=== PATIENT | male | born 1985 | race Caucasian/White ===

== ENCOUNTER 2021-07-04 03:37 | Emergency (ER) | payer OTHER ==
[2021-07-04 03:44] VITALS: TEMP 99.7
[2021-07-04 04:47] VITALS: RESP 18
--- NOTE | 2021-07-04 04:55 | ED ---
Overdose HPI - General Chief Complaint: Overdose Stated Complaint: Overdose Time Seen by Provider: 07/04/21 03:55 Source: patient, EMS Mode of arrival: EMS - History of Present Illness Initial Comments: Patient is 36-year-old man here after he had accidentally overdosed on heroin. Patient had orally ingested a small chunk of heroin and then was very somnolent. First responders were called and did administer Narcan. Complaint: accidental overdose -: minutes(s) How Overdose Was Discovered: family/friend present at time Context: Accidental Overdose: wanted to get high Treatments Prior to Arrival: narcan - Related Data Previous Rx's Medication Instructions Recorded Sulfamethox-Tmp 800-160Mg [Bactrim 2 each PO Q12HR #40 tab 07/04/21 Ds] Allergies Allergy/AdvReac Type Severity Reaction Status Date / Time No Known Allergies Allergy Verified 07/04/21 07:57 Review of Systems ROS Statement: Those systems with pertinent positive or pertinent negative responses have been documented in the HPI. ROS Other: All systems not noted in ROS Statement are negative. Constitutional: Denies: fever, chills Eyes: Denies: vision change Respiratory: Denies: cough, dyspnea Cardiovascular: Denies: chest pain, palpitations, edema Gastrointestinal: Denies: abdominal pain, vomiting, diarrhea Genitourinary: Denies: dysuria Musculoskeletal: Denies: back pain Skin: Reports: lesions Neurological: Denies: headache, weakness, numbness Past Medical History Past Medical History: No Reported History History of Any Multi-Drug Resistant Organisms: None Reported Past Surgical History: No Surgical Hx Reported Past Psychological History: No Psychological Hx Reported Smoking Status: Current every day smoker Past Alcohol Use History: Rare Past Drug Use History: Heroin, Marijuana General Exam General appearance: alert, in no apparent distress Head exam: Present: atraumatic, normocephalic Eye exam: Present: normal appearance. Absent: scleral icterus, conjunctival injection Neck exam: Present: normal inspection Respiratory exam: Present: normal lung sounds bilaterally. Absent: respiratory distress, wheezes, rales, rhonchi, stridor Cardiovascular Exam: Present: normal rhythm, tachycardia, normal heart sounds. Absent: systolic murmur, diastolic murmur, rubs, gallop GI/Abdominal exam: Present: soft. Absent: distended, tenderness, guarding, rebound, rigid Extremities exam: Present: normal inspection, normal capillary refill. Absent: pedal edema, calf tenderness Back exam: Present: normal inspection. Absent: CVA tenderness (R), CVA tenderness (L) Neurological exam: Present: alert Skin exam: Present: warm, dry, intact, normal color, other (The patient does have small lesion to left antecubital fossa which may be early abscess formation. There is erythema and warmth tenderness. The area is indurated no definite fluctuance.) Course Vital Signs 07/04/21 07/04/21 07/04/21 03:38 04:47 08:17 Temperature 99.7 F H Pulse Rate 150 H 121 H 110 H Respiratory 22 18 18 Rate Blood Pressure 130/84 108/87 124/84 O2 Sat by Pulse 98 98 96 Oximetry Medical Decision Making - Medical Decision Making The patient did request that I attempted to drain the small area in the left an acute low fossa. Discussed that this may not be mature yet but will attempt the laceration. I did administer 1% lidocaine as local anesthesia. Small stab incision made. No purulent drainage. - EKG Data -: EKG Interpreted by Me EKG shows normal: sinus rhythm, axis (Normal), intervals (Normal), QRS complexes (RSR prime pattern suggestive of right ventricular conduction delay. Posterior fascicular block.), ST-T waves (Normal) Rate: tachycardia (Rate 135 bpm) Disposition Clinical Impression: Accidental drug overdose, Abscess Disposition: HOME SELF-CARE Condition: Good Instructions (If sedation given, give patient instructions): Adult Overdose (ED) Prescriptions: Sulfamethox-Tmp 800-160Mg [Bactrim Ds] 2 each PO Q12HR #40 tab Is patient prescribed a controlled substance at d/c from ED?: No Referrals: Mar Ireland DO [Primary Care Provider] - 1-2 days
[2021-07-04] MEDS ORDERED: LIDOCAINE 1% INJ 10MG/ML (20 ML MDV) SQ ONE (06:05)
[2021-07-04 08:18] VITALS: BP 124/84; PULSE 110
== END 2021-07-04 08:17 | disposition home or self-care (01) ==
LOC: EC 03:37
DX: T40.1X1A Poisoning by heroin, accidental (unintentional), initial encounter (principal); L02.414 Cutaneous abscess of left upper limb; F17.200 Nicotine dependence, unspecified, uncomplicated; F12.90 Cannabis use, unspecified, uncomplicated
CPT/HCPCS: 99284; J2001

== ENCOUNTER 2022-11-19 00:38 | Emergency (ER) | payer OTHER ==
[2022-11-19 00:46] VITALS: RESP 16; TEMP 98.1
--- NOTE | 2022-11-19 02:06 | XR ---
EXAM: XR Chest, 2 Views CLINICAL HISTORY: ITS.REASON XR Reason: chest pain TECHNIQUE: Frontal and lateral views of the chest. COMPARISON: No relevant prior studies available. FINDINGS: Lungs: No consolidation or mass. Pleural space: No effusion. Heart: No cardiomegaly. Bones/joints: No acute findings. IMPRESSION: No acute cardiopulmonary process.
[2022-11-19 02:07] LABS: Basophils % (A) 0 %; Eosinophils # (A) 0.2 k/uL (0-0.7); Eosinophils % (A) 1 %; HCT 37.6 % (39.0-53.0); HGB 12.4 gm/dL (13.0-17.5); Lymphocytes # (A) 2.4 k/uL (1.0-4.8); Lymphocytes % (A) 19 %; MCH 29.6 pg (25.0-35.0); MCV 89.7 fL (80.0-100.0); Mean Platelet Volume 7.2; Monocytes # (A) 0.6 k/uL (0-1.0); Monocytes % (A) 5 %; Neutrophils # (A) 9.4 k/uL (1.3-7.7); Neutrophils % (A) 73 %; Platelet Count 311 k/uL (150-450); RDW 14.3 % (11.5-15.5); WBC 12.8 k/uL (3.8-10.6)
[2022-11-19 02:40] LABS: Partial Thromboplastin Time 26.5 sec (22.0-30.0); Prothrombin Time 10.6 sec (9.0-12.0)
[2022-11-19] MEDS ORDERED: ACETAMINOPHEN TAB 325 MG TAB PO STA (03:10)
[2022-11-19] MEDS ORDERED: KETOROLAC 15 MG/ML 1 ML VIAL IVP STA (03:11)
--- NOTE | 2022-11-19 03:17 | ED ---
General Adult HPI - General Source: patient, RN notes reviewed Mode of arrival: wheelchair Limitations: no limitations <Rosa Maria Pham - Last Filed: 11/19/22 04:24> <Talat Stark - Last Filed: 11/19/22 04:58> - General Chief complaint: Chest Pain Stated complaint: Chest Pain Time Seen by Provider: 11/19/22 00:59 - History of Present Illness Initial comments: 37-year-old male with no significant past medical history presents the emergency department with a chief complaint of left-sided chest pain. He reports the chest pain started at approximately 6 PM. He reports that it as sharp and dull ache. He reports that is constant. He denies any trauma or injury. He denies any provocation. It is worst with movement. He reports that he smokes tobacco products. Reports that he is on Suboxone. Cardiac or pulmonary history. He denies any fever, chills, cough, palpitations, shortness of breath, abdominal pain, nausea, vomiting, diarrhea. (Rosa Maria Pham) - Related Data Previous Rx's Medication Instructions Recorded Sulfamethox-Tmp 800-160Mg [Bactrim 2 each PO Q12HR #40 tab 07/04/21 Ds] Allergies Allergy/AdvReac Type Severity Reaction Status Date / Time No Known Allergies Allergy Verified 11/19/22 00:43 Review of Systems ROS Other: All systems not noted in ROS Statement are negative. <Rosa Maria Pham - Last Filed: 11/19/22 04:24> ROS Other: All systems not noted in ROS Statement are negative. <Talat Stark - Last Filed: 11/19/22 04:58> ROS Statement: Those systems with pertinent positive or pertinent negative responses have been documented in the HPI. Past Medical History Past Medical History: No Reported History History of Any Multi-Drug Resistant Organisms: None Reported Past Surgical History: No Surgical Hx Reported Past Psychological History: Bipolar, Depression Smoking Status: Current every day smoker Past Alcohol Use History: Occasional Past Drug Use History: Cocaine, Heroin, Marijuana <Rosa Maria Pham - Last Filed: 11/19/22 04:24> General Exam Limitations: no limitations <Rosa Maria Pham - Last Filed: 11/19/22 04:24> - General Exam Comments Initial Comments: General: Alert, in no acute distress Head: atraumatic normocephalic. Eyes PERRL, EOMI intact, mucous membranes moist Respiratory: Lungs clear to auscultation bilaterally Cardiovascular: Heart rate regular rate and rhythm Abdominal: Soft without guarding or rebound Extremities: Normal inspection with full range of motion and normal capillary refill Neuroogic: alert and oriented 3, CN II-XII intact, able to ambulate with steady gait Skin: warm dry and intact with normal color (Rosa Maria Pham) Course Vital Signs 11/19/22 11/19/22 00:43 04:13 Temperature 98.1 F Pulse Rate 91 66 Respiratory 16 16 Rate Blood Pressure 123/73 O2 Sat by Pulse 91 L Oximetry EKG Findings - EKG Comments: EKG Findings:: I interpreted the following: EKG performed at 00:51 rate 77 bpm and sinus arrhythmia OH interval 142, QRS duration 80, QT/Qtc 351/383 <Rosa Maria Pham - Last Filed: 11/19/22 04:24> Medical Decision Making - Lab Data Result diagrams: 11/19/22 01:27 11/19/22 03:28 <Rosa Maria Pham - Last Filed: 11/19/22 04:24> - Lab Data Result diagrams: 11/19/22 01:27 11/19/22 03:28 <Talat Stark - Last Filed: 11/19/22 04:58> - Medical Decision Making Was pt. sent in by a medical professional or institution (MAURY De Luna, FREEZER MACHINE OPERATOR, urgent care, hospital, or jail...) When possible be specific @ -No Did you speak to anyone other than the patient for history (EMS, parent, family, police, friend...)? What history was obtained from this source @ -No Did you review nursing and triage notes (agree or disagree)? Why? @ -I reviewed and agree with nursing and triage notes Were old charts reviewed (outside hosp., previous admission, EMS record, old EKG, old radiological studies, urgent care reports/EKG's, jail records)? Report findings @ -No old charts were reviewed Differential Diagnosis (chest pain, altered mental status, abdominal pain women, abdominal pain men, vaginal bleeding, weakness, fever, dyspnea, syncope, he adache, dizziness, GI bleed, back pain, seizure, CVA, palpatations, mental health, musculoskeletal)? @ Differential Chest Pain: Stable Angina, Unstable Angina, STEMI, NSTEMI Aortic Dissection, Pneumothorax, Musculoskeletal, Esophageal Spasm GERD, Cholecystitis, Pancreatitis, Zoster, this is not meant to be an all-inclusive list. EKG interpreted by me (3pts min.). @ -As above X-rays interpreted by me (1pt min.). @ Negative for acute cardiopulmonary disease, no pneumothorax no focal pneumonia. Reviewed and interpreted by myself CT interpreted by me (1pt min.). @ -None done U/S interpreted by me (1pt. min.). @ -None done What testing was considered but not performed or refused? (CT, X-rays, U/S, labs)? Why? @ -None What meds were considered but not given or refused? Why? @ -None Did you discuss the management of the patient with other professionals (professionals i.e. , PA, FREEZER MACHINE OPERATOR, lab, RT, psych nurse, social services specialist, practical nursing teacher, teacher, penal officer, major case detective)? Give summary @ -No Was smoking cessation discussed for >3mins.? @ -No Was critical care preformed (if so, how long)? @ -No Were there social determinants of health that impacted care today? How? (Homelessness, low income, unemployed, alcoholism, drug addiction, transportation, low edu. Level, literacy, decrease access to med. care, [facility], rehab)? @ -No Was there de-escalation of care discussed even if they declined (Discuss DNR or withdrawal of care, Hospice)? DNR status @ -No What co-morbidities impacted this encounter? (DM, HTN, Smoking, COPD, CAD, Cancer, CVA, ARF, Chemo, Hep., AIDS, mental health diagnosis, sleep apnea, morbid obesity)? @ -Illicit drugs Was patient admitted / discharged? Hospital course, mention meds given and route, prescriptions, significant lab abnormalities, going to OR and other pertinent info. @ -27-year-old male presenting with chest discomfort. EKG is sinus rhythm without ST segment elevation. Chest x-ray is clear. He has normal CBC, normal BNP, negative d-dimer, negative troponin. Patient reevaluated and does not have any further chest pain. Patient stable for discharge with outpatient follow-up. Undiagnosed new problem with uncertain prognosis? @ -No Drug Therapy requiring intensive monitoring for toxicity (Heparin, Nitro, Insulin, Cardizem)? @ -No Were any procedures done? @ -No Diagnosis/symptom? @ -Chest discomfort Acute, or Chronic, or Acute on Chronic? @ -Acute Uncomplicated (without systemic symptoms) or Complicated (systemic symptoms)? @ Uncomplicated Side effects of treatment? @ -No Exacerbation, Progression, or Severe Exacerbation? @ -No Poses a threat to life or bodily function? How? (Chest pain, [place], [place], pneumonia, PE, COPD, DKA, ARF, appy, cholecystitis, CVA, Diverticulitis, Homicidal, Suicid al, threat to staff... and all critical care pts) @ -Yes, chest pain (Talat Stark) - Lab Data Lab Results 11/19/22 11/19/22 11/19/22 Range/Units 01:27 01:27 01:27 WBC 12.8 H (3.8-10.6) k/uL RBC 4.20 L (4.30-5.90) m/uL Hgb 12.4 L (13.0-17.5) gm/dL Hct 37.6 L (39.0-53.0) % MCV 89.7 (80.0-100.0) fL MCH 29.6 (25.0-35.0) pg MCHC 33.0 (31.0-37.0) g/dL RDW 14.3 (11.5-15.5) % Plt Count 311 (150-450) k/uL MPV 7.2 Neutrophils % 73 % Lymphocytes % 19 % Monocytes % 5 % Eosinophils % 1 % Basophils % 0 % Neutrophils # 9.4 H (1.3-7.7) k/uL Lymphocytes # 2.4 (1.0-4.8) k/uL Monocytes # 0.6 (0-1.0) k/uL Eosinophils # 0.2 (0-0.7) k/uL Basophils # 0.0 (0-0.2) k/uL PT 10.6 (9.0-12.0) sec INR 1.0 (<1.2) APTT 26.5 (22.0-30.0) sec D-Dimer (<0.60) mg/L FEU Sodium (137-145) mmol/L Potassium (3.5-5.1) mmol/L Chloride (98-107) mmol/L Carbon Dioxide (22-30) mmol/L Anion Gap mmol/L BUN (9-20) mg/dL Creatinine (0.66-1.25) mg/dL Est GFR (CKD-EPI)AfAm (>60 ml/min/1.73 sqM) Est GFR (CKD-EPI)NonAf (>60 ml/min/1.73 sqM) Glucose (74-99) mg/dL Calcium (8.4-10.2) mg/dL Magnesium 1.7 (1.6-2.3) mg/dL Troponin I (0.000-0.034) ng/mL 11/19/22 11/19/22 11/19/22 Range/Units 01:27 03:28 04:16 WBC (3.8-10.6) k/uL RBC (4.30-5.90) m/uL Hgb (13.0-17.5) gm/dL Hct (39.0-53.0) % MCV (80.0-100.0) fL MCH (25.0-35.0) pg MCHC (31.0-37.0) g/dL RDW (11.5-15.5) % Plt Count (150-450) k/uL MPV Neutrophils % % Lymphocytes % % Monocytes % % Eosinophils % % Basophils % % Neutrophils # (1.3-7.7) k/uL Lymphocytes # (1.0-4.8) k/uL Monocytes # (0-1.0) k/uL Eosinophils # (0-0.7) k/uL Basophils # (0-0.2) k/uL PT (9.0-12.0) sec INR (<1.2) APTT (22.0-30.0) sec D-Dimer 0.23 (<0.60) mg/L FEU Sodium 134 L (137-145) mmol/L Potassium 4.1 (3.5-5.1) mmol/L Chloride 99 (98-107) mmol/L Carbon Dioxide 27 (22-30) mmol/L Anion Gap 8 mmol/L BUN 21 H (9-20) mg/dL Creatinine 0.80 (0.66-1.25) mg/dL Est GFR (CKD-EPI)AfAm >90 (>60 ml/min/1.73 sqM) Est GFR (CKD-EPI)NonAf >90 (>60 ml/min/1.73 sqM) Glucose 99 (74-99) mg/dL Calcium 8.4 (8.4-10.2) mg/dL Magnesium (1.6-2.3) mg/dL Troponin I <0.012 (0.000-0.034) ng/mL Disposition Is patient prescribed a controlled substance at d/c from ED?: No Time of Disposition: 04:03 <Rosa Maria Pham - Last Filed: 11/19/22 04:24> Time of Disposition: 04:58 <Talat Stark - Last Filed: 11/19/22 04:58> Clinical Impression: Chest pain Disposition: HOME SELF-CARE Condition: Stable Instructions (If sedation given, give patient instructions): Chest Pain (ED) Additional Instructions: Please return to the nearest emergency department if symptoms worsen or persist Referrals: Mar Ireland DO [Primary Care Provider] - 1-2 days
[2022-11-19 04:16] LABS: African American GFR (CKD) >90 (>60 ml/min/1.73 sqM); Anion Gap 8 mmol/L; Blood Urea Nitrogen 21 mg/dL (9-20); Calcium 8.4 mg/dL (8.4-10.2); Carbon Dioxide 27 mmol/L (22-30); Chloride 99 mmol/L (98-107); Glucose 99 mg/dL (74-99); Non-African American GFR(CKD) >90 (>60 ml/min/1.73 sqM); Potassium 4.1 mmol/L (3.5-5.1); Sodium 134 mmol/L (137-145)
[2022-11-19 05:10] VITALS: BP 122/80; PULSE 88
== END 2022-11-19 05:24 | disposition home or self-care (01) ==
LOC: EC 00:38
DX: R07.89 Other chest pain (principal); I21.9 Acute myocardial infarction, unspecified; J44.9 Chronic obstructive pulmonary disease, unspecified; E11.10 Type 2 diabetes mellitus with ketoacidosis without coma; N17.9 Acute kidney failure, unspecified; F17.200 Nicotine dependence, unspecified, uncomplicated; Z86.59 Personal history of other mental and behavioral disorders
CPT/HCPCS: 36415; 93005; 85379; 80048; 83735; 84484; 85025; 85610; 85730; 71046; 99285; 96374; J1885

== ENCOUNTER 2022-12-07 21:55 | Emergency (ER) | payer OTHER ==
[2022-12-07 22:15] VITALS: RESP 18
[2022-12-07] MEDS ORDERED: LORazepam 1 MG TAB PO STA (22:46)
[2022-12-08 00:27] LABS: Amphetamine Screen,Urine Detected (NotDetected); Barbiturate Screen,Urine Not Detected (NotDetected); Benzodiazepines Screen,Urine Not Detected (NotDetected); Cocaine Screen,Urine Not Detected (NotDetected); Methadone Screen, Urine Not Detected (NotDetected); Opiate Screen,Urine Detected (NotDetected); Oxycodone Screen, Urine Not Detected (NotDetected); Phencyclidine Screen,Urine Not Detected (NotDetected); Tricyclic Antidepressant,Urine Not Detected (NotDetected); Urn Cannabinoid Scrn Detected (NotDetected)
[2022-12-08] MEDS ORDERED: LORazepam 2 MG/ML INJ IM PRN (00:34)
[2022-12-08] MEDS ORDERED: HALOPERIDOL LACTATE 5 MG/ML 1 ML VIAL IM PRN (00:38)
--- NOTE | 2022-12-08 02:16 | ED ---
General Adult HPI - General Source: patient Mode of arrival: ambulatory Limitations: no limitations <Francisco J Corbin - Last Filed: 12/08/22 02:11> <Bal Gill - Last Filed: 12/08/22 10:02> - General Chief complaint: Psychiatric Symptoms Stated complaint: Mental Health Time Seen by Provider: 12/07/22 22:19 - History of Present Illness Initial comments: This is a 37-year-old male with a reported past medical history including manic depression presents emergency department for feeling "depressed and wanting to do something to himself." The patient was manic with flight of ideas and agitation on arrival however was able to answer questions appropriately. He stated that he had worsening thoughts of suicide as well as depression and not take any medications over the last 2 weeks. The patient reported to the triage nurse that he did do IV morphine and Adderall prior to arrival but adamantly refused this with me. The patient denied any homicidal ideation and denied any auditory or visual hallucinations at this time. (Francisco J Corbin) - Related Data Previous Rx's Medication Instructions Recorded Sulfamethox-Tmp 800-160Mg [Bactrim 2 each PO Q12HR #40 tab 07/04/21 Ds] Allergies Allergy/AdvReac Type Severity Reaction Status Date / Time No Known Allergies Allergy Verified 12/07/22 22:12 Review of Systems ROS Other: All systems not noted in ROS Statement are negative. <Francisco J Cobrin - Last Filed: 12/08/22 02:11> ROS Other: All systems not noted in ROS Statement are negative. <Bal Gill - Last Filed: 12/08/22 10:02> ROS Statement: Those systems with pertinent positive or pertinent negative responses have been documented in the HPI. Past Medical History Past Medical History: No Reported History History of Any Multi-Drug Resistant Organisms: None Reported Past Surgical History: No Surgical Hx Reported Past Psychological History: Bipolar, Depression Smoking Status: Current every day smoker Past Alcohol Use History: Occasional Past Drug Use History: Cocaine, Heroin, Marijuana, Prescription Drug Abuse <Francisco J Corbin - Last Filed: 12/08/22 02:11> General Exam Limitations: no limitations General appearance: alert, in no apparent distress, anxious Head exam: Present: atraumatic, normocephalic, normal inspection Eye exam: Present: normal appearance, PERRL Pupils: Present: normal accommodation ENT exam: Present: normal exam, normal oropharynx, mucous membranes moist Neck exam: Present: normal inspection, full ROM Respiratory exam: Present: normal lung sounds bilaterally Cardiovascular Exam: Present: regular rate, normal rhythm, normal heart sounds GI/Abdominal exam: Present: soft, normal bowel sounds Extremities exam: Present: normal inspection, full ROM, other (Multiple track antony noted on the bilateral upper extremities) Back exam: Present: normal inspection, full ROM Neurological exam: Present: alert, oriented X3, CN II-XII intact Psychiatric exam: Present: normal affect, normal mood Skin exam: Present: warm, dry <Francisco J Corbin - Last Filed: 12/08/22 02:11> Course Vital Signs 12/07/22 22:12 Temperature 98.9 F Pulse Rate 111 H Respiratory 18 Rate Blood Pressure 125/78 O2 Sat by Pulse 98 Oximetry Medical Decision Making <Francisco J Corbin - Last Filed: 12/08/22 02:11> <Bal Gill - Last Filed: 12/08/22 10:02> - Medical Decision Making Was pt. sent in by a medical professional or institution (, PA, ACCORDION REPAIRER, urgent care, hospital, or intermediate...) When possible be specific @ -No Did you speak to anyone other than the patient for history (EMS, parent, family, police, friend...)? What history was obtained from this source @ -No Did you review nursing and triage notes (agree or disagree)? Why? @ -I reviewed and agree with nursing and triage notes Were old charts reviewed (outside hosp., previous admission, EMS record, old EKG, old radiological studies, urgent care reports/EKG's, intermediate records)? Report findings @ -No old charts were reviewed Differential Diagnosis (chest pain, altered mental status, abdominal pain women, abdominal pain men, vaginal bleeding, weakness, fever, dyspnea, syncope, headache, dizziness, GI bleed, back pain, seizure, CVA, palpatations, mental health)? @ -Jose, psychosis, polysubstance abuse EKG interpreted by me (3pts min.). @ -None X-rays interpreted by me (1pt min.). @ -None done CT interpreted by me (1pt min.). @ -None done U/S interpreted by me (1pt. min.). @ -None done What testing was considered but not performed or refused? (CT, X-rays, U/S, labs)? Why? @ -None What meds were considered but not given or refused? Why? @ -None Did you discuss the management of the patient with other professionals (professionals i.e. Dr., PA, ACCORDION REPAIRER, lab, RT, psych nurse, social work professor, calcine furnace tender, teacher, digital marketing officer, therapeutic case manager)? Give summary @ -Yes, EPS nurse Was smoking cessation discussed for >3mins.? @ -Yes Was critical care preformed (if so, how long)? @ -No Were there social determinants of health that impacted care today? How? (Homelessness, low income, unemployed, alcoholism, drug addiction, transportation, low edu. Level, literacy, decrease access to med. care, retirement, rehab)? @ -Polysubstance abuse and addiction Was there de-escalation of care discussed even if they declined (Discuss DNR or withdrawal of care, Hospice)? DNR status @ -No What co-morbidities impacted this encounter? (DM, HTN, Smoking, COPD, CAD, Cancer, CVA, ARF, Chemo, Hep., AIDS, mental health diagnosis, sleep apnea, morbid obesity)? @ -Manic depression Was patient admitted / discharged? Hospital course, mention meds given and route, prescriptions, significant lab abnormalities, going to OR and other pertinent info. @ -The patient was seen and evaluated in the emergency department. Physical exam, the patient was pacing in his room, anxious and manic. The patient did have flight of ideas. The patient did admit to suicidal ideation without a plan. The patient had a breath alcohol level of 0 and therefore was medically cleared for EPS evaluation. The patient was seen and evaluated by EPS at the bedside and did have the psychiatrist order him Haldol and Ativan as well as a drug screen and rapid COVID-19 test in order to "better evaluate him" after medications. Rapid drug screen was positive for multiple substances including methamphetamines, amphetamines. COVID-19 was negative. The patient remained closely monitored observed in the emergency department and on reevaluation, EPS did recommend admission to the inpatient psychiatric facility. The patient was told of this and was agreeable. The patient was admitted in stable condition. Undiagnosed new problem with uncertain prognosis? @ -No Drug Therapy requiring intensive monitoring for toxicity (Heparin, Nitro, Insulin, Cardizem)? @ -No Were any procedures done? @ -No Diagnosis/symptom? @ -Acute jose, suicidal ideation Acute, or Chronic, or Acute on Chronic? @ -Acute on chronic Uncomplicated (without systemic symptoms) or Complicated (systemic symptoms)? @ -Complicated Side effects of treatment? @ -No Exacerbation, Progression, or Severe Exacerbation? @ -No Poses a threat to life or bodily function? How? (Chest pain, [place], [place], pneumonia, PE, COPD, DKA, ARF, appy, cholecystitis, CVA, Diverticulitis, Homicidal, Suicidal, threat to staff... and all critical care pts) @ -Yes, continued suicidal ideation can lead to attempt and possible . (Francisco J Corbin) Patient was reevaluated by EPS and myself patient denies any suicidal ideations. Psychiatric spoke with the patient and decided he could be discharged home. Psychiatrist patient go home and the psychiatrist gave the patient Seroquel (Bal Gill) - Lab Data Lab Results 12/07/22 12/07/22 Range/Units 23:44 23:47 Urine Opiates Screen Detected H (NotDetected) Ur Oxycodone Screen Not Detected (NotDetected) Urine Methadone Screen Not Detected (NotDetected) Ur Propoxyphene Screen Not Detected (NotDetected) Ur Barbiturates Screen Not Detected (NotDetected) U Tricyclic Antidepress Not Detected (NotDetected) Ur Phencyclidine Scrn Not Detected (NotDetected) Ur Amphetamines Screen Detected H (NotDetected) U Methamphetamines Scrn Detected H (NotDetected) U Benzodiazepines Scrn Not Detected (NotDetected) Urine Cocaine Screen Not Detected (NotDetected) U Marijuana (THC) Screen Detected H (NotDetected) Coronavirus (PCR) Not Detected (Not Detectd) Disposition <Francisco J Corbin - Last Filed: 12/08/22 02:11> Is patient prescribed a controlled substance at d/c from ED?: No Time of Disposition: 10:01 <Bal Gill - Last Filed: 12/08/22 10:02> Clinical Impression: Acute psychosis, Jose, Methamphetamine abuse Disposition: HOME SELF-CARE Condition: Stable Referrals: Mar Ireland DO [Primary Care Provider] - 1-2 days
[2022-12-08 10:21] VITALS: BP 139/109; PULSE 78; TEMP 97.4
== END 2022-12-08 10:21 | disposition home or self-care (01) ==
LOC: EC 21:55
DX: F23 Brief psychotic disorder (principal); F30.9 Manic episode, unspecified; F15.10 Other stimulant abuse, uncomplicated; F17.200 Nicotine dependence, unspecified, uncomplicated; F12.90 Cannabis use, unspecified, uncomplicated; F14.90 Cocaine use, unspecified, uncomplicated; F11.90 Opioid use, unspecified, uncomplicated; Z20.822 Contact with and (suspected) exposure to COVID-19
CPT/HCPCS: 82075; 80306; 87635; 99284; 96372 ×2; J2060; J1630

== ENCOUNTER 2023-02-17 15:16 | Emergency (ER) | payer OTHER ==
[2023-02-17 16:57] VITALS: TEMP 98.2
[2023-02-17 17:13] VITALS: RESP 18
[2023-02-17] MEDS ORDERED: IBUPROFEN 800 MG TAB PO STA (18:14)
--- NOTE | 2023-02-17 18:16 | ED ---
General Adult HPI - General Chief complaint: Skin/Abscess/Foreign Body Stated complaint: boil on back Time Seen by Provider: 02/17/23 17:04 Source: patient, RN notes reviewed Mode of arrival: wheelchair Limitations: no limitations - History of Present Illness Initial comments: 37-year-old male past medical history significant for polysubstance abuse presents to the emergency department with a chief complaint of possible abscess. Patient reports feeling worsening pain and redness to the right buttock that started earlier this afternoon when he was walking. He denies any injury or trauma. He denies any fever, chills. He reports it is painful. He has not taken anything for his symptoms. - Related Data Previous Rx's Medication Instructions Recorded Sulfamethox-Tmp 800-160Mg [Bactrim 2 each PO Q12HR #40 tab 07/04/21 Ds] Cephalexin [Keflex] 500 mg PO Q6HR #40 cap 02/17/23 Allergies Allergy/AdvReac Type Severity Reaction Status Date / Time No Known Allergies Allergy Verified 02/17/23 16:57 Review of Systems ROS Statement: Those systems with pertinent positive or pertinent negative responses have been documented in the HPI. ROS Other: All systems not noted in ROS Statement are negative. Past Medical History Past Medical History: No Reported History History of Any Multi-Drug Resistant Organisms: None Reported Past Surgical History: No Surgical Hx Reported Past Psychological History: Bipolar, Depression Smoking Status: Current every day smoker Past Alcohol Use History: Occasional Past Drug Use History: Cocaine, Heroin, Marijuana, Prescription Drug Abuse General Exam - General Exam Comments Initial Comments: General: Alert, in no acute distress Head: atraumatic normocephalic. Eyes PERRL, EOMI intact, mucous membranes moist Respiratory: Lungs clear to auscultation bilaterally Cardiovascular: Heart rate regular rate and rhythm Abdominal: Soft without guarding or rebound Extremities: Normal inspection with full range of motion and normal capillary refill Neuroogic: alert and oriented 3, CN II-XII intact, able to ambulate with steady gait Skin: warm dry and intact with normal color, right buttock with 3cm x 2 cm linear area of erythema. Not fluctuant. Mild tenderness. Limitations: no limitations Course Vital Signs 02/17/23 02/17/23 02/17/23 16:54 17:10 19:01 Temperature 98.2 F Pulse Rate 86 73 78 Respiratory 20 18 18 Rate Blood Pressure 79/45 113/61 104/58 O2 Sat by Pulse 97 98 97 Oximetry Medical Decision Making - Medical Decision Making Was pt. sent in by a medical professional or institution ([facility] De Luna, [facility], urgent care, hospital, or residential...) When possible be specific @ -[No] Did you speak to anyone other than the patient for history (EMS, parent, family, police, friend...)? What history was obtained from this source @ -[No] Did you review nursing and triage notes (agree or disagree)? Why? @ -[I reviewed and agree with nursing and triage notes] Were old charts reviewed (outside hosp., previous admission, EMS record, old EKG, old radiological studies, urgent care reports/EKG's, residential records)? Report findings @ -[No old charts were reviewed] Differential Diagnosis (chest pain, altered mental status, abdominal pain women, abdominal pain men, vaginal bleeding, weakness, fever, dyspnea, syncope, headache, dizziness, GI bleed, back pain, seizure, CVA, palpatations, mental health, musculoskeletal)? @ -[not applicable] EKG interpreted by me (3pts min.). @ -[As above] X-rays interpreted by me (1pt min.). @ -[None done] CT interpreted by me (1pt min.). @ -[None done] U/S interpreted by me (1pt. min.). @ -[None done] What testing was considered but not performed or refused? (CT, X-rays, U/S, labs)? Why? @ -Laboratory studies including CBC and CMP were considered however patient symptoms started an hour prior to arrival. He denies any systemic symptoms at the The time of evaluation What meds were considered but not given or refused? Why? @ -[None] Did you discuss the management of the patient with other professionals (professionals i.e. MAURY De Luna, MILK HAULER, lab, RT, psych nurse, adoption social worker, nub card tender, teacher, forest officer, catalytic case operator)? Give summary @ -[No] Was smoking cessation discussed for >3mins.? @ -[No] Was critical care preformed (if so, how long)? @ -[No] Were there social determinants of health that impacted care today? How? (Homelessness, low income, unemployed, alcoholism, drug addiction, transportation, low edu. Level, literacy, decrease access to med. care, fdc, rehab)? @ -[No] Was there de-escalation of care discussed even if they declined (Discuss DNR or withdrawal of care, Hospice)? DNR status @ -[No] What co-morbidities impacted this encounter? (DM, HTN, Smoking, COPD, CAD, Cancer, CVA, ARF, Chemo, Hep., AIDS, mental health diagnosis, sleep apnea, morbid obesity)? @ - Was patient admitted / discharged? Hospital course, mention meds given and route, prescriptions, significant lab abnormalities, going to OR and other pertinent info. @ -Discharged. This is a 37-year-old male with a past medical history significant for polysubstance abuse who presents the emergency department for possible abscess. Patient had a thorough history and physical exam performed while in the ED. Physical exam reveals a 6 small area of erythema to right buttock. No fluctuance. It is mildly tender. Patient had Neosporin and bandage applied. He was given Keflex for prophylaxis. Return precautions were discussed at length. Patient patient discharged in stable condition. Undiagnosed new problem with uncertain prognosis? @ -[No] Drug Therapy requiring intensive monitoring for toxicity (Heparin, Nitro, Insulin, Cardizem)? @ -[No] Were any procedures done? @ -[No] Diagnosis/symptom? @ -Rash to Right Buttock Acute, or Chronic, or Acute on Chronic? @ -Acute Uncomplicated (without systemic symptoms) or Complicated (systemic symptoms)? @ -Uncomplicated Side effects of treatment? @ -[No] Exacerbation, Progression, or Severe Exacerbation? @ -[No] Poses a threat to life or bodily function? How? (Chest pain, USA, [place], pneumonia, PE, COPD, DKA, ARF, appy, cholecystitis, CVA, Diverticulitis, Homicidal, Suicidal, threat to staff... and all critical care pts) @ -Low likelihood Disposition Clinical Impression: Cellulitis Disposition: HOME SELF-CARE Condition: Stable Additional Instructions: Please take antibiotics as prescribed Please take Tylenol Motrin for pain as needed Please apply warm compresses Please return to the nearest emergency department symptoms worsen or persist Prescriptions: Cephalexin [Keflex] 500 mg PO Q6HR #40 cap Is patient prescribed a controlled substance at d/c from ED?: No Referrals: Mar Ireland DO [Primary Care Provider] - 1-2 days Time of Disposition: 18:16
[2023-02-17] MEDS ORDERED: BACITRACIN OINT 1 EACH PACKET TOPICAL ONE (18:21)
[2023-02-17 19:02] VITALS: BP 104/58; PULSE 78
== END 2023-02-17 19:02 | disposition home or self-care (01) ==
LOC: EC 15:16
DX: L03.317 Cellulitis of buttock (principal); F17.200 Nicotine dependence, unspecified, uncomplicated; F12.90 Cannabis use, unspecified, uncomplicated; Z86.59 Personal history of other mental and behavioral disorders
CPT/HCPCS: 99282

== ENCOUNTER 2023-05-25 21:50 | Inpatient (IN) | payer MEDICAID, OTHER ==
--- NOTE | 2023-05-25 22:54 | ED ---
General Adult HPI - General Source: patient, RN notes reviewed, old records reviewed Mode of arrival: ambulatory Limitations: no limitations <Talat Stark - Last Filed: 05/25/23 22:53> <Keyon Maddox - Last Filed: 05/26/23 13:44> - General Chief complaint: Psychiatric Symptoms Stated complaint: mental health Time Seen by Provider: 05/25/23 22:22 - History of Present Illness Initial comments: 37 -year-old male presenting for suicidal ideation, depression. Patient is still illicit drugs. He states that he does not have a specific plan but has been contemplating suicide for some time. No physical complaints. (Talat Stark) - Related Data Home Medications Medication Instructions Recorded Confirmed No Known Home Medications 05/26/23 05/26/23 Allergies Allergy/AdvReac Type Severity Reaction Status Date / Time No Known Allergies Allergy Verified 05/26/23 11:48 Review of Systems ROS Other: All systems not noted in ROS Statement are negative. <Talat Stark - Last Filed: 05/25/23 22:53> ROS Other: All systems not noted in ROS Statement are negative. <Keyon Maddox - Last Filed: 05/26/23 13:44> ROS Statement: Those systems with pertinent positive or pertinent negative responses have been documented in the HPI. Past Medical History Past Medical History: No Reported History History of Any Multi-Drug Resistant Organisms: None Reported Past Surgical History: No Surgical Hx Reported Past Psychological History: Bipolar, Depression Smoking Status: Current every day smoker Past Alcohol Use History: Occasional Past Drug Use History: Cocaine, Heroin, Marijuana, Prescription Drug Abuse <Talat Stark - Last Filed: 05/25/23 22:53> General Exam Limitations: no limitations General appearance: alert, in no apparent distress Head exam: Present: atraumatic, normocephalic Eye exam: Present: normal appearance ENT exam: Present: normal exam Neck exam: Present: normal inspection. Absent: tenderness, meningismus Respiratory exam: Present: normal lung sounds bilaterally. Absent: respiratory distress, wheezes Cardiovascular Exam: Present: regular rate, normal rhythm GI/Abdominal exam: Present: soft. Absent: distended, tenderness, guarding Neurological exam: Present: alert, oriented X3, CN II-XII intact. Absent: motor sensory deficit Psychiatric exam: Present: depressed, anxious, suicidal ideation Skin exam: Present: warm, dry, intact <Talat Stark - Last Filed: 05/25/23 22:53> Course <Talat Stark Isaak - Last Filed: 05/25/23 22:53> Vital Signs 05/25/23 21:54 Temperature 98.2 F Pulse Rate 83 Respiratory 18 Rate Blood Pressure 149/83 O2 Sat by Pulse 100 Oximetry - Reevaluation(s) Reevaluation #1: 05/25/23 22:54 Patient cleared for EPS. (HugogillesTalat Isaak) Medical Decision Making <Keyon Maddox - Last Filed: 05/26/23 13:44> - Medical Decision Making Was pt. sent in by a medical professional or institution ([facility] Luna, EQUIPMENT TECHNICIAN, urgent care, hospital, or jail...) When possible be specific @ -No Did you speak to anyone other than the patient for history (EMS, parent, family, police, friend...)? What history was obtained from this source @ -No Did you review nursing and triage notes (agree or disagree)? Why? @ -I reviewed and agree with nursing and triage notes Were old charts reviewed (outside hosp., previous admission, EMS record, old EKG, old radiological studies, urgent care reports/EKG's, jail records)? Report findings @ -No old charts were reviewed Differential Diagnosis (chest pain, altered mental status, abdominal pain women, abdominal pain men, vaginal bleeding, weakness, fever, dyspnea, syncope, headache, dizziness, GI bleed, back pain, seizure, CVA, palpatations, mental health, musculoskeletal)? @ -Differential Mental Health Depression, anxiety, bipolar, psychosis, schizophrenia, borderline personality, situational depression, adjustment disorder, behavioral disorder, brain tumor, malingering, substance abuse, encephalopathy, medication reaction, dementia, hypothyroidism, degenerative neurologic disorder, lupus.... This is not meant to be all-inclusive list EKG interpreted by me (3pts min.). @ -As above X-rays interpreted by me (1pt min.). @ -None done CT interpreted by me (1pt min.). @ -None done U/S interpreted by me (1pt. min.). @ -None done What testing was considered but not performed or refused? (CT, X-rays, U/S, labs)? Why? @ -None What meds were considered but not given or refused? Why? @ -None Did you discuss the management of the patient with other professionals (larry marc i.e. , PA, EQUIPMENT TECHNICIAN, lab, RT, psych nurse, hospital social worker, animal feeder, teacher, ground nuclear weapons assembly officer, correctional casework specialist)? Give summary @ -Case was discussed with mental health worker with plans for discharge. Was smoking cessation discussed for >3mins.? @ -No Was critical care preformed (if so, how long)? @ -No Were there social determinants of health that impacted care today? How? (Homelessness, low income, unemployed, alcoholism, drug addiction, transportation, low edu. Level, literacy, decrease access to med. care, snf, rehab)? @ -No Was there de-escalation of care discussed even if they declined (Discuss DNR or withdrawal of care, Hospice)? DNR status @ -No What co-morbidities impacted this encounter? (DM, HTN, Smoking, COPD, CAD, Cancer, CVA, ARF, Chemo, Hep., AIDS, mental health diagnosis, sleep apnea, morbid obesity)? @ -None Was patient admitted / discharged? Hospital course, mention meds given and route, prescriptions, significant lab abnormalities, going to OR and other pertinent info. @ -Patient reevaluated. Patient requesting discharge home. Patient denies suicidal ideation and contracts for safety. Patient is agreeable to follow up with [facility]. Undiagnosed new problem with uncertain prognosis? @ -No Drug Therapy requiring intensive monitoring for toxicity (Heparin, Nitro, Insulin, Cardizem)? @ -No Were any procedures done? @ -No Diagnosis/symptom? @ -Depression, agitation Acute, or Chronic, or Acute on Chronic? @ -Acute on chronic Uncomplicated (without systemic symptoms) or Complicated (systemic symptoms)? @ -default Side effects of treatment? @ -No Exacerbation, Progression, or Severe Exacerbation? @ -No Poses a threat to life or bodily function? How? (Chest pain, [place], [place], pneumonia, PE, COPD, DKA, ARF, appy, cholecystitis, CVA, Diverticulitis, Homicidal, Suicidal, threat to staff... and all critical care pts) @ -No (Keyon Maddox) - Lab Data Lab Results 05/25/23 Range/Units 22:57 Urine Opiates Screen Not Detected (NotDetected) Ur Oxycodone Screen Not Detected (NotDetected) Urine Methadone Screen Not Detected (NotDetected) Ur Propoxyphene Screen Not Detected (NotDetected) Ur Barbiturates Screen Not Detected (NotDetected) U Tricyclic Antidepress Not Detected (NotDetected) Ur Phencyclidine Scrn Not Detected (NotDetected) Ur Amphetamines Screen Not Detected (NotDetected) U Methamphetamines Scrn Not Detected (NotDetected) U Benzodiazepines Scrn Detected H (NotDetected) Urine Cocaine Screen Not Detected (NotDetected) U Marijuana (THC) Screen Not Detected (NotDetected) Disposition <Talat Stark - Last Filed: 05/25/23 22:53> Is patient prescribed a controlled substance at d/c from ED?: No Time of Disposition: 13:44 <Keyon Maddox - Last Filed: 05/26/23 13:44> Clinical Impression: Depression, Adjustment reaction of adult life Disposition: HOME SELF-CARE Condition: Stable Instructions (If sedation given, give patient instructions): Depression (ED) Additional Instructions: Discontinue drug use. Please follow-up with community mental health as directed. Please do follow-up to primary care physician in the next day or 2 for recheck. Return for thoughts of self-harm, thoughts of harming others, worsening symptoms or other concerns. Referrals: Lobito Dahl MD [Primary Care Provider] - 1-2 days
[2023-05-25 23:33] LABS: Amphetamine Screen,Urine Not Detected (NotDetected); Barbiturate Screen,Urine Not Detected (NotDetected); Benzodiazepines Screen,Urine Detected (NotDetected); Cocaine Screen,Urine Not Detected (NotDetected); Methadone Screen, Urine Not Detected (NotDetected); Opiate Screen,Urine Not Detected (NotDetected); Oxycodone Screen, Urine Not Detected (NotDetected); Phencyclidine Screen,Urine Not Detected (NotDetected); Tricyclic Antidepressant,Urine Not Detected (NotDetected); Urn Cannabinoid Scrn Not Detected (NotDetected)
[2023-05-26] MEDS ORDERED: LORazepam 1 MG TAB PO STA (02:30)
--- NOTE | 2023-05-26 15:04 | ED ---
Medical Decision Making - Medical Decision Making Patient became more agitated prior to discharge. Patient making suicidal threats. Patient again seen by mental health services with plan for psychiatric admission. - Lab Data Lab Results 05/25/23 Range/Units 22:57 Urine Opiates Screen Not Detected (NotDetected) Ur Oxycodone Screen Not Detected (NotDetected) Urine Methadone Screen Not Detected (NotDetected) Ur Propoxyphene Screen Not Detected (NotDetected) Ur Barbiturates Screen Not Detected (NotDetected) U Tricyclic Antidepress Not Detected (NotDetected) Ur Phencyclidine Scrn Not Detected (NotDetected) Ur Amphetamines Screen Not Detected (NotDetected) U Methamphetamines Scrn Not Detected (NotDetected) U Benzodiazepines Scrn Detected H (NotDetected) Urine Cocaine Screen Not Detected (NotDetected) U Marijuana (THC) Screen Not Detected (NotDetected) Disposition Clinical Impression: Depression, Adjustment reaction of adult life Disposition: TRANSFER TO PSYCH HOSP/UNIT Condition: Stable Instructions (If sedation given, give patient instructions): Depression (ED) Additional Instructions: Discontinue drug use. Please follow-up with community mental health as directed. Please do follow-up to primary care physician in the next day or 2 f or recheck. Return for thoughts of self-harm, thoughts of harming others, worsening symptoms or other concerns. Is patient prescribed a controlled substance at d/c from ED?: No Referrals: Lobito Dahl MD [Primary Care Provider] - 1-2 days Time of Disposition: 15:04
[2023-05-26] MEDS ORDERED: ACETAMINOPHEN TAB 325 MG TAB PO PRN (19:52)
[2023-05-26] MEDS ORDERED: haloperidoL 5 MG TAB PO PRN (19:52)
[2023-05-26] MEDS ORDERED: traZODone HCL 50 MG TAB PO PRN (19:52)
[2023-05-26] MEDS ORDERED: LORazepam 2 MG/ML INJ IM PRN (19:52)
[2023-05-26] MEDS ORDERED: MAGNESIUM HYDROXIDE 2,400 MG/30 ML CUP PO PRN (19:52)
[2023-05-26] MEDS ORDERED: HALOPERIDOL LACTATE 5 MG/ML 1 ML VIAL IM PRN (19:52)
[2023-05-26] MEDS ORDERED: IBUPROFEN 600 MG TAB PO PRN (19:52)
[2023-05-26] MEDS: LORazepam 1 MG TAB PO PRN (22:12)
[2023-05-27] MEDS: NICOTINE 21MG/24HR PATCH TRANSDERM SCH (08:22)
[2023-05-27 09:51] LABS: Basophils % (A) 1 %; Eosinophils # (A) 0.3 k/uL (0-0.7); Eosinophils % (A) 4 %; HCT 43.4 % (39.0-53.0); HGB 14.1 gm/dL (13.0-17.5); Lymphocytes % (A) 38 %; MCH 29.3 pg (25.0-35.0); MCHC 32.4 g/dL (31.0-37.0); MCV 90.4 fL (80.0-100.0); Mean Platelet Volume 7.1; Monocytes # (A) 0.5 k/uL (0-1.0); Monocytes % (A) 7 %; Neutrophils # (A) 3.8 k/uL (1.3-7.7); Neutrophils % (A) 48 %; Platelet Count 309 k/uL (150-450); RDW 13.5 % (11.5-15.5); WBC 7.8 k/uL (3.8-10.6)
[2023-05-27 10:06] LABS: ALT 43 U/L (4-49); AST 43 U/L (17-59); African American GFR (CKD) >90 (>60 ml/min/1.73 sqM); Albumin 3.8 g/dL (3.5-5.0); Alkaline Phosphatase 75 U/L (38-126); Anion Gap 8 mmol/L; Blood Urea Nitrogen 25 mg/dL (9-20); Calcium 9.2 mg/dL (8.4-10.2); Carbon Dioxide 29 mmol/L (22-30); Chloride 100 mmol/L (98-107); Glucose 85 mg/dL (74-99); Non-African American GFR(CKD) >90 (>60 ml/min/1.73 sqM); Potassium 4.5 mmol/L (3.5-5.1); Sodium 137 mmol/L (137-145); Total Bilirubin 0.3 mg/dL (0.2-1.3); Total Protein 6.8 g/dL (6.3-8.2)
[2023-05-27 10:11] LABS: Appearance,Urine Clear (Clear); Bilirubin,Urine Negative (Negative); Blood,Urine Negative (Negative); Color,Urine Light Yellow; Glucose,Urine (UA) Negative (Negative); Ketones,Urine Negative (Negative); Leukocyte Esterase,Urine Negative (Negative); Nitrite,Urine Negative (Negative); PH, Urine 5.5 (5.0-8.0); Protein,Urine Negative (Negative); Specific Gravity,Urine 1.022 (1.001-1.035); Urobilinogen,Urine <2.0 mg/dL (<2.0)
--- NOTE | 2023-05-27 13:03 | P.HP ---
Psychiatric H&P - . H&P Date: 05/27/23 History & Physical: Allergies Allergy/AdvReac Type Severity Reaction Status Date / Time No Known Allergies Allergy Verified 05/26/23 11:48 Vital Signs Temp 98.0 F 05/26/23 21:14 Pulse 66 05/26/23 21:14 Resp 18 05/26/23 21:14 BP 127/97 05/26/23 21:14 Pulse Ox 100 05/26/23 21:14 FiO2 Intake & Output 05/26/23 05/27/23 05/27/23 18:59 06:59 18:59 Weight 63.219 kg Laboratory Last Values WBC 7.8 k/uL (3.8-10.6) 05/27/23 08:49 RBC 4.80 m/uL (4.30-5.90) 05/27/23 08:49 Hgb 14.1 gm/dL (13.0-17.5) 05/27/23 08:49 Hct 43.4 % (39.0-53.0) 05/27/23 08:49 MCV 90.4 fL (80.0-100.0) 05/27/23 08:49 MCH 29.3 pg (25.0-35.0) 05/27/23 08:49 MCHC 32.4 g/dL (31.0-37.0) 05/27/23 08:49 RDW 13.5 % (11.5-15.5) 05/27/23 08:49 Plt Count 309 k/uL (150-450) 05/27/23 08:49 MPV 7.1 05/27/23 08:49 Neutrophils % 48 % 05/27/23 08:49 Lymphocytes % 38 % 05/27/23 08:49 Monocytes % 7 % 05/27/23 08:49 Eosinophils % 4 % 05/27/23 08:49 Basophils % 1 % 05/27/23 08:49 Neutrophils # 3.8 k/uL (1.3-7.7) 05/27/23 08:49 Lymphocytes # 3.0 k/uL (1.0-4.8) 05/27/23 08:49 Monocytes # 0.5 k/uL (0-1.0) 05/27/23 08:49 Eosinophils # 0.3 k/uL (0-0.7) 05/27/23 08:49 Basophils # 0.0 k/uL (0-0.2) 05/27/23 08:49 Urine Opiates Screen Not Detected (NotDetected) 05/25/23 22:57 Ur Oxycodone Screen Not Detected (NotDetected) 05/25/23 22:57 Urine Methadone Screen Not Detected (NotDetected) 05/25/23 22:57 Ur Propoxyphene Screen Not Detected (NotDetected) 05/25/23 22:57 Ur Barbiturates Screen Not Detected (NotDetected) 05/25/23 22:57 U Tricyclic Antidepress Not Detected (NotDetected) 05/25/23 22:57 Ur Phencyclidine Scrn Not Detected (NotDetected) 05/25/23 22:57 Ur Amphetamines Screen Not Detected (NotDetected) 05/25/23 22:57 U Methamphetamines Scrn Not Detected (NotDetected) 05/25/23 22:57 U Benzodiazepines Scrn Detected (NotDetected) H 05/25/23 22:57 Urine Cocaine Screen Not Detected (NotDetected) 05/25/23 22:57 U Marijuana (THC) Screen Not Detected (NotDetected) 05/25/23 22:57 SARS-CoV-2 (PCR) Not Detected (Not Detectd) 05/26/23 16:45 05/27/23 09:57 IDENTIFYING DATA: Patient is a 37-year-old male, homeless, stays in the back of his grandfather's car. Single, no children. Unemployed for a few months.. HPI: Patient presented to the hospital ED on 05/25, as per EPS note, "patient says he's hopeless and helpless. He is tangential, vague with dates and timeline, appears malingering , mumbling, unemployed, homeless, paranoid with no VH reported. " Patient states he was 'going through a bad time, and threatened to hurt himself. Stressors include homelessness, sick mother, unemployment, .Admits to having high anxiety and depression. States his sleep has been poor, and his appetite is increasing. Patient focused on medication, and appears to be med seeking. patient states that he has possible episodes of jose in the past unrelated to d rug use. Patient denies any current suicidal or homicidal ideations intent or plan. At this time patient denies any auditory or visual hallucinations. Patient denies any flight of ideas racing thoughts and increased in goal directed behavior. Patient admits to using "vicodin and shit like that" referring to opiates, previously on suboxone. Everyday smoker. Denies alcohol use. PAST PSYCHIATRIC HISTORY: Patient states that he was in [place] last year and admitted himself into a psychiatric hospitalization, due to homelessness. Patient outpatient follow-up at [facility] however does not know who his psychiatrist is.. Patient has history of suicide attempts in the past on an overdose when his daughter when pt was 22. he was previously on neruontin, wellbutrin and seroquel however is not on it currently. PMH: per ED record ALLERGIES: as per EMR CHEMICAL DEPENDENCY HISTORY: as per HPI FAMILY PSYCHIATRIC/SUBSTANCE USE HISTORY: "all of them" Patient described, depression, bipolar, PTSD, and stated his mother has Register's disease as well. SOCIAL HISTORY: Patient was born and raised in [place]. High school graduate. Homeless, and unemployed. Patient is single, with no living children. Was incarcerated in 2016 for possession. MENTAL STATUS EXAM: General Appearance: Patient appears to be short in stature, short hair and statuyre, facial haid, multiple tattoos. Stated age is alert, directable, and attempts to cooperate. Patient appears to have fair hygiene and grooming. Behavior: Patient is seated without any agitated behavior. Med seeking Speech: Patient's speech is fluent and nonpressured. Mood/Affect: Patient reports their mood is depressed and anxious, affect is congruent and constricted. Suicidality/Homicidality: Patient denies having any homicidal ideation intent or plan. Denies any suicidal ideations intent or plan Perceptions: Patient denies any visual hallucinations and denies any auditory hallucinations Though content/process: There is no evidence of any delusional thought content and thought process is linear and goal-directed. Memory and concentration: AOX3, grossly intact for the purposes of this session. Can spell "WORLD" backwards Judgment and insight: poor STRENGTHS/WEAKNESSES: strength is that patient is resilient. Weakness is that patient has poor judgment and is impulsive INTELLECT: average IMPRESSIONS: depressive disorder unspecified rule out bipolar depression Anxiety disorder unspecified Opioid abuse Nicotine dependence Homelessness PLAN: -Patient is admitted under voluntary status to [facility] for stabilization of psychia tric symptoms and safety. Patient has signed adult voluntary form and medication consent and is placed in patient's chart. -Medications : Will start patient on seroquel 50 mg qhs for mood stabilizatio n/insomnia , trazadone 50 qhs prn for insomnia, Zoloft 50mg daily for mood/anxiety -Ativan and Haldol PRN for agitation/aggression -Patient was counselled on substance abuse and desired to cut back on use -Patient was informed of the risks, benefits and side effects of the medication and patient verbally consented to taking the medications. Patient signed med consent form and was placed in chart. -Internal Medicine consult to perform medical evaluation and physical. -NRT - nicotine patch -SW on board for discharge planning. Encourage patient to participate in groups to work on coping skills. 05/27/23 12:39 05/27/23 13:00
[2023-05-27] MEDS: SERTRALINE 50 MG TAB PO SCH (13:31)
[2023-05-27 15:55] LABS: Chol/HDL Ratio 3.06 Ratio; LDL Cholesterol,Calculated 87.3 mg/dL (0.0-131.0)
--- NOTE | 2023-05-27 16:41 | CONS ---
CONSULTATION The patient was admitted with depression. He is not a patient of our practice. When I went to see him, he was not in his bedside. I will return in the next 24 hours to do the evaluation. RONDA / МАРИНА: [phone] /
[2023-05-27 18:01] LABS: Urine Alcohol Negative (Negative); Urine Barbiturate Negative (Negative); Urine Cocaine Negative (Negative); Urine Methadone Negative (Negative); Urine Opiates Negative (Negative); Urine Phencyclidine Negative (Negative)
[2023-05-27] MEDS: QUEtiapine 50 MG TAB PO SCH (20:35)
[2023-05-27] MEDS: traZODone HCL 50 MG TAB PO PRN (21:38)
[2023-05-28] MEDS: NICOTINE 21MG/24HR PATCH TRANSDERM SCH (09:16)
[2023-05-28] MEDS: SERTRALINE 50 MG TAB PO SCH (09:16)
--- NOTE | 2023-05-28 11:52 | P.PN ---
Progress Note - Text Progress Note Date: 05/28/23 Interval History: Patient was seen today laying in bed. He was approached by teletypewriter installer to speak today however patient claimed that he did not want to speak brighter today. He refused interview and states "I'll talk to maybe tomorrow". MENTAL STATUS EXAM: General Appearance: Patient appears to be short in stature, short hair and statuyre, facial haid, multiple tattoos. Stated age is alert, directable, and attempts to cooperate. Patient appears to have fair hygiene and grooming. Behavior: Patient is cooperative today. Speech: Patient's speech is fluent and nonpressured. [place] Mood/Affect: Unable to gather Suicidality/Homicidality: Able to gather Perceptions: Unable to gather Though content/process: There is no evidence of any delusional thought content. [place], positive content Memory and concentration: Unable to gather Judgment and insight: poor Assessment: depressive disorder unspecified rule out bipolar depression Anxiety disorder unspecified Opioid abuse Nicotine dependence Homelessness Plan: -Patient is admitted under voluntary status to [facility] for stabilization of psychiatric symptoms and safety. Patient has signed adult voluntary form and medication consent and is placed in patient's chart. -Medications : seroquel 50 mg qhs for mood stabilization/insomnia , trazadone 50 qhs prn for insomnia, Zoloft 50mg daily for mood/anxiety -Ativan and Haldol PRN for agitation/aggression -NRT - nicotine patch -SW on board for discharge planning. Encourage patient to participate in groups to work on coping skills
[2023-05-28] MEDS: MAG HYDROX/AL HYDROX/SIMETH 30 ML CUP PO PRN (15:11)
[2023-05-28] MEDS: traZODone HCL 50 MG TAB PO PRN (20:47)
[2023-05-28] MEDS: QUEtiapine 50 MG TAB PO SCH (20:47)
[2023-05-28] MEDS: LORazepam 1 MG TAB PO PRN (21:36)
--- NOTE | 2023-05-28 22:49 | CONS ---
CONSULTATION CHIEF COMPLAINT: Major depression with suicidal thoughts and opioid addiction. HISTORY OF PRESENT ILLNESS: This is a 37-year-old white male, who was admitted for depression with suicidal thoughts and he is also abusing opiates. He has been on Suboxone before. REVIEW OF SYSTEMS: He denies any headaches, problems with vision or hearing, chest pain, shortness of breath, abdominal pain, nausea, vomiting, diabetes, seizures, etc. Past medical history, family history, and personal and social histories are otherwise unremarkable and noncontributory. He is not allergic to any medication. He does smoke about a pack of cigarettes a day. PHYSICAL EXAMINATION: VITAL SIGNS: Normal. HEAD, EARS, EYES, NOSE, MOUTH AND THROAT: Normal. NECK: Neck veins are not distended. Thyroid is not enlarged. CHEST: Clear. CARDIAC: Normal. ABDOMEN: Soft, nontender. EXTREMITIES: Normal. NEUROLOGICAL: He is intact. IMPRESSION: 1. Major depression. 2. Suicidal thoughts. 3. Opioid addiction. RECOMMENDATIONS: None. MMODL / IJN: [id number] /
[2023-05-29] MEDS: SERTRALINE 50 MG TAB PO SCH (08:20)
[2023-05-29] MEDS: NICOTINE 21MG/24HR PATCH TRANSDERM SCH (08:20)
--- NOTE | 2023-05-29 11:31 | P.PN ---
Progress Note - Text Progress Note Date: 05/29/23 Interval History: Patient was seen at bedside and was directable and agreeable to speak with wri ter Patient states his stomach "don't feel good", Will change medication to improve this side effect. Patient states his mood is ok, and he is not feeling anxious at this time. claims that he feels he is not tolerating the zoloft well and we talked about switching to lexapro which he is ok with. Claims his sleep is not that great during the night, and sleeps better during the day. Patient is refusing rehab at this time, and states that he is going to stay with his grandfather. At this time patient denies any suicidal or homical ideations, intent or plan. Patient denies any auditory, visual hallucinations and denies any paranoia or delusions. Patient denies any side effects from the medications and has been compliant with meds. Mental status exam: General Appearance: Patient appears to be short in stature, short hair and stature, facial hair, multiple tattoos. Stated age is alert, directable, and attempts to cooperate. Patient appears to have fair hygiene and grooming. Behavior: Patient is cooperative today. Speech: Patient's speech is fluent and nonpressured. [place], mildly improving Mood/Affect: Patient reports their mood is improving mildly, affect is congruent and constricted. Suicidality/Homicidality: Patient denies having any homicidal ideation intent or plan. Denies any suicidal ideations intent or plan Perceptions: Patient denies any visual hallucinations and denies any auditory hallucinations Though content/process: There is no evidence of any delusional thought content and thought process is linear and goal-directed. concrete. Memory and concentration: AOX3, grossly intact for the purposes of this session. Judgment and insight: poor, mildly improving Assessment: depressive disorder unspecified rule out bipolar depression Anxiety disorder unspecified Opioid abuse Nicotine dependence Homelessness Plan: -Patient is admitted under voluntary status to [facility] for stabilization of psychiatric symptoms and safety. Patient has signed adult voluntary form and medication consent and is placed in patient's chart. -Medications : seroquel 50 mg qhs for mood stabilization/insomnia , trazadone 50 qhs prn for insomnia, discontinue Zoloft, add lexapro 5mg qhs for mood/anxiety -Ativan and Haldol PRN for agitation/aggression -NRT - nicotine patch -SW on board for discharge planning. Encourage patient to participate in groups to work on coping skills Patient refusing rehab at this time, states he wants to stay with his grandfather upon discharge. Likely discharge friday/friday if patient continues to improve.
[2023-05-29] MEDS: NICOTINE GUM (POLACRILEX) 2 MG GUM BUCCAL PRN ×2 (12:43→19:04)
[2023-05-29] MEDS: QUEtiapine 50 MG TAB PO SCH (20:28)
[2023-05-29] MEDS: LORazepam 1 MG TAB PO PRN (20:49)
[2023-05-29] MEDS ORDERED: ESCITALOPRAM 5 MG TAB PO SCH (21:00)
[2023-05-30] MEDS: NICOTINE 21MG/24HR PATCH TRANSDERM SCH ×2 (08:25→20:04)
--- NOTE | 2023-05-30 10:21 | P.PN ---
Progress Note - Text Progress Note Date: 05/30/23 Interval history: Patient was seen at bedside and was directable and agreeable to speak with yanelis vines. Patient states his mood is "allright", and claims that he slept well last night, however is still having an upset stomach from the medication. Patient appeared to be very fidgety and restless in his room, and is complaint of side effects from Lexapro, and stated Wellbutrin works well for him. Will discontinue Lexapro, and switch to Wellbutrin. Patient stated his mother is working on getting him into rehab after he is discharged. At this time patient denies any suicidal or homical ideations, intent or plan. Patient denies any auditory, visual hallucinations and denies any paranoia or delusions. Patient states his stomach is upset from the medications, and has been compliant with meds. continues to go to limited groups. Mental status exam: General Appearance: Patient appears to be short in stature, short hair and stature, facial hair, multiple tattoos. Stated age is alert, directable, and attempts to cooperate. Patient appears to have fair hygiene and grooming. Behavior: Patient is cooperative today. Restless, fidgety. Speech: Patient's speech is fluent and nonpressured. [place], mildly improving Mood/Affect: Patient reports their mood is improving mildly, affect is congruent and constricted. Suicidality/Homicidality: Patient denies having any homicidal ideation intent or plan. Denies any suicidal ideations intent or plan Perceptions: Patient denies any visual hallucinations and denies any auditory hallucinations Though content/process: There is no evidence of any delusional thought content and thought process is linear and goal-directed. concrete. Memory and concentration: AOX3, grossly intact for the purposes of this session. Judgment and insight: poor, mildly improving Assessment: depressive disorder unspecified rule out bipolar depression Anxiety disorder unspecified Opioid abuse Nicotine dependence Homelessness Plan: -Patient is admitted under voluntary status to [facility] for stabilization of psychiatric symptoms and safety. Patient has signed adult voluntary form and medication consent and is placed in patient's chart. -Medications : seroquel 50 mg qhs for mood stabilization/insomnia , trazadone 50 qhs prn for insomnia, d/c lexapro , add Wellbutrin XL 150mg qd mood/anxiety -Ativan and Haldol PRN for agitation/aggression -NRT - nicotine patch -SW on board for discharge planning. Encourage patient to participate in groups to work on coping skills Mother is working on getting him placement at rehab upon d/c Likely discharge friday- friday if patient continues to improve.
[2023-05-30] MEDS: buPROPion XL 150 MG TAB.ER.24H PO SCH (10:57)
[2023-05-30] MEDS: traZODone HCL 50 MG TAB PO PRN (20:21)
[2023-05-30] MEDS: QUEtiapine 50 MG TAB PO SCH (20:21)
[2023-05-30] MEDS: LORazepam 1 MG TAB PO PRN (20:22)
[2023-05-31] MEDS: NICOTINE 21MG/24HR PATCH TRANSDERM SCH ×2 (09:25→13:03)
[2023-05-31] MEDS: buPROPion XL 150 MG TAB.ER.24H PO SCH (09:26)
--- NOTE | 2023-05-31 11:52 | P.PN ---
Progress Note - Text Progress Note Date: 05/31/23 Interval history: Patient was seen at bedside and somewhat agreeable to speak with development writer. Patient states his mood is "great", and claims that he slept well last night. He did not want to talk further because he said he was trying to sleep. He reports sleeping well and eating well. Reports fair energy during the day yesterday. He denied all side effects today and is compliant with meds. He did not want anything for opiate withdrawal today. At this time patient denies any suicidal or homicidal ideation, intent or plan. Patient denies any auditory, visual hallucinations and denies any paranoia or delusions. Mental status exam: General Appearance: Patient appears to be short in stature, short hair and stature, facial hair, multiple tattoos. Stated age is alert, directable, and attempts to cooperate. Patient appears to have fair hygiene and grooming. Behavior: Patient is cooperative today. Restless Speech: Patient's speech is fluent and nonpressured. [place], mildly improving Mood/Affect: Patient reports their mood is improving mildly, affect is congruent and constricted. Suicidality/Homicidality: Patient denies having any homicidal ideation intent or plan. Denies any suicidal ideations intent or plan Perceptions: Patient denies any visual hallucinations and denies any auditory hallucinations Though content/process: There is no evidence of any delusional thought content and thought process is linear and goal-directed. concrete. Memory and concentration: AOX3, grossly intact for the purposes of this session. Judgment and insight: poor, mildly improving Assessment: depressive disorder unspecified rule out bipolar depression Anxiety disorder unspecified Opioid abuse, in withdrawal Nicotine dependence Homelessness Plan: -Patient is admitted under voluntary status to [facility] for stabilization of psychiatric symptoms and safety. Patient has signed adult voluntary form and medication consent and is placed in patient's chart. -Medications : seroquel 50 mg qhs for mood stabilization/insomnia , trazadone 50 qhs prn for insomnia, Wellbutrin XL 150mg qd mood/anxiety -Ativan and Haldol PRN for agitation/aggression -NRT - nicotine patch -SW on board for discharge planning. Encourage patient to participate in groups to work on coping skills Mother is working on getting him placement at rehab upon d/c Likely discharge friday- friday if patient continues to improve.
[2023-05-31] MEDS: LORazepam 1 MG TAB PO PRN ×2 (13:02→19:57)
[2023-05-31] MEDS: QUEtiapine 50 MG TAB PO SCH (20:36)
[2023-05-31] MEDS: traZODone HCL 50 MG TAB PO PRN (22:26)
[2023-06-01] MEDS: buPROPion XL 150 MG TAB.ER.24H PO SCH (11:45)
[2023-06-01] MEDS: NICOTINE 21MG/24HR PATCH TRANSDERM SCH ×2 (11:45→12:21)
[2023-06-01] MEDS: LORazepam 1 MG TAB PO PRN ×2 (11:46→17:07)
--- NOTE | 2023-06-01 12:16 | P.PN ---
Progress Note - Text Progress Note Date: 06/01/23 Interval history: Patient was seen at bedside and somewhat agreeable to speak with tech writer. Patient states his mood is "good", and claims that he slept well last night. He reports sleeping well and eating well. Reports low energy during the day. He denies depression or anxiety. He denied all side effects today and is compliant with meds. At this time patient denies any suicidal or homicidal ideation, intent or plan. Patient denies any auditory, visual hallucinations and denies any paranoia or delusions. Mental status exam: General Appearance: Patient appears to be short in stature, short hair and stature, facial hair, multiple tattoos. Stated age is alert, directable, and attempts to cooperate. Patient appears to have fair hygiene and grooming. Behavior: Patient is calm, relaxed today. Sedated Speech: Patient's speech is fluent and nonpressured. [place], mildly improving Mood/Affect: Patient reports their mood is improving mildly, affect is congruent and constricted. Suicidality/Homicidality: Patient denies having any homicidal ideation intent or plan. Denies any suicidal ideations intent or plan Perceptions: Patient denies any visual hallucinations and denies any auditory hallucinations Though content/process: There is no evidence of any delusional thought content and thought process is linear and goal-directed. concrete. Memory and concentration: AOX3, grossly intact for the purposes of this session. Judgment and insight: poor, mildly improving Assessment: depressive disorder unspecified rule out bipolar depression Anxiety disorder unspecified Opioid abuse Nicotine dependence Homelessness Plan: -Patient is admitted under voluntary status to [facility] for stabilization of psychiatric symptoms and safety. Patient has signed adult voluntary form and medication consent and is placed in patient's chart. -Medications : Stop seroquel 50 mg qhs , Continue trazadone 50 qhs prn for insomnia, Wellbutrin XL 150mg qd mood/anxiety -Ativan and Haldol PRN for agitation/aggression -NRT - nicotine patch -SW on board for discharge planning. Encourage patient to participate in groups to work on coping skills Mother is working on getting him placement at rehab upon d/c Likely discharge friday- friday if patient continues to improve.
[2023-06-01] MEDS: NICOTINE GUM (POLACRILEX) 2 MG GUM BUCCAL PRN (15:16)
[2023-06-01] MEDS: MAG HYDROX/AL HYDROX/SIMETH 30 ML CUP PO PRN (16:39)
[2023-06-01] MEDS: traZODone HCL 50 MG TAB PO PRN (20:35)
[2023-06-02 07:40] VITALS: BP 111/68; PULSE 82; RESP 14; TEMP 98.7
[2023-06-02] MEDS ORDERED: buPROPion XL 150 MG TAB.ER.24H PO SCH (09:00)
--- NOTE | 2023-06-02 10:07 | P.DS ---
Providers Date of admission: 05/26/23 19:50 Expected date of discharge: 06/02/23 Attending physician: Wilfred Solis MD Consults: 05/26/23 19:52 Consult Physician Routine Consulting Provider: Lobito Dahl Consult Reason/Comments: medical H&P Do you want consulting provider notified?: Yes, Notify in am Primary care physician: Lobito Dahl - Discharge Diagnosis(es) (1) Depressive disorder Current Visit: Yes Status: Acute Priority: High (2) Anxiety disorder Current Visit: Yes Status: Acute Priority: High (3) Opioid abuse Current Visit: Yes Status: Acute Priority: Medium (4) Nicotine dependence Current Visit: Yes Status: Acute Priority: Low (5) Homelessness Current Visit: Yes Status: Acute Priority: Medium Hospital Course: Admission HPI: Admission note was completed by automobile and property underwriter Patient presented to the hospital ED on 05/25, as per EPS note, "patient says he's hopeless and helpless. He is tangential, vague with dates and timeline, appears malingering , mumbling, unemployed, homeless, paranoid with no VH reported" Patient states he was 'goi ng through a bad time, and threatened to hurt himself. Stressors include homelessness, sick mother, unemployment, .Admits to having high anxiety and depression. States his sleep has been poor, and his appetite is increasing. Patient focused on medication, and appears to be med seeking. patient states that he has possible episodes of jose in the past unrelated to drug use. Patient denies any current suicidal or homicidal ideations intent or plan. At this time patient denies any auditory or visual hallucinations. Patient denies any flight of ideas racing thoughts and increased in goal directed behavior. Patient admits to using "vicodin and shit like that" referring to opiates, previously on suboxone. Everyday smoker. Denies alcohol use. Hospital course: Upon admission to the unit patient was directable and agreeable to commence treatment and signed adult voluntary form. Patient got along well with other patients on the unit and followed unit protocol. Patient was compliant with the medications and denied any side effects throughout hospital course. Patient was started on Wellbutrin XL 300 mg daily for mood/anxiety, trazodone 50 mg daily at bedtime when necessary for insomnia/mood. Patient spoke of his stressors and engaged in therapy both group and individual. Patient was also seen by medical team for history and physical exam. Throughout the course of the hospitalization patient gradually improved with regards to mood, anxiety, suicidal thoughts, sleep and returned back to their baseline level of functioning. On the day of discharge patient denied any suicidal or homicidal ideations intent or plan denied any auditory or visual hallucinations. Patient endorsed wanting to live for his health and future. The patient denied any access to guns or weapons. Patient denied any paranoia and did not endorse any delusions. Patient does have a significant history of substance abuse and was counseled on abstaining from all substances including alcohol and marijuana. Patient elected to do outpatient substance use treatment program through [facility]. Patient was also counseled on the medications and need for regular compliance and was encouraged to follow-up with their outpatient appointment for mental health and also for primary care. Prior to discharge a family meeting will be arranged by social professionals to answer any questions and ensure safety upon discharge. Mental status exam: General Appearance: Patient appears to be short in stature, several tattoos, stated age is alert, pleasant, and cooperative. Patient is in no acute distress and has improved hygiene and grooming Behavior: Patient is calmly seated without any agitated behavior. Speech: Patient's speech is fluent and nonpressured. Mood/Affect: Patient reports their mood is "better", affect is congruent Suicidality/Homicidality: Patient denies having any suicidal or homicidal ideation intent or plan. Perceptions: Patient denies any auditory or visual hallucinations. Though content/process: There is no evidence of any delusional thought content and thought process is linear and goal-directed. more future oriented Memory and concentration: AOX3, grossly intact for the purposes of this session. Can spell "WORLD" backwards correctly. Judgment and insight: chronically poor, however has improved with guarded prognosis Impression: depressive disorder unspecified rule out bipolar depression Anxiety disorder unspecified Opioid abuse Nicotine dependence Homelessness Plan: -Continue with discharge today as patient has improved and stabilized psychiatrically and is not currently an imminent threat to himself and/or others. Patient will remain at chronically elevated risk for harm to self and/or others due to his impulsivity and substance abuse. -Continue medications: Trazodone 50 mg daily at bedtime when necessary for insomnia/mood, Wellbutrin XL 300 mg daily for mood/anxiety. -Patient was counseled on the need for medication compliance and appropriate follow-up at mental health and also primary care for medical issues. Patient verbalized understanding and agreed. -Social work to arrange for and conduct family meeting to ensure safety upon discharge and answer any questions/concerns. Social work also to arrange for patients follow up appointments with [facility] for psychiatric care along with follow up with primary care provider. -Patient counseled on abstaining from recreational drugs and marijuana and alcohol. Was informed/educated on the adverse effects on their physical and mental health. Patient verbally agreed and understood. Patient took information for [facility] however states that he wants to make the call to access line once he discharged back home. -Patient was instructed to return to the hospital or seek immediate medical care if their psychiatric or medical symptoms do worsen or reoccur. Allergies Allergy/AdvReac Type Severity Reaction Status Date / Time No Known Allergies Allergy Verified 05/26/23 11:48 Laboratory Results WBC 7.8 k/uL (3.8-10.6) 05/27/23 08:49 RBC 4.80 m/uL (4.30-5.90) 05/27/23 08:49 Hgb 14.1 gm/dL (13.0-17.5) 05/27/23 08:49 Hct 43.4 % (39.0-53.0) 05/27/23 08:49 MCV 90.4 fL (80.0-100.0) 05/27/23 08:49 MCH 29.3 pg (25.0-35.0) 05/27/23 08:49 MCHC 32.4 g/dL (31.0-37.0) 05/27/23 08:49 RDW 13.5 % (11.5-15.5) 05/27/23 08:49 Plt Count 309 k/uL (150-450) 05/27/23 08:49 MPV 7.1 05/27/23 08:49 Neutrophils % 48 % 05/27/23 08:49 Lymphocytes % 38 % 05/27/23 08:49 Monocytes % 7 % 05/27/23 08:49 Eosinophils % 4 % 05/27/23 08:49 Basophils % 1 % 05/27/23 08:49 Neutrophils # 3.8 k/uL (1.3-7.7) 05/27/23 08:49 Lymphocytes # 3.0 k/uL (1.0-4.8) 05/27/23 08:49 Monocytes # 0.5 k/uL (0-1.0) 05/27/23 08:49 Eosinophils # 0.3 k/uL (0-0.7) 05/27/23 08:49 Basophils # 0.0 k/uL (0-0.2) 05/27/23 08:49 Sodium 137 mmol/L (137-145) 05/27/23 08:49 Potassium 4.5 mmol/L (3.5-5.1) 05/27/23 08:49 Chloride 100 mmol/L (98-107) 05/27/23 08:49 Carbon Dioxide 29 mmol/L (22-30) 05/27/23 08:49 Anion Gap 8 mmol/L 05/27/23 08:49 BUN 25 mg/dL (9-20) H 05/27/23 08:49 Creatinine 1.01 mg/dL (0.66-1.25) 05/27/23 08:49 Est GFR (CKD-EPI)AfAm >90 (>60 ml/min/1.73 sqM) 05/27/23 08:49 Est GFR (CKD-EPI)NonAf >90 (>60 ml/min/1.73 sqM) 05/27/23 08:49 Glucose 85 mg/dL (74-99) 05/27/23 08:[address] Glu mg/dL 120 mg/dL 05/27/23 08:49 Hemoglobin A1c 5.8 % (<=6.0) 05/27/23 08:49 Calcium 9.2 mg/dL (8.4-10.2) 05/27/23 08:49 Total Bilirubin 0.3 mg/dL (0.2-1.3) 05/27/23 08:49 AST 43 U/L (17-59) 05/27/23 08:49 ALT 43 U/L (4-49) 05/27/23 08:49 Alkaline Phosphatase 75 U/L (38-126) 05/27/23 08:49 Total Protein 6.8 g/dL (6.3-8.2) 05/27/23 08:49 Albumin 3.8 g/dL (3.5-5.0) 05/27/23 08:49 Triglycerides 136.00 mg/dL (0.00-149.00) 05/27/23 08:49 Cholesterol 170.00 mg/dL (0.00-200.00) 05/27/23 08:49 LDL Cholesterol, Calc 87.3 mg/dL (0.0-131.0) 05/27/23 08:49 VLDL Cholesterol, Calc 27.20 mg/dL (5.00-40.00) 05/27/23 08:49 HDL Cholesterol 55.50 mg/dL (40.00-60.00) 05/27/23 08:49 Cholesterol/HDL Ratio 3.06 Ratio 05/27/23 08:49 TSH 2.670 mIU/L (0.465-4.680) 05/27/23 08:49 Urine Color Light Yellow 05/27/23 09:36 Urine Appearance Clear (Clear) 05/27/23 09:36 Urine pH 5.5 (5.0-8.0) 05/27/23 09:36 Ur Specific [place] 1.022 (1.001-1.035) 05/27/23 09:36 Urine Protein Negative (Negative) 05/27/23 09:36 Urine Glucose (UA) Negative (Negative) 05/27/23 09:36 Urine Ketones Negative (Negative) 05/27/23 09:36 Urine Blood Negative (Negative) 05/27/23 09:36 Urine Nitrite Negative (Negative) 05/27/23 09:36 Urine Bilirubin Negative (Negative) 05/27/23 09:36 Urine Urobilinogen <2.0 mg/dL (<2.0) 05/27/23 09:36 Ur Leukocyte Esterase Negative (Negative) 05/27/23 09:36 Urine Opiates Screen Negative (Negative) 05/27/23 09:36 Ur Oxycodone Screen Not Detected (NotDetected) 05/25/23 22:57 Urine Methadone Screen Negative (Negative) 05/27/23 09:36 Ur Propoxyphene Screen Negative (Negative) 05/27/23 09:36 Ur Barbiturates Screen Not Detected (NotDetected) 05/25/23 22:57 Urine Barbiturates Negative (Negative) 05/27/23 09:36 U Tricyclic Antidepress Not Detected (NotDetected) 05/25/23 22:57 Ur Phencyclidine Scrn Negative (Negative) 05/27/23 09:36 Ur Amphetamine Screen Negative (Negative) 05/27/23 09:36 Ur Amphetamines Screen Not Detected (NotDetected) 05/25/23 22:57 U Methamphetamines Scrn Not Detected (NotDetected) 05/25/23 22:57 U Benzodiazepines Scrn Negative (Negative) 05/27/23 09:36 Urine Cocaine Screen Negative (Negative) 05/27/23 09:36 U Cannabinoids Screen Negative (Negative) 05/27/23 09:36 U Marijuana (THC) Screen Not Detected (NotDetected) 05/25/23 22:57 Urine Alcohol Negative (Negative) 05/27/23 09:36 SARS-CoV-2 (PCR) Not Detected (Not Detectd) 05/26/23 16:45 Vital Signs Temp 98.7 F 06/02/23 06:55 Pulse 82 06/02/23 06:55 Resp 14 06/02/23 06:55 BP 111/68 06/02/23 06:55 Pulse Ox 95 05/31/23 09:26 FiO2 Intake & Output 06/01/23 06/02/23 06/02/23 18:59 06:59 18:59 Weight 62.3 kg Patient Condition at Discharge: Stable Plan - Discharge Summary Discharge Rx Participant: No New Discharge Prescriptions: New Ibuprofen [Motrin] 600 mg PO Q6HR PRN tab PRN Reason: Moderate Pain (Scale 4 To 6) Nicotine Gum (Polacrilex) [Nicorette] 2 mg BUCCAL Q4HR PRN pieceofgum PRN Reason: Nicotine Cravings traZODone HCL [Desyrel] 50 mg PO HS PRN 30 Days #30 tab PRN Reason: Insomnia Nicotine 21Mg/24Hr Patch [Habitrol] 1 patch TRANSDERM DAILY 14 Days #14 patch buPROPion XL [Wellbutrin XL] 300 mg PO DAILY 30 Days #60 tab Discharge Medication List Ibuprofen [Motrin] 600 mg PO Q6HR PRN tab 06/02/23 [Rx] Nicotine 21Mg/24Hr Patch [Habitrol] 1 patch TRANSDERM DAILY 14 Days #14 patch 06/02/23 [Rx] Nicotine Gum (Polacrilex) [Nicorette] 2 mg BUCCAL Q4HR PRN pieceofgum 06/02/23 [Rx] buPROPion XL [Wellbutrin XL] 300 mg PO DAILY 30 Days #60 tab 06/02/23 [Rx] traZODone HCL [Desyrel] 50 mg PO HS PRN 30 Days #30 tab 06/02/23 [Rx] Follow up Appointment(s)/Referral(s): Lobito Dahl MD [Primary Care Provider] - 1-2 days Patient Instructions/Handouts: Depression (ED) Activity/Diet/Wound Care/Special Instructions: Discontinue drug use. Please follow-up with [facility] as directed. Please do follow-up to primary care physician in the next day or 2 for recheck. Return for thoughts of self-harm, thoughts of harming others, worsening symptoms or other concerns. Avoid the use of street drugs and alcohol. Take all medications as prescribed. When you are in need of refills on your medications, please contact your medical provider and/or outpatient psychiatrist/provider to have this done. Please go to your scheduled outpatient appointment for aftercare treatment. If symptoms return or become worse, call the crisis line at and/or go to the nearest emergency room for evaluation. National Suicide Hotline 984. Discharge Disposition: HOME SELF-CARE
[2023-06-02] MEDS: LORazepam 1 MG TAB PO PRN (11:43)
[2023-06-02] MEDS: NICOTINE 21MG/24HR PATCH TRANSDERM SCH (11:44)
== END 2023-06-02 12:45 | disposition home or self-care (01) | DRG 754 ==
LOC: EC 21:50 → 3MHU 05-26 19:50
PROVIDERS: ADMIT Psychiatry & Neurology Psychiatry; ATTEND Psychiatry & Neurology Psychiatry
DX: F32.A Depression, unspecified (principal); R45.851 Suicidal ideations; F11.20 Opioid dependence, uncomplicated; Z11.52 Encounter for screening for COVID-19; Z28.310 Unvaccinated for COVID-19; F41.9 Anxiety disorder, unspecified; G47.00 Insomnia, unspecified; F17.210 Nicotine dependence, cigarettes, uncomplicated; Z71.6 Tobacco abuse counseling; Z59.00 Homelessness unspecified; Z56.0 Unemployment, unspecified; Z91.51 Personal history of suicidal behavior
CPT/HCPCS: 80053; 80061; 80306; 81003; 82075; 83036; 84443; 85025; 87635; 99285

== ENCOUNTER 2023-07-16 02:27 | Emergency (ER) | payer OTHER ==
[2023-07-16 02:47] VITALS: BP 144/92; PULSE 120; RESP 18; TEMP 98.1
[2023-07-16] MEDS ORDERED: traZODone HCL 50 MG TAB PO ONE (03:30)
--- NOTE | 2023-07-16 04:37 | ED ---
Psych HPI - General Chief Complaint: Psychiatric Symptoms Stated Complaint: Mental health Source: patient Mode of arrival: ambulatory Limitations: no limitations - History of Present Illness Initial Comments: This patient is a 38-year-old man who presents with complaint that he has been feeling more depressed. He is having trouble concentrating due to racing thoughts. He was not able to sleep. He has started having thoughts that he would be better off . Patient denies suicidal plan or attempt. MD Complaint: suicidal ideation, feels depressed, other -: hour(s) Associated Psychiatric Symptoms: depression, racing thoughts History of same: Yes Quality: intermittent Improves With: none Worsens With: none - Related Data Previous Rx's Medication Instructions Recorded buPROPion XL [Wellbutrin XL] 300 mg PO DAILY 30 Days #60 tab 06/02/23 traZODone HCL [Desyrel] 50 mg PO HS PRN 30 Days #30 tab 06/02/23 Allergies Allergy/AdvReac Type Severity Reaction Status Date / Time No Known Allergies Allergy Verified 07/16/23 02:32 Review of Systems ROS Statement: Those systems with pertinent positive or pertinent negative responses have been documented in the HPI. ROS Other: All systems not noted in ROS Statement are negative. Constitutional: Denies: fever, chills Respiratory: Denies: cough, dyspnea Cardiovascular: Denies: chest pain, palpitations Gastrointestinal: Denies: abdominal pain, vomiting, diarrhea Genitourinary: Denies: dysuria, hematuria Musculoskeletal: Denies: back pain Skin: Denies: rash Neurological: Denies: headache, weakness Psychiatric: Reports: anxiety, depression, suicidal thoughts. Denies: auditory hallucinations, homicidal thoughts Past Medical History Past Medical History: No Reported History History of Any Multi-Drug Resistant Organisms: None Reported Past Surgical History: No Surgical Hx Reported Past Anesthesia/Blood Transfusion Reactions: No Reported Reaction Past Psychological History: Bipolar, Depression Smoking Status: Current every day smoker Past Alcohol Use History: None Reported Past Drug Use History: Methamphetamine - Past Family History Mother History Unknown: Yes General Exam Limitations: no limitations General appearance: alert, anxious Head exam: Present: atraumatic, normocephalic Eye exam: Present: normal appearance. Absent: scleral icterus, conjunctival injection ENT exam: Present: normal oropharynx Neck exam: Present: normal inspection Respiratory exam: Present: normal lung sounds bilaterally. Absent: respiratory distress, wheezes, rales, rhonchi, stridor Cardiovascular Exam: Present: regular rate, normal rhythm, normal heart sounds. Absent: systolic murmur, diastolic murmur, rubs, gallop GI/Abdominal exam: Present: soft. Absent: distended, tenderness, guarding, rebound, rigid, mass Extremities exam: Present: normal inspection, normal capillary refill. Absent: pedal edema, calf tenderness Neurological exam: Present: alert Psychiatric exam: Present: anxious, suicidal ideation. Absent: flat affect, manic, homicidal ideation Skin exam: Present: warm, dry, intact, normal color. Absent: rash Course Vital Signs 07/16/23 07/16/23 02:28 04:41 Temperature 98.1 F Pulse Rate 120 H Respiratory 18 18 Rate Blood Pressure 144/92 O2 Sat by Pulse 97 Oximetry Medical Decision Making - Medical Decision Making Was pt. sent in by a medical professional or institution (, PA, COUNSELING PROGRAM LEADER, urgent care, hospital, or usp...) When possible be specific @ -[No] Did you speak to anyone other than the patient for history (EMS, parent, family, police, friend...)? What history was obtained from this source @ -[No] Did you review nursing and triage notes (agree or disagree)? Why? @ -[I reviewed and agree with nursing and triage notes] Were old charts reviewed (outside hosp., previous admission, EMS record, old EKG, old radiological studies, urgent care reports/EKG's, usp records)? Report findings @ -[No old charts were reviewed] Differential Diagnosis (chest pain, altered mental status, abdominal pain women, abdominal pain men, vaginal bleeding, weakness, fever, dyspnea, syncope, headach e, dizziness, GI bleed, back pain, seizure, CVA, palpatations, mental health, musculoskeletal)? @ -[Differential Mental Health Depression, anxiety, bipolar, psychosis, schizophrenia, borderline personality, situational depression, adjustment disorder, behavioral disorder, brain tumor, malingering, substance abuse, encephalopathy, medication reaction, dementia, hypothyroidism, degenerative neurologic disorder, lupus.... This is not meant to be all-inclusive list EKG interpreted by me (3pts min.). @ -[As above] X-rays interpreted by me (1pt min.). @ -[None done] CT interpreted by me (1pt min.). @ -[None done] U/S interpreted by me (1pt. min.). @ -[None done] What testing was considered but not performed or refused? (CT, X-rays, U/S, labs)? Why? @ -[None] What meds were considered but not given or refused? Why? @ -[None] Did you discuss the management of the patient with other professionals (professionals i.e. , PA, COUNSELING PROGRAM LEADER, lab, RT, psych nurse, social work supervisor, dermatologist and dermatopathologist, teacher, strategic intelligence officer, child welfare caseworker)? Give summary @ -[No] Was smoking cessation discussed for >3mins.? @ -[No] Was critical care preformed (if so, how long)? @ -[No] Were there social determinants of health that impacted care today? How? (Homelessness, low income, unemployed, alcoholism, drug addiction, transportation, low edu. Level, literacy, decrease access to med. care, snf, rehab)? @ -[No] Was there de-escalation of care discussed even if they declined (Discuss DNR or withdrawal of care, Hospice)? DNR status @ -[No] What co-morbidities impacted this encounter? (DM, HTN, Smoking, COPD, CAD, Ca ncer, CVA, ARF, Chemo, Hep., AIDS, mental health diagnosis, sleep apnea, morbid obesity)? @ -[None] Was patient admitted / discharged? Hospital course, mention meds given and route, prescriptions, significant lab abnormalities, going to OR and other pertinent info. @ -[This patient is a 38-year-old man here to requesting mental health evaluation because he has been anxious, having racing thoughts and having thoughts he would be better off . We were informed by EPS that they would not be able to see the patient for a number of hours. When the patient was informed of this he requested to be discharged to come back on the following day. The patient states that he does not feel at risk of suicide attempts. He will return if his symptoms worsen. Undiagnosed new problem with uncertain prognosis? @ -[No] Drug Therapy requiring intensive monitoring for toxicity (Heparin, Nitro, Insulin, Cardizem)? @ -[No] Were any procedures done? @ -[No] Diagnosis/symptom? @ -[Mood disorder Acute, or Chronic, or Acute on Chronic? @ -[Acute Uncomplicated (without systemic symptoms) or Complicated (systemic symptoms)? @ -[Uncomplicated Side effects of treatment? @ -[No] Exacerbation, Progression, or Severe Exacerbation? @ -[No] Poses a threat to life or bodily function? How? (Chest pain, [place], [place], pneumonia, PE, COPD, DKA, ARF, appy, cholecystitis, CVA, Diverticulitis, Homicidal, Suicid al, threat to staff... and all critical care pts) @ -[There is low risk at this time, and the patient is encouraged to return should the symptoms worsen at all or if he feels he is unable to wait to be seen as outpatient Disposition Clinical Impression: Mood disorder Disposition: HOME SELF-CARE Condition: Fair Instructions (If sedation given, give patient instructions): Mood Disorders (ED) Is patient prescribed a controlled substance at d/c from ED?: No Referrals: Lobito Dahl MD [Primary Care Provider] - 1-2 days
== END 2023-07-16 04:41 | disposition home or self-care (01) ==
LOC: EC 02:27
DX: F39 Unspecified mood [affective] disorder (principal); F17.200 Nicotine dependence, unspecified, uncomplicated; F15.90 Other stimulant use, unspecified, uncomplicated
CPT/HCPCS: 82075; 99284

== ENCOUNTER 2023-07-16 21:22 | Emergency (ER) | payer OTHER ==
--- NOTE | 2023-07-16 22:55 | ED ---
General Adult HPI - General Source: patient Mode of arrival: ambulatory Limitations: no limitations <Fam Márquez - Last Filed: 07/16/23 22:56> <Bia Sheth P - Last Filed: 07/17/23 13:46> - General Chief complaint: Psychiatric Symptoms Stated complaint: Anxiety - History of Present Illness Initial comments: A 8-year-old male presenting to the ED with a chief complaint of psychiatric problem. Patient states problem started approximately year ago when he lived with his in [place] who patient states is a which. Since living with her, states that he has had visual hallucinations saying that he is able faces. Also notes that he hears sounds. Additionally, states clothes and fabric caused a shock like feeling for him which is why he is currently on clothes right now. (Fam Márquez) - Related Data Previous Rx's Medication Instructions Recorded buPROPion XL [Wellbutrin XL] 300 mg PO DAILY 30 Days #60 tab 06/02/23 traZODone HCL [Desyrel] 50 mg PO HS PRN 30 Days #30 tab 06/02/23 Allergies Allergy/AdvReac Type Severity Reaction Status Date / Time No Known Allergies Allergy Verified 07/16/23 02:32 Review of Systems ROS Other: All systems not noted in ROS Statement are negative. <Fam Márquez - Last Filed: 07/16/23 22:56> ROS Other: All systems not noted in ROS Statement are negative. <Bia Sheth P - Last Filed: 07/17/23 13:46> ROS Statement: Those systems with pertinent positive or pertinent negative responses have been documented in the HPI. Past Medical History Past Medical History: No Reported History History of Any Multi-Drug Resistant Organisms: None Reported Past Surgical History: No Surgical Hx Reported Past Anesthesia/Blood Transfusion Reactions: No Reported Reaction Past Psychological History: Bipolar, Depression Smoking Status: Current every day smoker Past Alcohol Use History: None Reported Past Drug Use History: Methamphetamine - Past Family History Mother History Unknown: Yes <Fam Márquez - Last Filed: 07/16/23 22:56> General Exam Limitations: no limitations General appearance: alert, in distress Neck exam: Present: normal inspection Respiratory exam: Present: normal lung sounds bilaterally Cardiovascular Exam: Present: regular rate, normal rhythm Neurological exam: Present: alert Skin exam: Present: warm, dry <Fam Márquez - Last Filed: 07/16/23 22:56> Course Vital Signs 07/16/23 07/17/23 21:49 08:50 Temperature 98 F 97.5 F L Pulse Rate 70 72 Respiratory 18 16 Rate Blood Pressure 148/98 125/82 O2 Sat by Pulse 98 100 Oximetry Medical Decision Making <Fam Márquez - Last Filed: 07/16/23 22:56> <Bia Sheth - Last Filed: 07/17/23 13:46> - Medical Decision Making Was pt. sent in by a medical professional or institution (, PA, ABATTOIR MANAGER, urgent care, hospital, or longterm...) When possible be specific @ -[No] Did you speak to anyone other than the patient for history (EMS, parent, family, police, friend...)? What history was obtained from this source @ -[No] Did you review nursing and triage notes (agree or disagree)? Why? @ -[I reviewed and agree with nursing and triage notes] Were old charts reviewed (outside hosp., previous admission, EMS record, old EKG, old radiological studies, urgent care reports/EKG's, longterm records)? Report findings @ -[No old charts were reviewed] Differential Diagnosis (chest pain, altered mental status, abdominal pain women, abdominal pain men, vaginal bleeding, weakness, fever, dyspnea, syncope, headache, dizziness, GI bleed, back pain, seizure, CVA, palpatations, mental health, musculoskeletal)? @ -Differential Mental Health Depression, anxiety, bipolar, psychosis, schizophrenia, borderline personality, situational depression, adjustment disorder, behavioral disorder, brain tumor, malingering, substance abuse, encephalopathy, medication reaction, dementia, hypothyroidism, degenerative neurologic disorder, lupus.... This is not meant to be all-inclusive list EKG interpreted by me (3pts min.). @ -[As above] X-rays interpreted by me (1pt min.). @ -[None done] CT interpreted by me (1pt min.). @ -[None done] U/S interpreted by me (1pt. min.). @ -[None done] What testing was considered but not performed or refused? (CT, X-rays, U/S, labs)? Why? @ -[None] What meds were considered but not given or refused? Why? @ -[None] Did you discuss the management of the patient with other professionals (professionals i.e. , PA, ABATTOIR MANAGER, lab, RT, psych nurse, social work supervisor, flight software test engineer, teacher, founder and chief technical officer, major case detective)? Give summary @ -[No] Was smoking cessation discussed for >3mins.? @ -[No] Was critical care preformed (if so, how long)? @ -[No] Were there social determinants of health that impacted care today? How? (Homelessness, low income, unemployed, alcoholism, drug addiction, transportation, low edu. Level, literacy, decrease access to med. care, halfway, rehab)? @ -[No] Was there de-escalation of care discussed even if they declined (Discuss DNR or withdrawal of care, Hospice)? DNR status @ -[No] What co-morbidities impacted this encounter? (DM, HTN, Smoking, COPD, CAD, Cancer, CVA, ARF, Chemo, Hep., AIDS, mental health diagnosis, sleep apnea, morbid obesity)? @ -[None] Was patient admitted / discharged? Hospital course, mention meds given and rout e, prescriptions, significant lab abnormalities, going to OR and other pertinent info. @ -[hospital course] Undiagnosed new problem with uncertain prognosis? @ -[No] Drug Therapy requiring intensive monitoring for toxicity (Heparin, Nitro, Insulin, Cardizem)? @ -[No] Were any procedures done? @ -[No] Diagnosis/symptom? @ -[default] Acute, or Chronic, or Acute on Chronic? @ -[default] Uncomplicated (without systemic symptoms) or Complicated (systemic symptoms)? @ -[default] Side effects of treatment? @ -[No] Exacerbation, Progression, or Severe Exacerbation? @ -[No] Poses a threat to life or bodily function? How? (Chest pain, [place], [place], pneumonia, PE, COPD, DKA, ARF, appy, cholecystitis, CVA, Diverticulitis, Homicidal, Suicidal, threat to staff... and all critical care pts) @ -[No] (Fam áMrquez) Patient was evaluated by EPS nurse in the morning, patient was able to safety plan, he is not acutely suicidal, homicidal delusional manic. At this time psychiatric services as determined that he is stable for discharge. (Bia Sheth) - Lab Data Lab Results 07/17/23 Range/Units 12:14 Urine Opiates Screen Not Detected (NotDetected) Ur Oxycodone Screen Not Detected (NotDetected) Urine Methadone Screen Not Detected (NotDetected) Ur Barbiturates Screen Not Detected (NotDetected) U Tricyclic Antidepress Not Detected (NotDetected) Ur Phencyclidine Scrn Not Detected (NotDetected) Ur Amphetamines Screen Detected H (NotDetected) U Methamphetamines Scrn Detected H (NotDetected) U Benzodiazepines Scrn Detected H (NotDetected) Urine Cocaine Screen Not Detected (NotDetected) U Marijuana (THC) Screen Not Detected (NotDetected) Disposition <Fam Márquez - Last Filed: 07/16/23 22:56> Is patient prescribed a controlled substance at d/c from ED?: No <Bia Sheth - Last Filed: 07/17/23 13:46> Clinical Impression: Mental health problem Disposition: HOME SELF-CARE Condition: Stable Referrals: Lobito Dahl MD [Primary Care Provider] - 1-2 days
[2023-07-16] MEDS ORDERED: LORazepam 2 MG/ML INJ IM STA (22:57)
[2023-07-16] MEDS ORDERED: diphenhydrAMINE 50 MG/ML 1 ML VIAL IM STA (22:58)
[2023-07-16] MEDS ORDERED: HALOPERIDOL LACTATE 5 MG/ML 1 ML VIAL IM STA (22:58)
[2023-07-17 09:18] VITALS: BP 125/82; PULSE 72; TEMP 97.5
[2023-07-17 12:32] LABS: Amphetamine Screen,Urine Detected (NotDetected); Barbiturate Screen,Urine Not Detected (NotDetected); Benzodiazepines Screen,Urine Detected (NotDetected); Cocaine Screen,Urine Not Detected (NotDetected); Methadone Screen, Urine Not Detected (NotDetected); Opiate Screen,Urine Not Detected (NotDetected); Oxycodone Screen, Urine Not Detected (NotDetected); Phencyclidine Screen,Urine Not Detected (NotDetected); Tricyclic Antidepressant,Urine Not Detected (NotDetected); Urn Cannabinoid Scrn Not Detected (NotDetected)
[2023-07-17 14:38] VITALS: RESP 18
== END 2023-07-17 14:55 | disposition home or self-care (01) ==
LOC: EC 21:22
DX: F99 Mental disorder, not otherwise specified (principal); F17.200 Nicotine dependence, unspecified, uncomplicated; F15.90 Other stimulant use, unspecified, uncomplicated
CPT/HCPCS: 82075; 80306; 99284; 96372 ×3; J2060; J1200; J1630

== ENCOUNTER 2023-10-09 20:56 | Emergency (ER) | payer OTHER ==
[2023-10-09 21:14] VITALS: BP 155/89; PULSE 113; RESP 18; TEMP 98.3
--- NOTE | 2023-10-09 21:25 | ED ---
General Adult HPI - General Chief complaint: Skin/Abscess/Foreign Body Stated complaint: Swollen left elbow, possible spider bite Time Seen by Provider: 10/09/23 21:23 Source: patient, RN notes reviewed, old records reviewed Mode of arrival: ambulatory Limitations: no limitations - History of Present Illness Initial comments: 38-year-old male presenting with pain and swelling to the left elbow and forearm. Patient has had a draining abscess at this location and has developed second site of drainage. No fever. Patient does admit that he has been picking at this. He thought it might be related to a spider bite. - Related Data Previous Rx's Medication Instructions Recorded buPROPion XL [Wellbutrin XL] 300 mg PO DAILY 30 Days #60 tab 06/02/23 traZODone HCL [Desyrel] 50 mg PO HS PRN 30 Days #30 tab 06/02/23 Sulfamethox-Tmp 800-160Mg [Bactrim 1 tab PO Q12HR #20 tab 10/09/23 DS 800-160 mg] Allergies Allergy/AdvReac Type Severity Reaction Status Date / Time No Known Allergies Allergy Verified 10/09/23 21:12 Review of Systems ROS Statement: Those systems with pertinent positive or pertinent negative responses have been documented in the HPI. ROS Other: All systems not noted in ROS Statement are negative. Past Medical History Past Medical History: No Reported History History of Any Multi-Drug Resistant Organisms: None Reported Past Surgical History: No Surgical Hx Reported Past Anesthesia/Blood Transfusion Reactions: No Reported Reaction Past Psychological History: Bipolar, Depression Smoking Status: Current every day smoker Past Alcohol Use History: None Reported Past Drug Use History: Methamphetamine - Past Family History Mother History Unknown: Yes General Exam Limitations: no limitations General appearance: alert, in no apparent distress Head exam: Present: atraumatic, normocephalic Eye exam: Present: normal appearance, PERRL ENT exam: Present: normal exam Neck exam: Present: normal inspection. Absent: tenderness, meningismus Respiratory exam: Present: normal lung sounds bilaterally. Absent: respiratory distress Cardiovascular Exam: Present: regular rate, normal rhythm GI/Abdominal exam: Present: soft. Absent: distended, tenderness Extremities exam: Present: other (2 cm area of cellulitis with punctate abscess which is draining. This does not require incision and drainage at this time. The elbow is freely moving without concern for intra-articular infection.) Course Vital Signs 10/09/23 21:10 Temperature 98.3 F Pulse Rate 113 H Respiratory 18 Rate Blood Pressure 155/89 O2 Sat by Pulse 96 Oximetry Medical Decision Making - Medical Decision Making Was pt. sent in by a medical professional or institution ([facility], [facility], urgent care, hospital, or residential...) When possible be specific @ -No Did you speak to anyone other than the patient for history (EMS, parent, family, police, friend...)? What history was obtained from this source @ -No Did you review nursing and triage notes (agree or disagree)? Why? @ -I reviewed and agree with nursing and triage notes Were old charts reviewed (outside hosp., previous admission, EMS record, old EKG, old radiological studies, urgent care reports/EKG's, residential records)? Report findings @ -No old charts were reviewed Differential Diagnosis @ -[Abscess, cellulitis EKG interpreted by me (3pts min.). @ -As above X-rays interpreted by me (1pt min.). @ -None done CT interpreted by me (1pt min.). @ -None done U/S interpreted by me (1pt. min.). @ -None done What testing was considered but not performed or refused? (CT, X-rays, U/S, labs)? Why? @ -None What meds were considered but not given or refused? Why? @ -None Did you discuss the management of the patient with other professionals (professionals i.e. [facility], [facility], lab, RT, psych nurse, social organization professor, trim installer, teacher, photographic intelligence officer, director case management)? Give summary @ -No Was smoking cessation discussed for >3mins.? @ -No Was critical care preformed (if so, how long)? @ -No Were there social determinants of health that impacted care today? How? (Homelessness, low income, unemployed, alcoholism, drug addiction, transportation, low edu. Level, literacy, decrease access to med. care, senior care, rehab)? @ -No Was there de-escalation of care discussed even if they declined (Discuss DNR or withdrawal of care, Hospice)? DNR status @ -No What co-morbidities impacted this encounter? (DM, HTN, Smoking, COPD, CAD, Cancer, CVA, ARF, Chemo, Hep., AIDS, mental health diagnosis, sleep apnea, morbid obesity)? @ -None Was patient admitted / discharged? Hospital course, mention meds given and route, prescriptions, significant lab abnormalities, going to OR and other pertinent info. @ -38-year-old male with punctate abscess which is draining this is subcentimeter with mild surrounding cellulitis. Patient is instructed on warm compresses and to follow-up with his primary care provider. Prescribed Bactrim. Undiagnosed new problem with uncertain prognosis? @ -No Drug Therapy requiring intensive monitoring for toxicity (Heparin, Nitro, Insulin, Cardizem)? @ -No Were any procedures done? @ -No Diagnosis/symptom? @ -Abscess, cellulitis] Acute, or Chronic, or Acute on Chronic? @ -Acute Uncomplicated (without systemic symptoms) or Complicated (systemic symptoms)? @ -Default Side effects of treatment? @ -No Exacerbation, Progression, or Severe Exacerbation? @ -No Poses a threat to life or bodily function? How? (Chest pain, [place], [place], pneumonia, PE, COPD, DKA, ARF, appy, cholecystitis, CVA, Diverticulitis, Homicidal, Suicidal, threat to staff... and all critical care pts) @ -No Disposition Clinical Impression: Cellulitis, Abscess Disposition: HOME SELF-CARE Condition: Good Instructions (If sedation given, give patient instructions): Abscess (ED) Prescriptions: Sulfamethox-Tmp 800-160Mg [Bactrim DS 800-160 mg] 1 tab PO Q12HR #20 tab Is patient prescribed a controlled substance at d/c from ED?: No Referrals: Lobito Dahl MD [Primary Care Provider] - 1-2 days Time of Disposition: 21:24
== END 2023-10-09 21:33 | disposition home or self-care (01) ==
LOC: EC 20:56
DX: L02.414 Cutaneous abscess of left upper limb (principal); L03.114 Cellulitis of left upper limb; F17.200 Nicotine dependence, unspecified, uncomplicated
CPT/HCPCS: 99282

== ENCOUNTER 2023-10-14 23:32 | Inpatient (IN) | payer MEDICAID, OTHER ==
--- NOTE | 2023-10-15 00:05 | ED ---
Psych HPI <FamiliaAb - Last Filed: 10/15/23 09:18> - General Source: patient, RN notes reviewed, old records reviewed Mode of arrival: ambulatory Limitations: no limitations - History of Present Illness MD Complaint: suicidal ideation, feels depressed, altered mental status -: unknown Associated Psychiatric Symptoms: depression, suicidal ideation History of same: Yes Quality: constant Improves With: none Context: recent drug abuse Associated Symptoms: denies other symptoms Treatments Prior to Arrival: placed on mental health hold If Self Harm: admits thoughts of self harm <Bal Roldan - Last Filed: 10/21/23 23:51> - General Chief Complaint: Psychiatric Symptoms Stated Complaint: Mental Health Time Seen by Provider: 10/15/23 00:03 - History of Present Illness Initial Comments: This is a 38-year-old male to ER for evaluation of mental health suicidal thoughts psychiatric illness and depression. Has history of drug abuse methamphetamine states he is presenting with suicidal thoughts with no history of plan (Bal Roldan) - Related Data Previous Rx's Medication Instructions Recorded buPROPion [Wellbutrin] 75 mg PO DAILY 30 Days #30 tab 10/21/23 traZODone HCL [Desyrel] 100 mg PO HS 30 Days #30 tab 10/21/23 Allergies Allergy/AdvReac Type Severity Reaction Status Date / Time No Known Allergies Allergy Verified 10/15/23 08:27 Review of Systems ROS Other: All systems not noted in ROS Statement are negative. <FamiliaAb - Last Filed: 10/15/23 09:18> ROS Other: All systems not noted in ROS Statement are negative. <Bal Roldan - Last Filed: 10/21/23 23:51> ROS Statement: Those systems with pertinent positive or pertinent negative responses have been documented in the HPI. Past Medical History Past Medical History: No Reported History History of Any Multi-Drug Resistant Organisms: None Reported Past Surgical History: No Surgical Hx Reported Past Anesthesia/Blood Transfusion Reactions: No Reported Reaction Past Psychological History: Bipolar, Depression Smoking Status: Current every day smoker Past Alcohol Use History: None Reported Past Drug Use History: Methamphetamine - Past Family History Mother History Unknown: Yes <Bal Roldan - Last Filed: 10/21/23 23:51> General Exam Limitations: no limitations General appearance: alert, in no apparent distress, anxious Head exam: Present: atraumatic, normocephalic, normal inspection Eye exam: Present: normal appearance, PERRL, EOMI. Absent: scleral icterus, conjunctival injection, periorbital swelling ENT exam: Present: normal exam, mucous membranes moist Neck exam: Present: normal inspection. Absent: tenderness, meningismus, lymphadenopathy Respiratory exam: Present: normal lung sounds bilaterally. Absent: respiratory distress, wheezes, rales, rhonchi, stridor Cardiovascular Exam: Present: regular rate, normal rhythm, normal heart sounds. Absent: systolic murmur, diastolic murmur, rubs, gallop, clicks GI/Abdominal exam: Present: soft, normal bowel sounds. Absent: distended, tenderness, guarding, rebound, rigid Extremities exam: Present: normal inspection, full ROM, normal capillary refill. Absent: tenderness, pedal edema, joint swelling, calf tenderness Back exam: Present: normal inspection Neurological exam: Present: alert, oriented X3, CN II-XII intact Psychiatric exam: Present: normal affect, normal mood Skin exam: Present: warm, dry, intact, normal color. Absent: rash <Bal Roldan - Last Filed: 10/21/23 23:51> Course <Bal Roldan - Last Filed: 10/21/23 23:51> Vital Signs 10/14/23 10/15/23 10/15/23 23:42 03:10 11:35 Temperature 98.3 F Pulse Rate 144 H 89 80 Respiratory 18 18 16 Rate Blood Pressure 132/79 120/73 O2 Sat by Pulse 98 98 97 Oximetry 10/15/23 13:00 Temperature Pulse Rate 96 Respiratory 18 Rate Blood Pressure 135/89 O2 Sat by Pulse 99 Oximetry - Reevaluation(s) Reevaluation #1: Medical records reviewed Medically clear for psychiatric evaluation (Bal Roldan) Medical Decision Making <Ab Barbosa - Last Filed: 10/15/23 09:18> - Lab Data Result diagrams: 10/17/23 10:19 10/17/23 10:19 <Bal Roldan - Last Filed: 10/21/23 23:51> - Medical Decision Making Patient is a 38-year-old male medically cleared by the previous emergency department physician. Presents for psychiatric evaluation. Patient has had suicidal ideation with worsening depression. History of polysubstance abuse. Patient evaluated by EPS, and I spoke with Rayshawn who stated patient does meet inpatient admission criteria. Patient will be admitted to inpatient psychiatry in stable condition. Patient is a voluntary admission. Diagnosis/symptom? @ -Encounter for psychiatric evaluation, depression, suicidal ideation, polysubstance abuse Acute, or Chronic, or Acute on Chronic? @ -Acute Uncomplicated (without systemic symptoms) or Complicated (systemic symptoms)? @ -Complicated Side effects of treatment? @ -None Exacerbation, Progression, or Severe Exacerbation] @ -No Poses a threat to life or bodily function? @ -Yes (Ab Barbosa) 38 male for inpatient psychiatric evaluation (Bal Roldan) - Lab Data Lab Results 10/15/23 10/15/23 10/15/23 Range/Units 00:03 00:03 10:42 Urine Color Light Yellow Urine Appearance Turbid (Clear) Urine pH 7.5 (5.0-8.0) Ur Specific [place] 1.017 (1.001-1.035) Urine Protein Negative (Negative) Urine Glucose (UA) Negative (Negative) Urine Ketones Negative (Negative) Urine Blood Negative (Negative) Urine Nitrite Negative (Negative) Urine Bilirubin Negative (Negative) Urine Urobilinogen 2.0 (<2.0) mg/dL Ur Leukocyte Esterase Negative (Negative) Urine WBC 1 (0-5) /hpf Amorphous Sediment Moderate H (None) /hpf Urine Mucus Rare H (None) /hpf Urine Opiates Screen Detected H (NotDetected) Ur Oxycodone Screen Not Detected (NotDetected) Urine Methadone Screen Detected H (NotDetected) Ur Barbiturates Screen Not Detected (NotDetected) U Tricyclic Antidepress Detected H (NotDetected) Ur Phencyclidine Scrn Not Detected (NotDetected) Ur Amphetamines Screen Detected H (NotDetected) U Methamphetamines Scrn Detected H (NotDetected) U Benzodiazepines Scrn Not Detected (NotDetected) Urine Cocaine Screen Detected H (NotDetected) U Marijuana (THC) Screen Not Detected (NotDetected) SARS-CoV-2 (PCR) Not Detected (Not Detectd) Disposition Time of Disposition: 09:19 <Ab Barbosa - Last Filed: 10/15/23 09:18> <Bal Roldan B - Last Filed: 10/21/23 23:51> Clinical Impression: Suicidal ideation, Depression, Encounter for psychiatric assessment, Polysubstance abuse Disposition: TRANSFER TO PSYCH HOSP/UNIT Condition: Stable
[2023-10-15] MEDS: LORazepam 1 MG TAB PO STA (00:12)
[2023-10-15 00:44] LABS: Amorphous Sediment,Urine Moderate /hpf; Appearance,Urine Turbid (Clear); Bilirubin,Urine Negative (Negative); Blood,Urine Negative (Negative); Color,Urine Light Yellow; Glucose,Urine (UA) Negative (Negative); Ketones,Urine Negative (Negative); Leukocyte Esterase,Urine Negative (Negative); Mucus,Urine Rare /hpf; Nitrite,Urine Negative (Negative); PH, Urine 7.5 (5.0-8.0); Protein,Urine Negative (Negative); Specific Gravity,Urine 1.017 (1.001-1.035); WBC,Urine 1 /hpf (0-5)
[2023-10-15 00:46] LABS: Amphetamine Screen,Urine Detected (NotDetected); Barbiturate Screen,Urine Not Detected (NotDetected); Benzodiazepines Screen,Urine Not Detected (NotDetected); Cocaine Screen,Urine Detected (NotDetected); Methadone Screen, Urine Detected (NotDetected); Opiate Screen,Urine Detected (NotDetected); Oxycodone Screen, Urine Not Detected (NotDetected); Phencyclidine Screen,Urine Not Detected (NotDetected); Tricyclic Antidepressant,Urine Detected (NotDetected); Urn Cannabinoid Scrn Not Detected (NotDetected)
[2023-10-15] MEDS ORDERED: MAGNESIUM HYDROXIDE 2,400 MG/30 ML CUP PO PRN (12:35)
[2023-10-15] MEDS ORDERED: MAG HYDROX/AL HYDROX/SIMETH 355 ML BOTTLE PO PRN (12:35)
[2023-10-15] MEDS ORDERED: ACETAMINOPHEN TAB 325 MG TAB PO PRN (12:35)
[2023-10-15] MEDS ORDERED: OLANZapine 10 MG VIAL IM PRN (12:39)
[2023-10-15] MEDS: SULFAMETHOX-TMP 800-160MG 1 EACH TAB PO SCH (13:39)
[2023-10-15] MEDS: IBUPROFEN 600 MG TAB PO PRN (14:03)
[2023-10-15] MEDS: OLANZapine 5 MG TAB PO PRN (14:03)
[2023-10-15] MEDS: NICOTINE GUM (POLACRILEX) 2 MG GUM BUCCAL PRN (14:25)
[2023-10-15] MEDS: cloNIDine HCL 0.1 MG TAB PO PRN (20:30)
[2023-10-16] MEDS ORDERED: NICOTINE 14MG/24HR PATCH TRANSDERM SCH ×2 (09:00→14:30)
[2023-10-16] MEDS: OLANZapine 2.5 MG TAB PO SCH (13:57)
--- NOTE | 2023-10-16 15:20 | P.HP ---
Psychiatric H&P - . H&P Date: 10/16/23 History & Physical: Allergies Allergy/AdvReac Type Severity Reaction Status Date / Time No Known Allergies Allergy Verified 10/15/23 08:27 Vital Signs Temp 97.3 F L 10/16/23 11:30 Pulse 126 H 10/16/23 11:30 Resp 18 10/16/23 11:30 BP 131/73 10/16/23 11:30 Pulse Ox 99 10/15/23 20:32 FiO2 Intake & Output 10/15/23 10/16/23 10/16/23 18:59 06:59 18:59 Weight 64.92 kg Laboratory Last Values Urine Color Light Yellow 10/15/23 00:03 Urine Appearance Turbid (Clear) 10/15/23 00:03 Urine pH 7.5 (5.0-8.0) 10/15/23 00:03 Ur Specific [place] 1.017 (1.001-1.035) 10/15/23 00:03 Urine Protein Negative (Negative) 10/15/23 00:03 Urine Glucose (UA) Negative (Negative) 10/15/23 00:03 Urine Ketones Negative (Negative) 10/15/23 00:03 Urine Blood Negative (Negative) 10/15/23 00:03 Urine Nitrite Negative (Negative) 10/15/23 00:03 Urine Bilirubin Negative (Negative) 10/15/23 00:03 Urine Urobilinogen 2.0 mg/dL (<2.0) 10/15/23 00:03 Ur Leukocyte Esterase Negative (Negative) 10/15/23 00:03 Urine WBC 1 /hpf (0-5) 10/15/23 00:03 Amorphous Sediment Moderate /hpf (None) H 10/15/23 00:03 Urine Mucus Rare /hpf (None) H 10/15/23 00:03 Urine Opiates Screen Detected (NotDetected) H 10/15/23 00:03 Ur Oxycodone Screen Not Detected (NotDetected) 10/15/23 00:03 Urine Methadone Screen Detected (NotDetected) H 10/15/23 00:03 Ur Barbiturates Screen Not Detected (NotDetected) 10/15/23 00:03 U Tricyclic Antidepress Detected (NotDetected) H 10/15/23 00:03 Ur Phencyclidine Scrn Not Detected (NotDetected) 10/15/23 00:03 Ur Amphetamines Screen Detected (NotDetected) H 10/15/23 00:03 U Methamphetamines Scrn Detected (NotDetected) H 10/15/23 00:03 U Benzodiazepines Scrn Not Detected (NotDetected) 10/15/23 00:03 Urine Cocaine Screen Detected (NotDetected) H 10/15/23 00:03 U Marijuana (THC) Screen Not Detected (NotDetected) 10/15/23 00:03 SARS-CoV-2 (PCR) Not Detected (Not Detectd) 10/15/23 10:42 10/16/23 15:19 Initial Psychiatric Evaluation Identifying Data: Mr. Niels Ramos is 38 years old, single, WM, who lives in a house with his girlfriend in [place], [place]. Chief Complaint: My head was fuzzy History of Psychiatric Illness: The patient noted that he was feeling somewhat depressed, anxious, frustrated because he was not able to see his grandfather, who is dying of Prostate cancer. The patient was also using quite a bit of Opioids, Methamphetamine, and other sedatives. The patient was very restless during this interview, He kept on saying that he can not do this right now and started pacing. He was asked to take his prn and go to his room. The patient will be seen when he is more cooperative and less restless. Currently the patient unable to participate in evaluation. Will approach patient later or tomorrow to complete the psychiatric evaluation. Leading questions: The patient admitted to Depression and Anxiety. Denied SI or HI. Denied symptoms consistent with psychosis Drugs and alcohol history: The patient admitted to taking Opioids, Methamphetamine and Cocaine before coming to the hospital. Smoking: Not known at this time. Past Medical history: Unobtainable. Family History of Psychiatric Disorder: Unobtainable. Social History and Family History: Unobtainable. OTC: Unobtainable. Allergies: Unobtainable. Aims: Normal Labs: ordered, not available Objective: MSE: Alert and attentive. Orientation times three Dressed and Groomed: Adequately. Irritable and un-cooperative. Psychomotor Activity: Increased. Speech: Normal in tone, rapid and over productive. Mood: Anxious Affect: Tense and anxious SI or HI: None. Perceptual disturbance: None. Thought Content: No paranoia or other delusional thinking noted. Thought Process: Normal. Cognition: Intact Judgment and Insight: Poor Labs: Diagnosis: Substance induced psychosis, NOS, improving Depression, NOS with suicidal ideations Opioid Dependence Stimulant Abuse, nonspecific Plan and Recommendations: Complete Psychiatric Evaluation Continue current Medications. Monitor MS and side effects of medications and adjust medications accordingly. Provide supportive psychotherapy The patient to see a therapist on a regular basis once a week. CBC with Diff, CMP, TSH, Lipid Profile, HbA1c, EKG ordered. Medication Consent with explanation of risk/benefits and side effects: Explained and obtained.
[2023-10-17 11:10] LABS: Basophils # (A) 0.1 k/uL (0-0.2); Basophils % (A) 1 %; Eosinophils # (A) 0.2 k/uL (0-0.7); Eosinophils % (A) 2 %; HCT 44.7 % (39.0-53.0); HGB 13.9 gm/dL (13.0-17.5); Lymphocytes # (A) 4.7 k/uL (1.0-4.8); Lymphocytes % (A) 40 %; MCH 27.5 pg (25.0-35.0); MCHC 31.1 g/dL (31.0-37.0); MCV 88.2 fL (80.0-100.0); Mean Platelet Volume 7.1; Monocytes # (A) 0.6 k/uL (0-1.0); Monocytes % (A) 5 %; Neutrophils # (A) 5.9 k/uL (1.3-7.7); Neutrophils % (A) 49 %; Platelet Count 409 k/uL (150-450); RBC 5.07 m/uL (4.30-5.90); RDW 14.4 % (11.5-15.5); WBC 11.9 k/uL (3.8-10.6)
[2023-10-17 11:11] LABS: ALT 28 U/L (4-49); AST 28 U/L (17-59); African American GFR (CKD) >90 (>60 ml/min/1.73 sqM); Albumin 3.8 g/dL (3.5-5.0); Alkaline Phosphatase 102 U/L (38-126); Anion Gap 9 mmol/L; Blood Urea Nitrogen 14 mg/dL (9-20); Calcium 9.4 mg/dL (8.4-10.2); Carbon Dioxide 23 mmol/L (22-30); Chloride 108 mmol/L (98-107); Glucose 114 mg/dL (74-99); Non-African American GFR(CKD) >90 (>60 ml/min/1.73 sqM); Potassium 5.2 mmol/L (3.5-5.1); Sodium 140 mmol/L (137-145); Total Bilirubin 0.4 mg/dL (0.2-1.3); Total Protein 7.3 g/dL (6.3-8.2)
[2023-10-17 16:41] LABS: Chol/HDL Ratio 5.34 Ratio; LDL Cholesterol,Calculated 105.9 mg/dL (0.0-131.0)
--- NOTE | 2023-10-17 17:11 | P.PN ---
Progress Note - Text Progress Note Date: 10/17/23 In-Patient Follow-up Chief Complaint: I am feeling better Subjective: The patient noted that he is doing good. He admitted to sleeping a lot due to boredom. He is attending some of the groups. The patient denies any other complains. He did request for Trazodone for sleep. The patient requested for Wellbutrin. The patient noted that he was prescribed this medication by Will Domingo on his last admission. He noted taking this medication 10 days ago. The patient received 4 doses of Zyprexa 2,5 mg mainly to sleep since yesterday. He also received Clonidine for withdrawal. Overall, the patient doing much better. He less restless than before. He was able participate in this session without problem. The patient noted that he was feeling sad, loss of energy, loss of motivation, social isolation, sleeping a lot, feelings of worthlessness and hopelessness. He mentioned suicidal after coming to the hospital so he could be admitted. He noted that he was not suicidal. He wanted to get of drugs. The patient noted that he started seeking psychiatric help 2 years ago. He was admitted to the hospital with symptoms of Depression, Anxiety, and drug use in 2022 at [place], [place]. He had at least 3 admissions in 2022 in [place], He did not attend any out-patient treatment. [facility]. He moved back to [place] last October. He has been admitted to psychiatric hospital twice since then. His last admission was around May,. He was discharged on Trazodone and Wellbutrin. As per patient he started going to [facility] after his last admission. He sees Therapist Boubacar at this clinic. The patient gently confronted with the fact he was hallucinating and exhibiting paranoia to his therapist. The patient noted to the therapist that it was due to drug use. The patient noted that he has been doing drugs for past 5 years. He started with Marijuana and got promoted to Opioid and stimulants. He denied use of any other drugs. He was placed on Suboxone. He was admitted to [facility] in November last year. He has no other substance abuse treatment. Leading questions: The patient admitted to Depression and Anxiety but claims to have improved a lot. Denied SI or HI. Denied symptoms consistent with psychosis Sleep and Appetite: Fine. Interim History- Behavioral Changes: No behavior issues. He was noted to be restless and anxious for which he received Clonidine 0.1 mg three times today. PRN meds/isolation/restraints/ change in status: prn medications as stated above. Change in medical condition: No change. Change in medications: No change. Side effects from Medications: None. Objective- MSE: Alert and attentive. Orientation times three. Dressed and Groomed: Appropriately. Pleasant and cooperative. Psychomotor Activity: some restlessness noted. The patient noted that he is always like that, especially when dealing in situation of being interviewed. Speech: Normal in tone, quality, and quantity. Mood: Depressed and Anxious. Affect: Anxious. SI or HI: None. Perceptual disturbance: None. Thought Content: No paranoia or other delusional thinking noted. Thought Process: Normal. Cognition: Intact Judgment and Insight: Good AIMS: Normal. Labs: Reviewed with patients. Diagnosis: Depressive Disorder, unspecified. Opioid Dependence Methamphetamine abuse Plan and recommendation: Continue current Medications. Taper off Clonidine. Reduce Zyprexa to 5 mg po qhs. Trazodone 100 mg qhs. Wellbutrin 100 mg qam. Monitor MS and side effects of medications and adjust medications accordingly. Provide supportive psychotherapy. The patient provided psychoeducation. The patient provided Substance abuse counseling. Smoke cessation therapy. The patient to continue attending the singh activities. Singh status: CBC with Diff, CMP, TSH, HbA1c. Medication Consent with explanation of risk/benefits and side effects: Explained and obtained.
[2023-10-17] MEDS: OLANZapine 5 MG TAB PO SCH (20:27)
[2023-10-17] MEDS: traZODone HCL 100 MG TAB PO SCH (20:27)
--- NOTE | 2023-10-17 23:30 | HP ---
HISTORY AND PHYSICAL CHIEF COMPLAINT: Major depression. HISTORY OF PRESENT ILLNESS: This is a 38-year-old white male, who was admitted for major depression. He is uncooperative and does not provide any other history. Review of systems, past medical history, family history and personal and social histories are unobtainable. PHYSICAL EXAMINATION: VITAL SIGNS: Normal. HEAD, EARS, EYES, NOSE AND MOUTH: Grossly normal. CHEST: Breath sounds are heard bilaterally. CARDIAC: Normal. EXTREMITIES: Normal. IMPRESSION: Major depression. RECOMMENDATIONS: None. MMODL / IJN: [id number] /
[2023-10-18] MEDS: buPROPion 75 MG TAB PO SCH (08:53)
--- NOTE | 2023-10-18 13:51 | P.PN ---
Subjective Progress Note Date: 10/18/23 Principal diagnosis: Substance use disorder Major depression Subjective patient says he is tired but is calmer on the Zyprexa which is the only new medicine he is on he is continuing to take low-dose Wellbutrin. This is little boring and here part from that he is not feeling agitated or anxious denies suicidality or homicidality. Objective he is little sleepy but he came readily from his room to talk to me in the office I contact down all bed kind of curled up on his chair self-care is minimal but he was pleasant oriented answers for the questions. Assessment seems to be tolerating his medicines with benefit Plan no change at this time Objective - Vital Signs Vital signs: Vital Signs Temp 97.9 F 10/18/23 06:23 Pulse 123 H 10/18/23 06:23 Resp 16 10/18/23 06:23 BP 109/71 10/18/23 06:23 Pulse Ox 97 10/17/23 09:41 FiO2 - Labs CBC & Chem 7: 10/17/23 10:19 10/17/23 10:19 Labs: Abnormal Lab Results - Last 24 Hours (Table) 10/17/23 Range/Units 10:19 HDL Cholesterol 30.70 L (40.00-60.00) mg/dL
[2023-10-18] MEDS: cloNIDine HCL 0.1 MG TAB PO PRN (14:48)
[2023-10-18] MEDS: LORazepam 1 MG TAB PO PRN (15:08)
--- NOTE | 2023-10-19 12:10 | P.PN ---
Subjective Progress Note Date: 10/19/23 Principal diagnosis: Substance use disorder Major depression Subjective patient says he is tired but is calmer on the Zyprexa which is the only new medicine he is on he is continuing to take low-dose Wellbutrin. It is little boring in the hospital apart from that he is not feeling agitated or anxious denies suicidality or homicidality. Objective: I saw him at noon and he was sleeping in his room. He didn't feel like getting up and coming a talked means that he is fine nothing to talk about his self-care is minimal but he was pleasant oriented answers for the questions made sense he was just a bit vague. Assessment seems to be tolerating his medicines with benefit. Plan no change at this time Objective - Vital Signs Vital signs: Vital Signs Temp 97.9 F 10/18/23 06:23 Pulse 123 H 10/19/23 09:50 Resp 18 10/18/23 20:20 BP 116/58 10/19/23 09:50 Pulse Ox 97 10/17/23 09:41 FiO2 - Labs CBC & Chem 7: 10/17/23 10:19 10/17/23 10:19
[2023-10-19] MEDS: OLANZapine 5 MG TAB PO PRN (16:30)
[2023-10-20 06:52] VITALS: RESP 16
--- NOTE | 2023-10-20 17:42 | P.PN ---
Progress Note - Text Progress Note Date: 10/20/23 In-Patient Follow-up Chief Complaint: I am feeling very good Subjective: The patient noted that he has been doing fine. The patient has been anxious over the weekend. He took few Ativan for anxiety. The patient noted that he feels anxious being here.. He wants to see her lady friend and breath fresh air. The patient no episode of agitation, belligerence or combativeness. He has been compliant with treatment recommendations. Overall, patient feels stable to be discharged. Discouraged patient from using Ativan. Explained him that Ativan and Clonidine will be discontinued today. He will be discontinued today. He will be started on Hydroxyzine for anxiety. The patient noted that he would be seeing his therapist after discharge at [facility]. An appointment with a psychiatrist will be made at [facility]. Overall, patient is showing good improvement on current medications. Leading questions: The patient denied to Depression and Anxiety. Denied SI or HI. Denied symptoms consistent with psychosis Sleep and Appetite: Good. Interim History- Behavioral Changes: None PRN meds/isolation/restraints/ change in status: The patient received Clonidine and Ativan over the weekend. Both these medications to be discontinued today. Change in medical condition: No change. Change in medications: The Ativan was added to his treatment over the weekend for anxiety. Side effects from Medications: None. Objective- MSE: Alert and attentive. Orientation times three. Dressed and Groomed: Appropriately. Pleasant and cooperative. Psychomotor Activity: Normal. Speech: Normal in tone, quality, and quantity. Mood: Good Affect: Consistent with mood. SI or HI: None. Perceptual disturbance: None. Thought Content: No paranoia or other delusional thinking noted. Thought Process: Normal. Cognition: Intact Judgment and Insight: Good AIMS: Normal. Labs: No new Labs. Diagnosis: No Change. Plan and recommendation: Continue current Medications. Monitor MS and side effects of medications and adjust medications accordingly. Provide supportive psychotherapy. The patient provided psychoeducation. The patient provided Substance abuse counseling. Smoke cessation therapy. The patient to continue attending the arciniega activities. Medication Consent with explanation of risk/benefits and side effects: Explained and obtained. Discharge Plan: The patient will receive out-pt treatment at [facility]. 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 He will also resume care with his PCP. He will be going back to live with his lady friend. Social work to assess and confirm safe disposition. The patient will need a ride to go home. He noted that his lady friend will be at work.
[2023-10-21 07:25] VITALS: BP 116/63; PULSE 97; TEMP 98.6
--- NOTE | 2023-10-21 13:14 | P.DS ---
Providers Date of admission: 10/15/23 12:32 Expected date of discharge: 10/21/23 Attending physician: Alexis Waller MD Consults: 10/15/23 12:35 Consult Physician Routine Consulting Provider: Lobito Dahl Consult Reason/Comments: H&P Do you want consulting provider notified?: Yes Primary care physician: Lobito Dahl - Discharge Diagnosis(es) (1) Substance-induced psychotic disorder Status: Resolved Priority: High (2) Depression, unspecified Status: Chronic Priority: Medium (3) Opioid dependence Status: Chronic Priority: Medium (4) Stimulant abuse Status: Chronic Priority: Medium Hospital Course: Discharge Summary HPI: Identifying Data: Mr. Niels Ramos is 38 years old, single, WM, who lives in a house with his girlfriend in [place], [place]. Chief Complaint: My head was fuzzy History of Psychiatric Illness: The patient noted that he was feeling somewhat depressed, anxious, frustrated because he was not able to see his grandfather, who is dying of Prostate cancer. The patient was also using quite a bit of Opioids, Methamphetamine, and other sedatives. The patient was very restless during this interview, He kept on saying that he cannot do this right now and started pacing. He was asked to take his prn and go to his room. The patient will be seen when he is more cooperative and less restless. On subsequent visit, the patient noted that he was feeling sad, loss of energy, loss of motivation, social isolation, sleeping a lot, feelings of worthlessness and hopelessness before he came to the hospital. He mentioned being suicidal after coming to the hospital, so he could be admitted. He noted that he was not suicidal. He wanted to get off drugs. The patient noted that he started seeking psychiatric help 2 years ago. He was admitted to the hospital with symptoms of Depression, Anxiety, and drug use in 2022 at [place], [place]. He had at least 3 admissions in 2022 in [place], He did not attend any out-patient treatment. [facility]. He moved back to [place] last October. He has been admitted to psychiatric hospitals twice since then. His last admission was around May,. He was discharged on Trazodone and Wellbutrin. As per patient, he started going to [facility] after his last admission. He sees therapist Boubacar at this clinic. The patient was gently confronted with the fact that he was hallucinating and exhibiting paranoia to his therapist. The patient noted to it was due to drug use. The patient noted that he has been doing drugs for past 5 years. He started with Marijuana and got promoted to Opioid and stimulants. He denied use of any other drugs. He was placed on Suboxone. He was admitted to [place] in November of last year. He has no other substance abuse treatments. Leading questions: The patient admitted to Depression and Anxiety but claims to have improved a lot. Denied SI or HI. Denied symptoms consistent with psychosis Hospital Course: After admission, the patient was placed on detox regiment and on prn medications for severe anxiety and agitation. Initially, the patient used prn medication often but slowly use of these medications decreased. He was also spending lot of time sleeping in bed and not coming out of the room stating that he is too sleepy and tired. He was involved in arciniega activities. Initially his attendance and participation were poor but later he became more visible on arciniega and started attending the groups. He was started on his home medications Wellbutrin 75 mg daily and Trazodone 100 mg. He exhibited no side effects from the medications during this hospitalization. He continued improving and attained stability to be discharged as an out-pt. He was discharged on 10/21/2023. He will be staying with his girlfriend. He will follow-up for his psychiatric care at [facility]. MSE: MSE: Alert and attentive. Orientation times three Dressed and Groomed: Appropriately. Pleasant and cooperative. Psychomotor Activity: Normal. Speech: Normal in tone, quality, and quantity. Mood: Good Affect: Consistent with mood. SI or HI: None. Perceptual disturbance: None. Thought Content: No paranoia or other delusional thinking noted. Thought Process: Normal. Cognition: Intact Judgement and Insight: Good. Impression: Plan: The patient to be discharged today. The patient has attained good improvement since admission. He is stable to be followed as an outpatient. The patient is not suicidal or Homicidal. He does not pose any harm to self or others. The patient remains at a greater risk of self-harm or harm to others than general population on a chronic basis due to psychiatric illness and substance abuse. The patient will continue taking Wellbutrin 75 mg daily and Trazodone 100 mg at bedtime post discharge. The importance of medication compliance and maintaining regular appointments at psychiatric out-pt and PCP clinic was explained and encouraged. He was advised to seek therapy with a dual diagnosis therapist. The patient was also advised to seek substance abuse counseling and attend AA and NA meetings. The patient understood and agreed with the recommendations. pest control worker to arrange for and conduct family meeting to ensure safety upon discharge and answer any questions. The psychiatric social worker supervisor to arrange for patients follow-up appointments at [facility] for psychiatric care along with follow-up with PCP. The patient provided psychoeducation. Advised to call 911 or go to nearest ED or call this hospital in case of acute worsening of symptomatology, severe side effects or having suicidal, homicidal thoughts and feeling unsafe at home. Judgment and Insight: Good Impression: Plan: The patient to be discharged today. The patient has attained good improvement since admission. He is stable to be followed as an outpatient. The patient is not suicidal or Homicidal. He does not pose any harm to self or others. The patient remains at a greater risk of self-harm or harm to others than general population on a chronic basis due to psychiatric illness and substance abuse. The patient will continue taking following medication post discharge. The importance of medication compliance and maintaining regular appointments at psychiatric out-pt and PCP clinic was explained and encouraged. The patient was also advised to seek alcohol counseling and attend AA meetings. The understood and agreed with the recommendations. pest control worker to arrange for and conduct family meeting to ensure safety upon discharge and answer any questions. The psychiatric social worker supervisor to arrange for patients follow-up appointments at [facility] for psychiatric care along with follow-up with PCP. The patient provided psychoeducation. Advised to call 911 or go to nearest ED or call this hospital in case of acute worsening of symptomatology, severe side effects or having suicidal, homicidal thoughts and feeling unsafe at home. Patient Condition at Discharge: Stable Plan - Discharge Summary Discharge Rx Participant: No New Discharge Prescriptions: New buPROPion [Wellbutrin] 75 mg PO DAILY 30 Days #30 tab traZODone HCL [Desyrel] 100 mg PO HS 30 Days #30 tab Discontinued Sulfamethox-Tmp 800-160Mg [Bactrim DS 800-160 mg] 1 tab PO Q12HR #20 tab Discharge Medication List buPROPion [Wellbutrin] 75 mg PO DAILY 30 Days #30 tab 10/21/23 [Rx] traZODone HCL [Desyrel] 100 mg PO HS 30 Days #30 tab 10/21/23 [Rx] Follow up Appointment(s)/Referral(s): [facility] [Outside] - 10/23/23 9:00 am (10/23/2023 9:00AM - 10:00AM BOUBACAR HUERTA 10/27/2023 11:00AM - 12:00PM LASHON DUVALL ) Lobito Dahl MD [Primary Care Provider] - 1-2 days Patient Instructions/Handouts: Depression (DC), Suicide Prevention (DC) Activity/Diet/Wound Care/Special Instructions: Avoid the use of street drugs and alcohol. Take all medications as prescribed. When you are in need of refills on your medications, please contact your medical provider and/or outpatient psychiatrist/provider to have this done. Please go to your scheduled outpatient appointment for aftercare treatment. If symptoms return or become worse, call the crisis line at and/or go to the nearest emergency room for evaluation. National Suicide Hotline 618. Discharge Disposition: HOME SELF-CARE
== END 2023-10-21 12:22 | disposition home or self-care (01) | DRG 773 ==
LOC: EC 23:32 → 3MHU 10-15 12:32
PROVIDERS: ADMIT Psychiatry & Neurology Psychiatry; ATTEND Psychiatry & Neurology Psychiatry
DX: F15.159 Other stimulant abuse with stimulant-induced psychotic disorder, unspecified (principal); F11.20 Opioid dependence, uncomplicated; F17.200 Nicotine dependence, unspecified, uncomplicated; F32.9 Major depressive disorder, single episode, unspecified; F41.9 Anxiety disorder, unspecified; R45.1 Restlessness and agitation; R44.3 Hallucinations, unspecified; R45.851 Suicidal ideations; Z60.4 Social exclusion and rejection; Z79.899 Other long term (current) drug therapy; Z28.310 Unvaccinated for COVID-19; Z28.21 Immunization not carried out because of patient refusal; Z53.29 Procedure and treatment not carried out because of patient's decision for other reasons
CPT/HCPCS: 80053; 80061; 80306; 81001; 82075; 83036; 84443; 85025; 87635; 93005; 99285

== ENCOUNTER 2024-01-13 19:35 | Emergency (ER) | payer OTHER ==
[2024-01-13 19:43] VITALS: BP 134/86; PULSE 127; RESP 22; TEMP 97.9
--- NOTE | 2024-01-13 19:44 | ED ---
Chest Pain HPI - General Chief Complaint: Chest Pain Stated Complaint: Chest pain,Sob Time Seen by Provider: 01/13/24 19:44 Source: patient, family, RN notes reviewed Mode of arrival: ambulatory Limitations: no limitations - History of Present Illness Initial Comments: Quick note: 38-year-old male presented to ER with a chief complaint of right- sided chest pain. He describes it as a "knotted up" sensation. He also reports shortness of breath and dizziness. He was seen at [facility] 1 week ago for a rash on his chest. Has any fevers at home. - Related Data Previous Rx's Medication Instructions Recorded buPROPion [Wellbutrin] 75 mg PO DAILY 30 Days #30 tab 10/21/23 traZODone HCL [Desyrel] 100 mg PO HS 30 Days #30 tab 10/21/23 Allergies Allergy/AdvReac Type Severity Reaction Status Date / Time No Known Allergies Allergy Verified 01/13/24 19:38 Review of Systems ROS Statement: Those systems with pertinent positive or pertinent negative responses have been documented in the HPI. ROS Other: All systems not noted in ROS Statement are negative. Past Medical History Past Medical History: No Reported History History of Any Multi-Drug Resistant Organisms: None Reported Past Surgical History: No Surgical Hx Reported Past Anesthesia/Blood Transfusion Reactions: No Reported Reaction Past Psychological History: Bipolar, Depression Smoking Status: Current every day smoker Past Alcohol Use History: None Reported Past Drug Use History: Methamphetamine - Past Family History Mother History Unknown: Yes General Exam - General Exam Comments Initial Comments: Visual Physical Exam Vital signs reviewed General: Well-appearing, nontoxic, no acute distress. Head: Normocephalic, atraumatic Eyes: PERRLA, EOMI ENT: Airway patent Chest: Nonlabored breathing Skin: No visual rash, normal skin tone Neuro: Alert and oriented 3 Musculoskeletal: No gross abnormalities Limitations: no limitations Course Vital Signs 01/13/24 19:38 Temperature 97.9 F Pulse Rate 127 H Respiratory 22 Rate Blood Pressure 134/86 O2 Sat by Pulse 100 Oximetry Chest Pain MDM - MDM I performed the quick note portion of this chart. Electronically signed by Nuno Doan PA-C Patient eloped prior to completion of medical treatment. Disposition Clinical Impression: Left against medical advice Disposition: LEFT AGAINST MEDICAL ADVICE Condition: Undetermined Referrals: Lobito Dahl MD [Primary Care Provider] - 1-2 days Time of Disposition: 03:26
--- NOTE | 2024-01-13 20:22 | XR ---
EXAMINATION TYPE: XR chest 2V DATE OF EXAM: 01/13/2024 8:11 PM CLINICAL INDICATION:Male, 38 years old with history of Chest Pain; [facility] COMPARISON: 11/19/2022. TECHNIQUE: XR chest 2V Frontal view of the chest. FINDINGS: Lungs/Pleura: Airspace opacity in the right upper lung medially new from prior. There is no evidence of pleural effusion, focal consolidation, or pneumothorax. Pulmonary vascularity: Unremarkable. Heart/mediastinum: Cardiomediastinal silhouette is unremarkable. Musculoskeletal: No acute osseous pathology. IMPRESSION: Indeterminate opacity near the right upper mediastinal border. Findings could represent atelectasis versus pneumonia, correlate clinically.
[2024-01-13 20:36] LABS: ALT 133 U/L (4-49); AST 166 U/L (17-59); African American GFR (CKD) >90 (>60 ml/min/1.73 sqM); Albumin 3.1 g/dL (3.5-5.0); Alkaline Phosphatase 308 U/L (38-126); Anion Gap 11 mmol/L; Blood Urea Nitrogen 28 mg/dL (9-20); Calcium 8.6 mg/dL (8.4-10.2); Carbon Dioxide 20 mmol/L (22-30); Chloride 106 mmol/L (98-107); Glucose 147 mg/dL (74-99); HCT 40.5 % (39.0-53.0); HGB 12.8 gm/dL (13.0-17.5); MCH 27.7 pg (25.0-35.0); MCHC 31.7 g/dL (31.0-37.0); MCV 87.4 fL (80.0-100.0); Magnesium 2.2 mg/dL (1.6-2.3); Mean Platelet Volume 7.9; Non-African American GFR(CKD) >90 (>60 ml/min/1.73 sqM); Platelet Count 478 k/uL (150-450); Potassium 4.4 mmol/L (3.5-5.1); RBC 4.63 m/uL (4.30-5.90); RDW 15.3 % (11.5-15.5); Sodium 137 mmol/L (137-145); Total Bilirubin 0.8 mg/dL (0.2-1.3); Total Protein 6.2 g/dL (6.3-8.2); WBC 47.7 k/uL (3.8-10.6)
[2024-01-13 21:15] LABS: Partial Thromboplastin Time 23.5 sec (22.0-30.0); Prothrombin Time 11.3 sec (10.0-12.5)
[2024-01-13 21:31] LABS: Band Neutrophils % 1 %; Eosinophils # (M) 0.48 k/uL (0-0.7); Lymphocytes # (M) 0.48 k/uL (1.0-4.8); Monocytes # (M) 1.91 k/uL (0-1.0); Neutrophils % (M) 93 %; Nucleated Red Blood Cells 0 /100 WBC (0-0); Total Cells Counted 100
== END 2024-01-13 21:15 | disposition left against medical advice (07) ==
LOC: EC 19:35
DX: R07.9 Chest pain, unspecified (principal); R06.02 Shortness of breath; R42 Dizziness and giddiness; F17.200 Nicotine dependence, unspecified, uncomplicated; Z53.29 Procedure and treatment not carried out because of patient's decision for other reasons
CPT/HCPCS: 36415; 71046; 80053; 83735; 84484; 85025; 85610; 85730; 93005; 99285

== ENCOUNTER 2024-01-15 09:57 | Inpatient (IN) | payer OTHER ==
[2024-01-15] MEDS ORDERED: VANCOMYCIN IV PER PHARMACY 1 EACH MISC MISCELLANE PRN (15:35)
[2024-01-15] MEDS: HYDROcodone/APAP 5-325MG 1 EACH TAB PO PRN (15:55)
[2024-01-15] MEDS: DEXTROSE 5%-0.45% NACL 1,000 ML IV SCH (15:57)
[2024-01-15 16:04] LABS: HCT 35.7 % (39.0-53.0); HGB 11.3 gm/dL (13.0-17.5); Hypochromasia Slight; MCH 28.2 pg (25.0-35.0); MCHC 31.8 g/dL (31.0-37.0); MCV 88.5 fL (80.0-100.0); Mean Platelet Volume 7.2; Platelet Count 519 k/uL (150-450); RBC 4.03 m/uL (4.30-5.90); RDW 15.6 % (11.5-15.5)
[2024-01-15 16:16] LABS: WBC 36.8 k/uL (3.8-10.6)
[2024-01-15 16:23] LABS: ALT 75 U/L (4-49); AST 45 U/L (17-59); African American GFR (CKD) >90 (>60 ml/min/1.73 sqM); Albumin 2.3 g/dL (3.5-5.0); Alkaline Phosphatase 260 U/L (38-126); Anion Gap 7 mmol/L; Blood Urea Nitrogen 13 mg/dL (9-20); Calcium 7.6 mg/dL (8.4-10.2); Carbon Dioxide 20 mmol/L (22-30); Chloride 103 mmol/L (98-107); Glucose 105 mg/dL (74-99); Non-African American GFR(CKD) >90 (>60 ml/min/1.73 sqM); Potassium 4.1 mmol/L (3.5-5.1); Sodium 130 mmol/L (137-145); Total Bilirubin 0.7 mg/dL (0.2-1.3); Total Protein 5.3 g/dL (6.3-8.2)
[2024-01-15 16:38] LABS: Large Platelets Present; Lymphocytes # (M) 2.58 k/uL (1.0-4.8); Monocytes # (M) 1.47 k/uL (0-1.0); Neutrophils # (M) 32.75 k/uL (1.3-7.7); Neutrophils % (M) 89 %; Nucleated Red Blood Cells 0 /100 WBC (0-0); Polychromasia Present; Total Cells Counted 100
--- NOTE | 2024-01-15 16:43 | P.GSCN ---
History of Present Illness Consult date: 01/15/24 Reason for Consult: Retrosternal mass Requesting physician: Lobito Dahl History of present illness: This is a 38-year-old gentleman who follows outpatient with Dr. Dahl for primary care. He has a previous medical history of drug abuse including marijuana, methadone, opiates and amphetamines, current tobacco dependence, multiple admissions for psychiatric issues. This gentleman presented to [facility] emergency room 2 days ago with complaints of chest pain, shortness of breath, and dizziness. Apparently he had lab work drawn at that time but eloped before any treatment was given. He presented to [facility] yesterday with complaints of the same. At [facility] he was noted to have elevated white blood cell count, elevated procalcitonin, elevated CRP, and a CT scan was completed demonstrating a retrosternal mediastinal mass measuring 6.6 x 3.6 cm. Reportedly the patient also had positive blood cultures and was started on IV antibiotics. He was transferred to [facility] for consultation with cardiothoracic surgery related to findings on CT scan. Review of Systems Review of systems was completed and was negative except as noted - Constitutional Reports fever - Cardiovascular Reports chest pain Past Medical History Past Medical History: No Reported History History of Any Multi-Drug Resistant Organisms: None Reported Past Surgical History: No Surgical Hx Reported Past Anesthesia/Blood Transfusion Reactions: No Reported Reaction Past Psychological History: Bipolar, Depression Additional Psychological History / Comment(s): Multiple hospitalizations for psychiatric care Smoking Status: Current every day smoker Past Alcohol Use History: None Reported Past Drug Use History: Marijuana, Methamphetamine, Opiates - Past Family History Mother History Unknown: Yes Medications and Allergies Home Medications Medication Instructions Recorded Confirmed Type No Known Home Medications 01/15/24 01/15/24 History Allergies Allergy/AdvReac Type Severity Reaction Status Date / Time No Known Allergies Allergy Verified 01/15/24 14:29 Surgical - Exam Vital Signs Temp Pulse Resp BP Pulse Ox 101.3 F H 109 H 18 145/77 98 01/15/24 14:25 01/15/24 14:25 01/15/24 14:25 01/15/24 14:25 01/15/24 14:25 CONSTITUTIONAL: Awake and alert, cooperative, no acute distress EYES: Pupils equal, round, reactive to light, normal ocular movement ENT: Moist mucous membranes without oral lesions present NECK: No masses, no bruits, trachea midline RESPIRATORY: Lungs sounds clear to auscultation bilaterally. Respirations even, nonlabored. Currently on room air with oxygen saturation 98% CARDIOVASCULAR: S1, S2 present. Regular rate and rhythm, sinus rhythm on telemetry. Palpable peripheral pulses bilaterally. No edema present GASTROINTESTINAL: Abdomen soft, nontender, nondistended without masses or organomegaly noted. There is no rebound or guarding present. Active bowel sounds present 4 quadrants. GENITOURINARY: Deferred INTEGUMENTARY: Skin is very warm. Large reddened, painful mass present to left chest NEUROLOGIC: Cranial nerves II through XII intact, normal coordination, no obvious motor or sensory deficits, speech is normal MUSKULOSKELETAL: Able to move all extremities, strength equal bilaterally, n ormal posture PSYCHIATRIC: Alert and oriented to person place and time Results - Labs 01/15/24 15:41 Abnormal Lab Results - Last 24 Hours (Table) 01/15/24 Range/Units 15:41 WBC 36.8 H (3.8-10.6) k/uL RBC 4.03 L (4.30-5.90) m/uL Hgb 11.3 L (13.0-17.5) gm/dL Hct 35.7 L (39.0-53.0) % RDW 15.6 H (11.5-15.5) % Plt Count 519 H (150-450) k/uL - Imaging Chest x-ray: report reviewed, image reviewed CT scan - chest: report reviewed, image reviewed Additional studies: Reviewed chest x-ray from ER visit 2 days ago, reviewed CT film from [facility] Assessment and Plan Assessment: Mediastinal retrosternal mass measuring 6.6 x 3.[address] scan Febrile illness Bacteremia Illicit drug use Current tobacco dependence Multiple admissions for psychiatric illness Noncompliance Plan: The patient was seen and examined laying in bed on the cardiac stepdown unit. Complains of chest pain, fever. CT scan completed at [facility] reviewed, labs completed at [facility] reviewed. Patient denies any illicit drug use for the last 3 weeks despite the fact that his urine drug s creen completed at [facility] was positive for cannabinoids, methamphetamine, opioids, amphetamine, oxycodone. Recommend continuation with IV antibiotics. Recommend complete smoking cessation. Will discuss the case in detail with Dr. Ceballos. More recommendations to follow. In the meantime medical management per internal medicine, infectious disease. Thank you Dr. Dahl for this consult. I have personally seen and examined the patient, performed the documentation and the assessment and plan as written. Number of minutes spent on the visit: 30. NOAH Penaloza
[2024-01-15 16:47] LABS: C Reactive Protein 18.8 mg/dL (<1.0)
[2024-01-15] MEDS: VANCOMYCIN 1,250 MG in SODIUM CHLORIDE 0.9% 250 ML IVPB SCH (17:13)
[2024-01-15] MEDS: diazePAM 5 MG TAB PO PRN (17:33)
[2024-01-15] MEDS: BUPRENORPHINE-NALOX 8-2 MG TAB 1 EACH TAB.SUBL SL SCH (17:56)
[2024-01-15] MEDS ORDERED: HYDROcodone/APAP 5-325MG 1 EACH TAB PO SCH (18:00)
[2024-01-15 20:14] LABS: Glucose,Whole Blood 114 mg/dL (70-110)
--- NOTE | 2024-01-15 22:43 | HP ---
HISTORY AND PHYSICAL CHIEF COMPLAINT: Abscess on the anterior chest wall with possible retrosternal mass. HISTORY OF PRESENT ILLNESS: This 38-year-old white male was transferred from [facility] where he was admitted during the night through the emergency room. He came in because of pain in the anterior chest and had about a 2-inch diameter abscess in the center of the chest with swelling and induration in the right chest towards the shoulder. He was to be treated there with IV antibiotics and an incision and drainage, but a CT suggested that there was a retrosternal mass. His white count was elevated at 42,000. He initially denied use of drugs, but then stated that "he used opiates and other drugs a long time ago." Once the abnormality was found on the CT, he was transferred to this institution. REVIEW OF SYSTEMS: He denies any headaches, change in vision or hearing, cough, hemoptysis, heart disease, hypertension, abdominal pain, nausea, vomiting, diarrhea, melena, hematochezia, renal failure, hematuria, dysuria, diabetes, etc. PAST MEDICAL HISTORY, FAMILY HISTORY PERSONAL AND SOCIAL HISTORIES: Are otherwise essentially unremarkable. He has been in and out of the hospitals in [facility] over the last several years, usually for drug overdoses or psychiatric issues. He states he does not drink. He also states he has not used drugs in "weeks." PHYSICAL EXAMINATION: VITAL SIGNS: Blood pressure 138/88, pulse of 114, respirations of 36, and temperature 102.9. GENERAL: He appeared to be well developed and slightly lethargic. HEENT: Head, ears, eyes, nose, mouth and throat were normal. CHEST: Clear. There was about a 2-inch diameter raised abscess just the left of midline on the chest with induration and a tube like extension of the swelling across the right upper anterior chest into the shoulder. CARDIAC: Normal. No murmurs. ABDOMEN: Soft, nontender. EXTREMITIES: Normal. NEUROLOGICAL: He is intact. DIAGNOSES: He is admitted to the hospital with diagnoses, 1. Abscess on the anterior chest wall with cellulitis in the right upper chest. 2. History of substance abuse. PLAN: 1. Bedrest. 2. IV fluids. 3. IV antibiotics. 4. Consult with surgery. MMODL / IJN: [id number] /
--- NOTE | 2024-01-15 22:52 | P.CONS ---
History of Present Illness - Reason for Consult Consult date: 01/15/24 Left chest abscess Requesting physician: Lobito Dahl - Chief Complaint chest pain and shortness of breath x few days - History of Present Illness Patient is a 38-year-old male with a past medical history significant for IV drug use last drug use has been a week or so ago apparently patient presented to [facility] ER on 01/13/2024 with symptoms of chest pain shortness of breath and dizziness symptom has been going on for the last few days before presentation to the hospital patient apparently did have blood work however the patient eloped before the end treatment was given the patient subsequently presented to [facility] yesterday with similar symptoms patient did have elevated white count CT of the chest did shows a retrosternal mediastinal mass and the patient did have a positive blood culture patient subsequently has been transferred to [facility] for CT surgery evaluation. Patient mentions symptom has been getting worse for the last few days has been complaining of mostly shortness of breath that has been progressively getting worse also chest pain mostly sharp moderate to severe intensity without radiat ion patient denies having any cough or sputum production some nausea but no vomiting no abdominal pain no diarrhea patient on presentation at this facility did have a temperature of 101.3 F patient was tachycardic but not hypotensive or hypoxic and no need for supplemental oxygen patient did have white count of 36.8 creatinine 0.66 liver isms mildly elevated blood culture has been repeated here patient has been started on vancomycin and Rocephin infectious he was consulted for further management of antibiotic therapy Past Medical History Past Medical History: No Reported History History of Any Multi-Drug Resistant Organisms: None Reported Past Surgical History: No Surgical Hx Reported Past Anesthesia/Blood Transfusion Reactions: No Reported Reaction Past Psychological History: Bipolar, Depression Additional Psychological History / Comment(s): Multiple hospitalizations for psychiatric care Smoking Status: Current every day smoker Past Alcohol Use History: None Reported Past Drug Use History: Marijuana, Methamphetamine, Opiates - Past Family History Mother History Unknown: Yes Medications and Allergies Home Medications Medication Instructions Recorded Confirmed Type No Known Home Medications 01/15/24 01/15/24 History Allergies Allergy/AdvReac Type Severity Reaction Status Date / Time No Known Allergies Allergy Verified 01/15/24 14:29 Physical Exam Vitals: Vital Signs Temp Pulse Resp BP Pulse Ox 01/15/24 20:02 98.8 F 93 14 130/72 99 01/15/24 18:19 99.9 F H 01/15/24 17:55 100.6 F H 01/15/24 16:00 102.9 F H 114 H 19 138/83 98 01/15/24 14:25 101.3 F H 109 H 18 145/77 98 Intake and Output 01/15/24 01/15/24 01/15/24 06:59 14:59 22:59 Intake Total 540 Output Total 300 Balance 240 Intake: Oral 540 Output: Urine 300 Other: Weight 71.5 kg Results CBC & Chem 7: 01/15/24 15:41 01/15/24 15:41 Labs: Abnormal Lab Results - Last 24 Hours (Table) 01/15/24 01/15/24 01/15/24 Range/Units 15:41 15:41 20:13 WBC 36.8 H (3.8-10.6) k/uL RBC 4.03 L (4.30-5.90) m/uL Hgb 11.3 L (13.0-17.5) gm/dL Hct 35.7 L (39.0-53.0) % RDW 15.6 H (11.5-15.5) % Plt Count 519 H (150-450) k/uL Neutrophils # (Manual) 32.75 H (1.3-7.7) k/uL Monocytes # (Manual) 1.47 H (0-1.0) k/uL Sodium 130 L (137-145) mmol/L Carbon Dioxide 20 L (22-30) mmol/L Glucose 105 H (74-99) mg/dL POC Glucose (mg/dL) 114 H (70-110) mg/dL Calcium 7.6 L (8.4-10.2) mg/dL ALT 75 H (4-49) U/L Alkaline Phosphatase 260 H (38-126) U/L C-Reactive Protein 18.8 H (<1.0) mg/dL Total Protein 5.3 L (6.3-8.2) g/dL Albumin 2.3 L (3.5-5.0) g/dL Assessment and Plan (1) Sepsis Current Visit: Yes Status: Acute Code(s): A41.9 - SEPSIS, UNSPECIFIED ORGANISM SNOMED Code(s): 84687832 (2) Abscess Current Visit: Yes Status: Acute Code(s): L02.91 - CUTANEOUS ABSCESS, UNSPECIFIED SNOMED Code(s): 616644974 (3) Bacteremia Current Visit: Yes Status: Acute Code(s): R78.81 - BACTEREMIA SNOMED Code(s): 3260584 Plan: 1patient presented hospital with sepsis in this patient with fever tachycardia significant elevated white count and apparently the patient did have a CT at the outside facility with evidence of right sided chest wall and retrosternal mass concerning for likely abscess in this patient who did have history of IV drug use we will need to cover for the gram-positive as well as gram-negative pathogen 2-blood culture has been obtained to make sure patient not bacteremic and will try to obtain culture report from the outside facility 3-patient has been evaluated by CT surgery planning for possible mediastinotomy and drainage of the abscess which will be sent for culture 4-vancomycin pharmacy to dose target trough of 15 while watching kidney function and Vanco trough closely and switch Rocephin to cefepime We will follow on clinical condition and cultures to further adjust medication if needed Thank you for this consultation we will follow the patient along with you Dictation was produced using [employer] dictation software. please excuse any grammatical, word or spelling errors. Time with Patient: Greater than 30
[2024-01-15] MEDS: CEFEPIME 2 GM in SODIUM CHLORIDE 0.9% 100 ML IVPB SCH (23:39)
[2024-01-16] MEDS: cloNIDine HCL 0.1 MG TAB PO PRN (03:00)
[2024-01-16 03:25] LABS: Hepatitis A Antibody IgM Nonreactive (Nonreactive); Hepatitis B Core IgM Nonreactive (Nonreactive); Hepatitis B Surface Antigen Nonreactive (Nonreactive); Hepatitis C IgG Antibody Reactive (Nonreactive)
[2024-01-16 05:22] LABS: HIV 2 AB Non-Reactive (Non-Reactive); HIV AB P24 Non-Reactive (Non-Reactive); HIV P24 AG Non-Reactive (Non-Reactive)
[2024-01-16 07:55] LABS: African American GFR (CKD) >90 (>60 ml/min/1.73 sqM); Non-African American GFR(CKD) >90 (>60 ml/min/1.73 sqM)
[2024-01-16 12:47] LABS: C. trachomatis,PCR Negative (Negative)
[2024-01-16 12:49] LABS: N. gonorrhoeae,PCR Negative (Negative)
[2024-01-16] MEDS: IV FLUID CONTINUATION 500 ML IV ONE (14:18)
[2024-01-16] MEDS ORDERED: HYDROmorphone (PF) 1 MG/ML ONE (14:40)
[2024-01-16] MEDS ORDERED: PROPOFOL 10 MG/ML 20 ML VIAL IV ONE (14:40)
[2024-01-16] MEDS ORDERED: MIDAZOLAM 2 MG/2 ML VIAL ONE (14:40)
[2024-01-16] MEDS ORDERED: ONDANSETRON 4 MG/2 ML VIAL ONE (14:40)
[2024-01-16] MEDS ORDERED: SUCCINYLCHOLINE CHLORIDE 200 MG/10 ML VIAL IV ONE (14:40)
[2024-01-16] MEDS ORDERED: fentaNYL (PF) 50 MCG/ML 2 ML AMP ONE (14:40)
[2024-01-16] MEDS ORDERED: LIDOCAINE 1% INJ 10MG/ML (20 ML MDV) ONE (14:40)
--- NOTE | 2024-01-16 15:42 | P.PN ---
Subjective Progress Note Date: 01/16/24 Principal diagnosis: Reason for follow-up is chest wall/mediastinal abscess Patient is a 38-year-old male with a past medical history significant for IV drug use last drug use seem to have been dealing with chest pain along with some swelling with fever and chills patient did have CT at the outside facility concerning for chest wall abscess and retrosternal mediastinal mass suspicious for an abscess for the patient was transferred to [facility] for CT surgery evaluation On today's evaluation that is 01/16/2024, patient did have improvement in his fever pattern, patient is currently on room air still complaining of chest wall swelling pain and shortness of breath no nausea no vomiting no abdominal pain or diarrhea. Patient did have a creatinine 0.70 cultures currently pending patient tested negative for HIV Objective - Vital Signs Vital signs: Vital Signs Temp 99.8 F H 01/16/24 11:06 Pulse 92 01/16/24 11:06 Resp 18 01/16/24 11:06 BP 115/66 01/16/24 11:06 Pulse Ox 98 01/16/24 11:06 FiO2 Intake & Output 01/15/24 01/16/24 01/16/24 18:59 06:59 18:59 Intake Total 540 Output Total 300 200 500 Balance 240 -200 -500 Weight 71.5 kg 68.5 kg Intake: Oral 540 Output: Urine 300 200 500 Other: Voiding Method Urinal Urinal - Exam GENERAL DESCRIPTION: Middle-age male lying in bed in no distress RESPIRATORY SYSTEM: Unlabored breathing , decreased breath sounds at bases HEART: S1 S2 regular rate and rhythm , he did have a swelling to the left chest wall and more diffuse swelling to the right chest wall no drainage ABDOMEN: Soft , no tenderness EXTREMITIES: No edema feet - Labs CBC & Chem 7: 01/15/24 15:41 01/16/24 07:13 Labs: Abnormal Lab Results - Last 24 Hours (Table) 01/15/24 01/15/24 01/15/24 Range/Units 15:41 15:41 15:41 WBC 36.8 H (3.8-10.6) k/uL RBC 4.03 L (4.30-5.90) m/uL Hgb 11.3 L (13.0-17.5) gm/dL Hct 35.7 L (39.0-53.0) % RDW 15.6 H (11.5-15.5) % Plt Count 519 H (150-450) k/uL Neutrophils # (Manual) 32.75 H (1.3-7.7) k/uL Monocytes # (Manual) 1.47 H (0-1.0) k/uL Sodium 130 L (137-145) mmol/L Carbon Dioxide 20 L (22-30) mmol/L Glucose 105 H (74-99) mg/dL POC Glucose (mg/dL) (70-110) mg/dL Calcium 7.6 L (8.4-10.2) mg/dL ALT 75 H (4-49) U/L Alkaline Phosphatase 260 H (38-126) U/L C-Reactive Protein 18.8 H (<1.0) mg/dL Total Protein 5.3 L (6.3-8.2) g/dL Albumin 2.3 L (3.5-5.0) g/dL Hep C IgG Ab Reactive A (Nonreactive) Crossmatch 01/15/24 01/15/24 Range/Units 18:36 20:13 WBC (3.8-10.6) k/uL RBC (4.30-5.90) m/uL Hgb (13.0-17.5) gm/dL Hct (39.0-53.0) % RDW (11.5-15.5) % Plt Count (150-450) k/uL Neutrophils # (Manual) (1.3-7.7) k/uL Monocytes # (Manual) (0-1.0) k/uL Sodium (137-145) mmol/L Carbon Dioxide (22-30) mmol/L Glucose (74-99) mg/dL POC Glucose (mg/dL) 114 H (70-110) mg/dL Calcium (8.4-10.2) mg/dL ALT (4-49) U/L Alkaline Phosphatase (38-126) U/L C-Reactive Protein (<1.0) mg/dL Total Protein (6.3-8.2) g/dL Albumin (3.5-5.0) g/dL Hep C IgG Ab (Nonreactive) Crossmatch See Detail Assessment and Plan (1) Sepsis Current Visit: Yes Status: Acute Code(s): A41.9 - SEPSIS, UNSPECIFIED ORG ANISM SNOMED Code(s): 64444503 (2) Abscess Current Visit: Yes Status: Acute Code(s): L02.91 - CUTANEOUS ABSCESS, UNSPECIFIED SNOMED Code(s): 354279244 (3) Bacteremia Current Visit: Yes Status: Acute Code(s): R78.81 - BACTEREMIA SNOMED Co de(s): 1361780 Plan: 1patient presented hospital with sepsis in this patient with fever tachycardia significant elevated white count and apparently the patient did have a CT at the outside facility with evidence of right sided chest wall and retrosternal mass concerning for likely abscess in this patient who did have history of IV drug use we will need to cover for the gram-positive as well as gram-negative pathogen 2-blood culture has been obtained to make sure patient not bacteremic and will try to obtain culture report from the outside facility 3-patient has been evaluated by CT surgery planning for possible mediastinotomy and drainage of the abscess which is scheduled for this afternoon 4-patient to continue with vancomycin pharmacy to dose target trough of 15 while watching kidney function and Vanco trough closely along with cefepime while waiting for the culture to finalize Dictation was produced using [employer] dictation software. please excuse any grammatical, word or spelling errors. Time with Patient: Less than 30
--- NOTE | 2024-01-16 16:14 | P.OP ---
Date of Procedure: 01/16/24 Preoperative Diagnosis: Mediastinal abscess, chest wall abscess Postoperative Diagnosis: same Procedure(s) Performed: Incision drainage and debridement of chest wall abscess, incision and drainage of mediastinal abscess Implants: 19 Peter drains x 2 Anesthesia: CHRISTIANAA Surgeon: Kulwinder Ceballos Estimated Blood Loss (ml): 20 Pathology: other (Chest wall abscess pus for culture including aerobic, aerobic, AFB, fungi; debridement of wall of chest wall abscess) Condition: stable Disposition: PACU Indications for Procedure: 38-year-old male with history of IVDA had presented to the hospital few days ago with chest pain. He was found to have a pointing abscess in his left anterior chest. He left AMA after less than 24 hours. He Amina presented a day later to [facility]. He was transferred here yesterday and evaluated by cardiothoracic surgery. CT scan demonstrated a large chest wall abscess as well as what appeared to be a separate collection in the mediastinum directly beneath. Patient's blood cultures were positive and he was febrile. He was started on antibiotics. Urgent drainage was recommended and he was made n.p.o. after midnight for surgery today. Operative Findings: There was a large abscess overlying the sternum deep to the muscle extending from beneath the left pectoralis muscle fairly medially under the right pectoralis muscle all the way into the right axilla. Was a second abscess cavity deep to the sternum which extended at least 4 cm deep into the mediastinum. Both these cavities were filled with similar-appearing creamy greenish pus. There was a fair amount of necrotic tissue in the chest wall musculature where the pointing portion of the abscess had presented. Description of Procedure: Patient was brought to the operating room placed supine on the operating table. General anesthesia was induced. Anterior chest wall was sterilely prepped and draped. Transverse incision was made across the pointing portion of the abscess initially about 4 cm in length. This was carried down into the abscess cavity. Pus was collected for culture and the incision was opened widely. Digital exploration of the cavity revealed that it extended further to the right and the incision was extended in 3 increments to about two th[address] the way across the right chest. The cavity extended all the way into the axilla to the right. The area underlying the pointing portion of the abscess had some necrotic debris and this was debrided and sent as permanent section. We attempted to identify a communication to the mediastinum and were unsuccessful at doing so. Careful dissection was carried out along the left lateral border of the sternum and the third interspace and abscess was entered in the mediastinum. This was opened for a distance of about 2 cm. Digital exploration of the cavity revealed no significant loculations. Both abscesses were copiously irrigated with both saline and hydrogen peroxide. Hemostasis was obtained. 219 Peter drains were placed through separate stab incisions. One was placed into the mediastinum and the second was extended into the right axilla. Muscle layer of the anterior chest wall was closed with interrupted 0 Vicryl sutures. The subcutaneous tissues were closed with interrupted 2-0 Vicryl suture. Skin was closed with skin clips. Dry sterile dressings were applied. The Oscar-Horta drains were connected to bulb suction's. They were secured at the skin and to sit with 0 Ethibond suture. The patient was awakened and transferred to recovery in stable condition.
[2024-01-16] MEDS: IV FLUID CONTINUATION 1,000 ML IV ONE (16:17)
[2024-01-16] MEDS: ACETAMINOPHEN IV (For NPO) 1,000 MG in EMPTY BAG 1 BAG IVPB ONE (16:44)
--- NOTE | 2024-01-16 16:50 | XR ---
EXAMINATION TYPE: XR chest 1V portable DATE OF EXAM: 01/16/2024 4:33 PM CLINICAL INDICATION:Male, 38 years old with history of post I D; COMPARISON: Chest radiographs from 01/14/2024 CT TECHNIQUE: XR chest 1V portable Frontal view of the chest. FINDINGS: Lungs/Pleura: Left midlung streaky atelectasis. Persistent right medial mediastinal airspace opacity. There is no evidence of pleural effusion, focal consolidation, or pneumothorax. Pulmonary vascularity: Unremarkable. Heart/mediastinum: Cardiomediastinal silhouette is unremarkable. Musculoskeletal: No acute osseous pathology. IMPRESSION: 1. Posttreatment changes with cardiomegaly and pulmonary edema. 2. Left midlung airspace streaky opacities compatible with atelectasis
--- NOTE | 2024-01-17 08:47 | XR ---
EXAMINATION TYPE: XR chest 1V portable DATE OF EXAM: 01/17/2024 8:01 AM CLINICAL INDICATION:Male, 38 years old with history of post I D; COMPARISON: Chest radiographs from 01/16/2024. TECHNIQUE: XR chest 1V portable Frontal view of the chest. FINDINGS: Lungs/Pleura: Right upper medial airspace opacities remain. There is no evidence of pleural effusion, focal consolidation, or pneumothorax. Pulmonary vascularity: Unremarkable. Heart/mediastinum: Cardiomediastinal silhouette is unremarkable. Musculoskeletal: No acute osseous pathology. Skin cyndy projecting over the chest. Drainage tubes project over the chest. IMPRESSION: Stable appearance of the lungs.
--- NOTE | 2024-01-17 11:08 | P.PN ---
Subjective Progress Note Date: 01/17/24 Principal diagnosis: Mediastinal/chest wall abscess, febrile illness, bacteremia. History of illicit drug use, current tobacco dependence, multiple admissions for psychiatric illn ess, noncompliance POD #1 incision drainage and debridement of chest wall abscess, incision and yas zeyadge of mediastinal abscess The patient was seen and examined this morning with Dr. Leon sitting up at the bedside in no acute distress. Anterior chest MAHESH drains present draining serosanguineous fluid. Patient encouraged not to pull out his MAHESH drains. Remains on IV cefepime and vancomycin per infectious disease. Await culture results. No other new concerns. Objective - Vital Signs Vital signs: Vital Signs Temp 98.7 F 01/17/24 09:49 Pulse 90 01/17/24 09:49 Resp 16 01/17/24 09:49 BP 116/61 01/17/24 09:49 Pulse Ox 96 01/17/24 09:49 FiO2 Intake & Output 01/16/24 01/17/24 01/17/24 18:59 06:59 18:59 Intake Total 500 118 Output Total 1075 110 Balance -575 -110 118 Weight 68.5 kg Intake: IV 500 Oral 118 Output: Drainage 110 Anterior Chest left 70 Right Anterior Medial 40 Chest Urine 1025 Estimated Blood Loss 50 Other: Voiding Method Urinal Urinal Urinal - Exam CONSTITUTIONAL: Appears comfortable, no acute distress RESPIRATORY: Lungs sounds diminished bilaterally. Respirations even, nonlabored. Currently on room air with oxygen saturation 96% CARDIOVASCULAR: S1, S2 present. Regular rate and rhythm, sinus rhythm on telemetry. Palpable peripheral pulses bilaterally. No edema present GASTROINTESTINAL: Abdomen soft, nontender, nondistended. Active bowel sounds present 4 quadrants. Tolerating diet GENITOURINARY: Continues to void INTEGUMENTARY: Skin is warm and dry. Anterior chest wall with 2 MAHESH drains present, site covered with 4 x 4 NEUROLOGIC: Cranial nerves II through XII intact MUSKULOSKELETAL: Able to move all extremities, strength equal bilaterally, gait normal PSYCHIATRIC: Alert and oriented to person place and time - Allied health notes Allied health notes reviewed: nursing - Labs CBC & Chem 7: 01/15/24 15:41 01/16/24 07:13 Labs: Microbiology - Last 24 Hours (Table) 01/15/24 17:18 Blood Culture - Preliminary Blood 07/19/24 15:02 Gram Stain - Preliminary Aspirate - Imaging and Cardiology Chest x-ray: report reviewed, image reviewed Assessment and Plan Assessment: Mediastinal retrosternal mass measuring 6.6 x 3.[address] scan, status post incision drainage and debridement of chest wall abscess, incision and drainage of mediastinal abscess Febrile illness Bacteremia Illicit drug use Current tobacco dependence Multiple admissions for psychiatric illness Noncompliance Plan: Continue drains until drainage is minimal Encourage incentive spirometry use Increase activity as tolerated Continue with antibiotics per infectious disease, await cultures Recommend smoking and illicit drug cessation Medical management of other comorbidities per internal medicine, infectious disease
--- NOTE | 2024-01-17 14:22 | P.PN ---
Subjective Progress Note Date: 01/17/24 Principal diagnosis: Reason for follow-up is chest wall/mediastinal abscess Patient is a 38-year-old male with a past medical history significant for IV drug use last drug use seem to have been dealing with chest pain along with some swelling with fever and chills patient did have CT at the outside facility concerning for chest wall abscess and retrosternal mediastinal mass suspicious for an abscess for the patient was transferred to [facility] for CT surgery evaluation Patient is status post Incision drainage and debridement of chest wall abscess, incision and drainage of mediastinal abscess completed on 01/16/2024. On today's evaluation that is 01/17/2024, Patient is afebrile this morning patient denies having any worsening chest pain shortness of breath or cough, the patient is breathing comfortably and currently on room air, patient denies any abdominal pain no diarrhea no nausea no vomiting, mention feeling slightly better. Patient did have creatinine 0.70 no lab draw today cultures are pending Objective - Vital Signs Vital signs: Vital Signs Temp 98.7 F 01/17/24 09:49 Pulse 90 01/17/24 09:49 Resp 16 01/17/24 09:49 BP 116/61 01/17/24 09:49 Pulse Ox 96 01/17/24 09:49 FiO2 Intake & Output 01/16/24 01/17/24 01/17/24 18:59 06:59 18:59 Intake Total 500 118 Output Total 1075 110 Balance -575 -110 118 Weight 68.5 kg Intake: IV 500 Oral 118 Output: Drainage 110 Anterior Chest left 70 Right Anterior Medial 40 Chest Urine 1025 Estimated Blood Loss 50 Other: Voiding Method Urinal Urinal Urinal - Exam GENERAL DESCRIPTION: Middle-age male lying in bed in no distress RESPIRATORY SYSTEM: Unlabored breathing , decreased breath sounds at bases HEART: S1 S2 regular rate and rhythm , ABDOMEN: Soft , no tenderness EXTREMITIES: No edema feet - Labs CBC & Chem 7: 01/15/24 15:41 01/16/24 07:13 Labs: Microbiology - Last 24 Hours (Table) 01/15/24 17:18 Blood Culture - Preliminary Blood 01/16/24 15:02 Gram Stain - Preliminary Aspirate Assessment and Plan (1) Sepsis Current Visit: Yes Status: Acute Code(s): A41.9 - SEPSIS, UNSPECIFIED ORGANISM SNOMED Code(s): 99411050 (2) Abscess Current Visit: Yes Status: Acute Code(s): L02.91 - CUTANEOUS ABSCESS, UNSPECIFIED SNOMED Code(s): 372133202 (3) Bacteremia Current Visit: Yes Status: Acute Code(s): R78.81 - BACTEREMIA SNOMED Code(s): 8919475 Plan: 1patient presented hospital with sepsis in this patient with fever tachycardia significant elevated white count and apparently the patient did have a CT at the outside facility with evidence of right sided chest wall and retrosternal mass concerning for likely abscess in this patient who did have history of IV drug use we will need to cover for the gram-positive as well as gram-negative pathogen 2-blood culture has been obtained to make sure patient not bacteremic and will try to obtain culture report from the outside facility 3-patient has been evaluated by CT surgery and is status post incision drainage and debridement of chest wall abscess, incision and drainage of mediastinal abscess on 01/16/2024 with cultures pending 4-patient to continue with vancomycin pharmacy to dose target trough of 15 while watching kidney function and Vanco trough closely along with cefepime while waiting for the culture to finalize Dictation was produced using [employer] dictation software. please excuse any grammatical, word or spelling errors. Time with Patient: Less than 30
[2024-01-17 15:31] LABS: African American GFR (CKD) >90 (>60 ml/min/1.73 sqM); Non-African American GFR(CKD) >90 (>60 ml/min/1.73 sqM)
[2024-01-17] MEDS: VANCOMYCIN TROUGH DUE 1 EACH MISC MISCELLANE ONE (15:42)
[2024-01-18] MEDS: VANCOMYCIN 1,250 MG in SODIUM CHLORIDE 0.9% 250 ML IVPB SCH (00:51)
[2024-01-18 06:08] LABS: Basophils # (A) 0.1 k/uL (0-0.2); Basophils % (A) 0 %; Eosinophils # (A) 0.3 k/uL (0-0.7); Eosinophils % (A) 2 %; HGB 10.2 gm/dL (13.0-17.5); Hypochromasia Moderate; Lymphocytes # (A) 3.7 k/uL (1.0-4.8); Lymphocytes % (A) 21 %; MCH 28.3 pg (25.0-35.0); MCHC 31.8 g/dL (31.0-37.0); MCV 89.1 fL (80.0-100.0); Mean Platelet Volume 6.9; Monocytes # (A) 0.5 k/uL (0-1.0); Monocytes % (A) 3 %; Neutrophils # (A) 12.4 k/uL (1.3-7.7); Neutrophils % (A) 72 %; Platelet Count 679 k/uL (150-450); RBC 3.59 m/uL (4.30-5.90); RDW 15.3 % (11.5-15.5); WBC 17.2 k/uL (3.8-10.6)
[2024-01-18 06:22] LABS: African American GFR (CKD) >90 (>60 ml/min/1.73 sqM); Non-African American GFR(CKD) >90 (>60 ml/min/1.73 sqM)
--- NOTE | 2024-01-18 07:24 | XR ---
EXAMINATION TYPE: XR chest 1V portable DATE OF EXAM: 01/18/2024 6:43 AM CLINICAL INDICATION:Male, 38 years old with history of post I D; [facility] COMPARISON: Chest radiograph from one day prior. TECHNIQUE: XR chest 1V portable Frontal view of the chest. FINDINGS: Lungs/Pleura: Right upper medial airspace opacities remain. There is no evidence of pleural effusion, focal consolidation, or pneumothorax. Pulmonary vascularity: Unremarkable. Heart/mediastinum: Cardiomediastinal silhouette is unremarkable. Musculoskeletal: No acute osseous pathology. Skin cyndy projecting over the chest. Drainage tubes project over the chest. IMPRESSION: Stable appearance of the lungs.
--- NOTE | 2024-01-18 07:29 | P.PN ---
Subjective Progress Note Date: 01/18/24 Principal diagnosis: Mediastinal/chest wall abscess, febrile illness, bacteremia. History of illicit drug use, current tobacco dependence, multiple admissions for psychiatric illn ess, noncompliance POD #2 incision drainage and debridement of chest wall abscess, incision and yas inage of mediastinal abscess The patient was seen and examined this morning sitting up in bed in no acute distress eating breakfast. Anterior chest MAHESH drains present draining serosanguineous fluid. Patient encouraged not to pull out his MAHESH drains. Remains on IV cefepime and vancomycin per infectious disease. Await culture results, preliminary demonstrating staph, blood cultures drawn here pre liminarily negative. No other new concerns. Objective - Vital Signs Vital signs: Vital Signs Temp 98.7 F 01/18/24 04:00 Pulse 94 01/18/24 04:00 Resp 20 01/18/24 04:00 BP 134/77 01/18/24 04:00 Pulse Ox 98 01/18/24 04:00 FiO2 Intake & Output 01/17/24 01/18/24 01/18/24 18:59 06:59 18:59 Intake Total 486 10 118 Output Total 390 1200 Balance 96 -1190 118 Weight 70.2 kg Intake: IV 10 10 Invasive Line 3 10 10 Oral 476 118 Output: Drainage 90 100 Anterior Chest left 20 60 Right Anterior Medial 70 40 Chest Urine 300 1100 Other: Voiding Method Urinal Urinal - Exam CONSTITUTIONAL: Appears comfortable, no acute distress RESPIRATORY: Lungs sounds diminished bilaterally. Respirations even, nonlabored. Currently on room air with oxygen saturation 98% CARDIOVASCULAR: S1, S2 present. Regular rate and rhythm, sinus rhythm on telemetry. Palpable peripheral pulses bilaterally. No edema present GASTROINTESTINAL: Abdomen soft, nontender, nondistended. Active bowel sounds present 4 quadrants. Tolerating diet GENITOURINARY: Continues to void INTEGUMENTARY: Skin is warm and dry. Anterior chest wall with 2 MAHESH drains present, site covered with 4 x 4. Medial MAHESH drain with 150 mL output since insertion, lateral/left MAHESH drain with 150 mL out since insertion NEUROLOGIC: Cranial nerves II through XII intact MUSKULOSKELETAL: Able to move all extremities, strength equal bilaterally, gait normal PSYCHIATRIC: Alert and oriented to person place and time - Allied health notes Allied health notes reviewed: nursing - Labs CBC & Chem 7: 01/18/24 05:44 01/18/24 05:44 Labs: Abnormal Lab Results - Last 24 Hours (Table) 01/17/24 01/18/24 Range/Units 14:57 05:44 WBC 17.2 H (3.8-10.6) k/uL RBC 3.59 L (4.30-5.90) m/uL Hgb 10.2 L (13.0-17.5) gm/dL Hct 32.0 L (39.0-53.0) % Plt Count 679 H (150-450) k/uL Neutrophils # 12.4 H (1.3-7.7) k/uL Creatinine 0.65 L (0.66-1.25) mg/dL Microbiology - Last 24 Hours (Table) 01/15/24 17:18 Blood Culture - Preliminary Blood 01/16/24 15:02 Acid Fast Bacilli Smear - Preliminary Other - Other 01/16/24 15:02 Gram Stain - Preliminary Aspirate Body Fluid Culture - Preliminary Staphylococcus aureus - Imaging and Cardiology Chest x-ray: report reviewed, image reviewed Assessment and Plan Assessment: 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
--- NOTE | 2024-01-18 20:05 | P.PN ---
Subjective Progress Note Date: 01/18/24 Principal diagnosis: Reason for follow-up is chest wall/mediastinal abscess Patient is a 38-year-old male with a past medical history significant for IV drug use last drug use seem to have been dealing with chest pain along with some swelling with fever and chills patient did have CT at the outside facility concerning for chest wall abscess and retrosternal mediastinal mass suspicious for an abscess for the patient was transferred to [facility] for CT surgery evaluation Patient is status post Incision drainage and debridement of chest wall abscess, incision and drainage of mediastinal abscess completed on 01/16/2024. On today's evaluation that is 01/18/2024,the patient denies any fever or any chills, patient is breathing comfortably on room air, the patient denies any worsening chest pain shortness of breath and no significant cough, patient denies abdominal pain, no nausea vomiting or diarrhea. Patient white count is down to 17.2, creatinine 0.70 blood cultures so far negative abscess culture growing Staph aureus sensitivities pending Objective - Vital Signs Vital signs: Vital Signs Temp 98 F 01/18/24 08:15 Pulse 94 01/18/24 08:15 Resp 18 01/18/24 08:15 BP 135/75 01/18/24 08:15 Pulse Ox 97 01/18/24 08:56 FiO2 Intake & Output 01/17/24 01/18/24 01/18/24 18:59 06:59 18:59 Intake Total 486 10 118 Output Total 390 1200 Balance 96 -1190 118 Weight 70.2 kg Intake: IV 10 10 Invasive Line 3 10 10 Oral 476 118 Output: Drainage 90 100 Anterior Chest left 20 60 Right Anterior Medial 70 40 Chest Urine 300 1100 Other: Voiding Method Urinal Urinal - Exam GENERAL DESCRIPTION: Middle-age male lying in bed in no distress RESPIRATORY SYSTEM: Unlabored breathing , decreased breath sounds at bases HEART: S1 S2 regular rate and rhythm , ABDOMEN: Soft , no tenderness EXTREMITIES: No edema feet - Labs CBC & Chem 7: 01/18/24 05:44 01/18/24 05:44 Labs: Abnormal Lab Results - Last 24 Hours (Table) 01/17/24 01/18/24 Range/Units 14:57 05:44 WBC 17.2 H (3.8-10.6) k/uL RBC 3.59 L (4.30-5.90) m/uL Hgb 10.2 L (13.0-17.5) gm/dL Hct 32.0 L (39.0-53.0) % Plt Count 679 H (150-450) k/uL Neutrophils # 12.4 H (1.3-7.7) k/uL Creatinine 0.65 L (0.66-1.25) mg/dL Microbiology - Last 24 Hours (Table) 01/15/24 17:18 Blood Culture - Preliminary Blood 01/16/24 15:02 Acid Fast Bacilli Smear - Preliminary Other - Other 01/16/24 15:02 Gram Stain - Preliminary Aspirate Body Fluid Culture - Preliminary Staphylococcus aureus Assessment and Plan (1) Sepsis Current Visit: Yes Status: Acute Code(s): A41.9 - SEPSIS, UNSPECIFIED ORGANISM SNOMED Code(s): 04080527 (2) Abscess Current Visit: Yes Status: Acute Code(s): L02.91 - CUTANEOUS ABSCESS, UNSPECIFIED SNOMED Code(s): 728871760 (3) Bacteremia Current Visit: Yes Status: Acute Code(s): R78.81 - BACTEREMIA SNOMED Code(s): 4199801 Plan: 1patient [facility] with sepsis in this patient with fever tachycardia significant elevated white count and apparently the patient did have a CT at the outside facility with evidence of right sided chest wall and retrosternal mass concerning for likely abscess in this patient who did have history of IV drug use we will need to cover for the gram-positive as well as gram-negative pathogen 2-blood culture has been obtained to make sure patient not bacteremic and will t ry to obtain culture report from the outside facility 3-patient is status post incision drainage and debridement of chest wall abscess, incision and drainage of mediastinal abscess on 01/16/2024 with cultures growing Staph aureus, sensitivity pending 4-patient to continue with vancomycin pharmacy to dose and cefepime while waiting for the culture to finalize Dictation was produced using [employer] dictation software. please excuse any grammatical, word or spelling errors. Time with Patient: Less than 30
[2024-01-18 20:09] LABS: Glucose,Whole Blood 106 mg/dL (70-110)
--- NOTE | 2024-01-18 22:25 | PN ---
PROGRESS NOTE DATE OF SERVICE: 01/16/2024 CHIEF COMPLAINT: Abscess of the anterior chest wall. HISTORY OF PRESENT ILLNESS: This gentleman is doing fairly well post surgery. Apparently, he had a large amount of purulence below the abscess in his chest, which tunneled over to his right shoulder and explains the mediastinal fullness. PHYSICAL EXAMINATION: VITAL SIGNS: Temperature is 101. CHEST: Clear. CARDIAC: normal. He still has a lot of redness, swelling and tenderness in the mid and right upper anterior chest. IMPRESSION: Large abscess of the anterior chest extending subcutaneously to the right shoulder and below the sternum. PLAN: Continue with IV fluids and antibiotics. MMODL / IJN: [id number] /
--- NOTE | 2024-01-18 22:49 | PN ---
PROGRESS NOTE DATE OF SERVICE: 01/17/2024 CHIEF COMPLAINT: Large anterior chest wall abscess. HISTORY OF PRESENT ILLNESS: This gentleman is complaining a lot of pain, been doing fairly well. There is still a great deal of induration in the upper anterior chest. PHYSICAL EXAMINATION: VITAL SIGNS: Normal. CHEST: The induration in the right chest persists and there is copious drainage through the drainage tubes. IMPRESSION: Anterior chest wall mass. PLAN: Continue with IV fluids, antibiotics and drainage. MMODL / IJN: [id number] /
[2024-01-18] MEDS: ACETAMINOPHEN TAB 500 MG TAB PO PRN (23:01)
--- NOTE | 2024-01-18 23:10 | PN ---
PROGRESS NOTE DATE OF SERVICE: 01/18/2024 CHIEF COMPLAINT: Sepsis and anterior chest wall abscess. HISTORY OF PRESENT ILLNESS: This gentleman is doing better. The swelling is going down. He states he is still having a lot of pain. His temperature is normal. White count is coming down at 17,000. PHYSICAL EXAMINATION: CHEST: The area of induration and fluctuance in the upper right anterior chest is slowly beginning to resolve. Chest is clear. CARDIAC: Normal. IMPRESSION: Abscess to the anterior chest and retrosternal area. PLAN: Continue with drainage and IV antibiotics. MMODL / IJN: [id number] /
[2024-01-19 07:16] LABS: HCT 29.5 % (39.0-53.0); HGB 9.3 gm/dL (13.0-17.5); Hypochromasia Slight; MCH 27.6 pg (25.0-35.0); MCHC 31.4 g/dL (31.0-37.0); Mean Platelet Volume 6.8; Platelet Count 674 k/uL (150-450); RBC 3.35 m/uL (4.30-5.90); RDW 15.3 % (11.5-15.5)
[2024-01-19 07:35] LABS: African American GFR (CKD) >90 (>60 ml/min/1.73 sqM); Non-African American GFR(CKD) >90 (>60 ml/min/1.73 sqM)
--- NOTE | 2024-01-19 07:48 | XR ---
EXAMINATION TYPE: XR chest 1V portable DATE OF EXAM: 01/19/2024 COMPARISON: 01/18/2024 HISTORY: Post incision and drainage of chest TECHNIQUE: Single frontal view of the chest is obtained. FINDINGS: There is increased density along the right paratracheal stripe.. The osseous structures are intact. Surgical cyndy chest. Elevated right diaphragm. IMPRESSION: Stable increased density along the right paratracheal stripe. Right sided mass or medias tinal fluid collection in the differential diagnosis
--- NOTE | 2024-01-19 07:53 | P.PN ---
Subjective Progress Note Date: 01/19/24 Principal diagnosis: Mediastinal/chest wall abscess, febrile illness, bacteremia. History of illicit drug use, current tobacco dependence, multiple admissions for psychiatric illn ess, noncompliance POD #3 incision drainage and debridement of chest wall abscess, incision and yas inage of mediastinal abscess, fluid positive for MSSA The patient was seen and examined this morning laying in bed in no acute distress. Anterior chest MAHESH drains present draining serosanguineous fluid. Patient encouraged not to pull out his MAHESH drains. Remains on IV cefepime and vancomycin per infectious disease. Culture positive for MSSA, AFB and anerobes preliminarily negative, blood cultures drawn here negative x 72 hours. Afebrile for the last 24 hours, WBC continues to decline, 14 this am. No other new concerns. Objective - Vital Signs Vital signs: Vital Signs Temp 98.8 F 01/19/24 04:00 Pulse 83 01/19/24 04:00 Resp 20 01/19/24 04:00 BP 139/83 01/19/24 04:00 Pulse Ox 100 01/19/24 04:00 FiO2 Intake & Output 01/18/24 01/19/24 01/19/24 18:59 06:59 18:59 Intake Total 868 Output Total 100 2460 Balance 768 -2460 Weight 69.8 kg Intake: Oral 868 Output: Drainage 100 70 Anterior Chest left 30 55 Right Anterior Medial 70 15 Chest Urine 2390 Other: Voiding Method Urinal # Voids 1 1 # Bowel Movements 1 - Exam CONSTITUTIONAL: Appears comfortable, no acute distress RESPIRATORY: Lungs sounds diminished bilaterally. Respirations even, nonlabored. Currently on room air with oxygen saturation 100% CARDIOVASCULAR: S1, S2 present. Regular rate and rhythm, sinus rhythm on telemetry. Palpable peripheral pulses bilaterally. No edema present GASTROINTESTINAL: Abdomen soft, nontender, nondistended. Active bowel sounds present 4 quadrants. Tolerating diet GENITOURINARY: Continues to void INTEGUMENTARY: Skin is warm and dry. Anterior chest wall with 2 MAHESH drains present, site covered with 4 x 4. Medial MAHESH drain with 15 mL output overnight, lateral/left MAHESH drain with 55 mL output overnight NEUROLOGIC: Cranial nerves II through XII intact MUSKULOSKELETAL: Able to move all extremities, strength equal bilaterally, gait normal PSYCHIATRIC: Alert and oriented to person place and time - Allied health notes Allied health notes reviewed: nursing - Labs CBC & Chem 7: 01/19/24 06:34 01/19/24 06:34 Labs: Abnormal Lab Results - Last 24 Hours (Table) 01/19/24 Range/Units 06:34 WBC 14.0 H (3.8-10.6) k/uL RBC 3.35 L (4.30-5.90) m/uL Hgb 9.3 L (13.0-17.5) gm/dL Hct 29.5 L (39.0-53.0) % Plt Count 674 H (150-450) k/uL Microbiology - Last 24 Hours (Table) 01/15/24 17:18 Blood Culture - Preliminary Blood 01/16/24 15:02 Gram Stain - Final Aspirate Body Fluid Culture - Final Staphylococcus aureus 01/16/24 15:02 Anaerobic Culture - Preliminary Other - Other - Imaging and Cardiology Chest x-ray: report reviewed, image reviewed Assessment and Plan Assessment: Mediastinal retrosternal mass measuring 6.6 x 3.[address] scan, status post incision drainage and debridement of chest wall abscess, incision and drainage of mediastinal abscess, culture positive for MSSA Febrile illness Bacteremia reported at [facility] here negative for 72 hours Illicit drug use Current tobacco dependence Multiple admissions for psychiatric illness Noncompliance Plan: Continue drains until drainage is minimal Encourage incentive spirometry use Increase activity as tolerated Continue with antibiotics per infectious disease, await culture finalization Recommend smoking and illicit drug cessation Medical management of other comorbidities per internal medicine, infectious disease
[2024-01-19] MEDS: VANCOMYCIN TROUGH DUE 1 EACH MISC MISCELLANE ONE (09:15)
--- NOTE | 2024-01-19 09:15 | CDI ---
Documentation Clarification Form Date: 01/19/2024 08:29:47 AM From: Ivonne Toscano RN CCDS Phone: [phone] Admit Date: 01/15/2024 01:58:00 PM Patient Name: Niels Ramos Visit Number: [id number] Discharge Date: ATTENTION: The Clinical Documentation Specialists (CDI) and [facility] Coding Staff appreciate your assistance in clarifying documentation. Please respond to the clarification below the line at the bottom and electronically sign. The CDI & [facility] Coding staff will review the response and follow-up if needed. Please note: Queries are made part of the Legal Health Record. If you have any questions, please contact the author of this message via ITS. Doctor: Kulwinder Isaacs debridement is documented 01/15, Debridement of chest wall abscess, procedure note. Additional clarification regarding the procedure is requested. History/Risk Factors: 38 y/o M presented 2 days ago weiht chest pain, SOB and dizziness and left AMA before labs are drawn. Pt went to [facility] with the same symptoms and was noted to have elevated wbc, procalcitonin, elevated CRP and CT scan demonstrating retrosternal mediastinal mass measuring 6.6 x 3.6cm positive blood cultures. Medical History: Illicit drug use, Tobacco dependence, Noncompliance, Bipolar and depression. 01/14, ID consult. Clinical Indicators: CT from [facility], [place] Consult 01/14: retrosternal mediastinal mass measuring 6.6 x 3.6 cm. ID, Consult, 01/14: Sepsis, Abscess and Bacteremia. Blood culture has been obtained to make sure patient not bacteremic and will try to obtain culture report from outside facility. Operative report 01/15: There was a large abscess overlying the sternum deep to the muscle extending from beneath the left pectoralis muscle fairly medially under the right pectoralis muscle all the way into the right axilla.Was a second abscess cavity deep to the sternum which extended at least 4 cm deep into the mediastinum. Both these cavities were filled with similar-appearing creamy greenish pus. There was a fair amount of necrotic tissue in the chest wall musculature where the pointing portion of the abscess had presented. The area underlying the pointing portion of the abscess had some necrotic debris and this was debrided and sent as permanent section. Treatment: Incision and drainage with shannan drains. Debridement of chest wall abscess. Culture for Pus, AFB and Fungi. ID consult. Please clarify the type of procedure performed, Instrument used and depth of debridement: Please clarify the type of procedure performed: [ x] Excisional debridement (the removal of necrotic, devitalized tissue or slough by means of cutting away of tissue) [ ] Non-excisional debridement (the removal of necrotic, devitalized tissue or slough by means of flushing, brushing, or washing. (Irrigation) [ ] Other; please specify [ ] Unable to determine Please clarify the type of Instrument: [ x ] Instrument used ( e.g. scalpel, curette etc.) bovie [ ] Other, please specify [ ] Unable to determine Please clarify the depth of debridement: [ ] Depth of the debridement (e.g., excisional, excised, cutting, brushing, jet lavage etc) [ ] Other, please specify [ ] Unable to determine Five elements required for accurate and compliant documentation of a debridement: Technique used (e.g., excisional, excised, cutting, brushing, jet lavage etc.) Instrument(s) used (e.g., scalpel, curette, etc.) Nature of the tissue removed (e.g., necrotic, devitalized tissues, non-viable tissue, etc.) Appearance and size of the wound (e.g., down to fresh bleeding tissue, 7cm x 10cm, etc.) Depth of the debridement* (e.g., skin, subcutaneous tissue, fascia, muscle, bone, etc.) (Template Last Revised: August 2020) MTDD
[2024-01-19 10:37] LABS: Anion Gap 4 mmol/L; Blood Urea Nitrogen 9 mg/dL (9-20); Calcium 8.1 mg/dL (8.4-10.2); Carbon Dioxide 28 mmol/L (22-30); Chloride 100 mmol/L (98-107); Glucose 111 mg/dL (74-99); Potassium 4.6 mmol/L (3.5-5.1); Sodium 132 mmol/L (137-145)
[2024-01-19] MEDS: NAFCILLIN 2 GM in DEXTROSE 5% IN WATER 100 ML IVPB SCH (12:40)
--- NOTE | 2024-01-19 18:11 | P.PN ---
Subjective Progress Note Date: 01/19/24 Patient is evaluated today in follow up on the cardiac stepdown unit. Patient currently fatigued and lethargic difficult to arouse. Valium will be stopped. Patient is status post I and D of chest wall and mediastinal abscess. CT surgery following. He has [address] One with some noted purulent drainage. Patients culture showing MSSA. ID following closely. Patient does report significant chest wall pain at the surgical site. He is maintained on suboxone but has also been started on norco for pain control. White blood cell count today 14.0, hgb 9.3. Sodium 132, potassium 4.6. Patient had fever low grade today. Review of Systems Constitutional: Denied any fatigue denied any fever. Cardio vascular: denied any chest pain, palpitations Gastrointestinal: denied any nausea, vomiting, diarrhea Pulmonary: Denied any shortness of breath cough Neurologic denied any new focal deficits All inpatient medications were reviewed and appropriate changes in these medications as dictated in the interval history and assessment and plan. PHYSICAL EXAMINATION: GENERAL: The patient is alert and oriented x3, not in any acute distress. Well developed, well nourished. Lethargic. HEENT: Pupils are round and equally reacting to light. EOMI. No scleral icterus. No conjunctival pallor. Normocephalic, atraumatic. No pharyngeal erythema. No thyromegaly. CARDIOVASCULAR: S1 and S2 present. No murmurs, rubs, or gallops. PULMONARY: Chest is clear to auscultation, no wheezing or crackles. ABDOMEN: Soft, nontender, nondistended, normoactive bowel sounds. No palpable organomegaly. MAHESH drain x 2 noted chest wall. Dressing intact. MUSCULOSKELETAL: No joint swelling or deformity. EXTREMITIES: No cyanosis, clubbing, or pedal edema. NEUROLOGICAL: Gross neurological examination did not reveal any focal deficits. Weak and fatigued. SKIN: No rashes. Assessment and Plan Abscess to the anterior chest and retrosternal area status post I and D with MAHESH drain present. CT surgery following. Sepsis and bacteremia secondary to above. Cultures positive at outside hospital. Here they are negative x 72 hours. ID following cultures. On IV vancomycin and IV cefepime. Leukocytosis Low grade fever Hyponatremia hypvolemic patient will be started on normal saline at 50 mls /hr Hx polysubstance abuse with methamphetamine, marijuana and opiates on suboxone Chronic nicotine use GI prophylaxis: pepcid DVT prophylaxis: Subcutaneous heparin Incentive spirometer has been ordered recommend to encourage 10 x an hour while awake. Patient to continue on IV antibiotics. Needs encouragement up out of bed for meals. Stop the valium. Will begin to wean the norco. Repeat blood work in the AM. The impression and plan of care has been dictated by Minerva Soto, Nurse Practitioner as directed. Dr. Wilder MD I have performed a history and physical examination and medical decision making of this patient, discussed the same with the dictator, and agree with the dictators assessment and plan as written, documented as a scribe. Based on total visit time, I have performed more than 50% of this visit. Objective - Vital Signs Vital signs: Vital Signs Temp 99.7 F H 01/19/24 15:49 Pulse 96 01/19/24 15:49 Resp 16 01/19/24 15:49 BP 112/73 01/19/24 15:49 Pulse Ox 98 01/19/24 15:49 FiO2 Intake & Output 01/18/24 01/19/24 01/19/24 18:59 06:59 18:59 Intake Total 868 120 Output Total 100 2460 55 Balance 768 -2460 65 Weight 69.8 kg Intake: Oral 868 120 Output: Drainage 100 70 55 Anterior Chest left 30 55 50 Right Anterior Medial 70 15 5 Chest Urine 2390 Other: Voiding Method Urinal Urinal # Voids 1 1 # Bowel Movements 1 - Labs CBC & Chem 7: 01/19/24 06:34 01/19/24 06:34 Labs: Abnormal Lab Results - Last 24 Hours (Table) 01/19/24 01/19/24 Range/Units 06:34 06:34 WBC 14.0 H (3.8-10.6) k/uL RBC 3.35 L (4.30-5.90) m/uL Hgb 9.3 L (13.0-17.5) gm/dL Hct 29.5 L (39.0-53.0) % Plt Count 674 H (150-450) k/uL Sodium 132 L (137-145) mmol/L Glucose 111 H (74-99) mg/dL Calcium 8.1 L (8.4-10.2) mg/dL Microbiology - Last 24 Hours (Table) 01/15/24 17:18 Blood Culture - Preliminary Blood 01/16/24 15:02 Gram Stain - Final Aspirate Body Fluid Culture - Final Staphylococcus aureus 01/16/24 15:02 Anaerobic Culture - Preliminary Other - Other Assessment and Plan Time with Patient: Less than 30
[2024-01-19] MEDS: SODIUM CHLORIDE 0.9% 1,000 ML IV SCH (18:22)
[2024-01-19] MEDS: HEPARIN SODIUM,PORCINE 5,000 UNIT/ML 1 ML VIAL SQ SCH (20:50)
[2024-01-20] MEDS: PANTOPRAZOLE 40 MG TABLET PO SCH (06:12)
[2024-01-20 07:16] LABS: Basophils % (A) 0 %; Eosinophils # (A) 0.2 k/uL (0-0.7); Eosinophils % (A) 2 %; HCT 32.1 % (39.0-53.0); Hypochromasia Moderate; Lymphocytes % (A) 25 %; MCH 27.8 pg (25.0-35.0); MCV 89.4 fL (80.0-100.0); Mean Platelet Volume 6.7; Monocytes # (A) 0.4 k/uL (0-1.0); Monocytes % (A) 3 %; Neutrophils # (A) 8.2 k/uL (1.3-7.7); Neutrophils % (A) 68 %; Platelet Count 822 k/uL (150-450); RBC 3.58 m/uL (4.30-5.90); RDW 15.2 % (11.5-15.5); WBC 12.1 k/uL (3.8-10.6)
--- NOTE | 2024-01-20 07:44 | P.PN ---
Subjective Progress Note Date: 01/20/24 Principal diagnosis: Mediastinal/chest wall abscess, febrile illness, bacteremia. History of illicit drug use, current tobacco dependence, multiple admissions for psychiatric illn ess, noncompliance POD #4 incision drainage and debridement of chest wall abscess, incision and yas inage of mediastinal abscess, fluid positive for MSSA The patient was seen and examined this morning sitting up in bed on the cardiac stepdown unit in no acute distress. Anterior chest MAHESH drains present draining serosanguineous fluid. Antibiotics switched to nafcillin per infectious disease. Culture positive for MSSA, AFB and anerobes preliminarily negative, blood cultures drawn here negative. Afebrile for the last 24 hours, WBC continues to decline, 12.1 this am. No other new concerns. Objective - Vital Signs Vital signs: Vital Signs Temp 98.4 F 01/20/24 04:00 Pulse 99 01/20/24 04:00 Resp 19 01/20/24 04:00 BP 139/72 01/20/24 04:00 Pulse Ox 96 01/20/24 04:00 FiO2 Intake & Output 01/19/24 01/20/24 01/20/24 18:59 06:59 18:59 Intake Total 720 Output Total 55 820 Balance 665 -820 Weight 69.8 kg Intake: Oral 720 Output: Drainage 55 70 Anterior Chest left 50 40 Right Anterior Medial 5 30 Chest Urine 750 Other: Voiding Method Urinal Urinal - Exam CONSTITUTIONAL: Appears comfortable, no acute distress RESPIRATORY: Lungs sounds diminished bilaterally. Respirations even, n onlabored. Currently on room air with oxygen saturation 96% CARDIOVASCULAR: S1, S2 present. Regular rate and rhythm, sinus rhythm on telemetry. Palpable peripheral pulses bilaterally. No edema present GASTROINTESTINAL: Abdomen soft, nontender, nondistended. Active bowel sounds present 4 quadrants. Tolerating diet GENITOURINARY: Continues to void INTEGUMENTARY: Skin is warm and dry. Anterior chest wall with 2 MAHESH drains present, site covered with 4 x 4. Medial MAHESH drain with 30 mL output overnight, lateral/left MAHESH drain with 40 mL output overnight NEUROLOGIC: Cranial nerves II through XII intact MUSKULOSKELETAL: Able to move all extremities, strength equal bilaterally, gait normal PSYCHIATRIC: Alert and oriented to person place and time - Allied health notes Allied health notes reviewed: nursing - Labs CBC & Chem 7: 01/20/24 06:28 07/22/24 06:34 Labs: Abnormal Lab Results - Last 24 Hours (Table) 01/19/24 01/20/24 Range/Units 06:34 06:28 WBC 12.1 H (3.8-10.6) k/uL RBC 3.58 L (4.30-5.90) m/uL Hgb 10.0 L (13.0-17.5) gm/dL Hct 32.1 L (39.0-53.0) % Plt Count 822 H (150-450) k/uL Neutrophils # 8.2 H (1.3-7.7) k/uL Sodium 132 L (137-145) mmol/L Glucose 111 H (74-99) mg/dL Calcium 8.1 L (8.4-10.2) mg/dL Microbiology - Last 24 Hours (Table) 01/15/24 17:18 Blood Culture - Preliminary Blood Assessment and Plan Assessment: Mediastinal retrosternal mass measuring 6.6 x 3.[address] scan, status post incision drainage and debridement of chest wall abscess, incision and drainage of mediastinal abscess, culture positive for MSSA Febrile illness Bacteremia reported at [facility] here negative for 72 hours Illicit drug use Current tobacco dependence Multiple admissions for psychiatric illness Noncompliance Plan: Continue drains until drainage is minimal Encourage incentive spirometry use Increase activity as tolerated Continue with antibiotics per infectious disease Recommend smoking and illicit drug cessation Medical management of other comorbidities per internal medicine, infectious disease
[2024-01-20 08:02] LABS: African American GFR (CKD) >90 (>60 ml/min/1.73 sqM); Anion Gap 4 mmol/L; Blood Urea Nitrogen 9 mg/dL (9-20); Calcium 8.2 mg/dL (8.4-10.2); Carbon Dioxide 31 mmol/L (22-30); Chloride 100 mmol/L (98-107); Glucose 113 mg/dL (74-99); Magnesium 1.9 mg/dL (1.6-2.3); Non-African American GFR(CKD) >90 (>60 ml/min/1.73 sqM); Potassium 4.9 mmol/L (3.5-5.1); Sodium 135 mmol/L (137-145)
--- NOTE | 2024-01-20 14:28 | P.PN ---
Subjective Progress Note Date: 01/20/24 Patient is evaluated today in follow up on the cardiac stepdown unit. Patient currently fatigued and lethargic difficult to arouse. Valium will be stopped. Patient is status post I and D of chest wall and mediastinal abscess. CT surgery following. He has [address] One with some noted purulent drainage. Patients culture showing MSSA. ID following closely. Patient does report significant chest wall pain at the surgical site. He is maintained on suboxone but has also been started on norco for pain control. White blood cell count today 14.0, hgb 9.3. Sodium 132, potassium 4.6. Patient had fever low grade today. 01/20/2024 Patient is evaluated in follow-up today on the cardiac stepdown unit patient is continued on antibiotic coverage with IV nafcillin which was adjusted per infectious disease. His cultures are continue to show MSSA in the chest wall however blood cultures have remained negative. Patient was started on normal saline 50 MLS per hour overnight with improvement in his sodium level it is up to D5. Renal function shows a BUN of 9 creatinine of 0.79. White blood cell count of 12.1, hemoglobin 10.0. To surgery recommending to continue the GI until output is minimal. Patient would like to discharge to subacute rehab and is currently pending a physical therapy evaluation as he is quite fatigued and weakened during this hospital stay. Review of Systems Constitutional: Denied any fatigue denied any fever. Cardio vascular: denied any chest pain, palpitations Gastrointestinal: denied any nausea, vomiting, diarrhea Pulmonary: Denied any shortness of breath cough Neurologic denied any new focal deficits All inpatient medications were reviewed and appropriate changes in these medications as dictated in the interval history and assessment and plan. PHYSICAL EXAMINATION: GENERAL: The patient is alert and oriented x3, not in any acute distress. Well developed, well nourished. Lethargic. HEENT: Pupils are round and equally reacting to light. EOMI. No scleral icterus. No conjunctival pallor. Normocephalic, atraumatic. No pharyngeal erythema. No thyromegaly. CARDIOVASCULAR: S1 and S2 present. No murmurs, rubs, or gallops. PULMONARY: Chest is clear to auscultation, no wheezing or crackles. ABDOMEN: Soft, nontender, nondistended, normoactive bowel sounds. No palpable organomegaly. MAHESH drain x 2 noted chest wall. Dressing intact. MUSCULOSKELETAL: No joint swelling or deformity. EXTREMITIES: No cyanosis, clubbing, or pedal edema. NEUROLOGICAL: Gross neurological examination did not reveal any focal deficits. Weak and fatigued. SKIN: No rashes. Assessment and Plan Abscess to the anterior chest and retrosternal area status post I and D with MAHESH drain present. CT surgery following. Sepsis and bacteremia secondary to above. Cultures positive at outside hospital. Here they are negative x 72 hours. ID following cultures. On IV Nafcillin per ID . Leukocytosis Low grade fever Hyponatremia hypvolemic patient will be started on normal saline at 50 mls /hr Hx polysubstance abuse with methamphetamine, marijuana and opiates on suboxone Chronic nicotine use GI prophylaxis: pepcid DVT prophylaxis: Subcutaneous heparin Incentive spirometer has been ordered recommend to encourage 10 x an hour while awake. Patient to continue on IV antibiotics. Needs encouragement up out of bed for meals. Stop the valium. Will begin to wean the norco. Repeat blood work in the AM. The impression and plan of care has been dictated by Minerva Soto, Nurse Practitioner as directed. Dr. Wilder MD I have performed a history and physical examination and medical decision making of this patient, discussed the same with the dictator, and agree with the dictators assessment and plan as written, documented as a scribe. Based on total visit time, I have performed more than 50% of this visit. Objective - Vital Signs Vital signs: Vital Signs Temp 98.8 F 01/20/24 08:00 Pulse 91 01/20/24 08:00 Resp 16 01/20/24 08:00 BP 116/71 01/20/24 08:00 Pulse Ox 96 01/20/24 08:00 FiO2 Intake & Output 01/19/24 01/20/24 01/20/24 18:59 06:59 18:59 Intake Total 720 Output Total 55 820 Balance 665 -820 Weight 69.8 kg Intake: Oral 720 Output: Drainage 55 70 Anterior Chest left 50 40 Right Anterior Medial 5 30 Chest Urine 750 Other: Voiding Method Urinal Urinal - Labs CBC & Chem 7: 01/20/24 06:28 01/20/24 06:28 Labs: Abnormal Lab Results - Last 24 Hours (Table) 01/19/24 01/20/24 01/20/24 Range/Units 06:34 06:28 06:28 WBC 12.1 H (3.8-10.6) k/uL RBC 3.58 L (4.30-5.90) m/uL Hgb 10.0 L (13.0-17.5) gm/dL Hct 32.1 L (39.0-53.0) % Plt Count 822 H (150-450) k/uL Neutrophils # 8.2 H (1.3-7.7) k/uL Sodium 132 L 135 L (137-145) mmol/L Carbon Dioxide 31 H (22-30) mmol/L Glucose 111 H 113 H (74-99) mg/dL Calcium 8.1 L 8.2 L (8.4-10.2) mg/dL Assessment and Plan Time with Patient: Less than 30
--- NOTE | 2024-01-20 15:15 | P.PN ---
Subjective Progress Note Date: 01/19/24 Principal diagnosis: Reason for follow-up is chest wall/mediastinal abscess Patient is a 38-year-old male with a past medical history significant for IV drug use last drug use seem to have been dealing with chest pain along with some swelling with fever and chills patient did have CT at the outside facility concerning for chest wall abscess and retrosternal mediastinal mass suspicious for an abscess for the patient was transferred to [facility] for CT surgery evaluation Patient is status post Incision drainage and debridement of chest wall abscess, incision and drainage of mediastinal abscess completed on 01/16/2024. On today's evaluation that is 01/19/2024,the patient remains to be afebrile, patient is on room air not requiring supplemental oxygen and denies any shortness of breath , patient denies any worsening chest pain or cough.Patient denies having any nausea or vomiting, no abdominal pain and no diarrhea has been reported Patient white count is down to 14.0, creatinine 0.66 Objective - Vital Signs Vital signs: Vital Signs Temp 97.6 F 01/19/24 08:00 Pulse 92 01/19/24 08:00 Resp 16 01/19/24 08:00 BP 121/63 01/19/24 08:00 Pulse Ox 96 01/19/24 08:00 FiO2 Intake & Output 01/18/24 01/19/24 01/19/24 18:59 06:59 18:59 Intake Total 868 120 Output Total 100 2460 Balance 768 -2460 120 Weight 69.8 kg Intake: Oral 868 120 Output: Drainage 100 70 Anterior Chest left 30 55 Right Anterior Medial 70 15 Chest Urine 2390 Other: Voiding Method Urinal Urinal # Voids 1 1 # Bowel Movements 1 - Exam GENERAL DESCRIPTION: Middle-age male lying in bed in no distress RESPIRATORY SYSTEM: Unlabored breathing , decreased breath sounds at bases HEART: S1 S2 regular rate and rhythm , ABDOMEN: Soft , no tenderness EXTREMITIES: No edema feet - Labs CBC & Chem 7: 01/20/24 06:28 01/20/24 06:28 Labs: Abnormal Lab Results - Last 24 Hours (Table) 01/19/24 01/19/24 Range/Units 06:34 06:34 WBC 14.0 H (3.8-10.6) k/uL RBC 3.35 L (4.30-5.90) m/uL Hgb 9.3 L (13.0-17.5) gm/dL Hct 29.5 L (39.0-53.0) % Plt Count 674 H (150-450) k/uL Sodium 132 L (137-145) mmol/L Glucose 111 H (74-99) mg/dL Calcium 8.1 L (8.4-10.2) mg/dL Microbiology - Last 24 Hours (Table) 01/15/24 17:18 Blood Culture - Preliminary Blood 01/16/24 15:02 Gram Stain - Final Aspirate Body Fluid Culture - Final Staphylococcus aureus 01/16/24 15:02 Anaerobic Culture - Preliminary Other - Other Assessment and Plan (1) Sepsis Current Visit: Yes Status: Acute Code(s): A41.9 - SEPSIS, UNSPECIFIED ORGANISM SNOMED Code(s): 80563724 (2) Abscess Current Visit: Yes Status: Acute Code(s): L02.91 - CUTANEOUS ABSCESS, UNSPECIFIED SNOMED Code(s): 791684892 (3) Bacteremia Current Visit: Yes Status: Acute Code(s): R78.81 - BACTEREMIA SNOMED Code(s): 8467534 Plan: [facility] with sepsis in this patient with fever tachycardia significant elevated white count and apparently the patient did have a CT at the outside facility with evidence of right sided chest wall and retrosternal mass concerning for likely abscess in this patient who did have history of IV drug use we will need to cover for the gram-positive as well as gram-negative pathogen 2-blood culture has been obtained to make sure patient not bacteremic and will try to obtain culture report from the outside facility 3-patient is status post incision drainage and debridement of chest wall abscess, incision and drainage of mediastinal abscess on 01/16/2024 with cultures growing MSSA 4-we will discontinue vancomycin pharmacy to dose and cefepime, start the patient on Naficillin Dictation was produced using [employer] dictation software. please excuse any grammatical, word or spelling errors.
--- NOTE | 2024-01-20 15:16 | P.PN ---
Subjective Progress Note Date: 01/20/24 Principal diagnosis: Reason for follow-up is chest wall/mediastinal abscess Patient is a 38-year-old male with a past medical history significant for IV drug use last drug use seem to have been dealing with chest pain along with some swelling with fever and chills patient did have CT at the outside facility concerning for chest wall abscess and retrosternal mediastinal mass suspicious for an abscess for the patient was transferred to [facility] for CT surgery evaluation Patient is status post Incision drainage and debridement of chest wall abscess, incision and drainage of mediastinal abscess completed on 01/16/2024. On today's evaluation that is 01/20/2024, the patient did have low-grade fever of 99.7 degrees Fahrenheit last evening, the patient is afebrile since then the patient is on room air and breathing comfortably, the Pt denies having any worsening chest pain or cough, the patient denies having any abdominal pain no vomiting or any diarrhea has been reported by the nursing staff Patient white count is 12.1, creatinine 0.79 Objective - Vital Signs Vital signs: Vital Signs Temp 98.5 F 01/20/24 12:00 Pulse 80 01/20/24 12:00 Resp 16 01/20/24 12:00 BP 118/72 01/20/24 12:00 Pulse Ox 98 01/20/24 12:00 FiO2 Intake & Output 01/19/24 01/20/24 01/20/24 18:59 06:59 18:59 Intake Total 720 360 Output Total 55 820 Balance 665 -820 360 Weight 69.8 kg Intake: Oral 720 360 Output: Drainage 55 70 Anterior Chest left 50 40 Right Anterior Medial 5 30 Chest Urine 750 Other: Voiding Method Urinal Urinal Urinal - Exam GENERAL DESCRIPTION: Middle-age male lying in bed in no distress RESPIRATORY SYSTEM: Unlabored breathing , decreased breath sounds at bases HEART: S1 S2 regular rate and rhythm , ABDOMEN: Soft , no tenderness EXTREMITIES: No edema feet - Labs CBC & Chem 7: 01/20/24 06:28 01/20/24 06:28 Labs: Abnormal Lab Results - Last 24 Hours (Table) 01/20/24 01/20/24 Range/Units 06:28 06:28 WBC 12.1 H (3.8-10.6) k/uL RBC 3.58 L (4.30-5.90) m/uL Hgb 10.0 L (13.0-17.5) gm/dL Hct 32.1 L (39.0-53.0) % Plt Count 822 H (150-450) k/uL Neutrophils # 8.2 H (1.3-7.7) k/uL Sodium 135 L (137-145) mmol/L Carbon Dioxide 31 H (22-30) mmol/L Glucose 113 H (74-99) mg/dL Calcium 8.2 L (8.4-10.2) mg/dL Assessment and Plan (1) Sepsis Current Visit: Yes Status: Acute Code(s): A41.9 - SEPSIS, UNSPECIFIED O RGANISM SNOMED Code(s): 77414569 (2) Abscess Current Visit: Yes Status: Acute Code(s): L02.91 - CUTANEOUS ABSCESS, UNSPECIFIED SNOMED Code(s): 106381257 (3) Bacteremia Current Visit: Yes Status: Acute Code(s): R78.81 - BACTEREMIA SNOMED Code(s): 8769551 Plan: 1patient [facility] hospital with sepsis in this patient with fever tachycardia significant elevated white count and apparently the patient did have a CT at the outside facility with evidence of right sided chest wall and retrosternal mass concerning for likely abscess in this patient who did have history of IV drug use we will need to cover for the gram-positive as well as gram-negative pathogen 2-blood culture has been obtained to make sure patient not bacteremic and will try to obtain culture report from the outside facility 3-patient is status post incision drainage and debridement of chest wall abscess, incision and drainage of mediastinal abscess on 01/16/2024 with cultures growing MSSA 4-patient to continue with Naficillin, will need a PICC line and placement for IV antibiotic therapy because of extensive infection Dictation was produced using [employer] dictation software. please excuse any grammatical, word or spelling errors. Time with Patient: Less than 30
--- NOTE | 2024-01-20 16:18 | CDI ---
Documentation Clarification Form Date: 01/20/2024 04:13:55 PM From: Ivonne Toscano Phone: [phone] Admit Date: 01/15/2024 01:58:00 PM Patient Name: Niels Ramos Visit Number: [id number] Discharge Date: ATTENTION: The Clinical Documentation Specialists (CDI) and [facility] Coding Staff appreciate your assistance in clarifying documentation. Please respond to the clarification below the line at the bottom and electronically sign. The CDI & [facility] Coding staff will review the response and follow-up if needed. Please note: Queries are made part of the Legal Health Record. If you have any questions, please contact the author of this message via ITS. Doctor/Provider: Kulwinder Isaacs debridement is documented 01/15, Debridement of chest wall abscess, procedure note. Additional clarification regarding the procedure is requested. History/Risk Factors: 38 y/o M presented 2 days ago weiht chest pain, SOB and dizziness and left AMA before labs are drawn. Pt went to [facility] with the same symptoms and was noted to have elevated wbc, procalcitonin, elevated CRP and CT scan demonstrating retrosternal mediastinal mass measuring 6.6 x 3.6cm positive blood cultures. Medical History: Illicit drug use, Tobacco dependence, Noncompliance, Bipolar and depression. 01/14, ID consult. Clinical Indicators: CT from [facility], [place] Consult 01/14: retrosternal mediastinal mass measuring 6.6 x 3.6 cm. ID, Consult, 01/14: Sepsis, Abscess and Bacteremia. Blood culture has been obtained to make sure patient not bacteremic and will try to obtain culture report from outside facility. Operative report 01/15: There was a large abscess overlying the sternum deep to the muscle extending from beneath the left pectoralis muscle fairly medially under the right pectoralis muscle all the way into the right axilla.Was a second abscess cavity deep to the sternum which extended at least 4 cm deep into the mediastinum. Both these cavities were filled with similar-appearing creamy greenish pus.There was a fair amount of necrotic tissue in the chest wall musculature where the pointing portion of the abscess had presented. The area underlying the pointing portion of the abscess had some necrotic debris and this was debrided and sent as permanent section. Treatment: Incision and drainage with shannan drains. Debridement of chest wall abscess. Culture for Pus, AFB and Fungi. ID consult. Please clarify the type of depth of debridement: [ x] Depth of the debridement ( e.g., skin, subcutaneous tissue, fascia, muscle, bone, etc.) Subq, muscle [ ] Other, please specify [ ] Unable to determine Five elements required for accurate and compliant documentation of a debridement: Technique used (e.g., excisional, excised, cutting, brushing, jet lavage etc.) Instrument(s) used (e.g., scalpel, curette, etc.) Nature of the tissue removed (e.g., necrotic, devitalized tissues, non-viable tissue, etc.) Appearance and size of the wound (e.g., down to fresh bleeding tissue, 7cm x 10cm, etc.) Depth of the debridement* (e.g., skin, subcutaneous tissue, fascia, muscle, bone, etc.) (Template Last Revised: August 2020) MTDD
--- NOTE | 2024-01-21 07:36 | P.PN ---
Subjective Progress Note Date: 01/21/24 Principal diagnosis: Mediastinal/chest wall abscess, febrile illness, bacteremia. History of illicit drug use, current tobacco dependence, multiple admissions for psychiatric illn ess, noncompliance POD #5 incision drainage and debridement of chest wall abscess, incision and yas inage of mediastinal abscess, fluid positive for MSSA The patient was seen and examined sitting up in bed on the cardiac stepdown unit in no acute distress. Anterior chest MAHESH drains present draining serosanguineous fluid. Continues on nafcillin per infectious disease for MSSA. Afebrile for the last 24 hours, WBC continues to decline. No other new concerns. Objective - Vital Signs Vital signs: Vital Signs Temp 98.2 F 01/21/24 04:00 Pulse 92 01/21/24 04:00 Resp 17 01/21/24 04:00 BP 135/77 01/21/24 04:00 Pulse Ox 95 01/21/24 04:00 FiO2 Intake & Output 01/20/24 01/21/24 01/21/24 18:59 06:59 18:59 Intake Total 480 Output Total 50 1400 Balance 430 -1400 Weight 69 kg Intake: Oral 480 Output: Drainage 50 70 Anterior Chest left 30 40 Right Anterior Medial 20 30 Chest Urine 1330 Other: Voiding Method Urinal Urinal # Voids 1 - Exam CONSTITUTIONAL: Appears comfortable, no acute distress RESPIRATORY: Lungs sounds diminished bilaterally. Respirations even, nonlabored. Currently on room air with oxygen saturation 95% CARDIOVASCULAR: S1, S2 present. Regular rate and rhythm, sinus rhythm on telemetry. Palpable peripheral pulses bilaterally. No edema present GASTROINTESTINAL: Abdomen soft, nontender, nondistended. Active bowel sounds present 4 quadrants. Tolerating diet. Positive bowel movement 01/17 GENITOURINARY: Continues to void INTEGUMENTARY: Skin is warm and dry. Anterior chest wall with 2 MAHESH drains present, site covered with 4 x 4. Medial MAHESH drain with 30 mL output overnight, 50 mL in the last 24 hours, lateral/left MAHESH drain with 40 mL output overnight, 70 mL in the last 24 hours NEUROLOGIC: Cranial nerves II through XII intact MUSKULOSKELETAL: Able to move all extremities, strength equal bilaterally, gait normal PSYCHIATRIC: Alert and oriented to person place and time - Allied health notes Allied health notes reviewed: nursing - Labs CBC & Chem 7: 01/20/24 06:28 01/20/24 06:28 Labs: Abnormal Lab Results - Last 24 Hours (Table) 01/20/24 Range/Units 06:28 Sodium 135 L (137-145) mmol/L Carbon Dioxide 31 H (22-30) mmol/L Glucose 113 H (74-99) mg/dL Calcium 8.2 L (8.4-10.2) mg/dL Microbiology - Last 24 Hours (Table) 01/15/24 17:18 Blood Culture - Final Blood 01/16/24 15:02 Anaerobic Culture - Final Other - Other Assessment and Plan Assessment: Mediastinal retrosternal mass measuring 6.6 x 3.[address] scan, status post incision drainage and debridement of chest wall abscess, incision and drainage of mediastinal abscess, culture positive for MSSA Febrile illness Bacteremia reported at [facility] here negative for 72 hours Illicit drug use Current tobacco dependence Multiple admissions for psychiatric illness Noncompliance Plan: Continue drains until drainage is minimal Patient may be transferred off [facility], does not need telemetry from our standpoint Patient may be discharged with drains still in once antibiotic decision made by infectious disease, likely will require rehab as patient is unlikely to be compliant with self administration of IV antibiotics nor drain care Encourage incentive spirometry use Increase activity as tolerated Continue with antibiotics per infectious disease Recommend smoking and illicit drug cessation Medical management of other comorbidities per internal medicine, infectious disease
[2024-01-21 08:27] VITALS: BMI 29.7
[2024-01-21 09:17] LABS: HCT 29.5 % (39.0-53.0); HGB 9.1 gm/dL (13.0-17.5); Hypochromasia Moderate; MCH 27.3 pg (25.0-35.0); MCHC 30.9 g/dL (31.0-37.0); MCV 88.6 fL (80.0-100.0); Mean Platelet Volume 6.6; Platelet Count 827 k/uL (150-450); RBC 3.33 m/uL (4.30-5.90); WBC 11.2 k/uL (3.8-10.6)
--- NOTE | 2024-01-21 12:30 | P.PN ---
Subjective Progress Note Date: 01/21/24 Patient is evaluated today in follow up on the cardiac stepdown unit. Patient currently fatigued and lethargic difficult to arouse. Valium will be stopped. Patient is status post I and D of chest wall and mediastinal abscess. CT surgery following. He has [address] One with some noted purulent drainage. Patients culture showing MSSA. ID following closely. Patient does report significant chest wall pain at the surgical site. He is maintained on suboxone but has also been started on norco for pain control. White blood cell count today 14.0, hgb 9.3. Sodium 132, potassium 4.6. Patient had fever low grade today. 01/20/2024 Patient is evaluated in follow-up today on the cardiac stepdown unit patient is continued on antibiotic coverage with IV nafcillin which was adjusted per infectious disease. His cultures are continue to show MSSA in the chest wall however blood cultures have remained negative. Patient was started on normal saline 50 MLS per hour overnight with improvement in his sodium level it is up to D5. Renal function shows a BUN of 9 creatinine of 0.79. White blood cell count of 12.1, hemoglobin 10.0. To surgery recommending to continue the GI until output is minimal. Patient would like to discharge to subacute rehab and is currently pending a physical therapy evaluation as he is quite fatigued and weakened during this hospital stay. 01/21/2024 Patient is seen and evaluated in follow-up today with infectious disease and CT surgery following. Patient continues with chest tube drainage although minimal. Case management/social work following as well working on discharge planning including an ECF [facility] for continued IV antibiotic therapy and wound care. Patient is extremely noncompliant and poor to follow-up with concerns of safe discharge planning. Patient has been refused by multiple ECF's in this area and social work has placed multiple referrals outside of the area currently pending. Patient is currently on Suboxone as well as [place] and continuing to request pain medications. Discussed with the patient that patient should not be taking [place] and Suboxone together. Patient is reporting some right thigh and leg swelling will obtain a venous Doppler as patient has not been getting up and moving around very frequently. Encouraged increase activity as tolerated. Patient is afebrile with no reports of chest pain or shortness of breath. Patient has been tolerating diet and denies any nausea or vomiting. Review of Systems Constitutional: Denied any fatigue denied any fever. Cardio vascular: denied any chest pain, palpitations, reports of chest wall discomfort Gastrointestinal: denied any nausea, vomiting, diarrhea Pulmonary: Denied any shortness of breath cough Neurologic denied any new focal deficits All inpatient medications were reviewed and appropriate changes in these medications as dictated in the interval history and assessment and plan. PHYSICAL EXAMINATION: GENERAL: The patient is alert and oriented x3, not in any acute distress. Well developed, well nourished. Lethargic. Unkempt HEENT: Pupils are round and equally reacting to light. EOMI. No scleral icterus. No conjunctival pallor. Normocephalic, atraumatic. No pharyngeal erythema. No thyromegaly. CARDIOVASCULAR: S1 and S2 present. No murmurs, rubs, or gallops. PULMONARY: Chest is clear to auscultation, no wheezing or crackles. ABDOMEN: Soft, nontender, nondistended, normoactive bowel sounds. No palpable organomegaly. MAHESH drain x 2 noted chest wall. Dressing intact. MUSCULOSKELETAL: No joint swelling or deformity. EXTREMITIES: No cyanosis, clubbing, or pedal edema. Tenderness in the right lower extremity near the thigh area NEUROLOGICAL: Gross neurological examination did not reveal any focal deficits. Weak and fatigued. SKIN: No rashes. Assessment: Abscess to the anterior chest and retrosternal area status post I and D with MAHESH drain present. CT surgery following. Sepsis and bacteremia secondary to above. Cultures positive at outside hospital. Here they are negative x 72 hours. ID following cultures. On IV Nafcillin per ID . Leukocytosis Low grade fever Hyponatremia hypvolemic, improving on gentle hydration Hx polysubstance abuse with methamphetamine, marijuana and opiates on suboxone Chronic nicotine use GI prophylaxis: pepcid DVT prophylaxis: Subcutaneous heparin Full code Plan: Continue with MAHESH drains and CT surgery following recommending outpatient follow- up and continue with drainage tubes for now monitor output closely Patient currently maintained on IV antibiotics with infectious disease following and patient will require a PICC line for outpatient IV antibiotic therapy due to the extent of the infection and abscess. Most recent cultures have remained negative although patient has history of drug abuse and noncompliance, infectious disease recommending penitentiary placement for continued wound care as well as IV antibiotic therapy. Case management/social work following working on discharge planning and has placed multiple referrals outside of the city for ECF. Multiple ECF's in the area including [facility], [facility], [facility] have refused the patient. Patient having some right leg pain will order a venous Doppler. Patient is maintained on subcu heparin for DVT prophylaxis Encouraged increase activity as tolerated Follow-up on repeat labs in a.m. and continue to monitor closely. Continue incentive spirometer use at least 10 times every hour while awake The impression and plan of care has been dictated by Minerva Soto, Nurse Practitioner as directed. Dr. Wilder MD I have performed a history and physical examination and medical decision making of this patient, discussed the same with the dictator, and agree with the dictators assessment and plan as written, documented as a scribe. Based on total visit time, I have performed more than 50% of this visit. Objective - Vital Signs Vital signs: Vital Signs Temp 98.6 F 01/21/24 08:00 Pulse 95 01/21/24 11:25 Resp 16 01/21/24 11:25 BP 157/87 01/21/24 11:25 Pulse Ox 98 01/21/24 11:25 FiO2 Intake & Output 01/20/24 01/21/24 01/21/24 18:59 06:59 18:59 Intake Total 480 180 Output Total 50 1400 70 Balance 430 -1400 110 Weight 69 kg 69 kg Intake: Oral 480 180 Output: Drainage 50 70 70 Anterior Chest left 30 40 40 Right Anterior Medial 20 30 30 Chest Urine 1330 Other: Voiding Method Urinal Urinal Urinal # Voids 1 - Labs CBC & Chem 7: 01/21/24 08:30 01/20/24 06:28 Labs: Abnormal Lab Results - Last 24 Hours (Table) 01/21/24 Range/Units 08:30 WBC 11.2 H (3.8-10.6) k/uL RBC 3.33 L (4.30-5.90) m/uL Hgb 9.1 L (13.0-17.5) gm/dL Hct 29.5 L (39.0-53.0) % MCHC 30.9 L (31.0-37.0) g/dL Plt Count 827 H (150-450) k/uL Microbiology - Last 24 Hours (Table) 01/15/24 17:18 Blood Culture - Final Blood 01/16/24 15:02 Anaerobic Culture - Final Other - Other
--- NOTE | 2024-01-21 12:49 | US ---
EXAMINATION TYPE: US venous doppler duplex LE RT DATE OF EXAM: 01/21/2024 12:10 PM COMPARISON: NONE CLINICAL INDICATION: Male, 38 years old with history of pain and swelling upper right thigh; Pain and swelling x 1 week. SIDE PERFORMED: Right TECHNIQUE: The lower extremity deep venous system is examined utilizing real time linear array sonog liz with graded compression, doppler sonography and color-flow sonography. VESSELS IMAGED: Common Femoral Vein Deep Femoral Vein Greater Saphenous Vein * Femoral Vein Popliteal Vein Right Leg: No evidence of DVT. IMPRESSION: 1. No diagnostic evidence of DVT.
[2024-01-22 07:33] LABS: Basophils % (A) 0 %; Eosinophils # (A) 0.2 k/uL (0-0.7); Eosinophils % (A) 1 %; HCT 34.2 % (39.0-53.0); HGB 10.6 gm/dL (13.0-17.5); Hypochromasia Moderate; Lymphocytes # (A) 3.1 k/uL (1.0-4.8); Lymphocytes % (A) 26 %; MCH 27.4 pg (25.0-35.0); MCHC 30.8 g/dL (31.0-37.0); Mean Platelet Volume 6.5; Monocytes # (A) 0.4 k/uL (0-1.0); Monocytes % (A) 3 %; Neutrophils # (A) 8.2 k/uL (1.3-7.7); Neutrophils % (A) 67 %; Platelet Count 925 k/uL (150-450); RBC 3.85 m/uL (4.30-5.90); WBC 12.1 k/uL (3.8-10.6)
[2024-01-22 07:59] LABS: African American GFR (CKD) >90 (>60 ml/min/1.73 sqM); Anion Gap 8 mmol/L; Blood Urea Nitrogen 11 mg/dL (9-20); Calcium 8.9 mg/dL (8.4-10.2); Carbon Dioxide 28 mmol/L (22-30); Chloride 99 mmol/L (98-107); Glucose 98 mg/dL (74-99); Non-African American GFR(CKD) >90 (>60 ml/min/1.73 sqM); Potassium 4.6 mmol/L (3.5-5.1); Sodium 135 mmol/L (137-145)
--- NOTE | 2024-01-22 09:05 | P.PN ---
Subjective Progress Note Date: 01/22/24 Principal diagnosis: Mediastinal/chest wall abscess, febrile illness, bacteremia. History of illicit drug use, current tobacco dependence, multiple admissions for psychiatric illn ess, noncompliance POD #6 incision drainage and debridement of chest wall abscess, incision and yas inage of mediastinal abscess, fluid positive for MSSA The patient was seen and examined laying in bed on the cardiac stepdown unit in no acute distress. Anterior chest MAHESH drains present, continues to drain serosanguineous fluid. Continues on nafcillin per infectious disease for MSSA. Afebrile for the last 24 hours, WBC 12.1 today, was 11.2 yesterday. No other new concerns. Objective - Vital Signs Vital signs: Vital Signs Temp 98.0 F 01/22/24 07:52 Pulse 103 H 01/22/24 07:52 Resp 16 01/22/24 07:52 BP 150/90 01/22/24 07:52 Pulse Ox 97 01/22/24 07:52 FiO2 Intake & Output 01/21/24 01/22/24 01/22/24 18:59 06:59 18:59 Intake Total 550 30 10 Output Total 70 40 Balance 480 -10 10 Weight 69 kg Intake: IV 10 30 10 Invasive Line 5 10 10 Invasive Line 6 10 20 Oral 540 Output: Drainage 70 40 Anterior Chest left 40 20 Right Anterior Medial 30 20 Chest Other: Voiding Method Urinal Urinal Urinal # Voids 1 2 - Exam CONSTITUTIONAL: Appears comfortable, no acute distress RESPIRATORY: Lungs sounds diminished bilaterally. Respirations even, nonlabored. Currently on room air with oxygen saturation 97% CARDIOVASCULAR: S1, S2 present. Regular rate and rhythm, sinus rhythm sinus tach on telemetry. Palpable peripheral pulses bilaterally. No edema present GASTROINTESTINAL: Abdomen soft, nontender, nondistended. Active bowel sounds present 4 quadrants. Tolerating diet. Positive bowel movement 01/17 GENITOURINARY: Continues to void INTEGUMENTARY: Skin is warm and dry. Anterior chest wall with 2 MAHESH drains present, site covered with 4 x 4. Medial MAHESH drain with 50 mL in the last 24 hours, lateral/left MAHEHS drain with 60 mL in the last 24 hours NEUROLOGIC: Cranial nerves II through XII intact MUSKULOSKELETAL: Able to move all extremities, strength equal bilaterally, gait normal PSYCHIATRIC: Alert and oriented to person place and time - Allied health notes Allied health notes reviewed: nursing - Labs CBC & Chem 7: 01/22/24 07:04 01/22/24 07:04 Labs: Abnormal Lab Results - Last 24 Hours (Table) 01/21/24 01/22/24 01/22/24 Range/Units 08:30 07:04 07:04 WBC 11.2 H 12.1 H (3.8-10.6) k/uL RBC 3.33 L 3.85 L (4.30-5.90) m/uL Hgb 9.1 L 10.6 L (13.0-17.5) gm/dL Hct 29.5 L 34.2 L (39.0-53.0) % MCHC 30.9 L 30.8 L (31.0-37.0) g/dL Plt Count 827 H 925 H (150-450) k/uL Neutrophils # 8.2 H (1.3-7.7) k/uL Sodium 135 L (137-145) mmol/L Microbiology - Last 24 Hours (Table) 01/15/24 17:18 Blood Culture - Final Blood Assessment and Plan Assessment: Mediastinal retrosternal mass measuring 6.6 x 3.[address] scan, status post incision drainage and debridement of chest wall abscess, incision and drainage of mediastinal abscess, culture positive for MSSA Febrile illness Bacteremia reported at [facility] here negative for 72 hours Illicit drug use Current tobacco dependence Multiple admissions for psychiatric illness Noncompliance Plan: Continue drains until drainage is minimal Patient may be transferred off [facility], does not need telemetry from our standpoint Patient may be discharged with drains still in once antibiotic decision made by infectious disease, likely will require rehab as patient is unlikely to be compliant with self administration of IV antibiotics nor drain care Encourage incentive spirometry use Increase activity as tolerated Continue with antibiotics per infectious disease Recommend smoking and illicit drug cessation Medical management of other comorbidities per internal medicine, infectious disease
--- NOTE | 2024-01-22 16:08 | P.PN ---
Subjective Progress Note Date: 01/21/24 Principal diagnosis: Reason for follow-up is chest wall/mediastinal abscess Patient is a 38-year-old male with a past medical history significant for IV drug use last drug use seem to have been dealing with chest pain along with some swelling with fever and chills patient did have CT at the outside facility concerning for chest wall abscess and retrosternal mediastinal mass suspicious for an abscess for the patient was transferred to [facility] for CT surgery evaluation Patient is status post Incision drainage and debridement of chest wall abscess, incision and drainage of mediastinal abscess completed on 01/16/2024. On today's evaluation that is 01/21/2024, Patient is afebrile patient is currently on room air and denies having any shortness of breath, the patient chest pain is controlled denies significant cough, the patient denies any nausea vomiting did not have any abdominal pain and no diarrhea. The patient white count is 11.2 Objective - Vital Signs Vital signs: Vital Signs Temp 98.6 F 01/21/24 08:00 Pulse 95 01/21/24 11:25 Resp 16 01/21/24 11:25 BP 157/87 01/21/24 11:25 Pulse Ox 98 01/21/24 11:25 FiO2 Intake & Output 01/20/24 01/21/24 01/21/24 18:59 06:59 18:59 Intake Total 480 180 Output Total 50 1400 70 Balance 430 -1400 110 Weight 69 kg 69 kg Intake: Oral 480 180 Output: Drainage 50 70 70 Anterior Chest left 30 40 40 Right Anterior Medial 20 30 30 Chest Urine 1330 Other: Voiding Method Urinal Urinal Urinal # Voids 1 - Exam GENERAL DESCRIPTION: Middle-age male lying in bed in no distress RESPIRATORY SYSTEM: Unlabored breathing , decreased breath sounds at bases HEART: S1 S2 regular rate and rhythm , ABDOMEN: Soft , no tenderness EXTREMITIES: No edema feet - Labs CBC & Chem 7: 01/22/24 07:04 01/22/24 07:04 Labs: Abnormal Lab Results - Last 24 Hours (Table) 01/21/24 Range/Units 08:30 WBC 11.2 H (3.8-10.6) k/uL RBC 3.33 L (4.30-5.90) m/uL Hgb 9.1 L (13.0-17.5) gm/dL Hct 29.5 L (39.0-53.0) % MCHC 30.9 L (31.0-37.0) g/dL Plt Count 827 H (150-450) k/uL Microbiology - Last 24 Hours (Table) 01/15/24 17:18 Blood Culture - Final Blood 01/16/24 15:02 Anaerobic Culture - Final Other - Other Assessment and Plan (1) Sepsis Current Visit: Yes Status: Acute Code(s): A41.9 - SEPSIS, UNSPECIFIED ORGANISM SNOMED Code(s): 64974495 (2) Abscess Current Visit: Yes Status: Acute Code(s): L02.91 - CUTANEOUS ABSCESS, UNSPECIFIED SNOMED Code(s): 105327165 (3) Bacteremia Current Visit: Yes Status: Acute Code(s): R78.81 - BACTEREMIA SNOMED Code(s): 0580446 Plan: 1patient presented hospital with sepsis in this patient with fever tachycardia significant elevated white count and apparently the patient did have a CT at the outside facility with evidence of right sided chest wall and retrosternal mass concerning for likely abscess in this patient who did have history of IV drug use we will need to cover for the gram-positive as well as gram-negative pathogen 2-blood culture has been negative 3-patient is status post incision drainage and debridement of chest wall abscess, incision and drainage of mediastinal abscess on 01/16/2024 with cultures growing MSSA 4-patient to continue with Naficillin, PICC line has been requested for outpatient IV antibiotics Dictation was produced using [employer] dictation software. please excuse any grammatical, word or spelling errors. Time with Patient: Less than 30
--- NOTE | 2024-01-22 16:09 | P.PN ---
Subjective Progress Note Date: 01/22/24 Principal diagnosis: Reason for follow-up is chest wall/mediastinal abscess Patient is a 38-year-old male with a past medical history significant for IV drug use last drug use seem to have been dealing with chest pain along with some swelling with fever and chills patient did have CT at the outside facility concerning for chest wall abscess and retrosternal mediastinal mass suspicious for an abscess for the patient was transferred to [facility] for CT surgery evaluation Patient is status post Incision drainage and debridement of chest wall abscess, incision and drainage of mediastinal abscess completed on 01/16/2024. On today's evaluation that is 01/22/2024, patient has been afebrile, patient is breathing comfortably and is currently on room air, patient denies having any significant cough or any worsening chest pain and no shortness of breath, patient denies nausea vomiting or diarrhea and no abdominal pain. Patient white count is 12.1 creatinine 0.77 Objective - Vital Signs Vital signs: Vital Signs Temp 97.7 F 01/22/24 10:12 Pulse 110 H 01/22/24 10:12 Resp 18 01/22/24 10:12 BP 147/74 01/22/24 10:12 Pulse Ox 96 01/22/24 10:12 FiO2 Intake & Output 01/21/24 01/22/24 01/22/24 18:59 06:59 18:59 Intake Total 550 30 550 Output Total 70 40 30 Balance 480 -10 520 Weight 69 kg Intake: IV 10 30 10 Invasive Line 5 10 10 Invasive Line 6 10 20 Oral 540 540 Output: Drainage 70 40 30 Anterior Chest left 40 20 15 Right Anterior Medial 30 20 15 Chest Other: Voiding Method Urinal Urinal Urinal # Voids 1 2 - Exam GENERAL DESCRIPTION: Middle-age male lying in bed in no distress RESPIRATORY SYSTEM: Unlabored breathing , decreased breath sounds at bases HEART: S1 S2 regular rate and rhythm , ABDOMEN: Soft , no tenderness EXTREMITIES: No edema feet - Labs CBC & Chem 7: 01/22/24 07:04 01/22/24 07:04 Labs: Abnormal Lab Results - Last 24 Hours (Table) 01/22/24 01/22/24 Range/Units 07:04 07:04 WBC 12.1 H (3.8-10.6) k/uL RBC 3.85 L (4.30-5.90) m/uL Hgb 10.6 L (13.0-17.5) gm/dL Hct 34.2 L (39.0-53.0) % MCHC 30.8 L (31.0-37.0) g/dL Plt Count 925 H (150-450) k/uL Neutrophils # 8.2 H (1.3-7.7) k/uL Sodium 135 L (137-145) mmol/L Assessment and Plan (1) Sepsis Current Visit: Yes Status: Acute Code(s): A41.9 - SEPSIS, UNSPECIFIED ORGANISM SNOMED Code(s): 91642449 (2) Abscess Current Visit: Yes Status: Acute Code(s): L02.91 - CUTANEOUS ABSCESS, UNSPECIFIED SNOMED Code(s): 537162951 (3) Bacteremia Current Visit: Yes Status: Acute Code(s): R78.81 - BACTEREMIA SNOMED Code(s): 9099437 Plan: 1patient presented hospital with sepsis in this patient with fever tachycardia significant elevated white count and apparently the patient did have a CT at the outside facility with evidence of right sided chest wall and retrosternal mass concerning for likely abscess in this patient who did have history of IV drug use we will need to cover for the gram-positive as well as gram-negative pathogen 2-blood culture has been negative 3-patient is status post incision drainage and debridement of chest wall abscess, incision and drainage of mediastinal abscess on 01/16/2024 with cultures growing MSSA 4-patient did have a PICC line placement we will switch antibiotic to cefazolin for preparation for discharge likely need placement not a candidate for home IV antibiotic therapy Dictation was produced using [employer] dictation software. please excuse any grammatical, word or spelling errors. Time with Patient: Less than 30
--- NOTE | 2024-01-22 16:23 | P.PN ---
Subjective Progress Note Date: 01/22/24 Patient is evaluated today in follow up on the cardiac stepdown unit. Patient currently fatigued and lethargic difficult to arouse. Valium will be stopped. Patient is status post I and D of chest wall and mediastinal abscess. CT surgery following. He has [address] One with some noted purulent drainage. Patients culture showing MSSA. ID following closely. Patient does report significant chest wall pain at the surgical site. He is maintained on suboxone but has also been started on norco for pain control. White blood cell count today 14.0, hgb 9.3. Sodium 132, potassium 4.6. Patient had fever low grade today. 01/20/2024 Patient is evaluated in follow-up today on the cardiac stepdown unit patient is continued on antibiotic coverage with IV nafcillin which was adjusted per infectious disease. His cultures are continue to show MSSA in the chest wall however blood cultures have remained negative. Patient was started on normal saline 50 MLS per hour overnight with improvement in his sodium level it is up to D5. Renal function shows a BUN of 9 creatinine of 0.79. White blood cell count of 12.1, hemoglobin 10.0. To surgery recommending to continue the GI until output is minimal. Patient would like to discharge to subacute rehab and is currently pending a physical therapy evaluation as he is quite fatigued and weakened during this hospital stay. 01/21/2024 Patient is seen and evaluated in follow-up today with infectious disease and CT surgery following. Patient continues with chest tube drainage although minimal. Case management/social work following as well working on discharge planning including an ECF for assisted for continued IV antibiotic therapy and wound care. Patient is extremely noncompliant and poor to follow-up with concerns of safe discharge planning. Patient has been refused by multiple ECF's in this area and social work has placed multiple referrals outside of the area currently pending. Patient is currently on Suboxone as well as [place] and continuing to request pain medications. Discussed with the patient that patient should not be taking [place] and Suboxone together. Patient is reporting some right thigh and leg swelling will obtain a venous Doppler as patient has not been getting up and moving around very frequently. Encouraged increase activity as tolerated. Patient is afebrile with no reports of chest pain or shortness of breath. Patient has been tolerating diet and denies any nausea or vomiting. 01/22/2024 Patient is seen and evaluated in follow-up maintained on antibiotics and has received a PICC line as patient will require antibiotic therapy on discharge per ID recommendations. Patient is a poor candidate for home IV antibiotic therapy with past history of drug abuse. Patient reports he is currently on Suboxone and also requesting [place] and report his pain is 10/10. Encouraged increase activity as tolerated and frequent walks. Patient has been evaluated by physical therapy and is walking with a walker. Patient also will require pain management outpatient services as patient is continued on Suboxone. Patient follows with Dr. Dahl in the outpatient setting and encouraged him to follow- up outpatient and discussed with him regarding pain management. Per social work, psychiatry consult was placed as ECF that are considering him for placement would like a psychiatric consult for his history of depression and previous drug abuse. Consult was placed and pending Review of Systems Constitutional: Denied any fatigue denied any fever. Cardio vascular: denied any chest pain, palpitations, reports of chest wall discomfort Gastrointestinal: denied any nausea, vomiting, diarrhea Pulmonary: Denied any shortness of breath cough Neurologic denied any new focal deficits, reports of generalized weakness and gait dysfunction All inpatient medications were reviewed and appropriate changes in these medications as dictated in the interval history and assessment and plan. PHYSICAL EXAMINATION: GENERAL: The patient is alert and oriented x3, not in any acute distress. Well developed, well nourished. Lethargic. Unkempt HEENT: Pupils are round and equally reacting to light. EOMI. No scleral icterus. No conjunctival pallor. Normocephalic, atraumatic. No pharyngeal erythema. No thyromegaly. CARDIOVASCULAR: S1 and S2 present. No murmurs, rubs, or gallops. PULMONARY: Chest is clear to auscultation, no wheezing or crackles. ABDOMEN: Soft, nontender, nondistended, normoactive bowel sounds. No palpable organomegaly. MAHESH drain x 2 noted chest wall. Dressing intact. MUSCULOSKELETAL: No joint swelling or deformity. EXTREMITIES: No cyanosis, clubbing, or pedal edema. Tenderness in the right lower extremity near the thigh area NEUROLOGICAL: Gross neurological examination did not reveal any focal deficits. Weak and fatigued. SKIN: No rashes. Assessment: Abscess to the anterior chest and retrosternal area status post I and D with MAHESH drain present. CT surgery following. Sepsis and bacteremia secondary to above. Cultures positive at outside hospital. Here they are negative x 72 hours. ID following cultures. On IV Nafcillin per ID . Leukocytosis Low grade fever Hyponatremia hypvolemic, improving on gentle hydration Hx polysubstance abuse with methamphetamine, marijuana and opiates on suboxone Chronic nicotine use GI prophylaxis: pepcid DVT prophylaxis: Subcutaneous heparin Full code Plan: Continue with MAHESH drains and CT surgery following recommending outpatient follow- up and continue with drainage tubes for now monitor output closely Patient currently maintained on IV antibiotics with infectious disease following and patient has received a PICC line for outpatient IV antibiotic therapy due to the extent of the infection and abscess. Most recent cultures have remained negative although patient has history of drug abuse and noncompliance, infectious disease recommending assisted placement for continued wound care as well as IV antibiotic therapy. Case management/social work following working on discharge planning and has placed multiple referrals outside of the city for ECF. Multiple ECF's in the area including [facility], [place], [facility]. Psychiatry consulted for evaluation for his depression and history of drug abuse per request of ECF's considering placing him for continued wound care and IV antibiotic therapy. Patient is not suicidal and reports he is not currently using any illicit drugs at this time. Patient reports he is on Suboxone in the outpatient setting. Patient was having some right leg pain and venous Doppler was negative for DVT. Continue subcutaneous heparin Encouraged increase activity as tolerated Follow-up on repeat labs in a.m. and continue to monitor closely. Continue incentive spirometer use at least 10 times every hour while awake Overall prognosis is guarded. The impression and plan of care has been dictated by Minerva Soto, Nurse Practitioner as directed. Dr. Sylvester MD I have performed a history and physical examination and medical decision making of this patient, discussed the same with the dictator, and agree with the dictators assessment and plan as written, documented as a scribe. Based on total visit time, I have performed more than 50% of this visit. Objective - Vital Signs Vital signs: Vital Signs Temp 98.0 F 01/22/24 07:52 Pulse 103 H 01/22/24 07:52 Resp 16 01/22/24 07:52 BP 150/90 01/22/24 07:52 Pulse Ox 97 01/22/24 07:52 FiO2 Intake & Output 01/21/24 01/22/24 01/22/24 18:59 06:59 18:59 Intake Total 550 30 550 Output Total 70 40 Balance 480 -10 550 Weight 69 kg Intake: IV 10 30 10 Invasive Line 5 10 10 Invasive Line 6 10 20 Oral 540 540 Output: Drainage 70 40 Anterior Chest left 40 20 Right Anterior Medial 30 20 Chest Other: Voiding Method Urinal Urinal Urinal # Voids 1 2 - Labs CBC & Chem 7: 01/22/24 07:04 01/22/24 07:04 Labs: Abnormal Lab Results - Last 24 Hours (Table) 01/22/24 01/22/24 Range/Units 07:04 07:04 WBC 12.1 H (3.8-10.6) k/uL RBC 3.85 L (4.30-5.90) m/uL Hgb 10.6 L (13.0-17.5) gm/dL Hct 34.2 L (39.0-53.0) % MCHC 30.8 L (31.0-37.0) g/dL Plt Count 925 H (150-450) k/uL Neutrophils # 8.2 H (1.3-7.7) k/uL Sodium 135 L (137-145) mmol/L
--- NOTE | 2024-01-22 16:33 | P.CN ---
Psychiatric Consult - . Consult date: 01/22/24 Consult:: 01/22/24 16:32 CONSULTATION Reason for consult: Drug abuse- non-compliance. identifying Data: The patient is a 38 old, single, white male, who lives in [place], [place] with his girlfriend. Reason for admission: Mediastinal chest wall abscess. History of present illness: The patient noted that came to the hospital for chest pain and shortness of breath. He was found to have in an abscess in the chest wall, which has been drained. The patient has history od depression and substance abuse. He is an IV drug abuser. He has had several admissions to psychiatric hospital for these two reasons. His last admission was to this hospital in September of this year. The patient went [facility] for follow-up after discharge but was having issues with his therapist. He was taking his discharge medications but did not get them renewed stating that he could not get to see the doctor. The patients girlfriend was in the room. She noted that the service at the [facility] was bad. They now want to go to a different psychiatric clinic called [facility] in [place]. During this evaluation, the patient noted feeling anxious and depressed. The patient has not taken his medications for 2-3 months. He wants to get back on his Trazodone, Vistaril, Buspar and Wellbutrin. He denied being suicidal or homicidal. He and his girlfriend want to pursue out-pt follow-up at the [facility] in [place] after discharge. On leading questions admitted to depression and anxiety. Denied feeling hopelessness, worthlessness, suicidal or homicidal ideations. The patient denied any symptoms of paranoia, or any other delusional thinking, A/V hallucinations. : History of past psychiatric illness: The patient has had 5-6 psychiatric admissions since 2022. Most of the admissions have been to this hospital. He last admission was in September,. No history of suicidal or homicidal ideations or behavior. Past medical history: None significant in the past. Recent h/o mediastinal chest wall abscess. Substance abuse history: The patient has been abusing stimulants like methamphetamine, Adderall, and opioids. : MSE: Alert and attentive Orientation X3. Pleasant and cooperative. Psychomotor activity: Speech: Normal tone, quality, and quantity Mood: Anxious. Affect: Appropriate to mood. SI or HI: None Thought content: Normal Thought process: Normal Perceptual disturbance: Normal Cognition: Intact Judgement and Insight: Intact Diagnosis: Dysthymic Neurosis, Opioid abuse, Methamphetamine abuse, Adderall abuse. Rec: The patient does not meet in-patient criteria for psychiatric admission. Medication recommendations: Wellbutrin SR 100 mg qam, Vistaril 25 mg q8hrs prn for Anxiety. Trazodone 50 mg prn at bedtime for insomnia. Disposition: research & analytics manager to assist patient to make an out-pt appointment at [facility] in [place] within 7 days of discharge. Diabetologist to assist patient to get in to a drug rehab program.
[2024-01-22] MEDS: SODIUM CHLORIDE 0.9% 500 ML 500 ML IV SCH (19:55)
[2024-01-22 21:29] LABS: Glucose,Whole Blood 124 mg/dL (70-110)
[2024-01-23 05:51] LABS: Glucose,Whole Blood 112 mg/dL (70-110)
--- NOTE | 2024-01-23 11:04 | P.PN ---
Subjective Progress Note Date: 01/23/24 Principal diagnosis: Mediastinal/chest wall abscess, febrile illness, bacteremia. History of illicit drug use, current tobacco dependence, multiple admissions for psychiatric illn ess, noncompliance POD #7 incision drainage and debridement of chest wall abscess, incision and yas inage of mediastinal abscess, fluid positive for MSSA The patient was seen and examined in follow-up today January 23, 2024 at his bedside on the fourth floor medical surgical unit. Currently he is sitting up to the bedside chair, is awake, alert, oriented x 3 and is in no acute apparent distress. Anterior chest Peter drains remain in place, scant serosanguineous drainage. He continues on cefazolin per infectious disease management for treatment of MSSA. His Tmax temperature in the last 24 hours was 99.7 F. Objective - Vital Signs Vital signs: Vital Signs Temp 98.7 F 01/23/24 07:38 Pulse 104 H 01/23/24 08:00 Resp 18 01/23/24 08:00 BP 134/68 01/23/24 07:38 Pulse Ox 98 01/23/24 08:20 FiO2 Intake & Output 01/22/24 01/23/24 01/23/24 18:59 06:59 18:59 Intake Total 550 550 Output Total 30 Balance 520 550 Intake: IV 10 Invasive Line 5 10 Intake, IV Titration 550 Amount Sodium Chloride 0.9% 1, 500 000 ml @ 50 mls/hr IV . Q20H [facility] Rx#:[id number] ceFAZolin 2 gm In Sodium 50 Chloride 0.9% 50 ml @ 100 mls/hr IVPB Q8HR [facility] Rx# :[id number] Oral 540 Output: Drainage 30 Anterior Chest left 15 Right Anterior Medial 15 Chest Other: Voiding Method Urinal Toilet Toilet Urinal Urinal # Voids 2 - Exam CONSTITUTIONAL: Appears comfortable, no acute distress RESPIRATORY: Lungs sounds diminished bilaterally. Respirations symmetrical, nonlabored. Currently on room air with oxygen saturation 97%. CARDIOVASCULAR: S1, S2 present. Regular rate and rhythm, Palpable peripheral pulses bilaterally. No edema present GASTROINTESTINAL: Abdomen soft, nontender, nondistended. Active bowel sounds present 4 quadrants. Tolerating diet. Positive bowel movement today 01/23/2024. GENITOURINARY: Continues to void. INTEGUMENTARY: Skin is warm and dry. Anterior chest wall with 2 MAHESH drains present, site covered with 4 x 4. Medial MAHESH drain with scant drainage in the last 24 hours, lateral/left MAHESH drain with scant drainage in the last 24 hours. NEUROLOGIC: Cranial nerves II through XII intact. MUSKULOSKELETAL: Able to move all extremities, strength equal bilaterally, gait normal. PSYCHIATRIC: Alert and oriented to person place and time. - Allied health notes Allied health notes reviewed: social work - Labs CBC & Chem 7: 01/22/24 07:04 01/22/24 07:04 Labs: Abnormal Lab Results - Last 24 Hours (Table) 01/22/24 01/23/24 Range/Units 21:27 05:50 POC Glucose (mg/dL) 124 H 112 H (70-110) mg/dL Assessment and Plan Assessment: Mediastinal retrosternal mass measuring 6.6 x 3.[address] scan, status post incision drainage and debridement of chest wall abscess, incision and drainage of mediastinal abscess, culture positive for MSSA Febrile illness Bacteremia reported at [facility], blood cultures negative Illicit drug use Current tobacco dependence Multiple admissions for psychiatric illness Noncompliance Plan: Continue drains until drainage is minimal. Patient may be discharged with drains still in once antibiotic decision made by infectious disease, likely will require rehab as patient is unlikely to be compliant with self administration of IV antibiotics nor drain care Encourage incentive spirometry use 10 times every hour while awake. Increase activity as tolerated. Continue with antibiotics per infectious disease. Recommend smoking and illicit drug cessation. Medical management of other comorbidities per internal medicine, infectious disease. More recommendations to based on patient's clinical course. Time with Patient: Less than 30
[2024-01-23 11:05] LABS: Glucose,Whole Blood 108 mg/dL (70-110)
--- NOTE | 2024-01-23 15:43 | P.PN ---
Subjective Progress Note Date: 01/23/24 Patient is evaluated today in follow up on the cardiac stepdown unit. Patient currently fatigued and lethargic difficult to arouse. Valium will be stopped. Patient is status post I and D of chest wall and mediastinal abscess. CT surgery following. He has [address] One with some noted purulent drainage. Patients culture showing MSSA. ID following closely. Patient does report significant chest wall pain at the surgical site. He is maintained on suboxone but has also been started on norco for pain control. White blood cell count today 14.0, hgb 9.3. Sodium 132, potassium 4.6. Patient had fever low grade today. 01/20/2024 Patient is evaluated in follow-up today on the cardiac stepdown unit patient is continued on antibiotic coverage with IV nafcillin which was adjusted per infectious disease. His cultures are continue to show MSSA in the chest wall however blood cultures have remained negative. Patient was started on normal saline 50 MLS per hour overnight with improvement in his sodium level it is up to D5. Renal function shows a BUN of 9 creatinine of 0.79. White blood cell count of 12.1, hemoglobin 10.0. To surgery recommending to continue the GI until output is minimal. Patient would like to discharge to subacute rehab and is currently pending a physical therapy evaluation as he is quite fatigued and weakened during this hospital stay. 01/21/2024 Patient is seen and evaluated in follow-up today with infectious disease and CT surgery following. Patient continues with chest tube drainage although minimal. Case management/social work following as well working on discharge planning including an ECF for shelter for continued IV antibiotic therapy and wound care. Patient is extremely noncompliant and poor to follow-up with concerns of safe discharge planning. Patient has been refused by multiple ECF's in this area and social work has placed multiple referrals outside of the area currently pending. Patient is currently on Suboxone as well as Bryce and continuing to request pain medications. Discussed with the patient that patient should not be taking Bryce and Suboxone together. Patient is reporting some right thigh and leg swelling will obtain a venous Doppler as patient has not been getting up and moving around very frequently. Encouraged increase activity as tolerated. Patient is afebrile with no reports of chest pain or shortness of breath. Patient has been tolerating diet and denies any nausea or vomiting. 01/22/2024 Patient is seen and evaluated in follow-up maintained on antibiotics and has received a PICC line as patient will require antibiotic therapy on discharge per ID recommendations. Patient is a poor candidate for home IV antibiotic therapy with past history of drug abuse. Patient reports he is currently on Suboxone and also requesting Bryce and report his pain is 10/10. Encouraged increase activity as tolerated and frequent walks. Patient has been evaluated by physical therapy and is walking with a walker. Patient also will require pain management outpatient services as patient is continued on Suboxone. Patient follows with Dr. Dahl in the outpatient setting and encouraged him to follow- up outpatient and discussed with him regarding pain management. Per social work, psychiatry consult was placed as ECF that are considering him for placement would like a psychiatric consult for his history of depression and previous drug abuse. Consult was placed and pending 01/23/2024 Patient seen and evaluated in follow-up today continues to report generalized weakness currently awaiting an ECF that will accept the patient. [facility] has multiple facilities that are considering and reviewing his chart recommending psychiatric evaluation. Patient was evaluated by psychiatry as patient does have history of significant depression and IV drug abuse and has had hospitalizations at the psych facility and reports does not meet criteria recommending to continue with current medications and outpatient follow-up with mental health in the outpatient setting. Patient does have a PICC line and will likely need IV antibiotic therapy on discharge. Patient has a poor safe discharge home given the history of IV drug abuse with infectious disease and CT surgery following and recommending ECF for IV antibiotic therapy and wound care. Case management is working on [facility] facilities. Patient has been taking Suboxone although it has been reported he has not had a prescription refill from his primary care provider since 2022. Patient has been having difficulty in the outpatient setting with following up and has extreme noncompliance. Patient follows with Dr. Dahl in the outpatient setting and will need to have the patient follow-up with pain management in the outpatient setting for this. This was discussed multiple occasions with this patient. Patient is afebrile with no reports of chest pain or shortness of breath. Patient is tolerating diet with no reported nausea or vomiting. Patient continues with chest drain of the chest wall abscess and continued local wound care. Patient continues to report right hip pain and imaging done regarding a possible blood clot was done and venous Doppler was negative for DVT. Will obtain x-ray images of the hip and pe lvis along with femur and also obtain a bone scan. Review of Systems Constitutional: Denied any fatigue denied any fever. Cardio vascular: denied any chest pain, palpitations, reports of chest wall discomfort Gastrointestinal: denied any nausea, vomiting, diarrhea Pulmonary: Denied any shortness of breath cough Neurologic denied any new focal deficits, reports of generalized weakness and gait dysfunction with right hip pain All inpatient medications were reviewed and appropriate changes in these medications as dictated in the interval history and assessment and plan. PHYSICAL EXAMINATION: GENERAL: The patient is alert and oriented x3, not in any acute distress. Well developed, well nourished. Anxious at times, unkempt HEENT: Pupils are round and equally reacting to light. EOMI. No scleral icterus. No conjunctival pallor. Normocephalic, atraumatic. No pharyngeal erythema. No thyromegaly. CARDIOVASCULAR: S1 and S2 present. No murmurs, rubs, or gallops. PULMONARY: Chest is clear to auscultation, no wheezing or crackles. ABDOMEN: Soft, nontender, nondistended, normoactive bowel sounds. No palpable organomegaly. MAHESH drain x 2 noted chest wall. Dressing intact. MUSCULOSKELETAL: No joint swelling or deformity. EXTREMITIES: No cyanosis, clubbing, or pedal edema. Tenderness in the right lower extremity near the thigh area NEUROLOGICAL: Gross neurological examination did not reveal any focal deficits. Weak and fatigued. SKIN: No rashes. Assessment: Abscess to the anterior chest and retrosternal area status post I and D with MAHESH drain present. CT surgery following. Sepsis and bacteremia secondary to above. Cultures positive at outside hospital. Here they are negative x 72 hours. ID following cultures. On IV Nafcillin per ID . Right hip pain with swelling, DVT ruled out, x-ray of hip and pelvis along with bone scan ordered and pending Leukocytosis, resolved Low grade fever, secondary to abscess of the chest, resolved Hyponatremia hypvolemic, improving on gentle hydration Hx polysubstance abuse with methamphetamine, marijuana and opiates on suboxone Chronic nicotine use Noncompliance with medications and follow-up GI prophylaxis: pepcid DVT prophylaxis: Subcutaneous heparin Full code Plan: Continue with MAHESH drains and CT surgery following recommending outpatient follow- up and continue with drainage tubes for now monitor output closely Patient currently maintained on IV antibiotics with infectious disease following and patient has received a PICC line for outpatient IV antibiotic therapy due to the extent of the infection and abscess. Most recent cultures have remained negative although patient has history of drug abuse and noncompliance, infecti ous disease recommending shelter placement for continued wound care as well as IV antibiotic therapy. Case management/social work following working on discharge planning and has placed multiple referrals outside of the city for ECF. Multiple ECF's in the area including [facility], [facility] have refused the patient. Psychiatry has evaluated the patient recommending outpatient follow-up with mental health services otherwise does not meet criteria for any inpatient psychiatry evaluation. Patient to continue on current medications. Patient reports his primary care provider has been prescribing Suboxone although was verified through the nurse that he has not had the Suboxone since 2022. Patient will need outpatient follow-up with pain management at a Suboxone clinic for further assistance. Patient will not be prescribed Suboxone on discharge. Patient also taking Bryce for pain reporting continued pain. Patient was having some right leg pain and venous Doppler was negative for DVT. Continue subcutaneous heparin. Patient will undergo bone scan along with x-ray images of the right hip, femur, and pelvis for further evaluation. Encouraged increase activity as tolerated Follow-up on repeat labs in a.m. and continue to monitor closely. Continue incentive spirometer use at least 10 times every hour while awake Overall prognosis is guarded. Discharge pending ECF acceptance and insurance authorization. [facility] currently reviewing for possible consideration of acceptance. Case management is following. The impression and plan of care has been dictated by Minerva Soto, Nurse Practitioner as directed. Dr. Sylvester MD I have performed a history and physical examination and medical decision making of this patient, discussed the same with the dictator, and agree with the dictators assessment and plan as written, documented as a scribe. Based on total visit time, I have performed more than 50% of this visit. Objective - Vital Signs Vital signs: Vital Signs Temp 98.8 F 01/23/24 14:00 Pulse 99 01/23/24 14:00 Resp 18 01/23/24 14:00 BP 124/64 01/23/24 14:00 Pulse Ox 100 01/23/24 14:00 FiO2 Intake & Output 01/22/24 01/23/2401/22/24 18:59 06:59 18:59 Intake Total 550 550 Output Total 30 Balance 520 550 Intake: IV 10 Invasive Line 5 10 Intake, IV Titration 550 Amount Sodium Chloride 0.9% 1, 500 000 ml @ 50 mls/hr IV . Q20H [facility] Rx#:[id number] ceFAZolin 2 gm In Sodium 50 Chloride 0.9% 50 ml @ 100 mls/hr IVPB Q8HR [facility] Rx# :[id number] Oral 540 Output: Drainage 30 Anterior Chest left 15 Right Anterior Medial 15 Chest Other: Voiding Method Urinal Toilet Toilet Urinal Urinal # Voids 2 - Labs CBC & Chem 7: 01/22/24 07:04 01/22/24 07:04 Labs: Abnormal Lab Results - Last 24 Hours (Table) 01/22/24 01/23/24 Range/Units 21:27 05:50 POC Glucose (mg/dL) 124 H 112 H (70-110) mg/dL
[2024-01-23 16:26] LABS: Glucose,Whole Blood 107 mg/dL (70-110)
--- NOTE | 2024-01-23 16:54 | XR ---
EXAMINATION TYPE: XR Femur RT 1 View DATE OF EXAM: 01/23/2024 4:44 PM CLINICAL INDICATION:Male, 38 years old with history of right hip pain, bone pain; [facility] COMPARISON: Right hip radiographs today. TECHNIQUE: XR Femur RT 1 View examined in Frontal and lateral projections. FINDINGS: No evidence of acute osseous pathology, joint dislocation, or soft tissue swelling IMPRESSION: No acute osseous pathology.
--- NOTE | 2024-01-23 16:59 | XR ---
EXAMINATION TYPE: XR Hip RT and AP Pelvis DATE OF EXAM: 01/23/2024 4:44 PM CLINICAL INDICATION:Male, 38 years old with history of right hip pain, bone pain; [facility] COMPARISON: Right femur radiographs. TECHNIQUE: XR Hip RT and AP Pelvis; hip was examined in the frontal and lateral projections and a AP pelvis. FINDINGS: No evidence for acute process, joint dislocation or significant soft tissue swelling. Minimal subchondral sclerosis probably indicates mild degree of chondromalacia, appropriate for patie nt age. IMPRESSION: No acute process.
[2024-01-24 06:19] LABS: Glucose,Whole Blood 110 mg/dL (70-110)
--- NOTE | 2024-01-24 07:26 | XR ---
EXAMINATION TYPE: XR chest 1V portable DATE OF EXAM: 01/24/2024 COMPARISON: 01/19/2024 HISTORY: Chest wall abscess TECHNIQUE: Single frontal view of the chest is obtained. FINDINGS: There are postsurgical changes of recent surgery in the mediastinal region with drainage tubes. The lungs are clear. There is no pleural effusion or pneumothorax. Heart and pulmonary vascular normal. IMPRESSION: 1. Postsurgical changes as described above. 2. No acute cardiopulmonary disease.
[2024-01-24 07:45] LABS: Basophils % (A) 0 %; Eosinophils # (A) 0.1 k/uL (0-0.7); Eosinophils % (A) 1 %; HCT 29.3 % (39.0-53.0); HGB 9.2 gm/dL (13.0-17.5); Hypochromasia Moderate; Lymphocytes # (A) 1.7 k/uL (1.0-4.8); Lymphocytes % (A) 15 %; MCH 27.8 pg (25.0-35.0); MCHC 31.3 g/dL (31.0-37.0); MCV 88.8 fL (80.0-100.0); Mean Platelet Volume 6.5; Monocytes # (A) 0.3 k/uL (0-1.0); Monocytes % (A) 3 %; Neutrophils # (A) 8.8 k/uL (1.3-7.7); Neutrophils % (A) 80 %; Platelet Count 832 k/uL (150-450); RDW 15.1 % (11.5-15.5)
[2024-01-24 08:02] LABS: Anion Gap 6 mmol/L; Blood Urea Nitrogen 14 mg/dL (9-20); Calcium 8.4 mg/dL (8.4-10.2); Carbon Dioxide 27 mmol/L (22-30); Chloride 99 mmol/L (98-107); Glucose 119 mg/dL (74-99); Potassium 4.3 mmol/L (3.5-5.1); Sodium 132 mmol/L (137-145)
[2024-01-24 08:03] LABS: African American GFR (CKD) >90 (>60 ml/min/1.73 sqM); Non-African American GFR(CKD) >90 (>60 ml/min/1.73 sqM)
--- NOTE | 2024-01-24 09:42 | P.PN ---
Subjective Progress Note Date: 01/24/24 Principal diagnosis: Mediastinal/chest wall abscess, febrile illness, bacteremia. History of illicit drug use, current tobacco dependence, multiple admissions for psychiatric illn ess, noncompliance POD #8 incision drainage and debridement of chest wall abscess, incision and yas inage of mediastinal abscess, fluid positive for MSSA The patient was seen and examined in follow-up today January 24, 2024 at his bedside on the fourth floor medical surgical unit. Currently he is sitting up in bed chair, is awake, alert, oriented x 3 and is in no acute apparent distress. Yesterday he was complaining of some right hip and leg pain and limping, x-ray of his femur was completed which showed no acute osseous pathology, the patient underwent an x-ray of his hip/pelvis which showed no acute process. Anterior chest Peter drains remain in place, scant serosanguineous drainage, 20 mL output from both drains in the last 8 hours, although the nurse reports that the patient has been draining the drains by himself. Discussed with the patient the importance of letting the nurses drain the drains so that they can record accurate output. He continues on cefazolin per infectious disease management for treatment of MSSA. His Tmax temperature in the last 24 hours was 99.4 F. Chest x-ray results reviewed. Objective - Vital Signs Vital signs: Vital Signs Temp 98.2 F 01/24/24 07:11 Pulse 103 H 01/24/24 07:11 Resp 18 01/24/24 07:11 BP 113/72 01/24/24 07:11 Pulse Ox 99 01/24/24 07:11 FiO2 Intake & Output 01/23/24 01/24/24 01/24/24 18:59 06:59 18:59 Output Total 40 Balance -40 Output: Drainage 40 Anterior Chest left 20 Right Anterior Medial 20 Chest Other: Voiding Method Toilet Urinal # Voids 3 3 - Exam CONSTITUTIONAL: Appears comfortable, no acute distress RESPIRATORY: Lungs sounds diminished bilaterally. Respirations symmetrical, nonlabored. Currently on room air with oxygen saturation 97%. CARDIOVASCULAR: S1, S2 present. Regular rate and rhythm, Palpable peripheral pulses bilaterally. No edema present GASTROINTESTINAL: Abdomen soft, nontender, nondistended. Active bowel sounds present 4 quadrants. Tolerating diet. Bowel movement today 01/23/2024. GENITOURINARY: Continues to void. INTEGUMENTARY: Skin is warm and dry. Anterior chest wall with 2 MAHESH drains present, site covered with 4 x 4. Medial MAHESH drain with scant drainage 20 mL in the last 8 hours, lateral/left MAHESH drain with scant drainage 20 mL in the last 8 hours. NEUROLOGIC: Cranial nerves II through XII intact. MUSKULOSKELETAL: Able to move all extremities, strength equal bilaterally, gait normal. PSYCHIATRIC: Alert and oriented to person place and time. - Allied health notes Allied health notes reviewed: nursing - Labs CBC & Chem 7: 01/24/24 07:14 01/24/24 07:14 Labs: Abnormal Lab Results - Last 24 Hours (Table) 01/24/24 01/24/24 Range/Units 07:14 07:14 WBC 11.0 H (3.8-10.6) k/uL RBC 3.30 L (4.30-5.90) m/uL Hgb 9.2 L (13.0-17.5) gm/dL Hct 29.3 L (39.0-53.0) % Plt Count 832 H (150-450) k/uL Neutrophils # 8.8 H (1.3-7.7) k/uL Sodium 132 L (137-145) mmol/L Glucose 119 H (74-99) mg/dL - Imaging and Cardiology Chest x-ray: report reviewed, image reviewed Assessment and Plan Assessment: Mediastinal retrosternal mass measuring 6.6 x 3.[address] scan, status post incision drainage and debridement of chest wall abscess, incision and drainage of mediastinal abscess, culture positive for MSSA Febrile illness Bacteremia reported at [facility], blood cultures negative Illicit drug use Current tobacco dependence Multiple admissions for psychiatric illness Noncompliance Plan: Continue drains until drainage is minimal. Discussed with the patient the importance of letting the nurses drain the MAHESH drains. Continue to record strict output. Patient may be discharged with drains still in once antibiotic decision made by infectious disease, likely will require rehab as patient is unlikely to be compliant with self administration of IV antibiotics nor drain care Encourage incentive spirometry use 10 times every hour while awake. Increase activity as tolerated. Continue with antibiotics per infectious disease. Recommend smoking and illicit drug cessation. Medical management of other comorbidities per internal medicine, infectious disease. More recommendations to based on patient's clinical course. Time with Patient: Less than 30
[2024-01-24 11:54] LABS: Glucose,Whole Blood 170 mg/dL (70-110)
--- NOTE | 2024-01-24 15:15 | P.PN ---
Subjective Progress Note Date: 01/23/24 Principal diagnosis: Reason for follow-up is chest wall/mediastinal abscess Patient is a 38-year-old male with a past medical history significant for IV drug use last drug use seem to have been dealing with chest pain along with some swelling with fever and chills patient did have CT at the outside facility concerning for chest wall abscess and retrosternal mediastinal mass suspicious for an abscess for the patient was transferred to [facility] for CT surgery evaluation Patient is status post Incision drainage and debridement of chest wall abscess, incision and drainage of mediastinal abscess completed on 01/16/2024. On today's evaluation that is 01/23/2024, Patient is afebrile this morning patient denies having any chest pain shortness of breath or cough, the patient is breathing comfortably and currently on room air, patient denies any abdominal pain no diarrhea no nausea no vomiting has been complaining of pain to the right hip area. No new labs were obtained today blood culture were negative Objective - Vital Signs Vital signs: Vital Signs Temp 98.8 F 01/23/24 14:00 Pulse 99 01/23/24 14:00 Resp 18 01/23/24 14:00 BP 124/64 01/23/24 14:00 Pulse Ox 100 01/23/24 14:00 FiO2 Intake & Output 01/22/24 01/23/24 01/23/24 18:59 06:59 18:59 Intake Total 550 550 Output Total 30 Balance 520 550 Intake: IV 10 Invasive Line 5 10 Intake, IV Titration 550 Amount Sodium Chloride 0.9% 1, 500 000 ml @ 50 mls/hr IV . Q20H [facility] Rx#:[id number] ceFAZolin 2 gm In Sodium 50 Chloride 0.9% 50 ml @ 100 mls/hr IVPB Q8HR [facility] Rx# :[id number] Oral 540 Output: Drainage 30 Anterior Chest left 15 Right Anterior Medial 15 Chest Other: Voiding Method Urinal Toilet Toilet Urinal Urinal # Voids 2 - Exam GENERAL DESCRIPTION: Middle-age male lying in bed in no distress RESPIRATORY SYSTEM: Unlabored breathing , decreased breath sounds at bases HEART: S1 S2 regular rate and rhythm , ABDOMEN: Soft , no tenderness EXTREMITIES: No edema feet - Labs CBC & Chem 7: 01/22/24 07:04 01/22/24 07:04 Labs: Abnormal Lab Results - Last 24 Hours (Table) 01/22/24 01/23/24 Range/Units 21:27 05:50 POC Glucose (mg/dL) 124 H 112 H (70-110) mg/dL Assessment and Plan (1) Sepsis Current Visit: Yes Status: Acute Code(s): A41.9 - SEPSIS, UNSPECIFIED ORGANISM SNOMED Code(s): 21852601 (2) Abscess Current Visit: Yes Status: Acute Code(s): L02.91 - CUTANEOUS ABSCESS, UNSPECIFIED SNOMED Code(s): 857691166 (3) Bacteremia Current Visit: Yes Status: Acute Code(s): R78.81 - BACTEREMIA SNOMED Code(s): 0380138 Plan: 1patient presented hospital with sepsis in this patient with fever tachycardia significant elevated white count and apparently the patient did have a CT at the outside facility with evidence of right sided chest wall and retrosternal mass concerning for likely abscess in this patient who did have history of IV drug use we will need to cover for the gram-positive as well as gram-negative pathogen 2-blood culture has been negative 3-patient is status post incision drainage and debridement of chest wall abscess, incision and drainage of mediastinal abscess on 01/16/2024 with cultures growing MSSA 4-patient to continue with the cefazolin currently waiting for outpatient antibiotic arrangement and workup for his right hip pain per admitting team Dictation was produced using [employer] dictation software. please excuse any grammatical, word or spelling errors.
--- NOTE | 2024-01-24 15:16 | P.PN ---
Subjective Progress Note Date: 01/24/24 Principal diagnosis: Reason for follow-up is chest wall/mediastinal abscess Patient is a 38-year-old male with a past medical history significant for IV drug use last drug use seem to have been dealing with chest pain along with some swelling with fever and chills patient did have CT at the outside facility concerning for chest wall abscess and retrosternal mediastinal mass suspicious for an abscess for the patient was transferred to [facility] for CT surgery evaluation Patient is status post Incision drainage and debridement of chest wall abscess, incision and drainage of mediastinal abscess completed on 01/16/2024. On today's evaluation that is 01/24/2024,the patient denies any fever or any chills, patient is breathing comfortably on room air, the patient denies any worsening chest pain shortness of breath and no significant cough, patient denies abdominal pain, no nausea vomiting or diarrhea. Denies any worsening pain to the right hip area. Patient white count is 11,000, creatinine 0.83 hip x-ray was negative Objective - Vital Signs Vital signs: Vital Signs Temp 98.2 F 01/24/24 07:11 Pulse 103 H 01/24/24 07:11 Resp 18 01/24/24 07:11 BP 113/72 01/24/24 07:11 Pulse Ox 99 01/24/24 07:11 FiO2 Intake & Output 01/23/24 01/24/24 01/24/24 18:59 06:59 18:59 Output Total 85 Balance -85 Output: Drainage 85 Anterior Chest left 45 Right Anterior Medial 40 Chest Other: Voiding Method Toilet Urinal # Voids 3 3 - Exam GENERAL DESCRIPTION: Middle-age male lying in bed in no distress RESPIRATORY SYSTEM: Unlabored breathing , decreased breath sounds at bases HEART: S1 S2 regular rate and rhythm , ABDOMEN: Soft , no tenderness EXTREMITIES: No edema feet - Labs CBC & Chem 7: 01/24/24 07:14 01/24/24 07:14 Labs: Abnormal Lab Results - Last 24 Hours (Table) 01/24/24 01/24/24 01/24/24 Range/Units 07:14 07:14 11:53 WBC 11.0 H (3.8-10.6) k/uL RBC 3.30 L (4.30-5.90) m/uL Hgb 9.2 L (13.0-17.5) gm/dL Hct 29.3 L (39.0-53.0) % Plt Count 832 H (150-450) k/uL Neutrophils # 8.8 H (1.3-7.7) k/uL Sodium 132 L (137-145) mmol/L Glucose 119 H (74-99) mg/dL POC Glucose (mg/dL) 170 H (70-110) mg/dL Assessment and Plan (1) Sepsis Current Visit: Yes Status: Acute Code(s): A41.9 - SEPSIS, UNSPECIFIED ORGANISM SNOMED Code(s): 17739613 (2) Abscess Current Visit: Yes Status: Acute Code(s): L02.91 - CUTANEOUS ABSCESS, UNSPECIFIED SNOMED Code(s): 439580315 (3) Bacteremia Current Visit: Yes Status: Acute Code(s): R78.81 - BACTEREMIA SNOMED Code(s): 7655299 Plan: 1patient presented hospital with sepsis in this patient with fever tachycardia significant elevated white count and apparently the patient did have a CT at the outside facility with evidence of right sided chest wall and retrosternal mass concerning for likely abscess in this patient who did have history of IV drug use we will need to cover for the gram-positive as well as gram-negative pathogen 2-blood culture has been negative 3-patient is status post incision drainage and debridement of chest wall abscess, incision and drainage of mediastinal abscess on 01/16/2024 with cultures growing MSSA 4-patient to continue with the cefazolin workup for his right hip pain currently in progress x-rays were negative Dictation was produced using [employer] dictation software. please excuse any grammatical, word or spelling errors. Time with Patient: Less than 30
[2024-01-24 16:44] LABS: Glucose,Whole Blood 139 mg/dL (70-110)
[2024-01-24 20:55] LABS: Glucose,Whole Blood 116 mg/dL (70-110)
--- NOTE | 2024-01-25 02:45 | PN ---
PROGRESS NOTE DATE OF SERVICE: 01/24/2024 SUBJECTIVE: This 38-year-old gentleman, who was admitted with chest wall abscess, had MAHESH drainage. No chest pain. No palpitation. The patient also has hip pain. PHYSICAL EXAMINATION: VITAL SIGNS: Pulse is 103, blood pressure n, respirations 18. CHEST: Few scattered rhonchi. ABDOMEN: Soft. NERVOUS SYSTEM: Nonfocal. DIAGNOSTIC STUDIES: X-rays are normal. LABORATORY DATA: WBC 11. ASSESSMENT: 1. Anterior chest and retrosternal abscess, status post MAHESH drainage. 2. Right hip pain. 3. Sepsis and bacteremia. 4. History of polysubstance abuse. 5. Multiple complex medical issues. RECOMMENDATIONS: Recommend to continue current management and continue symptomatic treatment. Otherwise, the femur and hip x-rays are normal at this time. We will continue to monitor. I recommend a triple-phase bone scan at this time. MMODL / IJN: [id number] / MTDD
[2024-01-25 05:32] LABS: Glucose,Whole Blood 136 mg/dL (70-110)
[2024-01-25 07:33] LABS: Basophils % (A) 0 %; Eosinophils # (A) 0.2 k/uL (0-0.7); Eosinophils % (A) 2 %; HCT 26.5 % (39.0-53.0); HGB 8.4 gm/dL (13.0-17.5); Hypochromasia Slight; Lymphocytes # (A) 2.1 k/uL (1.0-4.8); Lymphocytes % (A) 22 %; MCH 27.9 pg (25.0-35.0); MCHC 31.9 g/dL (31.0-37.0); MCV 87.7 fL (80.0-100.0); Mean Platelet Volume 6.6; Monocytes # (A) 0.5 k/uL (0-1.0); Monocytes % (A) 5 %; Neutrophils # (A) 6.8 k/uL (1.3-7.7); Neutrophils % (A) 69 %; Platelet Count 803 k/uL (150-450); RBC 3.02 m/uL (4.30-5.90); RDW 15.1 % (11.5-15.5); WBC 9.8 k/uL (3.8-10.6)
[2024-01-25 08:04] LABS: African American GFR (CKD) >90 (>60 ml/min/1.73 sqM); Anion Gap 4 mmol/L; Blood Urea Nitrogen 12 mg/dL (9-20); Calcium 8.1 mg/dL (8.4-10.2); Carbon Dioxide 27 mmol/L (22-30); Chloride 101 mmol/L (98-107); Glucose 124 mg/dL (74-99); Non-African American GFR(CKD) >90 (>60 ml/min/1.73 sqM); Potassium 4.6 mmol/L (3.5-5.1); Sodium 132 mmol/L (137-145)
--- NOTE | 2024-01-25 09:46 | P.PN ---
Subjective Progress Note Date: 01/25/24 Principal diagnosis: Mediastinal/chest wall abscess, febrile illness, bacteremia. History of illicit drug use, current tobacco dependence, multiple admissions for psychiatric illn ess, noncompliance POD #9 incision drainage and debridement of chest wall abscess, incision and yas inage of mediastinal abscess, fluid positive for MSSA The patient was seen and examined in follow-up today January 25, 2024 at his bedside on the fourth floor medical surgical unit. The patient is currently laying in bed, is awake, alert, oriented x 3 and is in no acute apparent distress. He denies any complaints of shortness of breath at this time, although continues to complain of some right hip pain. X-rays of the femur and right hip showed no acute process. Tmax temperature in the last 24 hours is 99.0 F. He remains on cefazolin for IV antibiotics managed by infectious disease. 2 [address] remain in place, right Peter drain drained 70 mL of thin serosanguineous drainage in the last 24 hours and his left Peter drain drained 60 mL of thin serosanguineous drainage in the last 24 hours. The patient has been up ambulating with standby assistance from nursing and therapy staff. Objective - Vital Signs Vital signs: Vital Signs Temp 98.8 F 01/25/24 07:03 Pulse 98 01/25/24 07:03 Resp 17 01/25/24 07:03 BP 114/65 01/25/24 07:03 Pulse Ox 96 01/25/24 07:03 FiO2 Intake & Output 01/24/24 01/25/24 01/25/24 18:59 06:59 18:59 Intake Total 100 Output Total 85 45 Balance -85 55 Intake: Intake, IV Titration 100 Amount ceFAZolin 2 gm In Sodium 100 Chloride 0.9% 50 ml @ 100 mls/hr IVPB Q8HR [facility] Rx# :[id number] Output: Drainage 85 45 Anterior Chest left 45 15 Right Anterior Medial 40 30 Chest Other: # Voids 3 - Exam CONSTITUTIONAL: Appears comfortable, no acute distress RESPIRATORY: Lungs sounds diminished bilaterally. Respirations symmetrical, nonlabored. Currently on room air with oxygen saturation 96%. CARDIOVASCULAR: S1, S2 present. Regular rate and rhythm, Palpable peripheral pulses bilaterally. No edema present GASTROINTESTINAL: Abdomen soft, nontender, nondistended. Active bowel sounds present 4 quadrants. Tolerating diet. Bowel movement today 01/23/2024. GENITOURINARY: Continues to void. INTEGUMENTARY: Skin is warm and dry. Anterior chest wall with 2 Peter drains present, site covered with 4 x 4. Right medial Peter drain with scant drainage 70 mL in the last 24 hours, lateral/left Peter drain with scant drainage 60 mL in the last 24 hours. NEUROLOGIC: Cranial nerves II through XII intact. MUSKULOSKELETAL: Able to move all extremities, strength equal bilaterally, gait normal. PSYCHIATRIC: Alert and oriented to person place and time. - Allied health notes Allied health notes reviewed: nursing - Labs CBC & Chem 7: 01/25/24 07:00 01/25/24 07:00 Labs: Abnormal Lab Results - Last 24 Hours (Table) 01/24/24 01/24/24 01/24/24 Range/Units 11:53 16:43 20:52 RBC (4.30-5.90) m/uL Hgb (13.0-17.5) gm/dL Hct (39.0-53.0) % Plt Count (150-450) k/uL Sodium (137-145) mmol/L Glucose (74-99) mg/dL POC Glucose (mg/dL) 170 H 139 H 116 H (70-110) mg/dL Calcium (8.4-10.2) mg/dL 01/25/24 01/25/24 01/25/24 Range/Units 05:30 07:00 07:00 RBC 3.02 L (4.30-5.90) m/uL Hgb 8.4 L (13.0-17.5) gm/dL Hct 26.5 L (39.0-53.0) % Plt Count 803 H (150-450) k/uL Sodium 132 L (137-145) mmol/L Glucose 124 H (74-99) mg/dL POC Glucose (mg/dL) 136 H (70-110) mg/dL Calcium 8.1 L (8.4-10.2) mg/dL Assessment and Plan Assessment: Mediastinal retrosternal mass measuring 6.6 x 3.[address] scan, status post incision drainage and debridement of chest wall abscess, incision and drainage of mediastinal abscess, culture positive for MSSA Febrile illness Bacteremia reported at [facility], blood cultures negative Illicit drug use Current tobacco dependence Multiple admissions for psychiatric illness Right hip pain, unknown etiology Noncompliance Plan: Continue drains until drainage is minimal. Reinforced with the patient the importance of letting the nurses drain the MAHESH drains. Continue to record strict output. Patient may be discharged with drains still in once antibiotic decision made by infectious disease, likely will require rehab as patient is unlikely to be compliant with self administration of IV antibiotics nor drain care Encourage incentive spirometry use 10 times every hour while awake. Increase activity as tolerated. Continue with antibiotics per infectious disease. Currently on cefazolin for antibiotic coverage. Reinforced the importance of risk modification including smoking and illicit drug cessation. Medical management of other comorbidities per internal medicine, infectious disease. More recommendations to based on patient's clinical course. Time with Patient: Less than 30
[2024-01-25] MEDS: HYDROcodone/APAP 5-325MG 1 EACH TAB PO STA (10:15)
[2024-01-25 11:38] LABS: Glucose,Whole Blood 102 mg/dL (70-110)
[2024-01-25] MEDS: HYDROcodone/APAP 7.5-325MG 1 EACH TAB PO PRN (13:22)
[2024-01-25 16:46] LABS: Glucose,Whole Blood 126 mg/dL (70-110)
--- NOTE | 2024-01-25 17:27 | P.PN ---
Subjective Progress Note Date: 01/25/24 Principal diagnosis: Reason for follow-up is chest wall/mediastinal abscess Patient is a 38-year-old male with a past medical history significant for IV drug use last drug use seem to have been dealing with chest pain along with some swelling with fever and chills patient did have CT at the outside facility concerning for chest wall abscess and retrosternal mediastinal mass suspicious for an abscess for the patient was transferred to [facility] for CT surgery evaluation Patient is status post Incision drainage and debridement of chest wall abscess, incision and drainage of mediastinal abscess completed on 01/16/2024. On today's evaluation that is 01/25/2024,the patient remains to be afebrile, patient is on room air not requiring supplemental oxygen and denies any shortness of breath or any cough chest pain is currently controlled denies any worsening pain to the right hip and thigh area no abdominal pain or diarrhea. Patient white count is 9.8, creatinine 0.[address] is currently pending Objective - Vital Signs Vital signs: Vital Signs Temp 98.4 F 01/25/24 15:46 Pulse 105 H 01/25/24 15:46 Resp 16 01/25/24 15:46 BP 103/65 01/25/24 15:46 Pulse Ox 98 01/25/24 15:46 FiO2 Intake & Output 01/24/24 01/25/24 01/25/24 18:59 06:59 18:59 Intake Total 100 Output Total 85 45 Balance -85 55 Intake: Intake, IV Titration 100 Amount ceFAZolin 2 gm In Sodium 100 Chloride 0.9% 50 ml @ 100 mls/hr IVPB Q8HR [facility] Rx# :[id number] Output: Drainage 85 45 Anterior Chest left 45 15 Right Anterior Medial 40 30 Chest Other: # Voids 3 5 - Exam GENERAL DESCRIPTION: Middle-age male lying in bed in no distress RESPIRATORY SYSTEM: Unlabored breathing , decreased breath sounds at bases HEART: S1 S2 regular rate and rhythm , ABDOMEN: Soft , no tenderness EXTREMITIES: No edema feet - Labs CBC & Chem 7: 01/25/24 07:00 01/25/24 07:00 Labs: Abnormal Lab Results - Last 24 Hours (Table) 01/24/24 01/25/24 01/25/24 Range/Units 20:52 05:30 07:00 RBC 3.02 L (4.30-5.90) m/uL Hgb 8.4 L (13.0-17.5) gm/dL Hct 26.5 L (39.0-53.0) % Plt Count 803 H (150-450) k/uL Sodium (137-145) mmol/L Glucose (74-99) mg/dL POC Glucose (mg/dL) 116 H 136 H (70-110) mg/dL Calcium (8.4-10.2) mg/dL C-Reactive Protein (<1.0) mg/dL 01/25/24 01/25/24 01/25/24 Range/Units 07:00 07:00 16:44 RBC (4.30-5.90) m/uL Hgb (13.0-17.5) gm/dL Hct (39.0-53.0) % Plt Count (150-450) k/uL Sodium 132 L (137-145) mmol/L Glucose 124 H (74-99) mg/dL POC Glucose (mg/dL) 126 H (70-110) mg/dL Calcium 8.1 L (8.4-10.2) mg/dL C-Reactive Protein 7.7 H (<1.0) mg/dL Assessment and Plan (1) Sepsis Current Visit: Yes Status: Acute Code(s): A41.9 - SEPSIS, UNSPECIFIED ORGANISM SNOMED Code(s): 62593012 (2) Abscess Current Visit: Yes Status: Acute Code(s): L02.91 - CUTANEOUS ABSCESS, UNSPECIFIED SNOMED Code(s): 404877540 (3) Bacteremia Current Visit: Yes Status: Acute Code(s): R78.81 - BACTEREMIA SNOMED Code(s): 3142494 Plan: 1patient presented hospital with sepsis in this patient with fever tachycardia significant elevated white count and apparently the patient did have a CT at the outside facility with evidence of right sided chest wall and retrosternal mass concerning for likely abscess in this patient who did have history of IV drug use we will need to cover for the gram-positive as well as gram-negative pathogen 2-blood culture has been negative 3-patient is status post incision drainage and debridement of chest wall abscess, incision and drainage of mediastinal abscess on 01/16/2024 with cultures growing MSSA 4-patient to continue with the cefazolin currently waiting for workup for his right hip pain CT has been ordered results will be followed Dictation was produced using [employer] dictation software. please excuse any grammatical, word or spelling errors. Time with Patient: Less than 30
--- NOTE | 2024-01-25 18:01 | CT ---
EXAMINATION TYPE: CT hip RT wo con, CT lower extremity RT wo con CT DLP: 857.1 mGycm, Automated exposure control for dose reduction was used. DATE OF EXAM: 01/25/2024 5:38 PM COMPARISON: . Extremity radiograph same day. CLINICAL INDICATION:Male, 38 years old with history of hip pain; PHH, Right hip and thigh pain TECHNIQUE: Axial images were obtained of the CT hip RT wo con, CT lower extremity RT wo con, Addition al coronal and sagittal reformatted images and soft tissue and bone window were obtained for review. 3-D reconstruction was created on a separate workstation. Contrast used: mL of , (None if empty) Oral contrast used: (None if empty) FINDINGS: There is subcutaneous edema involving the right lower extremity lateral tissues. Fullness w ithin the anterior thigh compartment rectus femoris with possible underlying fluid collection suggest ed measuring 8.0 x 3.1 x 2.0 cm. No osseous erosion identified. There is no evidence of fracture, subluxation, or dislocation. No focal muscular atrophy or edema is identified. No radiopaque foreign body identified. IMPRESSION: 1. No evidence of fracture. 2. There is abnormal appearance of the right anterior thigh compartment with possible fluid collecti on within the muscle of the rectus femoris.. Further evaluation with MRI with IV contrast recommended . Findings without any provided history could represent hematoma and/or infection in the appropriate clinical settings. Correlate clinically.
[2024-01-25 20:51] LABS: Glucose,Whole Blood 134 mg/dL (70-110)
--- NOTE | 2024-01-26 04:14 | PN ---
PROGRESS NOTE DATE OF SERVICE: 01/25/2024 SUBJECTIVE: This 38-year-old gentleman was admitted with anterior chest and retrosternal abscess, complaining of right leg and right thigh pain. No chest pain. No palpitation. PHYSICAL EXAMINATION: VITAL SIGNS: Pulse is 98, blood pressure n, respirations 17. CHEST: Clear to auscultation. Chest tube drainage present. ABDOMEN: Soft. NERVOUS SYSTEM: No focal deficits. LABORATORY DATA: Hemoglobin 8.4. ASSESSMENT: 1. Anterior chest and retrosternal abscess, status post MAHESH drainage. 2. Right leg pain. 3. Sepsis and bacteremia. 4. History of polysubstance abuse. 5. Multiple complex medical issues. RECOMMENDATIONS: I recommend to continue current management and continue symptomatic treatment. I would recommend continue the antibiotics and obtain a CAT scan of the right leg including the hip to rule out the possibility of any infections or abscess. Further recommendations to follow. MMODL / IJN: [id number] / MTDD
[2024-01-26 05:44] LABS: Glucose,Whole Blood 108 mg/dL (70-110)
--- NOTE | 2024-01-26 08:44 | P.CNOR ---
History of Present Illness - [facility] Consult date: 01/26/24 Consult reason: joint pain (Right hip pain, swelling.) History of present illness: This is a 38-year-old male with history of IV drug use who presented with chest pain and swelling. He was found to have a mediastinal abscess secondary to IV drug use. He was taken to surgery last week for irrigation and debridement of the abscess. Since his admission he has complained of right lateral hip pain and has been ambulating with an antalgic gait. We were consulted for further evaluation of the right leg. CT scan was performed of the right hip which showed a collection of fluid about the lateral hip. He reports no recent fever or chills. Cultures are growing Staph aureus. He has no complaint of groin pain. Past Medical History Past Medical History: No Reported History History of Any Multi-Drug Resistant Organisms: None Reported Past Surgical History: No Surgical Hx Reported Past Anesthesia/Blood Transfusion Reactions: No Reported Reaction Past Psychological History: Bipolar, Depression Additional Psychological History / Comment(s): Multiple hospitalizations for psychiatric care Smoking Status: Current every day smoker Past Alcohol Use History: None Reported Past Drug Use History: Marijuana, Methamphetamine, Opiates - Past Family History Mother History Unknown: Yes Medications and Allergies Home Medications Medication Instructions Recorded Confirmed Type No Known Home Medications 01/15/24 01/15/24 History Allergies Allergy/AdvReac Type Severity Reaction Status Date / Time No Known Allergies Allergy Verified 01/16/24 14:30 Physical Examination This is a 38-year-old male in no acute distress. He is alert and oriented x 3. He is ambulating about his room independently. He is walking with an antalgic gait, protecting the right hip. On exam of the right hip there is no erythema or ecchymosis. There is fluctuance noted to the anterior lateral proximal thigh. There is no groin pain with flexion and extension and internal/external rotation of the hip. There is lateral hip pain with those motions. He has full knee extension and flexion as well as full foot and ankle motion without difficulty or pain. Neurovascular status to the lower extremity is intact. The remainder of his musculoskeletal exam is unremarkable. Results CT scan of the right hip reveals no obvious bony abnormality. There does seem to be a fluid collection about the anterior lateral aspect of the proximal thigh. It does not appear that the fluid tracks down to the hip joint. - Labs Labs: Abnormal Lab Results - Last 24 Hours (Table) 01/25/24 01/25/24 01/25/24 Range/Units 07:00 07:00 16:44 ESR 49 H (0-15) mm/Hr POC Glucose (mg/dL) 126 H (70-110) mg/dL C-Reactive Protein 7.7 H (<1.0) mg/dL 01/25/24 Range/Units 20:49 ESR (0-15) mm/Hr POC Glucose (mg/dL) 134 H (70-110) mg/dL C-Reactive Protein (<1.0) mg/dL H & H 01/15/24 01/18/24 01/19/24 Range/Units 15:41 05:44 06:34 Hgb 11.3 L 10.2 L 9.3 L (13.0-17.5) gm/dL Hct 35.7 L 32.0 L 29.5 L (39.0-53.0) % 01/20/24 01/21/24 01/22/24 Range/Units 06:28 08:30 07:04 Hgb 10.0 L 9.1 L 10.6 L (13.0-17.5) gm/dL Hct 32.1 L 29.5 L 34.2 L (39.0-53.0) % 01/24/24 01/25/24 Range/Units 07:14 07:00 Hgb 9.2 L 8.4 L (13.0-17.5) gm/dL Hct 29.3 L 26.5 L (39.0-53.0) % Result Diagrams: 01/25/24 07:00 01/25/24 07:00 Assessment and Plan (1) Cellulitis Current Visit: Yes Status: Acute Code(s): L03.90 - CELLULITIS, UNSPECIFIED SNOMED Code(s): 938668733 (2) Polysubstance abuse Current Visit: No Status: Acute Code(s): F19.10 - OTHER PSYCHOACTIVE SUBSTANCE ABUSE, UNCOMPLICATED SNOMED Code(s): 893556766 Plan: The clinical and CT findings are discussed with the patient. I will review the case with Dr. Mc. We have discussed irrigation debridement of the right hip versus drain placement under CT guidance with interventional radiology. Continue IV antibiotics per infectious disease.
[2024-01-26 10:18] LABS: Basophils # (A) 0.05 X 10*3/uL (0.00-0.10); Basophils % (A) 0.4 %; Eosinophils # (A) 0.22 X 10*3/uL (0.04-0.35); Eosinophils % (A) 1.7 %; HCT 26.6 % (39.6-50.0); HGB 8.3 g/dL (13.0-17.0); Lymphocytes # (A) 2.93 X 10*3/uL (0.90-5.00); Lymphocytes % (A) 22.4 %; MCH 27.3 pg (27.0-32.0); MCHC 31.2 g/dL (32.0-37.0); MCV 87.5 FL (80.0-97.0); Mean Platelet Volume 8.3 FL (9.5-12.2); Monocytes # (A) 1.01 X 10*3/uL (0.20-1.00); Monocytes % (A) 7.7 %; NRBC Per 100 WBC 0 X 10*3/uL (0.00-0.01); Neutrophils # (A) 8.84 X 10*3/uL (1.80-7.70); Neutrophils % (A) 67.4 %; Platelet Count 718 X 10*3/uL (140-440); RBC 3.04 X 10*6/uL (4.40-5.60); RDW 14.9 % (11.5-14.5)
[2024-01-26 10:28] LABS: BUN/Creat Ratio 15.88 Ratio (12.00-20.00); Blood Urea Nitrogen 12.7 mg/dL (9.0-27.0); Glucose 116 mg/dL (70-110)
[2024-01-26 10:29] LABS: Calcium 8.5 mg/dL (8.7-10.3); Carbon Dioxide 24.7 mmol/L (21.6-31.8); Chloride 95 mmol/L (96-109); Potassium 4.7 mmol/L (3.5-5.5); Sodium 131 mmol/L (135-145)
[2024-01-26 11:35] LABS: Glucose,Whole Blood 109 mg/dL (70-110)
--- NOTE | 2024-01-26 12:29 | P.PN ---
Subjective Progress Note Date: 01/26/24 Principal diagnosis: Mediastinal/chest wall abscess, febrile illness, bacteremia. History of illicit drug use, current tobacco dependence, multiple admissions for psychiatric illn ess, noncompliance POD #10 incision drainage and debridement of chest wall abscess, incision and dr velez of mediastinal abscess, fluid positive for MSSA The patient was seen and examined in follow-up today January 26, 2024 at his bedside on the fourth floor medical surgical unit. The patient is currently laying in bed, is awake, alert, oriented x 3 and is in no acute apparent distress. He has a family member present at his bedside. The patient underwent a CT scan of his right lower extremity and right hip yesterday January 24 which demonstrated a fluid collection to his right lateral hip. Subsequently due to this fluid collection orthopedics was consulted. The patient's Peter drains remain in place with MAHESH bulb suctions, left chest bulb suction with 35 mL of serosanguineous purulent drainage in the last 24 hours and the right chest to bulb suction with 10 mL of thin serosanguineous purulent drainage in the last 24 hours. Reinforced with the patient the importance of letting the nurses drain the bulb suctions so that they may record strict output. Tmax temperature in the last 24 hours is 99.3 F. He remains on cefazolin for IV antibiotic coverage managed by infectious disease. Objective - Vital Signs Vital signs: Vital Signs Temp 98.8 F 01/26/24 07:39 Pulse 100 01/26/24 07:39 Resp 18 01/26/24 07:39 BP 132/75 01/26/24 07:39 Pulse Ox 96 01/26/24 07:39 FiO2 Intake & Output 01/25/24 01/26/24 01/26/24 18:59 06:59 18:59 Output Total 45 Balance -45 Output: Drainage 45 Anterior Chest left 35 Right Anterior Medial 10 Chest Other: # Voids 3 - Exam CONSTITUTIONAL: Appears comfortable, no acute distress RESPIRATORY: Lungs sounds diminished bilaterally. Respirations symmetrical, nonlabored. Currently on room air with oxygen saturation 94%. CARDIOVASCULAR: S1, S2 present. Regular rate and rhythm, Palpable peripheral pulses bilaterally. No edema present GASTROINTESTINAL: Abdomen soft, nontender, nondistended. Active bowel sounds present 4 quadrants. Tolerating diet. Bowel movement 01/23/2024. GENITOURINARY: Continues to void. INTEGUMENTARY: Skin is warm and dry. Anterior chest wall with 2 Peter drains present, site covered with 4 x 4. Right medial Peter drain with scant drainage 10 mL in the last 24 hours, lateral/left Peter drain with scant drainage 30 mL in the last 24 hours. NEUROLOGIC: Cranial nerves II through XII intact. MUSKULOSKELETAL: Able to move all extremities, strength equal bilaterally, gait normal. Right lateral hip pain with antalgic gait PSYCHIATRIC: Alert and oriented to person place and time. - Allied health notes Allied health notes reviewed: nursing - Labs CBC & Chem 7: 01/26/24 06:48 01/26/24 06:48 Labs: Abnormal Lab Results - Last 24 Hours (Table) 01/25/24 01/25/24 01/25/24 Range/Units 07:00 07:00 16:44 WBC (4.50-10.00) X 10*3/uL RBC (4.40-5.60) X 10*6/uL Hgb (13.0-17.0) g/dL Hct (39.6-50.0) % MCHC (32.0-37.0) g/dL RDW (11.5-14.5) % Plt Count (140-440) X 10*3/uL MPV (9.5-12.2) FL Immature Gran # (0.00-0.04) X 10*3/uL Neutrophils # (1.80-7.70) X 10*3/uL Monocytes # (0.20-1.00) X 10*3/uL ESR 49 H (0-15) mm/Hr Sodium (135-145) mmol/L Chloride (96-109) mmol/L Glucose (70-110) mg/dL POC Glucose (mg/dL) 126 H (70-110) mg/dL Calcium (8.7-10.3) mg/dL C-Reactive Protein 7.7 H (<1.0) mg/dL 01/25/24 01/26/24 01/26/24 Range/Units 20:49 06:48 06:48 WBC 13.10 H (4.50-10.00) X 10*3/uL RBC 3.04 L (4.40-5.60) X 10*6/uL Hgb 8.3 L (13.0-17.0) g/dL Hct 26.6 L (39.6-50.0) % MCHC 31.2 L (32.0-37.0) g/dL RDW 14.9 H (11.5-14.5) % Plt Count 718 H (140-440) X 10*3/uL MPV 8.3 L (9.5-12.2) FL Immature Gran # 0.05 H (0.00-0.04) X 10*3/uL Neutrophils # 8.84 H (1.80-7.70) X 10*3/uL Monocytes # 1.01 H (0.20-1.00) X 10*3/uL ESR (0-15) mm/Hr Sodium 131 L (135-145) mmol/L Chloride 95 L (96-109) mmol/L Glucose 116 H (70-110) mg/dL POC Glucose (mg/dL) 134 H (70-110) mg/dL Calcium 8.5 L (8.7-10.3) mg/dL C-Reactive Protein (<1.0) mg/dL Assessment and Plan Assessment: Mediastinal retrosternal mass measuring 6.6 x 3.[address] scan, status post incision drainage and debridement of chest wall abscess, incision and drainage of mediastinal abscess, culture positive for MSSA Febrile illness Bacteremia reported at [facility], blood cultures negative Illicit drug use Current tobacco dependence Multiple admissions for psychiatric illness Right hip pain, unknown etiology, CT scan of the right lower extremity showing a 8.0 x 3.1 x 2.0 cm possible underlying fluid collection Noncompliance Plan: Continue drains until drainage is minimal. Reinforced with the patient the importance of letting the nurses drain the MAHESH drains. Continue to record strict output. Patient may be discharged with drains still in once antibiotic decision made by infectious disease, likely will require rehab as patient is unlikely to be compliant with self administration of IV antibiotics nor drain care Encourage incentive spirometry use 10 times every hour while awake. Increase activity as tolerated. Continue with antibiotics per infectious disease. Currently on cefazolin for antibiotic coverage. Reinforced the importance of risk modification including smoking and illicit drug cessation. Medical management of other comorbidities per internal medicine, infectious disease. More recommendations to based on patient's clinical course. Time with Patient: Less than 30
--- NOTE | 2024-01-26 15:42 | NM ---
EXAMINATION TYPE: NM bone 3 phase DATE OF EXAM: 01/26/2024 COMPARISON: CT CLINICAL INDICATION: Male, 38 years old with history of right hip pain, IVDA hx, bone pain, ?septic; Triple phase bone scintigraphy was performed following the injection of 24.6 mCi Tc 99m MDP. Immedia te images and 5 hours post injection images acquired. FINDINGS: There is no significant abnormal accumulation of radiotracer to suggest metastatic disease to the bon e or other significant abnormality. IMPRESSION: No abnormal uptake of radiotracer.
[2024-01-26 16:31] LABS: INR 1.1 (<1.2); Prothrombin Time 11.7 sec (10.0-12.5)
[2024-01-26] MEDS: NICOTINE 14MG/24HR PATCH TRANSDERM SCH (16:32)
[2024-01-26 16:36] LABS: Glucose,Whole Blood 112 mg/dL (70-110)
[2024-01-26] MEDS: DOCUSATE 100 MG CAP PO SCH (20:01)
[2024-01-26 20:54] LABS: Glucose,Whole Blood 112 mg/dL (70-110)
[2024-01-27 05:53] LABS: Glucose,Whole Blood 118 mg/dL (70-110)
--- NOTE | 2024-01-27 06:03 | P.PN ---
Subjective Progress Note Date: 01/26/24 Patient is evaluated today in follow up on the cardiac stepdown unit. Patient currently fatigued and lethargic difficult to arouse. Valium will be stopped. Patient is status post I and D of chest wall and mediastinal abscess. CT surgery following. He has [address] One with some noted purulent drainage. Patients culture showing MSSA. ID following closely. Patient does report significant chest wall pain at the surgical site. He is maintained on suboxone but has also been started on norco for pain control. White blood cell count today 14.0, hgb 9.3. Sodium 132, potassium 4.6. Patient had fever low grade today. 01/20/2024 Patient is evaluated in follow-up today on the cardiac stepdown unit patient is continued on antibiotic coverage with IV nafcillin which was adjusted per infectious disease. His cultures are continue to show MSSA in the chest wall however blood cultures have remained negative. Patient was started on normal saline 50 MLS per hour overnight with improvement in his sodium level it is up to D5. Renal function shows a BUN of 9 creatinine of 0.79. White blood cell count of 12.1, hemoglobin 10.0. To surgery recommending to continue the GI until output is minimal. Patient would like to discharge to subacute rehab and is currently pending a physical therapy evaluation as he is quite fatigued and weakened during this hospital stay. 01/21/2024 Patient is seen and evaluated in follow-up today with infectious disease and CT surgery following. Patient continues with chest tube drainage although minimal. Case management/social work following as well working on discharge planning including an ECF for custodial for continued IV antibiotic therapy and wound care. Patient is extremely noncompliant and poor to follow-up with concerns of safe discharge planning. Patient has been refused by multiple ECF's in this area and social work has placed multiple referrals outside of the area currently pending. Patient is currently on Suboxone as well as Shonto and continuing to request pain medications. Discussed with the patient that patient should not be taking Shonto and Suboxone together. Patient is reporting some right thigh and leg swelling will obtain a venous Doppler as patient has not been getting up and moving around very frequently. Encouraged increase activity as tolerated. Patient is afebrile with no reports of chest pain or shortness of breath. Patient has been tolerating diet and denies any nausea or vomiting. 01/22/2024 Patient is seen and evaluated in follow-up maintained on antibiotics and has received a PICC line as patient will require antibiotic therapy on discharge per ID recommendations. Patient is a poor candidate for home IV antibiotic therapy with past history of drug abuse. Patient reports he is currently on Suboxone and also requesting Shonto and report his pain is 10/10. Encouraged increase activity as tolerated and frequent walks. Patient has been evaluated by physical therapy and is walking with a walker. Patient also will require pain management outpatient services as patient is continued on Suboxone. Patient follows with Dr. Dahl in the outpatient setting and encouraged him to follow- up outpatient and discussed with him regarding pain management. Per social work, psychiatry consult was placed as ECF that are considering him for placement would like a psychiatric consult for his history of depression and previous drug abuse. Consult was placed and pending 01/23/2024 Patient seen and evaluated in follow-up today continues to report generalized weakness currently awaiting an ECF that will accept the patient. [facility] has multiple facilities that are considering and reviewing his chart recommending psychiatric evaluation. Patient was evaluated by psychiatry as patient does have history of significant depression and IV drug abuse and has had hospitalizations at the psych facility and reports does not meet criteria recommending to continue with current medications and outpatient follow-up with mental health in the outpatient setting. Patient does have a PICC line and will likely need IV antibiotic therapy on discharge. Patient has a poor safe discharge home given the history of IV drug abuse with infectious disease and CT surgery following and recommending ECF for IV antibiotic therapy and wound care. Case management is working on [facility] facilities. Patient has been taking Suboxone although it has been reported he has not had a prescription refill from his primary care provider since 2022. Patient has been having difficulty in the outpatient setting with following up and has extreme noncompliance. Patient follows with Dr. Dahl in the outpatient setting and will need to have the patient follow-up with pain management in the outpatient setting for this. This was discussed multiple occasions with this patient. Patient is afebrile with no reports of chest pain or shortness of breath. Patient is tolerating diet with no reported nausea or vomiting. Patient continues with chest drain of the chest wall abscess and continued local wound care. Patient continues to report right hip pain and imaging done regarding a possible blood clot was done and venous Doppler was negative for DVT. Will obtain x-ray images of the hip and pe lvis along with femur and also obtain a bone scan. 01/26/2024 Patient is seen in follow-up today continues to report some right hip discomfort and orthopedics is evaluating the patient as a CT was performed with concerns of possible fluid collection. Interventional radiology consulted for possible drainage and recommending MRI. MRI is ordered and pending. Patient continues on IV antibiotics with infectious disease following and has received a PICC line. Continuing to work with case management regarding discharge planning. Patient will require insurance authorization once discharge planning is in process. Will await orthopedic recommendations. Patient is afebrile white count is minimally elevated. Patient needs encouragement with incentive spirometer and increased activity. Patient is generally weak and has had prolonged hospitalization. Requesting stool softener. Review of Systems Constitutional: Denied any fatigue denied any fever. Cardio vascular: denied any chest pain, palpitations, reports of chest wall discomfort Gastrointestinal: denied any nausea, vomiting, diarrhea Pulmonary: Denied any shortness of breath cough Neurologic denied any new focal deficits, reports of generalized weakness and gait dysfunction with right hip pain All inpatient medications were reviewed and appropriate changes in these medications as dictated in the interval history and assessment and plan. PHYSICAL EXAMINATION: GENERAL: The patient is alert and oriented x3, not in any acute distress. Well developed, well nourished. Anxious at times, unkempt HEENT: Pupils are round and equally reacting to light. EOMI. No scleral icterus. No conjunctival pallor. Normocephalic, atraumatic. No pharyngeal erythema. No thyromegaly. CARDIOVASCULAR: S1 and S2 present. No murmurs, rubs, or gallops. PULMONARY: Chest is clear to auscultation, no wheezing or crackles. ABDOMEN: Soft, nontender, nondistended, normoactive bowel sounds. No palpable organomegaly. MAHESH drain x 2 noted chest wall. Dressing intact. MUSCULOSKELETAL: No joint swelling or deformity. EXTREMITIES: No cyanosis, clubbing, or pedal edema. Tenderness in the right lower extremity near the thigh area NEUROLOGICAL: Gross neurological examination did not reveal any focal deficits. Weak and fatigued. SKIN: No rashes. Assessment: Abscess to the anterior chest and retrosternal area status post I and D with MAHESH drain present. CT surgery following. Sepsis and bacteremia secondary to above. Cultures positive at outside hospital. Here they are negative x 72 hours. ID following cultures. On IV antibiotics per ID . Right hip pain with swelling, DVT ruled out, x-ray of hip and pelvis along with bone scan ordered and pending. Possible fluid collection on the right hip Leukocytosis, improving Low grade fever, secondary to abscess of the chest, resolved Hyponatremia hypvolemic, improving on gentle hydration Hx polysubstance abuse with methamphetamine, marijuana and opiates on suboxone Chronic nicotine use Noncompliance with medications and follow-up GI prophylaxis: pepcid DVT prophylaxis: Subcutaneous heparin Full code Plan: Continue with MAHESH drains and CT surgery following recommending outpatient follow-up and continue with drainage tubes for now monitor output closely Patient currently maintained on IV antibiotics with infectious disease following and patient has received a PICC line for outpatient IV antibiotic therapy due to the extent of the infection and abscess. Most recent cultures have remained negative although patient has history of drug abuse and noncompliance, infectious disease recommending custodial placement for continued wound care as well as IV antibiotic therapy. Case management/social work following working on discharge planning and has placed multiple referrals outside of the [facility] for ECF. Multiple ECF's in the area including [facility], [facility] have refused the patient. Psychiatry has evaluated the patient recommending outpatient follow-up with mental health services otherwise does not meet criteria for any inpatient psychiatry evaluation. Patient to continue on current medications. Patient reports his primary care provider has been prescribing Suboxone although was verified through the nurse that he has not had the Suboxone since 2022. Patient will need outpatient follow-up with pain management at a Suboxone clinic for further assistance. Patient will not be prescribed Suboxone on discharge. Patient also taking Shonto for pain reporting continued pain. Patient was having some right leg pain and venous Doppler was negative for DVT. Continue subcutaneous heparin. Patient underwent bone scan today not suggestive of osteomyelitis. Right hip CT was done with concerns of simple fluid collection and orthopedic consulted recommending interventional radiology for possible drainage of this area or drainage tube placement if necessary. Interventional radiology recommending MRI which has been ordered and pending Encouraged increase activity as tolerated Follow-up on repeat labs in a.m. and continue to monitor closely. Continue incentive spirometer use at least 10 times every hour while awake Overall prognosis is guarded. Discharge pending ECF acceptance and insurance authorization. [facility] currently reviewing for possible consideration of acceptance. Case management is following. The impression and plan of care has been dictated by Minerva Soto, Nurse Practitioner as directed. Dr. Sylvester MD I have performed a history and physical examination and medical decision making of this patient, discussed the same with the dictator, and agree with the dictators assessment and plan as written, documented as a scribe. Based on total visit time, I have performed more than 50% of this visit. Objective - Vital Signs Vital signs: Vital Signs Temp 99.4 F 01/26/24 14:51 Pulse 106 H 01/26/24 14:51 Resp 16 01/26/24 14:51 BP 126/73 01/26/24 14:51 Pulse Ox 99 01/26/24 14:51 FiO2 Intake & Output 01/25/24 01/26/24 01/26/24 18:59 06:59 18:59 Output Total 45 30 Balance -45 -30 Output: Drainage 45 30 Anterior Chest left 35 5 Right Anterior Medial 10 25 Chest Other: # Voids 3 3 - Labs CBC & Chem 7: 01/26/24 06:48 01/26/24 06:48 Labs: Abnormal Lab Results - Last 24 Hours (Table) 01/25/24 01/25/24 01/26/24 Range/Units 07:00 20:49 06:48 WBC 13.10 H (4.50-10.00) X 10*3/uL RBC 3.04 L (4.40-5.60) X 10*6/uL Hgb 8.3 L (13.0-17.0) g/dL Hct 26.6 L (39.6-50.0) % MCHC 31.2 L (32.0-37.0) g/dL RDW 14.9 H (11.5-14.5) % Plt Count 718 H (140-440) X 10*3/uL MPV 8.3 L (9.5-12.2) FL Immature Gran # 0.05 H (0.00-0.04) X 10*3/uL Neutrophils # 8.84 H (1.80-7.70) X 10*3/uL Monocytes # 1.01 H (0.20-1.00) X 10*3/uL ESR 49 H (0-15) mm/Hr Sodium (135-145) mmol/L Chloride (96-109) mmol/L Glucose (70-110) mg/dL POC Glucose (mg/dL) 134 H (70-110) mg/dL Calcium (8.7-10.3) mg/dL 01/26/24 01/26/24 Range/Units 06:48 16:34 WBC (4.50-10.00) X 10*3/uL RBC (4.40-5.60) X 10*6/uL Hgb (13.0-17.0) g/dL Hct (39.6-50.0) % MCHC (32.0-37.0) g/dL RDW (11.5-14.5) % Plt Count (140-440) X 10*3/uL MPV (9.5-12.2) FL Immature Gran # (0.00-0.04) X 10*3/uL Neutrophils # (1.80-7.70) X 10*3/uL Monocytes # (0.20-1.00) X 10*3/uL ESR (0-15) mm/Hr Sodium 131 L (135-145) mmol/L Chloride 95 L (96-109) mmol/L Glucose 116 H (70-110) mg/dL POC Glucose (mg/dL) 112 H (70-110) mg/dL Calcium 8.5 L (8.7-10.3) mg/dL
[2024-01-27 09:50] LABS: Basophils # (A) 0.1 k/uL (0-0.2); Basophils % (A) 1 %; Eosinophils # (A) 0.4 k/uL (0-0.7); Eosinophils % (A) 3 %; HCT 28.8 % (39.0-53.0); HGB 8.9 gm/dL (13.0-17.5); Hypochromasia Marked; Lymphocytes % (A) 21 %; MCH 27.3 pg (25.0-35.0); MCHC 30.8 g/dL (31.0-37.0); MCV 88.5 fL (80.0-100.0); Mean Platelet Volume 6.4; Monocytes # (A) 0.9 k/uL (0-1.0); Monocytes % (A) 7 %; Neutrophils # (A) 9.1 k/uL (1.3-7.7); Neutrophils % (A) 66 %; Platelet Count 950 k/uL (150-450); RBC 3.25 m/uL (4.30-5.90); RDW 14.5 % (11.5-15.5); WBC 13.8 k/uL (3.8-10.6)
--- NOTE | 2024-01-27 09:55 | P.PN ---
Subjective Progress Note Date: 01/27/24 Principal diagnosis: Mediastinal/chest wall abscess, febrile illness, bacteremia. History of illicit drug use, current tobacco dependence, multiple admissions for psychiatric illn ess, noncompliance POD #11 incision drainage and debridement of chest wall abscess, incision and dr velez of mediastinal abscess, fluid positive for MSSA The patient was seen and examined in follow-up today January 27, 2024 at his bedside on the fourth floor medical surgical unit. Currently he is up ambulating in his room, is awake, alert, oriented x 3 and is in no acute apparent distress. He remains complaining of pain to his right hip area and continues with a antalgic gait, he is also using a walker. Denies any complaints of shortness of breath, nausea or vomiting. Oxygen saturations are 95%. Left and right anterior chest Peter drains remain in place with MAHESH bulb suctions. Left Peter drain with 40 mL of thin serous drainage in the last 24 hours and right anterior chest Peter drain with 30 mL of thin serosanguineous drainage. Tmax temperature last 24 hours was 101.7 F, he remains on cefazolin for IV antibiotic coverage. Laboratory results this morning show a WBC count of 13.8, hemoglobin 8.9, and platelets 950. Objective - Vital Signs Vital signs: Vital Signs Temp 98.2 F 01/27/24 07:06 Pulse 90 01/27/24 07:06 Resp 18 01/27/24 07:06 BP 135/86 01/27/24 07:06 Pulse Ox 98 01/27/24 07:06 FiO2 Intake & Output 01/26/24 01/27/24 01/27/24 18:59 06:59 18:59 Intake Total 750 Output Total 30 30 Balance 720 -30 Intake: Intake, IV Titration 750 Amount Sodium Chloride 0.9% 1, 550 000 ml @ 50 mls/hr IV . Q20H GAURANG Rx#:[id number] ceFAZolin 2 gm In Sodium 200 Chloride 0.9% 50 ml @ 100 mls/hr IVPB Q8HR GAURANG Rx# :[id number] Output: Drainage 30 30 Anterior Chest left 5 20 Right Anterior Medial 25 10 Chest Other: Voiding Method Toilet Urinal # Voids 2 2 - Exam CONSTITUTIONAL: Appears comfortable, no acute distress RESPIRATORY: Lungs sounds diminished bilaterally. Respirations symmetrical, nonlabored. Currently on room air with oxygen saturation 96%. CARDIOVASCULAR: S1, S2 present. Regular rate and rhythm, Palpable peripheral pulses bilaterally. No edema present GASTROINTESTINAL: Abdomen soft, nontender, nondistended. Active bowel sounds present 4 quadrants. Tolerating diet. Bowel movement 01/26/2024. GENITOURINARY: Continues to void. INTEGUMENTARY: Skin is warm and dry. Anterior chest wall with 2 Peter drains present, site covered with 4 x 4. Right medial Peter drain with scant drainage 30 mL in the last 24 hours, lateral/left Peter drain with scant drainage 40 mL in the last 24 hours. NEUROLOGIC: Cranial nerves II through XII intact. MUSKULOSKELETAL: Able to move all extremities, strength equal bilaterally, gait normal. Right lateral hip pain with antalgic gait PSYCHIATRIC: Alert and oriented to person place and time. - Allied health notes Allied health notes reviewed: nursing - Labs CBC & Chem 7: 01/26/24 06:48 01/26/24 06:48 Labs: Abnormal Lab Results - Last 24 Hours (Table) 01/26/24 01/26/24 01/26/24 Range/Units 06:48 06:48 16:34 WBC 13.10 H (4.50-10.00) X 10*3/uL RBC 3.04 L (4.40-5.60) X 10*6/uL Hgb 8.3 L (13.0-17.0) g/dL Hct 26.6 L (39.6-50.0) % MCHC 31.2 L (32.0-37.0) g/dL RDW 14.9 H (11.5-14.5) % Plt Count 718 H (140-440) X 10*3/uL MPV 8.3 L (9.5-12.2) FL Immature Gran # 0.05 H (0.00-0.04) X 10*3/uL Neutrophils # 8.84 H (1.80-7.70) X 10*3/uL Monocytes # 1.01 H (0.20-1.00) X 10*3/uL Sodium 131 L (135-145) mmol/L Chloride 95 L (96-109) mmol/L Glucose 116 H (70-110) mg/dL POC Glucose (mg/dL) 112 H (70-110) mg/dL Calcium 8.5 L (8.7-10.3) mg/dL 01/26/24 01/27/24 Range/Units 20:46 05:51 WBC (4.50-10.00) X 10*3/uL RBC (4.40-5.60) X 10*6/uL Hgb (13.0-17.0) g/dL Hct (39.6-50.0) % MCHC (32.0-37.0) g/dL RDW (11.5-14.5) % Plt Count (140-440) X 10*3/uL MPV (9.5-12.2) FL Immature Gran # (0.00-0.04) X 10*3/uL Neutrophils # (1.80-7.70) X 10*3/uL Monocytes # (0.20-1.00) X 10*3/uL Sodium (135-145) mmol/L Chloride (96-109) mmol/L Glucose (70-110) mg/dL POC Glucose (mg/dL) 112 H 118 H (70-110) mg/dL Calcium (8.7-10.3) mg/dL Microbiology - Last 24 Hours (Table) 01/16/24 15:02 Acid Fast Bacilli Smear - Preliminary Other - Other Acid Fast Bacilli Culture - Preliminary 01/16/24 15:02 Fungal Culture - Preliminary Other - Other - Imaging and Cardiology Chest x-ray: report reviewed, image reviewed Assessment and Plan Assessment: Mediastinal retrosternal mass measuring 6.6 x 3.[address] scan, status post incision drainage and debridement of chest wall abscess, incision and drainage of mediastinal abscess, culture positive for MSSA Febrile illness Bacteremia reported at [facility], blood cultures negative Illicit drug use Current tobacco dependence Multiple admissions for psychiatric illness Right hip pain, unknown etiology, CT scan of the right lower extremity showing a 8.0 x 3.1 x 2.0 cm possible underlying fluid collection Noncompliance Plan: Continue drains until drainage is minimal. Reinforced with the patient the importance of letting the nurses drain the MAHESH drains. Continue to record strict output. May remove drains within the next 24 to 48 hours, continue to record strict output from the drains. Encourage incentive spirometry use 10 times every hour while awake. Increase activity as tolerated. Continue with antibiotics per infectious disease. Currently on cefazolin for antibiotic coverage. Reinforced the importance of risk modification including smoking and illicit drug cessation. Medical management of other comorbidities per internal medicine, orthopedics and infectious disease. More recommendations to based on patient's clinical course. Time with Patient: Less than 30
[2024-01-27 09:57] LABS: ALT 27 U/L (4-49); AST 54 U/L (17-59); African American GFR (CKD) >90 (>60 ml/min/1.73 sqM); Albumin 3.4 g/dL (3.5-5.0); Albumin/Globulin Ratio 0.9; Alkaline Phosphatase 107 U/L (38-126); Anion Gap 8 mmol/L; Blood Urea Nitrogen 17 mg/dL (9-20); Carbon Dioxide 26 mmol/L (22-30); Chloride 101 mmol/L (98-107); Globulin 3.9 g/dL; Glucose 111 mg/dL (74-99); Magnesium 1.8 mg/dL (1.6-2.3); Non-African American GFR(CKD) >90 (>60 ml/min/1.73 sqM); Potassium 4.8 mmol/L (3.5-5.1); Sodium 135 mmol/L (137-145); Total Bilirubin 0.5 mg/dL (0.2-1.3); Total Protein 7.3 g/dL (6.3-8.2)
[2024-01-27 11:52] LABS: Glucose,Whole Blood 120 mg/dL (70-110)
--- NOTE | 2024-01-27 14:53 | P.PN ---
Subjective Progress Note Date: 01/26/24 Principal diagnosis: Reason for follow-up is chest wall/mediastinal abscess Patient is a 38-year-old male with a past medical history significant for IV drug use last drug use seem to have been dealing with chest pain along with some swelling with fever and chills patient did have CT at the outside facility concerning for chest wall abscess and retrosternal mediastinal mass suspicious for an abscess for the patient was transferred to [facility] for CT surgery evaluation Patient is status post Incision drainage and debridement of chest wall abscess, incision and drainage of mediastinal abscess completed on 01/16/2024. On today's evaluation that is 01/26/2024, the patient continues to be afebrile, the patient is on room air and breathing comfortably, the Pt denies having any chest pain or cough, the patient denies having any abdominal pain no vomiting or any diarrhea pain to the right thigh slightly decreased in intensity. Patient white count is 13.10, creatinine 0.[address] did have a CT of the right lower extremity that was suggestive of left anterior thigh compartment fluid collection concerning for possible abscess versus hematoma Objective - Vital Signs Vital signs: Vital Signs Temp 98.8 F 01/26/24 07:39 Pulse 100 01/26/24 07:39 Resp 18 01/26/24 07:39 BP 132/75 01/26/24 07:39 Pulse Ox 96 01/26/24 07:39 FiO2 Intake & Output 01/25/24 01/26/24 01/26/24 18:59 06:59 18:59 Output Total 45 Balance -45 Output: Drainage 45 Anterior Chest left 35 Right Anterior Medial 10 Chest Other: # Voids 3 - Exam GENERAL DESCRIPTION: Middle-age male lying in bed in no distress RESPIRATORY SYSTEM: Unlabored breathing , decreased breath sounds at bases HEART: S1 S2 regular rate and rhythm , ABDOMEN: Soft , no tenderness EXTREMITIES: No edema feet - Labs CBC & Chem 7: 01/27/24 09:23 01/27/24 09:23 Labs: Abnormal Lab Results - Last 24 Hours (Table) 01/25/24 01/25/24 01/25/24 Range/Units 07:00 07:00 16:44 WBC (4.50-10.00) X 10*3/uL RBC (4.40-5.60) X 10*6/uL Hgb (13.0-17.0) g/dL Hct (39.6-50.0) % MCHC (32.0-37.0) g/dL RDW (11.5-14.5) % Plt Count (140-440) X 10*3/uL MPV (9.5-12.2) FL Immature Gran # (0.00-0.04) X 10*3/uL Neutrophils # (1.80-7.70) X 10*3/uL Monocytes # (0.20-1.00) X 10*3/uL ESR 49 H (0-15) mm/Hr POC Glucose (mg/dL) 126 H (70-110) mg/dL C-Reactive Protein 7.7 H (<1.0) mg/dL 01/25/24 01/26/24 Range/Units 20:49 06:48 WBC 13.10 H (4.50-10.00) X 10*3/uL RBC 3.04 L (4.40-5.60) X 10*6/uL Hgb 8.3 L (13.0-17.0) g/dL Hct 26.6 L (39.6-50.0) % MCHC 31.2 L (32.0-37.0) g/dL RDW 14.9 H (11.5-14.5) % Plt Count 718 H (140-440) X 10*3/uL MPV 8.3 L (9.5-12.2) FL Immature Gran # 0.05 H (0.00-0.04) X 10*3/uL Neutrophils # 8.84 H (1.80-7.70) X 10*3/uL Monocytes # 1.01 H (0.20-1.00) X 10*3/uL ESR (0-15) mm/Hr POC Glucose (mg/dL) 134 H (70-110) mg/dL C-Reactive Protein (<1.0) mg/dL Assessment and Plan (1) Sepsis Current Visit: Yes Status: Acute Code(s): A41.9 - SEPSIS, UNSPECIFIED ORGANISM SNOMED Code(s): 22515545 (2) Abscess Current Visit: Yes Status: Acute Code(s): L02.91 - CUTANEOUS ABSCESS, UNSPECIFIED SNOMED Code(s): 915953505 (3) Bacteremia Current Visit: Yes Status: Acute Code(s): R78.81 - BACTEREMIA SNOMED Code(s): 8606442 Plan: 1patient presented hospital with sepsis in this patient with fever tachycardia significant elevated white count and apparently the patient did have a CT at the outside facility with evidence of right sided chest wall and retrosternal mass concerning for likely abscess in this patient who did have history of IV drug use we will need to cover for the gram-positive as well as gram-negative pathogen 2-blood culture has been negative 3-patient is status post incision drainage and debridement of chest wall abscess, incision and drainage of mediastinal abscess on 01/16/2024 with cultures growing MSSA 4-patient did have abnormal CT concerning for possible fluid collection question of hematoma versus abscess orthopedic has been consulted we will continue patient on cefazolin Dictation was produced using [employer] dictation software. please excuse any grammatical, word or spelling errors. Time with Patient: Less than 30
[2024-01-27] MEDS ORDERED: ONDANSETRON 4 MG/2 ML VIAL IVP PRN (15:09)
--- NOTE | 2024-01-27 15:24 | P.PN ---
Progress Note - Text Progress Note Date: 01/27/24 We are awaiting the MRI on the femur/thigh for interventional radiology use. It was rescheduled for tomorrow, 01/28/2024. We will continue to follow peripherally.
[2024-01-27 16:59] LABS: Glucose,Whole Blood 107 mg/dL (70-110)
[2024-01-27] MEDS: LACTULOSE 20 GM/30 ML CUP PO SCH (17:30)
[2024-01-27 21:13] LABS: Glucose,Whole Blood 124 mg/dL (70-110)
--- NOTE | 2024-01-28 06:06 | P.PN ---
Subjective Progress Note Date: 01/27/24 Patient is evaluated today in follow up on the cardiac stepdown unit. Patient currently fatigued and lethargic difficult to arouse. Valium will be stopped. Patient is status post I and D of chest wall and mediastinal abscess. CT surgery following. He has [address] One with some noted purulent drainage. Patients culture showing MSSA. ID following closely. Patient does report significant chest wall pain at the surgical site. He is maintained on suboxone but has also been started on norco for pain control. White blood cell count today 14.0, hgb 9.3. Sodium 132, potassium 4.6. Patient had fever low grade today. 01/20/2024 Patient is evaluated in follow-up today on the cardiac stepdown unit patient is continued on antibiotic coverage with IV nafcillin which was adjusted per infectious disease. His cultures are continue to show MSSA in the chest wall however blood cultures have remained negative. Patient was started on normal saline 50 MLS per hour overnight with improvement in his sodium level it is up to D5. Renal function shows a BUN of 9 creatinine of 0.79. White blood cell count of 12.1, hemoglobin 10.0. To surgery recommending to continue the GI until output is minimal. Patient would like to discharge to subacute rehab and is currently pending a physical therapy evaluation as he is quite fatigued and weakened during this hospital stay. 01/21/2024 Patient is seen and evaluated in follow-up today with infectious disease and CT surgery following. Patient continues with chest tube drainage although minimal. Case management/social work following as well working on discharge planning including an ECF for [facility] for continued IV antibiotic therapy and wound care. Patient is extremely noncompliant and poor to follow-up with concerns of safe discharge planning. Patient has been refused by multiple ECF's in this area and social work has placed multiple referrals outside of the area currently pending. Patient is currently on Suboxone as well as [place] and continuing to request pain medications. Discussed with the patient that patient should not be taking [place] and Suboxone together. Patient is reporting some right thigh and leg swelling will obtain a venous Doppler as patient has not been getting up and moving around very frequently. Encouraged increase activity as tolerated. Patient is afebrile with no reports of chest pain or shortness of breath. Patient has been tolerating diet and denies any nausea or vomiting. 01/22/2024 Patient is seen and evaluated in follow-up maintained on antibiotics and has received a PICC line as patient will require antibiotic therapy on discharge per ID recommendations. Patient is a poor candidate for home IV antibiotic therapy with past history of drug abuse. Patient reports he is currently on Suboxone and also requesting [place] and report his pain is 10/10. Encouraged increase activity as tolerated and frequent walks. Patient has been evaluated by physical therapy and is walking with a walker. Patient also will require pain management outpatient services as patient is continued on Suboxone. Patient follows with Dr. Dahl in the outpatient setting and encouraged him to follow- up outpatient and discussed with him regarding pain management. Per social work, psychiatry consult was placed as ECF that are considering him for placement would like a psychiatric consult for his history of depression and previous drug abuse. Consult was placed and pending 01/23/2024 Patient seen and evaluated in follow-up today continues to report generalized weakness currently awaiting an ECF that will accept the patient. [facility] has multiple facilities that are considering and reviewing his chart recommending psychiatric evaluation. Patient was evaluated by psychiatry as patient does have history of significant depression and IV drug abuse and has had hospitalizations at the psych facility and reports does not meet criteria recommending to continue with current medications and outpatient follow-up with mental health in the outpatient setting. Patient does have a PICC line and will likely need IV antibiotic therapy on discharge. Patient has a poor safe discharge home given the history of IV drug abuse with infectious disease and CT surgery following and recommending ECF for IV antibiotic therapy and wound care. Case management is working on [facility] facilities. Patient has been taking Suboxone although it has been reported he has not had a prescription refill from his primary care provider since 2022. Patient has been having difficulty in the outpatient setting with following up and has extreme noncompliance. Patient follows with Dr. Dahl in the outpatient setting and will need to have the patient follow-up with pain management in the outpatient setting for this. This was discussed multiple occasions with this patient. Patient is afebrile with no reports of chest pain or shortness of breath. Patient is tolerating diet with no reported nausea or vomiting. Patient continues with chest drain of the chest wall abscess and continued local wound care. Patient continues to report right hip pain and imaging done regarding a possible blood clot was done and venous Doppler was negative for DVT. Will obtain x-ray images of the hip and pe lvis along with femur and also obtain a bone scan. 01/26/2024 Patient is seen in follow-up today continues to report some right hip discomfort and orthopedics is evaluating the patient as a CT was performed with concerns of possible fluid collection. Interventional radiology consulted for possible drainage and recommending MRI. MRI is ordered and pending. Patient continues on IV antibiotics with infectious disease following and has received a PICC line. Continuing to work with case management regarding discharge planning. Patient will require insurance authorization once discharge planning is in process. Will await orthopedic recommendations. Patient is afebrile white count is minimally elevated. Patient needs encouragement with incentive spirometer and increased activity. Patient is generally weak and has had prolonged hospitalization. Requesting stool softener. 01/27/2024 Patient is seen in follow-up today while scheduled for MRI of the right thigh although patient unable to tolerate due to pain and MRI has been rescheduled for 01/28/2024. Orthopedics following along with interventional radiology and awaiting MRI results to determine treatment plan with possible fluid collection drainage or drainage tube placement for the right thigh. Patient is afebrile although having low-grade temps, continues to report severe pain and generalized weakness. Patient does have a PICC line with infectious disease following. Plan will be for ECF on discharge for continued wound care and IV antibiotic therapy. Patient will require insurance authorization. Will await clearance from consultation to move forward with discharge planning. Review of Systems Constitutional: Denied any fatigue denied any fever. Cardio vascular: denied any chest pain, palpitations, reports of chest wall discomfort Gastrointestinal: denied any nausea, vomiting, diarrhea Pulmonary: Denied any shortness of breath cough Neurologic denied any new focal deficits, reports of generalized weakness and gait dysfunction with right hip pain All inpatient medications were reviewed and appropriate changes in these medications as dictated in the interval history and assessment and plan. PHYSICAL EXAMINATION: GENERAL: The patient is alert and oriented x3, not in any acute distress. Well developed, well nourished. Anxious at times, unkempt HEENT: Pupils are round and equally reacting to light. EOMI. No scleral icterus. No conjunctival pallor. Normocephalic, atraumatic. No pharyngeal erythema. No thyromegaly. CARDIOVASCULAR: S1 and S2 present. No murmurs, rubs, or gallops. PULMONARY: Chest is clear to auscultation, no wheezing or crackles. ABDOMEN: Soft, nontender, nondistended, normoactive bowel sounds. No palpable organomegaly. MAHESH drain x 2 noted chest wall. Dressing intact. MUSCULOSKELETAL: No joint swelling or deformity. EXTREMITIES: No cyanosis, clubbing, or pedal edema. Tenderness in the right lower extremity near the thigh area NEUROLOGICAL: Gross neurological examination did not reveal any focal deficits. Weak and fatigued. SKIN: No rashes. Assessment: Abscess to the anterior chest and retrosternal area status post I and D with MAHESH drain present. CT surgery following. Sepsis and bacteremia secondary to above. Cultures positive at outside hospital. Here they are negative x 72 hours. ID following cultures. On IV antibiotics per ID . Right hip pain with swelling, DVT ruled out, x-ray of hip and pelvis along with bone scan ordered and pending. Possible fluid collection on the right hip currently awaiting MRI of the hip for possible drainage tube Leukocytosis, improving Low grade fever, secondary to abscess of the chest, resolved Hyponatremia hypvolemic, improving on gentle hydration Hx polysubstance abuse with methamphetamine, marijuana and opiates on suboxone Chronic nicotine use Noncompliance with medications and follow-up GI prophylaxis: pepcid DVT prophylaxis: Subcutaneous heparin Full code Plan: Continue with MAHESH drains and CT surgery following recommending outpatient follow- up and continue with drainage tubes for now monitor output closely Patient currently maintained on IV antibiotics with infectious disease following and patient has received a PICC line for outpatient IV antibiotic therapy due to the extent of the infection and abscess. Most recent cultures have remained negative although patient has history of drug abuse and noncompliance, infectious disease recommending [facility] placement for continued wound care as well as IV antibiotic therapy. Case management/social work following working on discharge planning and has placed multiple referrals outside of the city for ECF. Multiple ECF's in the area including [facility], [facility], [facility] have refused [facility]. ECF's in [place] are accepting pending insurance authorization. Psychiatry has evaluated the patient recommending outpatient follow-up with mental health services otherwise does not meet criteria for any inpatient psychiatry evaluation. Patient to continue on current medications. Patient reports his primary care provider has been prescribing Suboxone although was verified through the nurse that he has not had the Suboxone since 2022. Gisselle santa will need outpatient follow-up with pain management at a Suboxone clinic for further assistance. Patient will not be prescribed Suboxone on discharge. Patient also taking [place] for pain reporting continued pain. Patient was having some right leg pain and venous Doppler was negative for DVT. Continue subcutaneous heparin. Patient underwent bone scan today not suggestive of osteomyelitis. Right hip CT was done with concerns of simple fluid collection and orthopedic consulted recommending interventional radiology for possible drainage of this area or drainage tube placement if necessary. Interventional radiology recommending MRI which has been ordered and pending. MRI was attempted today although patient could not tolerate laying flat due to pain. Will adjust medications and provide additional pain medication for the procedure. Awaiting MRI to discuss further with interventional radiology and orthopedics regarding possible drainage tube placement or draining of the fluid collection of the right thigh. Encouraged increase activity as tolerated Follow-up on repeat labs in a.m. and continue to monitor closely. Continue incentive spirometer use at least 10 times every hour while awake Overall prognosis is guarded. Discharge pending [facility] acceptance and insurance authorization. [facility] currently reviewing for possible consideration of acceptance. Case man agement is following. The impression and plan of care has been dictated by Minerva Soto Nurse Practitioner as directed. Dr. Sylvester MD I have performed a history and physical examination and medical decision making of this patient, discussed the same with the dictator, and agree with the dictators assessment and plan as written, documented as a scribe. Based on total visit time, I have performed more than 50% of this visit. Objective - Vital Signs Vital signs: Vital Signs Temp 101.7 F H 01/27/24 00:59 Pulse 111 H 01/27/24 00:59 Resp 22 01/27/24 00:59 BP 133/81 01/27/24 00:59 Pulse Ox 96 01/27/24 00:59 FiO2 Intake & Output 01/26/24 01/26/24 01/27/24 06:59 18:59 06:59 Intake Total 750 Output Total 45 30 Balance -45 720 Intake: Intake, IV Titration 750 Amount Sodium Chloride 0.9% 1, 550 000 ml @ 50 mls/hr IV . Q20H GAURANG Rx#:[id number] ceFAZolin 2 gm In Sodium 200 Chloride 0.9% 50 ml @ 100 mls/hr IVPB Q8HR GAURANG Rx# :[id number] Output: Drainage 45 30 Anterior Chest left 35 5 Right Anterior Medial 10 25 Chest Other: Voiding Method Toilet Urinal # Voids 2 - Labs CBC & Chem 7: 01/27/24 09:23 01/27/24 09:23 Labs: Abnormal Lab Results - Last 24 Hours (Table) 01/26/24 01/26/24 01/26/24 Range/Units 06:48 06:48 16:34 WBC 13.10 H (4.50-10.00) X 10*3/uL RBC 3.04 L (4.40-5.60) X 10*6/uL Hgb 8.3 L (13.0-17.0) g/dL Hct 26.6 L (39.6-50.0) % MCHC 31.2 L (32.0-37.0) g/dL RDW 14.9 H (11.5-14.5) % Plt Count 718 H (140-440) X 10*3/uL MPV 8.3 L (9.5-12.2) FL Immature Gran # 0.05 H (0.00-0.04) X 10*3/uL Neutrophils # 8.84 H (1.80-7.70) X 10*3/uL Monocytes # 1.01 H (0.20-1.00) X 10*3/uL Sodium 131 L (135-145) mmol/L Chloride 95 L (96-109) mmol/L Glucose 116 H (70-110) mg/dL POC Glucose (mg/dL) 112 H (70-110) mg/dL Calcium 8.5 L (8.7-10.3) mg/dL 01/26/24 01/27/24 Range/Units 20:46 05:51 WBC (4.50-10.00) X 10*3/uL RBC (4.40-5.60) X 10*6/uL Hgb (13.0-17.0) g/dL Hct (39.6-50.0) % MCHC (32.0-37.0) g/dL RDW (11.5-14.5) % Plt Count (140-440) X 10*3/uL MPV (9.5-12.2) FL Immature Gran # (0.00-0.04) X 10*3/uL Neutrophils # (1.80-7.70) X 10*3/uL Monocytes # (0.20-1.00) X 10*3/uL Sodium (135-145) mmol/L Chloride (96-109) mmol/L Glucose (70-110) mg/dL POC Glucose (mg/dL) 112 H 118 H (70-110) mg/dL Calcium (8.7-10.3) mg/dL Microbiology - Last 24 Hours (Table) 01/16/24 15:02 Acid Fast Bacilli Smear - Preliminary Other - Other Acid Fast Bacilli Culture - Preliminary 01/16/24 15:02 Fungal Culture - Preliminary Other - Other
[2024-01-28 06:45] LABS: Glucose,Whole Blood 95 mg/dL (70-110)
--- NOTE | 2024-01-28 09:22 | P.PN ---
Subjective Progress Note Date: 01/28/24 Principal diagnosis: Mediastinal/chest wall abscess, febrile illness, bacteremia. History of illicit drug use, current tobacco dependence, multiple admissions for psychiatric illn ess, noncompliance POD #12 incision drainage and debridement of chest wall abscess, incision and dr velez of mediastinal abscess, fluid positive for MSSA The patient was seen and examined in follow-up today January 28, 2024 at his bedside on the fourth floor medical surgical unit. He is currently up ambulating in his room using a walker with an antalgic gait. He is awake, alert and oriented x 3. He denies any complaints of shortness of breath, although continues to complain of some right upper hip pain. Anterior chest Peter drain to remain in place with MAHESH bulb suction. Left anterior chest Peter drain and draining 30 mL of serous purulent colored drainage in the last 24 hours and his right anterior chest Peter drain draining serous purulent drainage with 20 mL output in the last 24 hours. His Tmax temperature in the last 24 hours was 100.8 F. He remains on cefazolin 2 g IV piggyback every 8 hours for antibiotic coverage managed by infectious disease. Objective - Vital Signs Vital signs: Vital Signs Temp 100 F H 01/28/24 07:36 Pulse 107 H 01/28/24 07:36 Resp 16 01/28/24 07:36 BP 117/64 01/28/24 07:36 Pulse Ox 98 01/28/24 07:36 FiO2 Intake & Output 01/27/24 01/28/24 01/28/24 18:59 06:59 18:59 Output Total 50 30 Balance -50 -30 Output: Drainage 50 30 Anterior Chest left 30 10 Right Anterior Medial 20 20 Chest Other: Voiding Method Toilet Toilet Urinal Urinal # Voids 3 1 # Bowel Movements 3 - Exam CONSTITUTIONAL: Appears comfortable, no acute distress RESPIRATORY: Lungs sounds diminished bilaterally. Respirations symmetrical, nonlabored. Currently on room air with oxygen saturation 98%. CARDIOVASCULAR: S1, S2 present. Regular rate and rhythm, Palpable peripheral pulses bilaterally. No edema present GASTROINTESTINAL: Abdomen soft, nontender, nondistended. Active bowel sounds present 4 quadrants. Tolerating diet. Bowel movement 01/27/2024. GENITOURINARY: Continues to void. INTEGUMENTARY: Skin is warm and dry. Anterior chest wall with 2 Peter drains present, site covered with 4 x 4. Right medial Peter drain with scant drainage 20 mL in the last 24 hours, lateral/left Peter drain with scant drainage 30 mL in the last 24 hours. NEUROLOGIC: Cranial nerves II through XII intact. MUSKULOSKELETAL: Able to move all extremities, strength equal bilaterally, gait normal. Right lateral hip pain with antalgic gait. PSYCHIATRIC: Alert and oriented to person place and time. - Allied health notes Allied health notes reviewed: nursing - Labs CBC & Chem 7: 01/27/24 09:23 01/27/24 09:23 Labs: Abnormal Lab Results - Last 24 Hours (Table) 01/27/24 01/27/24 01/27/24 Range/Units 09:23 09:23 11:50 WBC 13.8 H (3.8-10.6) k/uL RBC 3.25 L (4.30-5.90) m/uL Hgb 8.9 L (13.0-17.5) gm/dL Hct 28.8 L (39.0-53.0) % MCHC 30.8 L (31.0-37.0) g/dL Plt Count 950 H (150-450) k/uL Neutrophils # 9.1 H (1.3-7.7) k/uL Sodium 135 L (137-145) mmol/L Glucose 111 H (74-99) mg/dL POC Glucose (mg/dL) 120 H (70-110) mg/dL Albumin 3.4 L (3.5-5.0) g/dL 01/27/24 Range/Units 21:11 WBC (3.8-10.6) k/uL RBC (4.30-5.90) m/uL Hgb (13.0-17.5) gm/dL Hct (39.0-53.0) % MCHC (31.0-37.0) g/dL Plt Count (150-450) k/uL Neutrophils # (1.3-7.7) k/uL Sodium (137-145) mmol/L Glucose (74-99) mg/dL POC Glucose (mg/dL) 124 H (70-110) mg/dL Albumin (3.5-5.0) g/dL Assessment and Plan Assessment: Mediastinal retrosternal mass measuring 6.6 x 3.[address] scan, status post incision drainage and debridement of chest wall abscess, incision and drainage of mediastinal abscess, culture positive for MSSA Febrile illness Bacteremia reported at [facility], blood cultures negative Illicit drug use Current tobacco dependence Multiple admissions for psychiatric illness Right hip pain, unknown etiology, CT scan of the right lower extremity showing a 8.0 x 3.1 x 2.0 cm possible underlying fluid collection Noncompliance Plan: Continue drains until drainage is minimal. Reinforced with the patient the importance of letting the nurses drain the MAHESH drains. Continue to record strict output. May remove drains within the next 24 to 48 hours, continue to record strict output from the drains. Encourage incentive spirometry use 10 times every hour while awake. Increase activity as tolerated. Continue with antibiotics per infectious disease. Currently on cefazolin for antibiotic coverage. Reinforced the importance of risk modification including smoking and illicit dr ug cessation. Medical management of other comorbidities per internal medicine, orthopedics and infectious disease. More recommendations to based on patient's clinical course. Time with Patient: Less than 30
[2024-01-28 09:43] LABS: Basophils # (A) 0.1 k/uL (0-0.2); Basophils % (A) 1 %; Eosinophils # (A) 0.4 k/uL (0-0.7); Eosinophils % (A) 3 %; HCT 27.1 % (39.0-53.0); HGB 8.5 gm/dL (13.0-17.5); Hypochromasia Moderate; Lymphocytes # (A) 2.3 k/uL (1.0-4.8); Lymphocytes % (A) 18 %; MCH 27.5 pg (25.0-35.0); MCHC 31.3 g/dL (31.0-37.0); MCV 87.7 fL (80.0-100.0); Mean Platelet Volume 6.4; Monocytes # (A) 0.8 k/uL (0-1.0); Monocytes % (A) 6 %; Neutrophils % (A) 70 %; Platelet Count 921 k/uL (150-450); RBC 3.09 m/uL (4.30-5.90); RDW 14.6 % (11.5-15.5); WBC 12.8 k/uL (3.8-10.6)
[2024-01-28 10:00] LABS: African American GFR (CKD) >90 (>60 ml/min/1.73 sqM); Anion Gap 10 mmol/L; Blood Urea Nitrogen 18 mg/dL (9-20); Calcium 8.9 mg/dL (8.4-10.2); Carbon Dioxide 25 mmol/L (22-30); Chloride 101 mmol/L (98-107); Glucose 124 mg/dL (74-99); Non-African American GFR(CKD) >90 (>60 ml/min/1.73 sqM); Potassium 4.3 mmol/L (3.5-5.1); Sodium 136 mmol/L (137-145)
[2024-01-28] MEDS: LORazepam 2 MG/ML INJ IV PRN (11:41)
[2024-01-28 11:42] LABS: Glucose,Whole Blood 126 mg/dL (70-110)
[2024-01-28] MEDS: LORazepam 2 MG/ML INJ ONE (11:47)
--- NOTE | 2024-01-28 13:15 | P.PN ---
Subjective Progress Note Date: 01/27/24 Principal diagnosis: Reason for follow-up is chest wall/mediastinal abscess Patient is a 38-year-old male with a past medical history significant for IV drug use last drug use seem to have been dealing with chest pain along with some swelling with fever and chills patient did have CT at the outside facility concerning for chest wall abscess and retrosternal mediastinal mass suspicious for an abscess for the patient was transferred to [facility] for CT surgery evaluation Patient is status post Incision drainage and debridement of chest wall abscess, incision and drainage of mediastinal abscess completed on 01/16/2024. On today's evaluation that is 01/27/2024, Patient is afebrile patient is currently on room air and denies having any shortness of breath, the patient denies any chest pain or cough, the patient denies any nausea vomiting did not have any abdominal pain and no diarrhea, denies any worsening pain to the right thigh area. Patient white count is 13.8, creatinine 0.73 Objective - Vital Signs Vital signs: Vital Signs Temp 98.2 F 01/27/24 07:06 Pulse 90 01/27/24 07:06 Resp 18 01/27/24 07:06 BP 135/86 01/27/24 07:06 Pulse Ox 98 01/27/24 07:06 FiO2 Intake & Output 01/26/24 01/27/24 01/27/24 18:59 06:59 18:59 Intake Total 750 Output Total 30 30 Balance 720 -30 Intake: Intake, IV Titration 750 Amount Sodium Chloride 0.9% 1, 550 000 ml @ 50 mls/hr IV . Q20H GAURANG Rx#:[id number] ceFAZolin 2 gm In Sodium 200 Chloride 0.9% 50 ml @ 100 mls/hr IVPB Q8HR GAURANG Rx# :[id number] Output: Drainage 30 30 Anterior Chest left 5 20 Right Anterior Medial 25 10 Chest Other: Voiding Method Toilet Urinal # Voids 2 2 3 - Exam GENERAL DESCRIPTION: Middle-age male lying in bed in no distress RESPIRATORY SYSTEM: Unlabored breathing , decreased breath sounds at bases HEART: S1 S2 regular rate and rhythm , ABDOMEN: Soft , no tenderness EXTREMITIES: No edema feet - Labs CBC & Chem 7: 01/27/24 09:23 01/27/24 09:23 Labs: Abnormal Lab Results - Last 24 Hours (Table) 01/26/24 01/26/24 01/27/24 Range/Units 16:34 20:46 05:51 WBC (3.8-10.6) k/uL RBC (4.30-5.90) m/uL Hgb (13.0-17.5) gm/dL Hct (39.0-53.0) % MCHC (31.0-37.0) g/dL Plt Count (150-450) k/uL Neutrophils # (1.3-7.7) k/uL Sodium (137-145) mmol/L Glucose (74-99) mg/dL POC Glucose (mg/dL) 112 H 112 H 118 H (70-110) mg/dL Albumin (3.5-5.0) g/dL 01/27/24 01/27/24 01/27/24 Range/Units 09:23 09:23 11:50 WBC 13.8 H (3.8-10.6) k/uL RBC 3.25 L (4.30-5.90) m/uL Hgb 8.9 L (13.0-17.5) gm/dL Hct 28.8 L (39.0-53.0) % MCHC 30.8 L (31.0-37.0) g/dL Plt Count 950 H (150-450) k/uL Neutrophils # 9.1 H (1.3-7.7) k/uL Sodium 135 L (137-145) mmol/L Glucose 111 H (74-99) mg/dL POC Glucose (mg/dL) 120 H (70-110) mg/dL Albumin 3.4 L (3.5-5.0) g/dL Microbiology - Last 24 Hours (Table) 01/16/24 15:02 Acid Fast Bacilli Smear - Preliminary Other - Other Acid Fast Bacilli Culture - Preliminary 01/16/24 15:02 Fungal Culture - Preliminary Other - Other Assessment and Plan (1) Sepsis Current Visit: Yes Status: Acute Code(s): A41.9 - SEPSIS, UNSPECIFIED ORGANISM SNOMED Code(s): 85052895 (2) Abscess Current Visit: Yes Status: Acute Code(s): L02.91 - CUTANEOUS ABSCESS, UNSPECIFIED SNOMED Code(s): 585934074 (3) Bacteremia Current Visit: Yes Status: Acute Code(s): R78.81 - BACTEREMIA SNOMED Code(s): 6270222 Plan: 1patient presented hospital with sepsis in this patient with fever tachycardia significant elevated white count and apparently the patient did have a CT at the outside facility with evidence of right sided chest wall and retrosternal mass concerning for likely abscess in this patient who did have history of IV drug use we will need to cover for the gram-positive as well as gram-negative pathogen 2-blood culture has been negative 3-patient is status post incision drainage and debridement of chest wall abscess, incision and drainage of mediastinal abscess on 01/16/2024 with cultures growing MSSA 4-patient did have abnormal CT concerning for possible fluid collection question of hematoma versus abscess orthopedic has been consulted subsequently consulted IR for drainage who wanted to have a MRI before attempting drainage patient was not able to complete his MRI today and has been rescheduled for tomorrow we will keep the patient on cefazolin Dictation was produced using [employer] dictation software. please excuse any gramma tical, word or spelling errors. Time with Patient: Less than 30
--- NOTE | 2024-01-28 15:41 | US ---
EXAMINATION TYPE: US guided soft tissue drainage US guided soft tissue drainage additional spot DATE OF EXAM: 01/28/2024 2:33 PM CLINICAL INDICATION:Male, 38 years old with history of rt hip; , [facility] COMPARISON: CT 01/17/2024 TECHNIQUE: Ultrasound guided fluid aspiration. PROCEDURE: Informed consent was obtained. Risks including bleeding, infection, damage to surrounding structures, and the potential need for further procedures as well as benefits were explained. All patient questi ons were answered. Initial ultrasound images were taken which showed safest access to fluid collection located at the an terior thigh and right lateral hip. The patient was prepped and draped. Under sterile technique with 1% lidocaine local anesthesia a 5-[place] one-step needle/catheter was inserted under ultrasound guid ance into the anterior 12 cc of fluid drained and sent to laboratory. The patient was prepped and draped. Under sterile technique with 1% lidocaine local anesthesia a 5-Fr ench one-step needle/catheter was inserted under ultrasound guidance into the lateral hip fluid colle ction with sample sent to laboratory. The patient tolerated the procedure well without complication. The patient was transferred to [facility] in stable condition. IMPRESSION: Successful ultrasound fluid aspiration of the anterior thigh and right lateral hip fluid collections. .
[2024-01-28 16:45] LABS: Glucose,Whole Blood 139 mg/dL (70-110)
--- NOTE | 2024-01-28 16:46 | P.PN ---
Progress Note - Text Progress Note Date: 01/28/24 Niels was seen today. He underwent a right lateral hip and thigh fluid aspiration today via ultrasound with interventional radiology today. The fluid was sent to the lab for culture and sensitivity. He states the leg is sore but most of his pain right now is in his right lower back. He was very restless during my exam. No internal or external pain of the hip joint. No increased pain on weightbearing. The case was discussed with Dr. Mc and we continue to recommend IV antibiotics per infectious disease and await culture results. If his pain increases in the leg and the fluid reaccumulates, surgical intervention may be needed. We will continue to monitor.
[2024-01-28 20:07] LABS: Glucose,Whole Blood 108 mg/dL (70-110)
[2024-01-29] MEDS ORDERED: LACTULOSE 20 GM/30 ML CUP PO PRN (05:39)
--- NOTE | 2024-01-29 05:45 | P.PN ---
Subjective Progress Note Date: 01/28/24 Patient is evaluated today in follow up on the cardiac stepdown unit. Patient currently fatigued and lethargic difficult to arouse. Valium will be stopped. Patient is status post I and D of chest wall and mediastinal abscess. CT surgery following. He has [address] One with some noted purulent drainage. Patients culture showing MSSA. ID following closely. Patient does report significant chest wall pain at the surgical site. He is maintained on suboxone but has also been started on norco for pain control. White blood cell count today 14.0, hgb 9.3. Sodium 132, potassium 4.6. Patient had fever low grade today. 01/20/2024 Patient is evaluated in follow-up today on the cardiac stepdown unit patient is continued on antibiotic coverage with IV nafcillin which was adjusted per infectious disease. His cultures are continue to show MSSA in the chest wall however blood cultures have remained negative. Patient was started on normal saline 50 MLS per hour overnight with improvement in his sodium level it is up to D5. Renal function shows a BUN of 9 creatinine of 0.79. White blood cell count of 12.1, hemoglobin 10.0. To surgery recommending to continue the GI until output is minimal. Patient would like to discharge to subacute rehab and is currently pending a physical therapy evaluation as he is quite fatigued and weakened during this hospital stay. 01/21/2024 Patient is seen and evaluated in follow-up today with infectious disease and CT surgery following. Patient continues with chest tube drainage although minimal. Case management/social work following as well working on discharge planning including an ECF for [facility] for continued IV antibiotic therapy and wound care. Patient is extremely noncompliant and poor to follow-up with concerns of safe discharge planning. Patient has been refused by multiple ECF's in this area and social work has placed multiple referrals outside of the area currently pending. Patient is currently on Suboxone as well as [place] and continuing to request pain medications. Discussed with the patient that patient should not be taking [place] and Suboxone together. Patient is reporting some right thigh and leg swelling will obtain a venous Doppler as patient has not been getting up and moving around very frequently. Encouraged increase activity as tolerated. Patient is afebrile with no reports of chest pain or shortness of breath. Patient has been tolerating diet and denies any nausea or vomiting. 01/22/2024 Patient is seen and evaluated in follow-up maintained on antibiotics and has received a PICC line as patient will require antibiotic therapy on discharge per ID recommendations. Patient is a poor candidate for home IV antibiotic therapy with past history of drug abuse. Patient reports he is currently on Suboxone and also requesting [place] and report his pain is 10/10. Encouraged increase activity as tolerated and frequent walks. Patient has been evaluated by physical therapy and is walking with a walker. Patient also will require pain management outpatient services as patient is continued on Suboxone. Patient follows with Dr. Dahl in the outpatient setting and encouraged him to follow- up outpatient and discussed with him regarding pain management. Per social work, psychiatry consult was placed as ECF that are considering him for placement would like a psychiatric consult for his history of depression and previous drug abuse. Consult was placed and pending 01/23/2024 Patient seen and evaluated in follow-up today continues to report generalized weakness currently awaiting an ECF that will accept the patient. [facility] has multiple facilities that are considering and reviewing his chart recommending psychiatric evaluation. Patient was evaluated by psychiatry as patient does have history of significant depression and IV drug abuse and has had hospitalizations at the psych facility and reports does not meet criteria recommending to continue with current medications and outpatient follow-up with mental health in the outpatient setting. Patient does have a PICC line and will likely need IV antibiotic therapy on discharge. Patient has a poor safe discharge home given the history of IV drug abuse with infectious disease and CT surgery following and recommending ECF for IV antibiotic therapy and wound care. Case management is working on [facility] facilities. Patient has been taking Suboxone although it has been reported he has not had a prescription refill from his primary care provider since 2022. Patient has been having difficulty in the outpatient setting with following up and has extreme noncompliance. Patient follows with Dr. Dahl in the outpatient setting and will need to have the patient follow-up with pain management in the outpatient setting for this. This was discussed multiple occasions with this patient. Patient is afebrile with no reports of chest pain or shortness of breath. Patient is tolerating diet with no reported nausea or vomiting. Patient continues with chest drain of the chest wall abscess and continued local wound care. Patient continues to report right hip pain and imaging done regarding a possible blood clot was done and venous Doppler was negative for DVT. Will obtain x-ray images of the hip and pe lvis along with femur and also obtain a bone scan. 01/26/2024 Patient is seen in follow-up today continues to report some right hip discomfort and orthopedics is evaluating the patient as a CT was performed with concerns of possible fluid collection. Interventional radiology consulted for possible drainage and recommending MRI. MRI is ordered and pending. Patient continues on IV antibiotics with infectious disease following and has received a PICC line. Continuing to work with case management regarding discharge planning. Patient will require insurance authorization once discharge planning is in process. Will await orthopedic recommendations. Patient is afebrile white count is minimally elevated. Patient needs encouragement with incentive spirometer and increased activity. Patient is generally weak and has had prolonged hospitalization. Requesting stool softener. 01/27/2024 Patient is seen in follow-up today while scheduled for MRI of the right thigh although patient unable to tolerate due to pain and MRI has been rescheduled for 01/28/2024. Orthopedics following along with interventional radiology and awaiting MRI results to determine treatment plan with possible fluid collection drainage or drainage tube placement for the right thigh. Patient is afebrile although having low-grade temps, continues to report severe pain and generalized weakness. Patient does have a PICC line with infectious disease following. Plan will be for ECF on discharge for continued wound care and IV antibiotic therapy. Patient will require insurance authorization. Will await clearance from consultation to move forward with discharge planning. 01/28/2024 Patient is seen in follow-up today scheduled to undergo MRI. Orthopedics following and has consulted interventional radiology for right thigh fluid collection and is scheduled for possible drainage today. Recommend sending for culture with infectious disease following will await finalized cultures to determine antibiotics. Patient continues to request [id number] pain medication per nursing staff and continues to be extremely anxious. Patient encouraged to get up and walk more frequently. Will follow-up on repeat labs as white count remains mildly elevated. Review of Systems Constitutional: Denied any fatigue denied any fever. Cardio vascular: denied any chest pain, palpitations, reports of chest wall dis comfort Gastrointestinal: denied any nausea, vomiting, diarrhea Pulmonary: Denied any shortness of breath cough Neurologic denied any new focal deficits, reports of generalized weakness and gait dysfunction with right hip pain All inpatient medications were reviewed and appropriate changes in these medications as dictated in the interval history and assessment and plan. PHYSICAL EXAMINATION: GENERAL: The patient is alert and oriented x3, not in any acute distress. Well developed, well nourished. Anxious at times, unkempt HEENT: Pupils are round and equally reacting to light. EOMI. No scleral icterus. No conjunctival pallor. Normocephalic, atraumatic. No pharyngeal erythema. No thyromegaly. CARDIOVASCULAR: S1 and S2 present. No murmurs, rubs, or gallops. PULMONARY: Chest is clear to auscultation, no wheezing or crackles. ABDOMEN: Soft, nontender, nondistended, normoactive bowel sounds. No palpable organomegaly. MAHESH drain x 2 noted chest wall. Dressing intact. MUSCULOSKELETAL: No joint swelling or deformity. EXTREMITIES: No cyanosis, clubbing, or pedal edema. Tenderness in the right lower extremity near the thigh area NEUROLOGICAL: Gross neurological examination did not reveal any focal deficits. Weak and fatigued. SKIN: No rashes. Assessment: Abscess to the anterior chest and retrosternal area status post I and D with MAHESH drain present. CT surgery following. Sepsis and bacteremia secondary to above. Cultures positive at outside hospital. Here they are negative x 72 hours. ID following cultures. On IV antibiotics per ID . Right hip pain with swelling, DVT ruled out, x-ray of hip and pelvis along with bone scan ordered and pending. Possible fluid collection on the right hip currently awaiting MRI of the hip for possible drainage tube Leukocytosis, improving Low grade fever, secondary to abscess of the chest, resolved Hyponatremia hypvolemic, improving on gentle hydration Hx polysubstance abuse with methamphetamine, marijuana and opiates on suboxone Chronic nicotine use Noncompliance with medications and follow-up GI prophylaxis: pepcid DVT prophylaxis: Subcutaneous heparin Full code Plan: Continue with MAHESH drains and CT surgery following recommending outpatient follow- up and continue with drainage tubes for now monitor output closely Patient currently maintained on IV antibiotics with infectious disease following and patient has received a PICC line for outpatient IV antibiotic therapy due to the extent of the infection and abscess. Most recent cultures have remained negative although patient has history of drug abuse and noncompliance, i nfectious disease recommending [facility] placement for continued wound care as well as IV antibiotic therapy. Case management/social work following working on discharge planning and has placed multiple referrals outside of the city for ECF. Multiple ECF's in the area including [facility], [facility], [facility] have refused the patient. ECF's in [place] are accepting pending insurance authorization. Psychiatry has evaluated the patient recommending outpatient follow-up with mental health services otherwise does not meet criteria for any inpatient psychiatry evaluation. Patient to continue on current medications. Patient reports his primary care provider has been prescribing Suboxone although was verified through the nurse that he has not had the Suboxone since 2022. Patient will need outpatient follow-up with pain management at a Suboxone clinic for further assistance. Patient will not be prescribed Suboxone on discharge. Patient also taking [place] for pain reporting continued pain. Per nursing staff patient requests [id number] pain medication and is quite anxious at times. Patient was having some right leg pain and venous Doppler was negative for DVT. Continue subcutaneous heparin. Patient underwent bone scan today not suggestive of osteomyelitis. Right hip CT was done with concerns of simple fluid collection and orthopedic consulted recommending interventional radiology for possible drainage of this area or drainage tube placement if necessary. Interventional radiology recommending MRI which has been ordered and pending. MRI was attempted today although patient could not tolerate laying flat due to pain. Will adjust medications and provide additional pain medication for the procedure. Interventional radiology performed aspiration of the right thigh area and specimen was sent for cultures which are pending. Will await finalized cultures to determine antibiotics. Encouraged increase activity as tolerated Follow-up on repeat labs in a.m. and continue to monitor closely. Continue incentive spirometer use at least 10 times every hour while awake Overall prognosis is guarded. Discharge pending ECF acceptance and insurance authorization. [facility] currently reviewing for possible consideration of acceptance. Case management is following. The impression and plan of care has been dictated by Minerva Soto Nurse Practitioner as directed. Dr. Sylvester MD I have performed a history and physical examination and medical decision making of this patient, discussed the same with the dictator, and agree with the [facility] and plan as written, documented as a scribe. Based on total visit time, I have performed more than 50% of this visit. Objective - Vital Signs Vital signs: Vital Signs Temp 98.9 F 01/29/24 01:53 Pulse 112 H 01/29/24 01:53 Resp 22 01/29/24 01:53 BP 164/67 08/01/24 01:53 Pulse Ox 95 01/29/24 01:53 FiO2 Intake & Output 01/28/24 01/28/24 01/29/24 06:59 18:59 06:59 Output Total 30 Balance -30 Output: Drainage 30 Anterior Chest left 10 Right Anterior Medial 20 Chest Other: Voiding Method Toilet Toilet Urinal Urinal # Voids 1 2 - Labs CBC & Chem 7: 01/28/24 09:09 01/28/24 09:09 Labs: Abnormal Lab Results - Last 24 Hours (Table) 01/28/24 01/28/24 01/28/24 Range/Units 09:09 09:09 11:40 WBC 12.8 H (3.8-10.6) k/uL RBC 3.09 L (4.30-5.90) m/uL Hgb 8.5 L (13.0-17.5) gm/dL Hct 27.1 L (39.0-53.0) % Plt Count 921 H (150-450) k/uL Neutrophils # 9.0 H (1.3-7.7) k/uL Sodium 136 L (137-145) mmol/L Glucose 124 H (74-99) mg/dL POC Glucose (mg/dL) 126 H (70-110) mg/dL 01/28/24 Range/Units 16:43 WBC (3.8-10.6) k/uL RBC (4.30-5.90) m/uL Hgb (13.0-17.5) gm/dL Hct (39.0-53.0) % Plt Count (150-450) k/uL Neutrophils # (1.3-7.7) k/uL Sodium (137-145) mmol/L Glucose (74-99) mg/dL POC Glucose (mg/dL) 139 H (70-110) mg/dL
[2024-01-29 06:14] LABS: Glucose,Whole Blood 110 mg/dL (70-110)
--- NOTE | 2024-01-29 08:45 | P.PN ---
Subjective Progress Note Date: 01/29/24 Principal diagnosis: Mediastinal/chest wall abscess, febrile illness, bacteremia. History of illicit drug use, current tobacco dependence, multiple admissions for psychiatric illn ess, noncompliance POD #13 incision drainage and debridement of chest wall abscess, incision and dr velez of mediastinal abscess, fluid positive for MSSA Patient was seen and examined this morning with Dr. Leon while he was ambulatory in the room. We did remove his MAHESH drains and cyndy. He did have a small amount of ooze from the left lateral MAHESH drain site. Encourage patient to get into the shower this morning and every morning. May cover drainage incisions well continues to drain, leave open to air once no more drainage present. Remains on IV Ancef per infectious disease. Objective - Vital Signs Vital signs: Vital Signs Temp 99.3 F 01/29/24 07:20 Pulse 118 H 01/29/24 07:20 Resp 16 01/29/24 07:20 BP 117/71 01/29/24 07:20 Pulse Ox 99 01/29/24 07:20 FiO2 Intake & Output 01/28/24 01/29/24 01/29/24 18:59 06:59 18:59 Output Total 30 35 Balance -30 -35 Output: Drainage 30 35 Anterior Chest left 10 15 Right Anterior Medial 20 20 Chest Other: Voiding Method Toilet Urinal # Voids 2 3 - Exam CONSTITUTIONAL: Appears comfortable, no acute distress RESPIRATORY: Lungs sounds diminished bilaterally. Respirations even, nonlabored. Currently on room air with oxygen saturation 95% CARDIOVASCULAR: S1, S2 present. Regular rate and rhythm. Palpable peripheral pulses bilaterally. No edema present GASTROINTESTINAL: Abdomen soft, nontender, nondistended. Active bowel sounds present 4 quadrants. Tolerating diet. Positive bowel movement 01/25 GENITOURINARY: Continues to void INTEGUMENTARY: Skin is warm and dry. Anterior chest wall with 2 MAHESH drains discontinued this morning. Medial MAHESH drain with 40 mL in the last 24 hours, lateral/left MAHESH drain with 25 mL in the last 24 hours NEUROLOGIC: Cranial nerves II through XII intact MUSKULOSKELETAL: Able to move all extremities, strength equal bilaterally, gait normal PSYCHIATRIC: Alert and oriented to person place and time - Allied health notes Allied health notes reviewed: nursing - Labs CBC & Chem 7: 01/28/24 09:09 01/28/24 09:09 Labs: Abnormal Lab Results - Last 24 Hours (Table) 01/28/24 01/28/24 01/28/24 Range/Units 09:09 09:09 11:40 WBC 12.8 H (3.8-10.6) k/uL RBC 3.09 L (4.30-5.90) m/uL Hgb 8.5 L (13.0-17.5) gm/dL Hct 27.1 L (39.0-53.0) % Plt Count 921 H (150-450) k/uL Neutrophils # 9.0 H (1.3-7.7) k/uL Sodium 136 L (137-145) mmol/L Glucose 124 H (74-99) mg/dL POC Glucose (mg/dL) 126 H (70-110) mg/dL 01/28/24 Range/Units 16:43 WBC (3.8-10.6) k/uL RBC (4.30-5.90) m/uL Hgb (13.0-17.5) gm/dL Hct (39.0-53.0) % Plt Count (150-450) k/uL Neutrophils # (1.3-7.7) k/uL Sodium (137-145) mmol/L Glucose (74-99) mg/dL POC Glucose (mg/dL) 139 H (70-110) mg/dL Assessment and Plan Assessment: Mediastinal retrosternal mass measuring 6.6 x 3.[address] scan, status post incision drainage and debridement of chest wall abscess, incision and drainage of mediastinal abscess, culture positive for MSSA Febrile illness Bacteremia reported at [facility] here negative for 72 hours Illicit drug use Current tobacco dependence Multiple admissions for psychiatric illness Noncompliance Plan: MAHESH drains, cyndy removed without incident Patient may shower daily Dressing change daily and as needed, once not draining may leave open to air Encourage incentive spirometry use Increase activity as tolerated Continue with antibiotics per infectious disease Recommend smoking and illicit drug cessation Medical management of other comorbidities per internal medicine, infectious disease Will sign off, please reconsult if needed Patient does not need to follow-up outpatient as we have seen him every day for the last 2 weeks, patient is unlikely to follow-up anyway as as he is noncompliant
[2024-01-29 10:18] LABS: Basophils # (A) 0.06 X 10*3/uL (0.00-0.10); Basophils % (A) 0.4 %; Eosinophils # (A) 0.62 X 10*3/uL (0.04-0.35); Eosinophils % (A) 4.1 %; HCT 25.7 % (39.6-50.0); HGB 8.2 g/dL (13.0-17.0); Lymphocytes % (A) 28.7 %; MCH 27.7 pg (27.0-32.0); MCHC 31.9 g/dL (32.0-37.0); MCV 86.8 FL (80.0-97.0); Mean Platelet Volume 8.6 FL (9.5-12.2); Monocytes # (A) 1.22 X 10*3/uL (0.20-1.00); Monocytes % (A) 8.2 %; NRBC Per 100 WBC 0 X 10*3/uL (0.00-0.01); Neutrophils # (A) 8.68 X 10*3/uL (1.80-7.70); Neutrophils % (A) 58.1 %; Platelet Count 903 X 10*3/uL (140-440); RBC 2.96 X 10*6/uL (4.40-5.60); RDW 14.4 % (11.5-14.5); WBC 14.96 X 10*3/uL (4.50-10.00)
[2024-01-29 12:15] LABS: Glucose,Whole Blood 101 mg/dL (70-110)
--- NOTE | 2024-01-29 12:31 | P.PN ---
Subjective Progress Note Date: 01/28/24 Principal diagnosis: Reason for follow-up is chest wall/mediastinal abscess Patient is a 38-year-old male with a past medical history significant for IV drug use last drug use seem to have been dealing with chest pain along with some swelling with fever and chills patient did have CT at the outside facility concerning for chest wall abscess and retrosternal mediastinal mass suspicious for an abscess for the patient was transferred to [facility] for CT surgery evaluation Patient is status post Incision drainage and debridement of chest wall abscess, incision and drainage of mediastinal abscess completed on 01/16/2024. On today's evaluation that is 01/28/2024, patient has been afebrile, patient is breathing comfortably and is currently on room air, patient denies having any significant cough no chest pain shortness of breath, patient denies nausea vomiting or diarrhea and no abdominal pain,Still complaining of pain to the right hip and thigh area currently waiting for IR drainage of this fluid collection. Patient white count is 12.8 creatinine 0.75 Objective - Vital Signs Vital signs: Vital Signs Temp 100 F H 01/28/24 07:36 Pulse 107 H 01/28/24 07:36 Resp 16 01/28/24 07:36 BP 117/64 01/28/24 07:36 Pulse Ox 98 01/28/24 07:36 FiO2 Intake & Output 01/27/24 01/28/24 01/28/24 18:59 06:59 18:59 Output Total 50 30 Balance -50 -30 Output: Drainage 50 30 Anterior Chest left 30 10 Right Anterior Medial 20 20 Chest Other: Voiding Method Toilet Toilet Urinal Urinal # Voids 3 1 # Bowel Movements 3 - Exam GENERAL DESCRIPTION: Middle-age male lying in bed in no distress RESPIRATORY SYSTEM: Unlabored breathing , decreased breath sounds at bases HEART: S1 S2 regular rate and rhythm , ABDOMEN: Soft , no tenderness EXTREMITIES: No edema feet - Labs CBC & Chem 7: 01/29/24 05:46 01/28/24 09:09 Labs: Abnormal Lab Results - Last 24 Hours (Table) 01/27/24 01/28/24 01/28/24 Range/Units 21:11 09:09 09:09 WBC 12.8 H (3.8-10.6) k/uL RBC 3.09 L (4.30-5.90) m/uL Hgb 8.5 L (13.0-17.5) gm/dL Hct 27.1 L (39.0-53.0) % Plt Count 921 H (150-450) k/uL Neutrophils # 9.0 H (1.3-7.7) k/uL Sodium 136 L (137-145) mmol/L Glucose 124 H (74-99) mg/dL POC Glucose (mg/dL) 124 H (70-110) mg/dL 01/28/24 Range/Units 11:40 WBC (3.8-10.6) k/uL RBC (4.30-5.90) m/uL Hgb (13.0-17.5) gm/dL Hct (39.0-53.0) % Plt Count (150-450) k/uL Neutrophils # (1.3-7.7) k/uL Sodium (137-145) mmol/L Glucose (74-99) mg/dL POC Glucose (mg/dL) 126 H (70-110) mg/dL Assessment and Plan (1) Sepsis Current Visit: Yes Status: Acute Code(s): A41.9 - SEPSIS, UNSPECIFIED ORGANISM SNOMED Code(s): 14331984 (2) Abscess Current Visit: Yes Status: Acute Code(s): L02.91 - CUTANEOUS ABSCESS, UNSPECIFIED SNOMED Code(s): 823598634 (3) Bacteremia Current Visit: Yes Status: Acute Code(s): R78.81 - BACTEREMIA SNOMED Code(s): 2214097 Plan: 1patient presented hospital with sepsis in this patient with fever tachycardia significant elevated white count and apparently the patient did have a CT at the outside facility with evidence of right sided chest wall and retrosternal mass concerning for likely abscess in this patient who did have history of IV drug use we will need to cover for the gram-positive as well as gram-negative pathogen 2-blood culture has been negative 3-patient is status post incision drainage and debridement of chest wall abscess, incision and drainage of mediastinal abscess on 01/16/2024 with cultures growing MSSA 4-patient did have abnormal CT concerning for possible fluid collection question of hematoma versus abscess patient is currently waiting for IR drainage of this fluid collection which will be sent for culture we will continue with cefazolin and adjust antibiotics further if needed Dictation was produced using [employer] software. please excuse any grammatical, word or spelling errors. Time with Patient: Less than 30
--- NOTE | 2024-01-29 12:32 | P.PN ---
Subjective Progress Note Date: 01/29/24 Principal diagnosis: Reason for follow-up is chest wall/mediastinal abscess Patient is a 38-year-old male with a past medical history significant for IV drug use last drug use seem to have been dealing with chest pain along with some swelling with fever and chills patient did have CT at the outside facility concerning for chest wall abscess and retrosternal mediastinal mass suspicious for an abscess for the patient was transferred to [facility] for CT surgery evaluation Patient is status post Incision drainage and debridement of chest wall abscess, incision and drainage of mediastinal abscess completed on 01/16/2024.Patient is status post ultrasound-guided aspiration of the anterior thigh and lateral hip fluid collection procedure completed on 01/28/2024. On today's evaluation that is 01/29/2024, Patient is afebrile this morning patient denies having any chest pain shortness of breath or cough, the patient is breathing comfortably and currently on room air, patient denies any abdominal pain no diarrhea no nausea no vomiting, patient mention improvement to the right hip and thigh area after aspiration. Patient white count is 14.96 Objective - Vital Signs Vital signs: Vital Signs Temp 99.3 F 01/29/24 07:20 Pulse 118 H 01/29/24 07:20 Resp 16 01/29/24 07:20 BP 117/71 01/29/24 07:20 Pulse Ox 99 01/29/24 07:20 FiO2 Intake & Output 01/28/24 01/29/24 01/29/24 18:59 06:59 18:59 Output Total 30 35 Balance -30 -35 Output: Drainage 30 35 Anterior Chest left 10 15 Right Anterior Medial 20 20 Chest Other: Voiding Method Toilet Urinal # Voids 2 3 - Exam GENERAL DESCRIPTION: Middle-age male lying in bed in no distress RESPIRATORY SYSTEM: Unlabored breathing , decreased breath sounds at bases HEART: S1 S2 regular rate and rhythm , ABDOMEN: Soft , no tenderness EXTREMITIES: No edema feet - Labs CBC & Chem 7: 01/29/24 05:46 01/28/24 09:09 Labs: Abnormal Lab Results - Last 24 Hours (Table) 01/28/24 01/29/24 Range/Units 16:43 05:46 WBC 14.96 H (4.50-10.00) X 10*3/uL RBC 2.96 L (4.40-5.60) X 10*6/uL Hgb 8.2 L (13.0-17.0) g/dL Hct 25.7 L (39.6-50.0) % MCHC 31.9 L (32.0-37.0) g/dL Plt Count 903 H (140-440) X 10*3/uL MPV 8.6 L (9.5-12.2) FL Immature Gran # 0.08 H (0.00-0.04) X 10*3/uL Neutrophils # 8.68 H (1.80-7.70) X 10*3/uL Monocytes # 1.22 H (0.20-1.00) X 10*3/uL Eosinophils # 0.62 H (0.04-0.35) X 10*3/uL POC Glucose (mg/dL) 139 H (70-110) mg/dL Assessment and Plan (1) Sepsis Current Visit: Yes Status: Acute Code(s): A41.9 - SEPSIS, UNSPECIFIED ORGANISM SNOMED Code(s): 72855418 (2) Abscess Current Visit: Yes Status: Acute Code(s): L02.91 - CUTANEOUS ABSCESS, UNSPECIFIED SNOMED Code(s): 087448471 (3) Bacteremia Current Visit: Yes Status: Acute Code(s): R78.81 - BACTEREMIA SNOMED Code(s): 4643296 Plan: 1patient presented hospital with sepsis in this patient with fever tachycardia significant elevated white count and apparently the patient did have a CT at the outside facility with evidence of right sided chest wall and retrosternal mass concerning for likely abscess in this patient who did have history of IV drug use we will need to cover for the gram-positive as well as gram-negative pathogen 2-blood culture has been negative 3-patient is status post incision drainage and debridement of chest wall abscess, incision and drainage of mediastinal abscess on 01/16/2024 with cultures growing MSSA 4-patient did have abnormal CT concerning for possible fluid collection question of hematoma versus abscess patient is s/p IR drainage of this fluid collection which has been sent for culture 5-primary is planning for discharging the patient to rehab today may go on ce fazolin 2 g every 8 hours for 4 weeks however antibiotic may need to be adjusted on the basis of culture obtained yesterday this was discussed with the RESIDENTIAL ELECTRICIAN for admitting team working on discharge Dictation was produced using [employer] dictation software. please excuse any grammatical, word or spelling errors. Time with Patient: Less than 30
[2024-01-29 16:08] LABS: Glucose,Whole Blood 132 mg/dL (70-110)
--- NOTE | 2024-01-30 06:04 | P.PN ---
Subjective Progress Note Date: 01/29/24 Patient is evaluated today in follow up on the cardiac stepdown unit. Patient currently fatigued and lethargic difficult to arouse. Valium will be stopped. Patient is status post I and D of chest wall and mediastinal abscess. CT surgery following. He has [address] One with some noted purulent drainage. Patients culture showing MSSA. ID following closely. Patient does report significant chest wall pain at the surgical site. He is maintained on suboxone but has also been started on norco for pain control. White blood cell count today 14.0, hgb 9.3. Sodium 132, potassium 4.6. Patient had fever low grade today. 01/20/2024 Patient is evaluated in follow-up today on the cardiac stepdown unit patient is continued on antibiotic coverage with IV nafcillin which was adjusted per infectious disease. His cultures are continue to show MSSA in the chest wall however blood cultures have remained negative. Patient was started on normal saline 50 MLS per hour overnight with improvement in his sodium level it is up to D5. Renal function shows a BUN of 9 creatinine of 0.79. White blood cell count of 12.1, hemoglobin 10.0. To surgery recommending to continue the GI until output is minimal. Patient would like to discharge to subacute rehab and is currently pending a physical therapy evaluation as he is quite fatigued and weakened during this hospital stay. 01/21/2024 Patient is seen and evaluated in follow-up today with infectious disease and CT surgery following. Patient continues with chest tube drainage although minimal. Case management/social work following as well working on discharge planning including an ECF for senior care for continued IV antibiotic therapy and wound care. Patient is extremely noncompliant and poor to follow-up with concerns of safe discharge planning. Patient has been refused by multiple ECF's in this area and social work has placed multiple referrals outside of the area currently pending. Patient is currently on Suboxone as well as Nipton and continuing to request pain medications. Discussed with the patient that patient should not be taking Nipton and Suboxone together. Patient is reporting some right thigh and leg swelling will obtain a venous Doppler as patient has not been getting up and moving around very frequently. Encouraged increase activity as tolerated. Patient is afebrile with no reports of chest pain or shortness of breath. Patient has been tolerating diet and denies any nausea or vomiting. 01/22/2024 Patient is seen and evaluated in follow-up maintained on antibiotics and has received a PICC line as patient will require antibiotic therapy on discharge per ID recommendations. Patient is a poor candidate for home IV antibiotic therapy with past history of drug abuse. Patient reports he is currently on Suboxone and also requesting Nipton and report his pain is 10/10. Encouraged increase activity as tolerated and frequent walks. Patient has been evaluated by physical therapy and is walking with a walker. Patient also will require pain management outpatient services as patient is continued on Suboxone. Patient follows with Dr. Dahl in the outpatient setting and encouraged him to follow- up outpatient and discussed with him regarding pain management. Per social work, psychiatry consult was placed as ECF that are considering him for placement would like a psychiatric consult for his history of depression and previous drug abuse. Consult was placed and pending 01/23/2024 Patient seen and evaluated in follow-up today continues to report generalized weakness currently awaiting an ECF that will accept the patient. [facility] has multiple facilities that are considering and reviewing his chart recommending psychiatric evaluation. Patient was evaluated by psychiatry as patient does have history of significant depression and IV drug abuse and has had hospitalizations at the psych facility and reports does not meet criteria recommending to continue with current medications and outpatient follow-up with mental health in the outpatient setting. Patient does have a PICC line and will likely need IV antibiotic therapy on discharge. Patient has a poor safe discharge home given the history of IV drug abuse with infectious disease and CT surgery following and recommending ECF for IV antibiotic therapy and wound care. Case management is working on [facility]. Patient has been taking Suboxone although it has been reported he has not had a prescription refill from his primary care provider since 2022. Patient has been having difficulty in the outpatient setting with following up and has extreme noncompliance. Patient follows with Dr. Dahl in the outpatient setting and will need to have the patient follow-up with pain management in the outpatient setting for this. This was discussed multiple occasions with this patient. Patient is afebrile with no reports of chest pain or shortness of breath. Patient is tolerating diet with no reported nausea or vomiting. Patient continues with chest drain of the chest wall abscess and continued local wound care. Patient continues to report right hip pain and imaging done regarding a possible blood clot was done and venous Doppler was negative for DVT. Will obtain x-ray images of the hip and pe lvis along with femur and also obtain a bone scan. 01/26/2024 Patient is seen in follow-up today continues to report some right hip discomfort and orthopedics is evaluating the patient as a CT was performed with concerns of possible fluid collection. Interventional radiology consulted for possible drainage and recommending MRI. MRI is ordered and pending. Patient continues on IV antibiotics with infectious disease following and has received a PICC line. Continuing to work with case management regarding discharge planning. Patient will require insurance authorization once discharge planning is in process. Will await orthopedic recommendations. Patient is afebrile white count is minimally elevated. Patient needs encouragement with incentive spirometer and increased activity. Patient is generally weak and has had prolonged hospitalization. Requesting stool softener. 01/27/2024 Patient is seen in follow-up today while scheduled for MRI of the right thigh although patient unable to tolerate due to pain and MRI has been rescheduled for 01/28/2024. Orthopedics following along with interventional radiology and awaiting MRI results to determine treatment plan with possible fluid collection drainage or drainage tube placement for the right thigh. Patient is afebrile although having low-grade temps, continues to report severe pain and generalized weakness. Patient does have a PICC line with infectious disease following. Plan will be for ECF on discharge for continued wound care and IV antibiotic therapy. Patient will require insurance authorization. Will await clearance from consultation to move forward with discharge planning. 01/28/2024 Patient is seen in follow-up today scheduled to undergo MRI. Orthopedics following and has consulted interventional radiology for right thigh fluid collection and is scheduled for possible drainage today. Recommend sending for culture with infectious disease following will await finalized cultures to determine antibiotics. Patient continues to request [id number] pain medication per nursing staff and continues to be extremely anxious. Patient encouraged to get up and walk more frequently. Will follow-up on repeat labs as white count remains mildly elevated. 01/29/2024 Patient is seen in follow-up this morning status post aspiration of the right thigh with cultures pending at this time. Patient drainage tubes appear to be pulled on of the chest and CT surgery following has removed the drainage tubes. White count remains elevated although patient is afebrile and will repeat CBC. Patient does have a PICC line and continues on cefazolin. Currently awaiting cultures of the right thigh. Plan is for ECF on discharge for continued IV antibiotic therapy as patient is high risk and history of drug abuse with IV drugs as well and not safe for returning home at this time. Per nursing staff. Patient reported he takes what ever kind of medication he can get his hands on and on exam today appears to be high. Last Nipton received over 4 hours ago and patient is maintained on Suboxone as well. Will obtain UDS. Patient denies taking any illicit drugs at this time although does have his girlfriend they are at the bedside every day. Would recommend removing all of the belongings and no visitors if continuing to use illicit drugs. Review of Systems Constitutional: Denied any fatigue denied any fever. Cardio vascular: denied any chest pain, palpitations, reports of chest wall discomfort Gastrointestinal: denied any nausea, vomiting, diarrhea Pulmonary: Denied any shortness of breath cough Neurologic denied any new focal deficits, reports of generalized weakness and gait dysfunction with right hip pain although improved All inpatient medications were reviewed and appropriate changes in these medications as dictated in the interval history and assessment and plan. PHYSICAL EXAMINATION: GENERAL: The patient is alert and oriented x3, laughing and giggling with girlfriend at the bedside, not maintaining eye contact.. Well developed, well nourished. Anxious at times, unkempt HEENT: Pupils are round and equally reacting to light. EOMI. No scleral icterus. No conjunctival pallor. Normocephalic, atraumatic. No pharyngeal erythema. No thyromegaly. CARDIOVASCULAR: S1 and S2 present. No murmurs, rubs, or gallops. PULMONARY: Chest is clear to auscultation, no wheezing or crackles. Drainage tubes removed ABDOMEN: Soft, nontender, nondistended, normoactive bowel sounds. No palpable organomegaly. MUSCULOSKELETAL: No joint swelling or deformity. EXTREMITIES: No cyanosis, clubbing, or pedal edema. Decreased tenderness in the right lower extremity near the thigh area on palpation NEUROLOGICAL: Gross neurological examination did not reveal any focal deficits. SKIN: No rashes. Assessment: Abscess to the anterior chest and retrosternal area status post I and D with MAHESH drain present. CT surgery following. Drainage tubes removed on 01/29/2024 Sepsis and bacteremia secondary to above. Cultures positive at outside hospital. Here they are negative x 72 hours. ID following cultures. On IV antibiotics per ID . Right hip pain with swelling, DVT ruled out, x-ray of hip and pelvis along with bone scan with no signs of osteomyelitis. fluid collection on the right thigh status post aspiration with interventional radiology, cultures are pending Leukocytosis Low grade fever, secondary to abscess of the chest, resolved Hyponatremia hypvolemic, improving on gentle hydration Hx polysubstance abuse with methamphetamine, marijuana and opiates on suboxone Chronic nicotine use Noncompliance with medications and follow-up GI prophylaxis: pepcid DVT prophylaxis: Subcutaneous heparin Full code Plan: CT surgery following and patient had drainage tubes removed as they appear to be pulled on by out. Will obtain a chest x-ray Patient was evaluated by interventional radiology along with orthopedics status post right thigh aspiration and cultures are pending. Infectious disease following and will continue on antibiotics with a PICC line and await cultures. Continue with cefazolin for 4 weeks and may adjust antibiotics accordingly once cultures are finalized [facility] as patient does have history of IV drug abuse and unsafe to return home with a PICC line for continued antibiotic therapy. Will require insurance authorization and case management following and has submitted and pending at this time. Patient has been accepted at [facility] in [place] Patient currently maintained on IV antibiotics with infectious disease following and patient has received a PICC line for outpatient IV antibiotic therapy due to the extent of the infection and abscess. Most recent cultures have remained negative although patient has history of drug abuse and noncompliance, infectious disease recommending senior care placement for continued wound care as well as IV antibiotic therapy. Psychiatry has evaluated the patient recommending outpatient follow-up with mental health services otherwise does not meet criteria for any inpatient psychiatry evaluation. Patient reports his primary care provider has been prescribing Suboxone although was verified through the nurse that he has not had the Suboxone since 2022. Patient will need outpatient follow-up with pain management at a Suboxone clinic for further assistance. Patient will not be prescribed Suboxone on discharge. Patient also taking Nipton for pain reporting continued pain. Per nursing staff patient requests [id number] pain medication and is quite anxious at times. Patient appears "high" on exam and when I asked if taking any other medications other than prescribed he denies although has made mention to multiple nursing staff that he takes "anything he can get his hands on". Recommend removing all of his belongings and no visitors at this time. Encouraged increase activity as tolerated Follow-up on repeat labs in a.m. and continue to monitor closely. Monitor white count Continue incentive spirometer use at least 10 times every hour while awake. Patient needs frequent reorientation and instruction to continue using Overall prognosis is guarded. Discharge pending ECF acceptance and insurance authorization. [facility] has accepted pending insurance authorization Possible discharge planning in next 24 to 48 hours The impression and plan of care has been dictated by Minerva Soto, Nurse Practitioner as directed. Dr. Ann MD I have performed a history and physical examination and medical decision making of this patient, discussed the same with the dictator, and agree with the dictators assessment and plan as written, documented as a scribe. Based on total visit time, I have performed more than 50% of this visit. Objective - Vital Signs Vital signs: Vital Signs Temp 98.8 F 01/30/24 03:14 Pulse 122 H 01/30/24 03:14 Resp 20 01/30/24 03:14 BP 127/68 01/30/24 03:14 Pulse Ox 97 01/30/24 03:14 FiO2 Intake & Output 01/29/24 01/29/24 01/30/24 06:59 18:59 06:59 Output Total 35 Balance -35 Output: Drainage 35 Anterior Chest left 15 Right Anterior Medial 20 Chest Other: # Voids 3 2 2 - Labs CBC & Chem 7: 01/29/24 05:46 01/28/24 09:09 Labs: Abnormal Lab Results - Last 24 Hours (Table) 01/29/24 01/29/24 Range/Units 05:46 16:06 WBC 14.96 H (4.50-10.00) X 10*3/uL RBC 2.96 L (4.40-5.60) X 10*6/uL Hgb 8.2 L (13.0-17.0) g/dL Hct 25.7 L (39.6-50.0) % MCHC 31.9 L (32.0-37.0) g/dL Plt Count 903 H (140-440) X 10*3/uL MPV 8.6 L (9.5-12.2) FL Immature Gran # 0.08 H (0.00-0.04) X 10*3/uL Neutrophils # 8.68 H (1.80-7.70) X 10*3/uL Monocytes # 1.22 H (0.20-1.00) X 10*3/uL Eosinophils # 0.62 H (0.04-0.35) X 10*3/uL POC Glucose (mg/dL) 132 H (70-110) mg/dL Microbiology - Last 24 Hours (Table) 01/28/24 10:00 Gram Stain - Preliminary Thigh - Right 01/28/24 14:20 Gram Stain - Preliminary Hip - Right
--- NOTE | 2024-01-30 08:22 | XR ---
EXAMINATION TYPE: XR chest 1V portable DATE OF EXAM: 01/30/2024 6:06 AM CLINICAL INDICATION:Male, 38 years old with history of shortness of breath; [facility] COMPARISON: Chest radiographs from 01/24/2024. TECHNIQUE: XR chest 1V portable Frontal view of the chest. FINDINGS: Lungs/Pleura: There is no evidence of pleural effusion, focal consolidation, or pneumothorax. Pulmonary vascularity: Unremarkable. Heart/mediastinum: Cardiomediastinal silhouette is unremarkable. Musculoskeletal: No acute osseous pathology. Other findings: None Lines/Tubes: Right-sided PICC line with distal tip at the cavoatrial junction. IMPRESSION: No acute cardiopulmonary disease/process.
[2024-01-30 09:52] LABS: Basophils # (A) 0.1 k/uL (0-0.2); Basophils % (A) 0 %; Eosinophils # (A) 0.8 k/uL (0-0.7); Eosinophils % (A) 8 %; HCT 27.2 % (39.0-53.0); HGB 8.7 gm/dL (13.0-17.5); Hypochromasia Slight; Lymphocytes # (A) 2.6 k/uL (1.0-4.8); Lymphocytes % (A) 26 %; MCH 27.2 pg (25.0-35.0); MCHC 31.9 g/dL (31.0-37.0); MCV 85.2 fL (80.0-100.0); Mean Platelet Volume 6.4; Monocytes # (A) 0.7 k/uL (0-1.0); Monocytes % (A) 7 %; Neutrophils # (A) 5.8 k/uL (1.3-7.7); Neutrophils % (A) 57 %; RBC 3.19 m/uL (4.30-5.90); RDW 14.6 % (11.5-15.5); WBC 10.1 k/uL (3.8-10.6)
[2024-01-30 09:55] LABS: Platelet Count 1035 k/uL (150-450)
[2024-01-30 10:37] LABS: ALT 28 U/L (4-49); AST 66 U/L (17-59); African American GFR (CKD) >90 (>60 ml/min/1.73 sqM); Albumin 3.2 g/dL (3.5-5.0); Albumin/Globulin Ratio 0.8; Alkaline Phosphatase 95 U/L (38-126); Anion Gap 6 mmol/L; Blood Urea Nitrogen 15 mg/dL (9-20); Calcium 8.6 mg/dL (8.4-10.2); Carbon Dioxide 23 mmol/L (22-30); Chloride 104 mmol/L (98-107); Globulin 3.9 g/dL; Glucose 116 mg/dL (74-99); Non-African American GFR(CKD) >90 (>60 ml/min/1.73 sqM); Potassium 4.3 mmol/L (3.5-5.1); Sodium 133 mmol/L (137-145); Total Bilirubin 0.4 mg/dL (0.2-1.3); Total Protein 7.1 g/dL (6.3-8.2)
[2024-01-30 11:25] LABS: Appearance,Urine Clear (Clear); Bacteria,Urine Rare /hpf; Bilirubin,Urine Negative (Negative); Blood,Urine Small (Negative); Color,Urine Colorless; Glucose,Urine (UA) Negative (Negative); Hyaline Casts,Urine 1 /lpf (0-2); Ketones,Urine Negative (Negative); Leukocyte Esterase,Urine Large (Negative); Nitrite,Urine Negative (Negative); Protein,Urine Negative (Negative); RBC,Urine 1 /hpf (0-5); Specific Gravity,Urine 1.002 (1.001-1.035); Urobilinogen,Urine <2.0 mg/dL (<2.0); WBC,Urine 9 /hpf (0-5)
[2024-01-30 12:24] VITALS: TEMP 98.7
[2024-01-30] MEDS: NALOXONE 0.4 MG/ML 1 ML VIAL IM STA (14:17)
[2024-01-30 14:28] VITALS: BP 140/82; PULSE 126
[2024-01-30 15:26] VITALS: RESP 18
[2024-01-30 18:11] LABS: Urine Alcohol Negative (Negative); Urine Barbiturate Negative (Negative); Urine Cocaine Negative (Negative); Urine Methadone Negative (Negative); Urine Opiates Negative (Negative); Urine Phencyclidine Negative (Negative)
--- NOTE | 2024-01-30 19:09 | CA ---
Transthoracic Echo Report Name: Niels Ramos Age: 38 Gender: M : 1985 Exam Date: 01/30/2024 15:13 Exam Location: [facility] Ht (in): 60 Wt (lb): 152 Ordering Physician: Bia Vallejo Attending/Referring Phys: Manager Water Carla Raya RDCS Procedure CPT: Indications: IVDA recent staph aureus infection Cardiac Hx: Technical Quality: Good Contrast 1: Total Dose (mL): Contrast 2: Total Dose (mL): MEASUREMENTS (Male / Female) Normal Values 2D ECHO LV Diastolic Diameter PLAX 4.6 cm 4.2 - 5.9 / 3.9 - 5.3 cm LV Systolic Diameter PLAX 3.0 cm IVS Diastolic Thickness 0.9 cm 0.6 - 1.0 / 0.6 - 0.9 cm LVPW Diastolic Thickness 1.1 cm 0.6 - 1.0 / 0.6 - 0.9 cm LV Relative Wall Thickness 0.4 LVOT Diameter 2.0 cm LV Diastolic Volume MOD BP 139.2 cm??? 67 - 155 / 56 - 104 cm??? LV Systolic Volume MOD BP 57.0 cm??? 22 - 58 / 19 - 49 cm??? LV Ejection Fraction MOD BP 59.1 % >= 55 % LV Cardiac Index MOD BP 5926.6 cm???/min???m??? LV Diastolic Volume MOD 4C 134.1 cm??? LV Systolic Volume MOD 4C 51.5 cm??? LV Ejection Fraction MOD 4C 61.6 % LV Cardiac Index MOD 4C 5949.2 cm???/min???m??? LV Diastolic Length 4C 9.1 cm LV Systolic Length 4C 8.1 cm LV Diastolic Volume MOD 2C 144.9 cm??? LV Systolic Volume MOD 2C 56.8 cm??? LV Ejection Fraction MOD 2C 60.8 % LV Cardiac Index MOD 2C 6349.3 cm???/min???m??? LV Diastolic Length 2C 9.1 cm LV Systolic Length 2C 7.2 cm LA Volume 71.7 cm??? 18 - 58 / 22 - 52 cm??? LA Volume Index 41.4 cm???/m??? 16 - 28 cm???/m??? Ascending Aorta Diameter 2.7 cm DOPPLER AV Peak Velocity 166.2 cm/s AV Peak Gradient 11.0 mmHg AV Mean Velocity 99.9 cm/s AV Mean Gradient 4.9 mmHg AV Velocity Time Integral 23.8 cm LVOT Peak Velocity 132.8 cm/s LVOT Peak Gradient 7.1 mmHg LVOT Velocity Time Integral 22.4 cm LVOT Stroke Volume 67.6 cm??? LVOT Stroke Volume Index 40.7 ml/m??? LVOT Cardiac Index 4875.8 cm???/min???m??? AV Area Cont Eq vti 2.8 cm??? AV Area Cont Eq pk 2.4 cm??? MV Peak Velocity 158.0 cm/s MV Peak Gradient 10.0 mmHg MV Mean Velocity 114.6 cm/s MV Mean Gradient 5.7 mmHg MV Velocity Time Integral 21.4 cm PV Peak Velocity 117.9 cm/s PV Peak Gradient 5.6 mmHg FINDINGS Left Ventricle Left ventricular ejection fraction is estimated at 60 %. Left ventricular cavity size normal. Left ventricular wall thickness normal. No obvious regional wall motion abnormalities. Right Ventricle Normal right ventricular size and function. Unable to estimate the right ventricular systolic pressure. Right Atrium Mild right atrial dilatation. Left Atrium Moderately increased left atrial volume. Mildly increased left atrial area. Mitral Valve Structurally normal mitral valve. No mitral stenosis, regurgitation or prolapse. Aortic Valve Trileaflet aortic valve. No aortic valve stenosis or regurgitation. Tricuspid Valve Structurally normal tricuspid valve. No tricuspid stenosis, regurgitation or prolapse. Pulmonic Valve Structurally normal pulmonic valve. No pulmonic stenosis. No pulmonic regurgitation. Pericardium No pericardial effusion. Aorta Normal size aortic root and proximal ascending aorta. CONCLUSIONS Diagnosis IVDA, recent staph auris infection, retrosternal mass preserved LV size and systolic function Thickened pericardium No obvious intracardiac masses Previewed by: Dr. Dashawn Jackson MD (Electronically Signed) Final Date: 30 January 2024 19:09
--- NOTE | 2024-01-31 09:00 | P.PN ---
Subjective Progress Note Date: 01/30/24 Principal diagnosis: Reason for follow-up is chest wall/mediastinal abscess Patient is a 38-year-old male with a past medical history significant for IV drug use last drug use seem to have been dealing with chest pain along with some swelling with fever and chills patient did have CT at the outside facility concerning for chest wall abscess and retrosternal mediastinal mass suspicious for an abscess for the patient was transferred to [facility] for CT surgery evaluation Patient is status post Incision drainage and debridement of chest wall abscess, incision and drainage of mediastinal abscess completed on 01/16/2024.Patient is status post ultrasound-guided aspiration of the anterior thigh and lateral hip fluid collection procedure completed on 01/28/2024. On today's evaluation that is 01/30/2024,the patient denies any fever or any chills, patient is breathing comfortably on room air, the patient denies chest pain shortness of breath and no significant cough, patient denies abdominal pain, no nausea vomiting or diarrhea. Patient apparently was noticed to have needle in his room by security and the patient tried to escape from the hospital when needles and apparent drugs were found in the patient room as reported by the nursing staff. Patient white count is 10.1, creatinine 0.74 right thigh culture growing MSSA urine drug screen is positive for amphetamines Objective - Vital Signs Vital signs: Vital Signs Temp 98.6 F 01/30/24 07:45 Pulse 110 H 01/30/24 07:45 Resp 15 01/30/24 07:45 BP 158/74 01/30/24 07:45 Pulse Ox 98 01/30/24 07:45 FiO2 Intake & Output 01/29/24 01/30/24 01/30/24 18:59 06:59 18:59 Other: # Voids 2 2 - Exam GENERAL DESCRIPTION: Middle-age male lying in bed in no distress RESPIRATORY SYSTEM: Unlabored breathing , decreased breath sounds at bases HEART: S1 S2 regular rate and rhythm , ABDOMEN: Soft , no tenderness EXTREMITIES: No edema feet - Labs CBC & Chem 7: 01/30/24 09:27 01/30/24 09:27 Labs: Abnormal Lab Results - Last 24 Hours (Table) 01/29/24 01/30/24 01/30/24 Range/Units 16:06 08:23 09:27 RBC 3.19 L (4.30-5.90) m/uL Hgb 8.7 L (13.0-17.5) gm/dL Hct 27.2 L (39.0-53.0) % Plt Count 1035 H* (150-450) k/uL Eosinophils # 0.8 H (0-0.7) k/uL Sodium (137-145) mmol/L Glucose (74-99) mg/dL POC Glucose (mg/dL) 132 H (70-110) mg/dL AST (17-59) U/L Albumin (3.5-5.0) g/dL Urine Blood Small H (Negative) Ur Leukocyte Esterase Large H (Negative) Urine WBC 9 H (0-5) /hpf Urine Bacteria Rare H (None) /hpf 01/30/24 Range/Units 09:27 RBC (4.30-5.90) m/uL Hgb (13.0-17.5) gm/dL Hct (39.0-53.0) % Plt Count (150-450) k/uL Eosinophils # (0-0.7) k/uL Sodium 133 L (137-145) mmol/L Glucose 116 H (74-99) mg/dL POC Glucose (mg/dL) (70-110) mg/dL AST 66 H (17-59) U/L Albumin 3.2 L (3.5-5.0) g/dL Urine Blood (Negative) Ur Leukocyte Esterase (Negative) Urine WBC (0-5) /hpf Urine Bacteria (None) /hpf Microbiology - Last 24 Hours (Table) 01/28/24 10:00 Gram Stain - Preliminary Thigh - Right Wound Culture - Preliminary Presumptive Staph aureus 01/28/24 14:20 Gram Stain - Preliminary Hip - Right Wound Culture - Preliminary Assessment and Plan (1) Sepsis Status: Acute Code(s): A41.9 - SEPSIS, UNSPECIFIED ORGANISM SNOMED Code(s): 25712172 (2) Abscess Status: Acute Code(s): L02.91 - CUTANEOUS ABSCESS, UNSPECIFIED SNOMED Code(s): 752132857 (3) Bacteremia Status: Acute Code(s): R78.81 - BACTEREMIA SNOMED Code(s): 2334689 Plan: 1patient presented hospital with sepsis in this patient with fever tachycardia significant elevated white count and apparently the patient did have a CT at the outside facility with evidence of right sided chest wall and retrosternal mass concerning for likely abscess in this patient who did have history of IV drug use we will need to cover for the gram-positive as well as gram-negative pathogen 2-blood culture has been negative 3-patient is status post incision drainage and debridement of chest wall absces s, incision and drainage of mediastinal abscess on 01/16/2024 with cultures growing MSSA 4-patient did have abnormal CT concerning for possible fluid collection question of hematoma versus abscess patient is s/p IR drainage of this fluid collection which came back positive with MSSA 5-unfortunately the patient has been using drugs while in the hospital as needles has been found in the patient room and the patient urine is Positive for amphetamines, detailed discussion with the patient about his continuous drug use and high risk of recurrent infection the right thigh abscess more likely due to his drug use rather than endocarditis however echo has been ordered continue with the cefazolin prognosis remains to be guarded and keeping in mind his continuous drug use Dictation was produced using meevl dictation software. please excuse any grammatical, word or spelling errors. Time with Patient: Less than 30
--- NOTE | 2024-01-31 13:51 | P.DS ---
Providers Date of admission: 01/15/24 13:58 Expected date of discharge: 01/30/24 Attending physician: Lobito Dahl Consults: 01/15/24 15:43 Consult Physician Urgent Consulting Provider: Deisy Johnson Consult Reason/Comments: retrosternal mass Do you want consulting provider notified?: Yes Placement Type Exists?: Yes 01/15/24 15:45 Consult Physician Urgent Consulting Provider: Narciso Bernard Consult Reason/Comments: left chest abcess Do you want consulting provider notified?: Yes Placement Type Exists?: Yes 01/22/24 09:46 Consult Physician Urgent Consulting Provider: Wilfred Solis Consult Reason/Comments: hx of drug abuse, non-compliance, bipolar, depression Do you want consulting provider notified?: Yes 01/25/24 19:10 Consult Physician Urgent Consulting Provider: Kelly Mc Consult Reason/Comments: right hip infection/ pain Do you want consulting provider notified?: Yes Primary care physician: Lobito Dahl Hospital Course: Final diagnosis Abscess to the anterior chest and retrosternal area status post I and D with MAHESH drain present. CT surgery following. Drainage tubes removed on 01/29/2024 Sepsis and bacteremia secondary to above. Cultures positive at outside hospital. Here they are negative x 72 hours. ID following cultures. On IV antibiotics per ID . Right hip pain with swelling, DVT ruled out, x-ray of hip and pelvis along with bone scan with no signs of osteomyelitis. fluid collection on the right thigh status post aspiration with interventional radiology, cultures are pending Leukocytosis Low grade fever, secondary to abscess of the chest, resolved Hyponatremia hypvolemic, improving on gentle hydration Hx polysubstance abuse with methamphetamine, marijuana and opiates on suboxone Chronic nicotine use Noncompliance with medications and follow-up GI prophylaxis: pepcid DVT prophylaxis: Subcutaneous heparin Full code Discharge disposition Patient has decided to leave AGAINST MEDICAL ADVICE. Risks versus benefits including have been discussed and patient proceeded to sign the paperwork and leave. Patient will follow-up with Dr. Dahl in the outpatient setting upon discharge. Patient is to follow-up with CT surgery as scheduled. Total time taken is greater than 35 minutes. Hospital course This is a 38-year-old male who was recently admitted with abscess to the anterior chest wall status post I&D with CT surgery and also sepsis with bacteremia. Infectious disease following and patient initially had a PICC line and was continued on cefazolin and cultures were pending from a right thigh abscess that was also noted and aspirated by interventional radiology. Staff aureus preliminary and awaiting finalized cultures. Patient is an IV drug abuser also continues on amphetamines, marijuana, crack, and reports "anything I can get my hands on" to get high. Patient was evaluated by psychiatry does not meet inpatient criteria. Patient was being scheduled to go to [facility] for continued IV antibiotic therapy and wound care and insurance authorization remained pending. Patient has been acting awkward and appeared intoxicated or high and when questioned if he was doing any illicit drug use in the room he denied and attempted to elope. Security brought him back searched his belongings and was noted to have a crack pipe, multiple used needles in his back. All of this was confiscated and patient reported he wanted to leave. Infectious disease recommended getting a 2D echo to evaluate for any vegetation. 2D echo was normal with no vegetation noted. Patient proceeded to want to leave [facility] and signed the paperwork. Please refer to other consultation notes for further HPI. Currently no reports of chest pain, shortness of breath, or palpitations. Patient is afebrile. No reports of nausea or vomiting and patient is tolerating diet. Patient left AGAINST MEDICAL ADVICE. Guarded prognosis and high risk for readmissions given patient's noncompliance and continued IV drug and other illicit drug use and abuse. Physical exam: Gen: This is a 38-year-old male who is awake, alert and oriented x 3, well- developed, well-nourished, unkempt HEENT: Head is atraumatic, normocephalic. Pupils equal, round. Sclerae is anicteric. NECK: Supple. No JVD. No lymphadenopathy. No thyromegaly. LUNGS: Clear to auscultation. No wheezes or rhonchi. No intercostal retractions. HEART: Regular rate and rhythm. No murmur. ABDOMEN: Soft. Bowel sounds are present. No masses. No tenderness. EXTREMITIES: No pedal edema. No calf tenderness. NEUROLOGICAL: Patient is awake, alert and oriented x3. Cranial nerves 2 through 12 are grossly intact. Please refer to medication reconciliation sheet for a list of medications. The impression and plan of care has been dictated by Bia Vallejo, Nurse Practitioner as directed. Dr. Ann MD I have performed a history and examination and MDM of this patient, discussed the same with the dictator, and agree with the dictator's assessment and plan as written ,documented as a scribe. Based on total visit time, I have performed more than 50% of the visit. Patient Condition at Discharge: Stable Plan - Discharge Summary Discharge Rx Participant: Yes New Discharge Prescriptions: No Action No Known Home Medications Discharge Medication List No Known Home Medications 01/15/24 [History] Follow up Appointment(s)/Referral(s): Kelly Mc DO [Doctor of Osteopathic Medicine] - As Needed Kulwinder Ceballos MD [STAFF PHYSICIAN] - 10 Days Discharge/Stand Alone Forms: [facility] Pham, Outpatient Counseling, In Substance Abuse Facilities Discharge Disposition: LEFT AGAINST MEDICAL ADVICE
== END 2024-01-30 20:03 | disposition left against medical advice (07) | DRG 710 ==
LOC: 3SCARD 13:58 → UNDODISIN 01-16 09:16 → 4SSUR 01-22 09:52
PROVIDERS: ADMIT Family Medicine; ATTEND Family Medicine
PROC: 0KBH0ZZ Excision of Right Thorax Muscle, Open Approach (ICD-10-PCS; principal; 2024-01-16 07:30)
PROC: 05HB33Z Insertion of Infusion Device into Right Basilic Vein, Percutaneous Approach (ICD-10-PCS; 2024-01-21)
PROC: 0J9L3ZZ Drainage of Right Upper Leg Subcutaneous Tissue and Fascia, Percutaneous Approach (ICD-10-PCS; 2024-01-28)
DX: A41.9 Sepsis, unspecified organism (principal); E87.1 Hypo-osmolality and hyponatremia; F17.200 Nicotine dependence, unspecified, uncomplicated; F19.10 Other psychoactive substance abuse, uncomplicated; M79.89 Other specified soft tissue disorders; F31.9 Bipolar disorder, unspecified; F15.10 Other stimulant abuse, uncomplicated; F11.10 Opioid abuse, uncomplicated; F41.9 Anxiety disorder, unspecified; J85.3 Abscess of mediastinum; L02.213 Cutaneous abscess of chest wall; L03.90 Cellulitis, unspecified; Z53.29 Procedure and treatment not carried out because of patient's decision for other reasons; Z91.148 Patient's other noncompliance with medication regimen for other reason; Z91.199 Patient's noncompliance with other medical treatment and regimen due to unspecified reason; Z28.310 Unvaccinated for COVID-19
CPT/HCPCS: 10030; 36573; 71045; 73502; 76942; 78315; 80048; 80053; 80074; 80202; 80306; 81001; 82565; 83605; 83735; 84145; 85025; 85027; 85610; 85652; 86140; 86695; 86696; 86780; 86850; 86900; 86901; 86920; 87040; 87070; 87075; 87077; 87102; 87116; 87186; 87205; 87206; 87390; 87491; 87591; 88304; 93005; 93306; 94760

== ENCOUNTER → 2024-06-03 | Outpatient (CLI) | payer OTHER ==
--- NOTE | 2024-06-03 14:07 | CT ---
EXAMINATION TYPE: CT pelvis w con CT DLP: 372.3 mGycm, Automated exposure control for dose reduction was used. DATE OF EXAM: 06/03/2024 1:59 PM COMPARISON: Ultrasound guided soft tissue drainage 01/28/2024, CT right hip and lower extremity 024 CLINICAL INDICATION:Male, 38 years old with history of EZEQUIEL PELVIS AND LEFT HIP CT; L02.91 Abscess; F /U LEFT SIDE ABSCESS/ STILL HAVING PAIN TECHNIQUE: Standard CT of the pelvis following the administration of 100 cc of Isovue [address] material. Coronal and sagittal reformats were performed. FINDINGS: BLADDER: Underdistended, limiting evaluation. REPRODUCTIVE: Unremarkable. BOWEL: No evidence of bowel obstruction. No focal bowel wall thickening or surrounding inflammatory c hanges. The appendix is within normal limits. PERITONEUM: No evidence of pneumoperitoneum or free fluid. VASCULATURE: Unremarkable. MUSCULOSKELETAL: No acute osseous abnormalities. LYMPH NODES: No evidence for lymphadenopathy. SOFT TISSUE/ABDOMINAL WALL: Resolution of previously demonstrated right hip/thigh soft tissue fluid c ollection. No definitive fluid collection within the region of the left hip. IMPRESSION: No CT evidence for an acute process. Resolution of the previously seen right hip/thigh soft tissue fl uid collection. No distinct left pelvis/hip fluid collection. [facility], , 06/03/2024 2:04 PM
== END | disposition home or self-care (01) ==
LOC: RADCTMAIN 13:01
PROVIDERS: ATTEND Family Medicine
DX: L02.91 Cutaneous abscess, unspecified (principal); M79.662 Pain in left lower leg; Z87.898 Personal history of other specified conditions
CPT/HCPCS: 72193; Q9967